=== PATIENT | female | born 1990 | race Two or more races ===

== ENCOUNTER 2022-12-31 00:52 | Emergency (ER) | payer MEDICAID, SELFPAY ==
[2022-12-31 00:55] VITALS: BP 123/89; PULSE 94; RESP 16; TEMP 36.7; O2SAT 99; BMI 38.3
--- NOTE | 2022-12-31 01:11 | PC.NURSE ---
Pt presents to ER for abdominal cramping and nausea Pt states she estimates that she is about 6 weeks and since day has been vomiting often Pt states that yesterday she started experiencing some abdominal cramping and left sided flank pain Pt states this is her second She has not yet seen an OBGYN, an at home test has confirmed this Pt states she was very nauseous with her last as well
[2022-12-31 01:16] LABS: Basophils Percent Auto 0.3 % (0.2-2.0); Eosinophils Percent Auto 0.3 % (0.9-7.0); Hematocrit 39.7 % (36.0-48.0); Hemoglobin 13.6 g/dL (12.0-16.0); Immature Granulocytes Abs Auto 0.03 10^3/uL (0.00-0.03); Immature Granulocytes Pct Auto 0.3 % (0.0-0.5); Lymphocytes Absolute Auto 2.4 10^3/uL (1.2-3.8); Lymphocytes Percent Auto 20.7 % (20.5-60.0); Mean Corpuscular HGB Conc 34.3 g/dL (29.9-35.2); Mean Corpuscular Hemoglobin 30.2 pg (26.7-34.0); Mean Corpuscular Volume 88.2 fL (81.0-99.0); Mean Platelet Volume 11.1 fL (9.5-13.5); Monocytes Absolute Auto 0.5 10^3/uL (0.3-0.8); Monocytes Percent Auto 3.9 % (1.7-12.0); Neutrophils Absolute Auto 8.5 10^3/uL (1.4-6.5); Neutrophils Percent Auto 74.5 % (43.0-75.0); Platelet Count 353 10^3/uL (150-450); Red Cell Distribution Width 12.1 % (11.0-15.0); White Blood Count 11.5 10^3/uL (4.0-11.0)
[2022-12-31 01:47] LABS: Anion Gap 13.6; BUN Creatinine Ratio 10.2; Calcium 8.9 mg/dL (8.5-10.1); Chloride 100 mmol/L (98-107); Estimated GFR (African America >60 (>=60); Estimated GFR (Non-African Ame >60 (>=60); Glucose 103 mg/dL (74-106); HCG Quantitative 15144 mIU/mL; Potassium 3.6 mmol/L (3.5-5.1); Sodium 132 mmol/L (136-145)
[2022-12-31] MEDS: ONDANSETRON PF 4 MG/2 ML VIAL IV (01:53)
[2022-12-31] MEDS: 0.9 % SODIUM CHLORIDE 1,000 ML 999 ML IV (01:53)
--- NOTE | 2022-12-31 01:53 | US_ITS ---
[address] [address] Patient Name: ZULEYKA COBOS MRN: [id number] date: 1990 Sex: F Assigned Patient Location: ER Current Patient Location: ER Accession/Order Number: [id number] Exam Date: 12/31/2022 02:20 Report Date: 12/31/2022 03:13 At the request of: NELSY SHAVER Procedure: US OB transvaginal EXAM: US OB transvaginal HISTORY: left pelvic pain, r/o ectopic COMPARISON: None. TECHNIQUE: Transabdominal ultrasound of the pelvis was performed using color Doppler. FINDINGS: Ultrasound images demonstrate a gravid uterus with a gestational sac with a mean sac diameter of 1.1 cm, indicative of a 5 week 2 day gestation. Within the gestational sac is a well-defined embryo with a crown rump length measuring 0.3 cm indicative of a 5 week 6 day gestation. A cardiac flicker is seen. The placenta is not yet visible due to the early gestational age. The amniotic fluid is unable to be assessed due to the early gestational age. The cervix is closed measuring up to 4.9 cm in length. There is a possible small amount of subchorionic hemorrhage measuring up to 0.8 x 0.5 cm. The right ovary measures up to 1.9 x 2.6 x 1.4 cm, and the left ovary measures up to 2.3 x 2.6 x 2.6 cm. There is a complex cystic area within the left ovary most likely representing a corpus luteal cyst of . Blood flow is noted in both ovaries. No free fluid is noted within the cul-de-sac. US/US OB transvaginal IMPRESSION: 1. Single live intrauterine gestation at approximately 5 weeks 6 days. There is a possible small amount of subchorionic hemorrhage. Recommend follow-up beta hCG and serial ultrasound examinations as clinically indicated. Electronically authenticated by: Anneliese SHINE Date: 12/31/2022 03:13
--- NOTE | 2022-12-31 01:55 | ED.GENADUL1 ---
HPI - General Adult General Chief complaint: Nausea/Vomiting/Diarrhea Stated complaint: 6WKS PREG CRAMPS VOMITING Time Seen by Provider: 12/31/22 00:54 Source: patient Mode of arrival: walk-in Limitations: no limitations History of Present Illness HPI narrative: 32-year-old female to the emergency department with chief complaint nausea without vomiting and left-sided pelvic pain. Patient reports that she is currently six weeks . . She has not had any vaginal bleeding. She has not yet seen her OB or head confirmed IUP. She reports over the last twenty-four hours she has developed a pain in her left pelvic region. He has not had this previously. She denies any dysuria, urgency, frequency, hematuria. She reports normal bowel movements. She denies any abdominal pain. She's been persistently nauseous throughout the day for the last several days which she attributes to the , had similar symptoms with previous . She reports she is not eating or drinking much and feels weak. Related Data Previous Rx's Medication Instructions Recorded ondansetron 4 mg disintegrating 4 mg PO Q8H PRN nausea and 12/31/22 tablet vomiting 4 days #16 tabs Allergies Allergy/AdvReac Type Severity Reaction Status Date / Time No Known Drug Allergies Allergy Verified 12/31/22 00:59 Review of Systems ROS Status of ROS 10 or more systems reviewed and unremarkable except as noted in history and below [facility] Social History Smoking status: Never smoker Exam Narrative Exam Narrative: VITALS: I have reviewed the triage vital signs. GENERAL: Well developed, well appearing adult in no acute distress. NEURO: Alert and oriented. Moves all extremities. Face is symmetric and expressive. EYES: PERRL. No scleral icterus or conjunctival injection. No discharge. HENT: Normocephalic, atraumatic. Hearing is grossly intact. Nares grossly patent and without discharge. Mucous membranes moist. NECK: No JVD. Patient moves neck without restriction. CARDIO: Rhythm regular. Normal rate. No murmur, rub, or gallop. Pulses equal bilaterally in the upper and lower extremity. No lower extremity edema. PULM: Lungs clear to auscultation in all [place]. No wheezes, rales, or rhonchi. No conversational dyspnea. No splinting, stridor, or accessory muscle use. GI/: Abdomen is soft and non-tender. Normoactive bowel sounds. EXTREMITIES: Symmetric muscle bulk. No joint swelling. No clubbing, cyanosis, or deformity. SKIN: Warm and dry. Normal turgor. No rash or lesions appreciated. PSYCH: Mood, affect, and interaction is appropriate to the setting. Constitutional Vital Signs, click to edit/add: Last Vital Signs Temp 98.1 F 12/31/22 00:55 Pulse 94 H 12/31/22 00:55 Resp 16 12/31/22 00:55 BP 123/89 12/31/22 00:55 Pulse Ox 99 12/31/22 00:55 O2 Del Method Room Air 12/31/22 00:55 Course Vital Signs Vital signs: Vital Signs Temperature 98.1 F 12/31/22 00:55 Pulse Rate 94 H 12/31/22 00:55 Respiratory Rate 16 12/31/22 00:55 Blood Pressure 123/89 12/31/22 00:55 Pulse Oximetry 99 12/31/22 00:55 Oxygen Delivery Method Room Air 12/31/22 00:55 Temperature 98.1 F 12/31/22 00:55 Pulse Rate 94 H 12/31/22 00:55 Respiratory Rate 16 12/31/22 00:55 Blood Pressure 123/89 12/31/22 00:55 Pulse Oximetry 99 12/31/22 00:55 Oxygen Delivery Method Room Air 12/31/22 00:55 Medical Decision Making [facility] Narrative Medical decision making narrative: 32-year-old female to the emergency department with chief complaint of left pelvic pain. Nausea this 1st trimester . Stable, patient is afebrile. Six weeks by FDLMP. Basic labs, quantitative hCG are ordered. Zofran for nausea and fluids. Patient agrees with this plan. CBC and chemistry about major abnormality. Her hCG is consistent with stated gestation. Ultrasound is ordered to rule out ectopic. US shows IUP, no ectopic. UA unremarkable. Zofran prescribed. Follow-up with OB. Return discussed. All questions are answered. Patient was discharged home. Medical Records Medical records reviewed: Yes I reviewed the patient's medical records Lab Data Lab results reviewed: Yes I reviewed the patient's lab results Labs: Lab Results 12/31/22 12/31/22 Range/Units 01:00 04:00 WBC 11.5 H (4.0-11.0) 10^3/uL RBC 4.50 (4.20-5.40) 10^6/uL Hgb 13.6 (12.0-16.0) g/dL Hct 39.7 (36.0-48.0) % MCV 88.2 (81.0-99.0) fL MCH 30.2 (26.7-34.0) pg MCHC 34.3 (29.9-35.2) g/dL RDW 12.1 (11.0-15.0) % Plt Count 353 (150-450) 10^3/uL MPV 11.1 (9.5-13.5) fL Neut % (Auto) 74.5 (43.0-75.0) % Lymph % (Auto) 20.7 (20.5-60.0) % [place] % (Auto) 3.9 (1.7-12.0) % Eos % (Auto) 0.3 L (0.9-7.0) % Baso % (Auto) 0.3 (0.2-2.0) % Neut # (Auto) 8.5 H (1.4-6.5) 10^3/uL Lymph # (Auto) 2.4 (1.2-3.8) 10^3/uL [place] # (Auto) 0.5 (0.3-0.8) 10^3/uL Eos # (Auto) 0.0 (0.0-0.7) 10^3/uL Baso # (Auto) 0.0 (0.0-0.1) 10^3/uL Abs Immat Gran (auto) 0.03 (0.00-0.03) 10^3/uL Imm/Tot Granulo (auto) 0.3 (0.0-0.5) % Sodium 132 L (136-145) mmol/L Potassium 3.6 (3.5-5.1) mmol/L Chloride 100 (98-107) mmol/L Carbon Dioxide 22.0 (21.0-32.0) mmol/L Anion Gap 13.6 BUN 10.0 (7.0-18.0) mg/dL Creatinine 0.98 (0.55-1.02) mg/dL Est GFR ( Amer) >60 (>=60) Est GFR (Non-Af Amer) >60 (>=60) BUN/Creatinine Ratio 10.2 Glucose 103 (74-106) mg/dL Calcium 8.9 (8.5-10.1) mg/dL HCG, Quant 27979 mIU/mL Urine Color Yellow (YELLOW) Urine Clarity Clear (CLEAR) Urine pH 6.0 (5.0-9.0) Ur Specific [place] >=1.030 A (1.005-1.025) Urine Protein Negative (NEG/TRACE) mg/dL Urine Glucose (UA) Negative (NEGATIVE) mg/dL Urine Ketones 40 A (NEGATIVE) mg/dL Urine Occult Blood Negative (NEGATIVE) Urine Nitrite Negative (NEGATIVE) Urine Bilirubin Negative (NEGATIVE) Urine Urobilinogen 0.2 (0.2-1.0) EU/dL Ur Leukocyte Esterase Negative (NEGATIVE) Urine RBC 2-5 A (0-2) #/HPF Urine WBC 5-10 A (NONE SEEN) #/HPF Ur Squamous Epith Cells Many A (NONE/RARE) #/LPF Urine Crystals None seen (None Seen) #/HPF Urine Bacteria Large A (NONE SEEN) #/HPF Urine Casts None seen (NONE SEEN) #/LPF Urine Mucus None seen (NONE SEEN) Ur Culture Indicated? Yes Imaging Data US - abdomen: Attestation: I have reviewed the pertinent imaging results. Discharge Plan Discharge Chief Complaint: Nausea/Vomiting/Diarrhea Clinical Impression: Nausea and vomiting during Patient Disposition: Home, Self-Care Time of Disposition Decision: 04:18 Condition: Good Mode of Transportation: Private Vehicle Prescriptions / Home Meds: New ondansetron 4 mg tablet,disintegrating 4 mg PO Q8H PRN (Reason: nausea and vomiting) 4 Days Qty: 16 0RF Print Language: Thai Instructions: Nausea and Vomiting in (ED) Stand Alone Forms: Portal Instructions Referrals: MIGUEL MAX [Primary Care Provider] - 1 week
[2022-12-31 04:09] LABS: Bilirubin Urine NEGATIVE (NEGATIVE); Blood Urine NEGATIVE (NEGATIVE); Clarity Urine CLEAR (CLEAR); Color Urine YELLOW (YELLOW); Glucose Urine UA NEGATIVE (NEGATIVE); Ketones Urine 40 mg/dL (NEGATIVE); Leukocyte Esterase Urine NEGATIVE (NEGATIVE); Nitrite Urine NEGATIVE (NEGATIVE); Protein Urine NEGATIVE (NEG/TRACE); Specific Gravity Urine >=1.030 (1.005-1.025); Urobilinogen Urine 0.2 EU/dL (0.2-1.0)
[2022-12-31 04:16] LABS: Bacteria Urine LARGE #/HPF (NONE SEEN); Cast Seen? NONE SEEN #/LPF (NONE SEEN); Crystals Seen? None Seen #/HPF (None Seen); Mucus Urine NONE SEEN (NONE SEEN); Squamous Epithelial Cell Urine MANY #/LPF (NONE/RARE); Urine Culture Indicated YES
== END 2022-12-31 04:43 | disposition home or self-care (01) ==
PROVIDERS: Emergency Provider Student in an Organized Health Care Education/Training Program; PCP Nurse Practitioner Family
DX: O26.891 Other specified pregnancy related conditions, first trimester (principal); R11.2 Nausea with vomiting, unspecified; Z3A.01 Less than 8 weeks gestation of pregnancy
CPT/HCPCS: 36415; 76817; 80048; 81001; 84702; 85025; 87086; 96361; 96374; 99285

== ENCOUNTER 2023-01-04 23:09 | Emergency (ER) | payer MEDICAID, SELFPAY ==
[2023-01-04 23:13] VITALS: BP 157/93; PULSE 89; RESP 16; TEMP 36.6; O2SAT 99; BMI 38.3
--- NOTE | 2023-01-04 23:30 | ED_ITS ---
HPI - General Chief complaint: Nausea/Vomiting/Diarrhea Stated complaint: VOMITING/CRAMPING 7WKS PREG Time Seen by Provider: 01/04/23 23:22 Source: patient Mode of arrival: walk-in History of Present Illness HPI Narrative: 32-year-old female who is approximately six weeks presents for some vomiting and cramping. She has been on Zofran and hasn't been having good bowel movements. She feels constipated. No fever or vaginal bleeding. Her 1st appointment with her OB is in about ten days. Related Data Previous Rx's Medication Instructions Recorded ondansetron 4 mg disintegrating 4 mg PO Q8H PRN nausea and 12/31/22 tablet vomiting 4 days #16 tabs doxylamine 10 mg-pyridoxine (vit 1 tab PO TID PRN nausea #30 tabs 01/04/23 B6) 10 mg tablet,delayed release (Diclegis) Allergies Allergy/AdvReac Type Severity Reaction Status Date / Time No Known Drug Allergies Allergy Verified 12/31/22 00:59 Review of Systems ROS Narrative A ten point review of systems is negative except as noted above. PFSH PFSH Social History Smoking status: Never smoker Exam Narrative Exam Narrative: Nurses note and vital signs reviewed and patient is not hypoxic. General: The patient appears well and in no apparent distress. Patient is resting comfortably on cart. Skin: Warm, dry, no pallor noted. There is no rash noted. Head: Normocephalic, atraumatic Eye: Normal conjunctiva, no drainage Ears, Nose, Mouth, and Throat: oral mucosa is moist. Nares patent. Cardiovascular: Regular Rate and Rhythm Respiratory: Patient is in no distress, no accessory muscle use, lungs are clear to auscultation, no wheezing, rales or rhonchi Back: non-tender GI: Normal bowel sounds, no tenderness to palpation, no masses appreciated. No rebound, guarding, or rigidity noted. Musculoskeletal: The patient has no evidence of calf tenderness, no pitting edema, symmetrical pulses noted bilaterally Neurological: A&O, normal speech Psychiatric: Cooperative Constitutional Vital Signs, click to edit/add: Last Vital Signs Temp 97.8 F 01/04/23 23:13 Pulse 89 01/04/23 23:13 Resp 16 01/04/23 23:13 BP 157/93 H 01/04/23 23:13 Pulse Ox 99 10/08/23 23:13 O2 Del Method Room Air 01/04/23 23:13 Course Vital Signs Vital signs: Vital Signs Temperature 97.8 F 01/04/23 23:13 Pulse Rate 89 01/04/23 23:13 Respiratory Rate 16 01/04/23 23:13 Blood Pressure 157/93 H 01/04/23 23:13 Pulse Oximetry 99 01/04/23 23:13 Oxygen Delivery Method Room Air 01/04/23 23:13 Temperature 97.8 F 01/04/23 23:13 Pulse Rate 89 01/04/23 23:13 Respiratory Rate 16 01/04/23 23:13 Blood Pressure 157/93 H 01/04/23 23:13 Pulse Oximetry 99 01/04/23 23:13 Oxygen Delivery Method Room Air 01/04/23 23:13 MDM - OB/Uterine Contractions MDM Narrative Medical decision making narrative: The patient does not have a urinary tract infection. My clinical impression is that she is constipated from the Zofran which she will discontinue. She was prescribed Diclegis instead. MiraLAX was also recommended. Differential Diagnosis Differential diagnosis: Likely other (constipation, urinary tract infection) Lab Data Attestation: I reviewed the patient's lab results. Labs: Lab Results 01/04/23 Range/Units 23:35 Urine Color Yellow (YELLOW) Urine Clarity Clear (CLEAR) Urine pH 7.0 (5.0-9.0) Ur Specific [place] 1.020 (1.005-1.025) Urine Protein 30 A (NEG/TRACE) mg/dL Urine Glucose (UA) Negative (NEGATIVE) mg/dL Urine Ketones Trace A (NEGATIVE) mg/dL Urine Occult Blood Negative (NEGATIVE) Urine Nitrite Negative (NEGATIVE) Urine Bilirubin Small A (NEGATIVE) Urine Urobilinogen 0.2 (0.2-1.0) EU/dL Ur Leukocyte Esterase Negative (NEGATIVE) Urine RBC 0-2 (0-2) #/HPF Urine WBC 2-5 A (NONE SEEN) #/HPF Ur Squamous Epith Cells Few A (NONE/RARE) #/LPF Urine Crystals None seen (None Seen) #/HPF Urine Bacteria Large A (NONE SEEN) #/HPF Urine Casts None seen (NONE SEEN) #/LPF Urine Mucus Moderate A (NONE SEEN) Ur Culture Indicated? Yes Discharge Plan Discharge Chief Complaint: Nausea/Vomiting/Diarrhea Clinical Impression: Constipation Patient Disposition: Home, Self-Care Time of Disposition Decision: 23:53 Condition: Good Mode of Transportation: Private Vehicle Prescriptions / Home Meds: New doxylamine-pyridoxine (vit B6) [Diclegis] 10-10 mg tablet,delayed release (DR/EC) 1 tab PO TID PRN (Reason: nausea) Qty: 30 0RF No Action ondansetron 4 mg tablet,disintegrating 4 mg PO Q8H PRN (Reason: nausea and vomiting) 4 Days Qty: 16 0RF Instructions: Constipation (ED) Additional Instructions: Discontinue Zofran Use [id number] MiraLAX for constipation Stand Alone Forms: Portal Instructions Referrals: MIGUEL MAX [Primary Care Provider] - 1 week
[2023-01-04 23:45] LABS: Bilirubin Urine SMALL (NEGATIVE); Blood Urine NEGATIVE (NEGATIVE); Clarity Urine CLEAR (CLEAR); Color Urine YELLOW (YELLOW); Glucose Urine UA NEGATIVE (NEGATIVE); Ketones Urine TRACE mg/dL (NEGATIVE); Leukocyte Esterase Urine NEGATIVE (NEGATIVE); Nitrite Urine NEGATIVE (NEGATIVE); Protein Urine 30 mg/dL (NEG/TRACE); Urobilinogen Urine 0.2 EU/dL (0.2-1.0)
[2023-01-04 23:53] LABS: Bacteria Urine LARGE #/HPF (NONE SEEN); Cast Seen? NONE SEEN #/LPF (NONE SEEN); Crystals Seen? None Seen #/HPF (None Seen); Mucus Urine MODERATE (NONE SEEN); RBC Urine 0-2 #/HPF (0-2); Squamous Epithelial Cell Urine FEW #/LPF (NONE/RARE); Urine Culture Indicated YES
== END 2023-01-05 00:04 | disposition home or self-care (01) ==
PROVIDERS: Emergency Provider Emergency Medicine; PCP Nurse Practitioner Family
DX: O26.891 Other specified pregnancy related conditions, first trimester (principal); K59.00 Constipation, unspecified; Z3A.01 Less than 8 weeks gestation of pregnancy
CPT/HCPCS: 81001; 87086; 87150; 99283

== ENCOUNTER 2023-01-18 15:52 | Emergency (ER) | payer MEDICAID, SELFPAY ==
[2023-01-18 15:55] VITALS: BP 130/78; PULSE 92; RESP 16; TEMP 36.8; O2SAT 99; BMI 36.8
--- NOTE | 2023-01-18 16:09 | ED.NAVMDI1 ---
HPI - Nausea/Vomiting/Diarrhea General Chief complaint: Nausea/Vomiting/Diarrhea Stated complaint: - Less then 20 wks, Nausea/Vomiting Time Seen by Provider: 01/18/23 15:53 Source: patient Mode of arrival: walk-in Limitations: no limitations History of Present Illness HPI Narrative: Patient is a 32 year old female at approximately 8 weeks of who returns to the ED for the third time in 2 weeks for nausea and vomiting. Patient had an ultrasound showing a viable IUP at 6 weeks on 01/30/23. She states she has continued to have nausea and vomiting for several weeks, made worse by zofran she was prescribed. She states her OB prescribed a different medication that was not approved by insurance. She has had no significant abdominal pain, no diarrhea, no vaginal bleeding or fluid leakage. No urinary symptoms. No other medications taken prior to arrival. Related Data Previous Rx's Medication Instructions Recorded ondansetron 4 mg disintegrating 4 mg PO Q8H PRN nausea and 12/31/22 tablet vomiting 4 days #16 tabs doxylamine 10 mg-pyridoxine (vit 1 tab PO TID PRN nausea #30 tabs 01/04/23 B6) 10 mg tablet,delayed release (Diclegis) metoclopramide HCl 10 mg tablet 10 mg PO Q6H PRN nausea and 01/18/23 (Reglan) vomiting #12 tabs Allergies Allergy/AdvReac Type Severity Reaction Status Date / Time No Known Drug Allergies Allergy Verified 12/31/22 00:59 Review of Systems ROS Constitutional Denies: fever or chills Ears, nose, mouth, and throat Denies: dry mouth Cardiovascular Denies: chest pain Respiratory Denies: shortness of breath or cough Gastrointestinal Reports: nausea and vomiting; Denies: abdominal pain or diarrhea Genitourinary Denies: painful urination Integumentary/Breast Denies: rash Neurological Reports: headache PFSH PFSH Social History Smoking status: Never smoker Exam Narrative Exam Narrative: Gen.: Awake, alert, in no distress Head: Normocephalic, atraumatic ENT: Moist mucous membranes Respiratory: No respiratory distress Gastrointestinal: Abdomen is soft, nondistended and nontender to palpation Extremities: Moves extremities equally Psych: Normal mood and affect Neuro: No focal neuro deficit Skin: Warm, dry, intact Constitutional Vital Signs, click to edit/add: Last Vital Signs Temp 98.2 F 01/18/23 15:55 Pulse 88 01/18/23 16:44 Resp 16 01/18/23 16:44 BP 111/68 01/18/23 16:44 Pulse Ox 99 01/18/23 16:44 O2 Del Method Room Air 01/18/23 16:44 Course Vital Signs Vital signs: Vital Signs Temperature 98.2 F 01/18/23 15:55 Pulse Rate 92 H 01/18/23 15:55 Respiratory Rate 16 01/18/23 15:55 Blood Pressure 130/78 01/18/23 15:55 Pulse Oximetry 99 01/18/23 15:55 Oxygen Delivery Method Room Air 01/18/23 15:55 Temperature 98.2 F 01/18/23 15:55 Pulse Rate 88 01/18/23 16:44 Respiratory Rate 16 01/18/23 16:44 Blood Pressure 111/68 01/18/23 16:44 Pulse Oximetry 99 01/18/23 16:44 Oxygen Delivery Method Room Air 01/18/23 16:44 MDM - Nausea/Vomiting/Diarrhea MDM Narrative Medical decision making narrative: patient's previous urine culture was positive for group B strep, she was treated with Keflex per pharmacy records patient treated with IV fluids, Reglan, Benadryl. Lab studies are unremarkable, minimal hyponatremia has improved. patient reports feeling better, she is able to tolerate ice chips in the Emergency Room. She will be discharged with Reglan to follow-up with her [employer]. Abdomen is soft and benign with stable vital signs in the Emergency Room discharge. Return to the Emergency Room if symptoms change or worsen. Medical Records Attestation: I reviewed the patient's medical records. Lab Data Attestation: I reviewed the patient's lab results. Labs: Lab Results 01/18/23 01/18/23 Range/Units 16:10 16:41 WBC 9.4 (4.0-11.0) 10^3/uL RBC 4.32 (4.20-5.40) 10^6/uL Hgb 13.2 (12.0-16.0) g/dL Hct 38.8 (36.0-48.0) % MCV 89.8 (81.0-99.0) fL MCH 30.6 (26.7-34.0) pg MCHC 34.0 (29.9-35.2) g/dL RDW 11.9 (11.0-15.0) % Plt Count 337 (150-450) 10^3/uL MPV 11.2 (9.5-13.5) fL Neut % (Auto) 81.8 H (43.0-75.0) % Lymph % (Auto) 13.7 L (20.5-60.0) % [place] % (Auto) 3.4 (1.7-12.0) % Eos % (Auto) 0.6 L (0.9-7.0) % Baso % (Auto) 0.3 (0.2-2.0) % Neut # (Auto) 7.7 H (1.4-6.5) 10^3/uL Lymph # (Auto) 1.3 (1.2-3.8) 10^3/uL [place] # (Auto) 0.3 (0.3-0.8) 10^3/uL Eos # (Auto) 0.1 (0.0-0.7) 10^3/uL Baso # (Auto) 0.0 (0.0-0.1) 10^3/uL Abs Immat Gran (auto) 0.02 (0.00-0.03) 10^3/uL Imm/Tot Granulo (auto) 0.2 (0.0-0.5) % Sodium 135 L (136-145) mmol/L Potassium 3.6 (3.5-5.1) mmol/L Chloride 100 (98-107) mmol/L Carbon Dioxide 24.7 (21.0-32.0) mmol/L Anion Gap 13.9 BUN 12.0 (7.0-18.0) mg/dL Creatinine 0.86 (0.55-1.02) mg/dL Est GFR ( Amer) >60 (>=60) Est GFR (Non-Af Amer) >60 (>=60) BUN/Creatinine Ratio 14.0 Glucose 93 (74-106) mg/dL Calcium 9.0 (8.5-10.1) mg/dL Total Bilirubin 0.5 (0.2-1.0) mg/dL AST 8 L (15-37) U/L ALT 22 (14-59) U/L Alkaline Phosphatase 77 (46-116) U/L Total Protein 7.8 (6.4-8.2) g/dL Albumin 3.4 (3.4-5.0) g/dL Globulin 4.4 g/dL Albumin/Globulin Ratio 0.8 Urine Color Dk. yellow (YELLOW) Urine Clarity Slightly cloudy A (CLEAR) Urine pH 6.0 (5.0-9.0) Ur Specific [place] >=1.030 A (1.005-1.025) Urine Protein 100 A (NEG/TRACE) mg/dL Urine Glucose (UA) Negative (NEGATIVE) mg/dL Urine Ketones >=80 A (NEGATIVE) mg/dL Urine Occult Blood Negative (NEGATIVE) Urine Nitrite Negative (NEGATIVE) Urine Bilirubin Moderate A (NEGATIVE) Urine Urobilinogen 1.0 (0.2-1.0) EU/dL Ur Leukocyte Esterase Negative (NEGATIVE) Urine RBC None seen (0-2) #/HPF Urine WBC 0-2 A (NONE SEEN) #/HPF Ur Squamous Epith Cells Moderate A (NONE/RARE) #/LPF Urine Crystals None seen (None Seen) #/HPF Urine Bacteria Moderate A (NONE SEEN) #/HPF Urine Casts None seen (NONE SEEN) #/LPF Urine Mucus Moderate A (NONE SEEN) Ur Culture Indicated? Yes Discharge Plan Discharge Chief Complaint: Nausea/Vomiting/Diarrhea Clinical Impression: Nausea and vomiting during Patient Disposition: Home, Self-Care Time of Disposition Decision: 17:14 Condition: Good Prescriptions / Home Meds: New metoclopramide HCl [Reglan] 10 mg tablet 10 mg PO Q6H PRN (Reason: nausea and vomiting) Qty: 12 0RF No Action doxylamine-pyridoxine (vit B6) [Diclegis] 10-10 mg tablet,delayed release (DR/EC) 1 tab PO TID PRN (Reason: nausea) Qty: 30 0RF ondansetron 4 mg tablet,disintegrating 4 mg PO Q8H PRN (Reason: nausea and vomiting) 4 Days Qty: 16 0RF Instructions: Nausea and Vomiting in (ED) Additional Instructions: Follow up with your OB as scheduled Stand Alone Forms: Portal Instructions Referrals: MIGUEL MAX [Primary Care Provider] - 1 week
[2023-01-18 16:19] LABS: Basophils Percent Auto 0.3 % (0.2-2.0); Eosinophils Absolute Auto 0.1 10^3/uL (0.0-0.7); Eosinophils Percent Auto 0.6 % (0.9-7.0); Hematocrit 38.8 % (36.0-48.0); Hemoglobin 13.2 g/dL (12.0-16.0); Immature Granulocytes Abs Auto 0.02 10^3/uL (0.00-0.03); Immature Granulocytes Pct Auto 0.2 % (0.0-0.5); Lymphocytes Absolute Auto 1.3 10^3/uL (1.2-3.8); Lymphocytes Percent Auto 13.7 % (20.5-60.0); Mean Corpuscular Hemoglobin 30.6 pg (26.7-34.0); Mean Corpuscular Volume 89.8 fL (81.0-99.0); Mean Platelet Volume 11.2 fL (9.5-13.5); Monocytes Absolute Auto 0.3 10^3/uL (0.3-0.8); Monocytes Percent Auto 3.4 % (1.7-12.0); Neutrophils Absolute Auto 7.7 10^3/uL (1.4-6.5); Neutrophils Percent Auto 81.8 % (43.0-75.0); Platelet Count 337 10^3/uL (150-450); Red Blood Count 4.32 10^6/uL (4.20-5.40); Red Cell Distribution Width 11.9 % (11.0-15.0); White Blood Count 9.4 10^3/uL (4.0-11.0)
[2023-01-18] MEDS: DIPHENHYDRAMINE HCL 50 MG/ML (1ML) VIAL 25 MG IV (16:28)
[2023-01-18] MEDS: METOCLOPRAMIDE HCL 10 MG/2 ML VIAL INJ (16:29)
[2023-01-18 16:33] LABS: Alanine Aminotransferase 22 U/L (14-59); Albumin Globulin Ratio 0.8; Albumin Level 3.4 g/dL (3.4-5.0); Alkaline Phosphatase 77 U/L (46-116); Anion Gap 13.9; Aspartate Amino Transferase 8 U/L (15-37); Bilirubin Total 0.5 mg/dL (0.2-1.0); Carbon Dioxide 24.7 mmol/L (21.0-32.0); Chloride 100 mmol/L (98-107); Estimated GFR (African America >60 (>=60); Estimated GFR (Non-African Ame >60 (>=60); Globulin 4.4 g/dL; Glucose 93 mg/dL (74-106); Potassium 3.6 mmol/L (3.5-5.1); Sodium 135 mmol/L (136-145); Total Protein 7.8 g/dL (6.4-8.2)
[2023-01-18 16:44] VITALS: BP 111/68; PULSE 88; RESP 16; O2SAT 99
[2023-01-18 16:48] LABS: Bilirubin Urine MODERATE (NEGATIVE); Blood Urine NEGATIVE (NEGATIVE); Color Urine DK. YELLOW (YELLOW); Glucose Urine UA NEGATIVE (NEGATIVE); Ketones Urine >=80 mg/dL (NEGATIVE); Leukocyte Esterase Urine NEGATIVE (NEGATIVE); Nitrite Urine NEGATIVE (NEGATIVE); Protein Urine 100 mg/dL (NEG/TRACE); Specific Gravity Urine >=1.030 (1.005-1.025)
[2023-01-18 16:49] LABS: Clarity Urine SLIGHTLY CLOUDY (CLEAR); Urine Microscopic Indicated YES
[2023-01-18 16:54] LABS: Bacteria Urine MODERATE #/HPF (NONE SEEN); Crystals Seen? None Seen #/HPF (None Seen); Mucus Urine MODERATE (NONE SEEN); RBC Urine NONE SEEN #/HPF (0-2); Squamous Epithelial Cell Urine MODERATE #/LPF (NONE/RARE); WBC Urine 0-2 #/HPF (NONE SEEN)
[2023-01-18 16:55] LABS: Cast Seen? NONE SEEN #/LPF (NONE SEEN); Urine Culture Indicated YES
== END 2023-01-18 17:25 | disposition home or self-care (01) ==
PROVIDERS: Physician Assistant; Emergency Provider Emergency Medicine; PCP Nurse Practitioner Family
DX: O26.891 Other specified pregnancy related conditions, first trimester (principal); R11.2 Nausea with vomiting, unspecified; Z3A.08 8 weeks gestation of pregnancy
CPT/HCPCS: 36415; 80053; 81001; 85025; 87086; 96372; 96374; 99285

== ENCOUNTER 2023-03-05 13:45 | Outpatient (OUT) | payer OTHER, SELFPAY ==
--- NOTE | 2023-03-05 13:47 | US_ITS ---
The [address] [address] Patient Name: ZULEYKA COBOS MRN: [id number] date: 1990 Sex: F Assigned Patient Location: US Current Patient Location: US Accession/Order Number: [id number] Exam Date: 03/05/2023 13:55 Report Date: 03/05/2023 14:45 At the request of: MIGUEL MAX Procedure: US thyroid EXAMINATION: US thyroid HISTORY: Enlarged Thyroid E04.9 COMPARISON: No relevant comparison available. TECHNIQUE: Sonographic images of the thyroid gland were obtained. FINDINGS: The right thyroid lobe is normal in size, contour and echotexture measuring 4.5 x 1.6 x 1.7 cm. Single 5 mm cystic lesion. The thyroid isthmus measures 3.4 mm. Homogeneous. No focal nodule The left thyroid lobe is normal in size, contour and echotexture measuring 4.6 x 1.2 x 1.7 cm. Single 3 mm cystic area. No significant solid thyroid nodules observed US/US thyroid IMPRESSION: Normal thyroid size with no significant solid nodules Electronically authenticated by: DALIA STUART Date: 03/05/2023 14:45
== END 2023-03-05 13:46 | disposition home or self-care (01) ==
LOC: US 13:46
PROVIDERS: PCP Nurse Practitioner Family; Visit Provider Nurse Practitioner Family
DX: E04.9 Nontoxic goiter, unspecified (principal)
CPT/HCPCS: 76536

== ENCOUNTER 2023-04-08 15:20 | Emergency (ER) | payer OTHER, SELFPAY ==
--- OUTSIDE RECORDS SUMMARY | 2023-04-08 15:30 | XMS_ITS | CCD ---
Author Name Unknown Address [address] [place] [address] Organization [facility] [place] Care Team Providers Care Route Driver Name Role Phone Sal Bautista Primary Care Provider Cynthia Amaya Unavailable Mabel Marte Unavailable RAMONA Sanders Attending Provider Abbey Sanders Unavailable SAL BAUTISTA Primary Care Physician [phone] DR MIGUEL MAX Primary Care Unavailable MARIA DEL CARMEN, DR ARTURO Reyes Admitting Unavailgrey JOYCE, DR ARTURO Reyes Attending Unavailabl e PETE ., LEONARD MUNSON Consulting UnavailSISSY Sun Consulting Unavailable NEFTALY ., BOSTON Admitting Unavailable NEFTALY ., B[place]ON Attending Unavailable MANSOOR, DR MIGUEL Eddy Primary Care Unavailable NEFTALY ., [place] Consulting Unavailable PATRICK NEW Consulting Unavailable [place], DR DALIA Macedo Consulting Unavailable NEFTALY ., B[place]ON Admitting Unavailable BOSTON AMARO Attending Unavailable MANSOOR, DR MIGUEL Eddy Primary Care Unavailable PETE .LEONARD Consulting UnavailBOSTON Peterson Consulting Unavailable MANSOOR, DR MIGUEL Eddy Primary Care Unavailable NILL ., DR HEWITT Attending Unavailable NILL ., DR HEWITT Admitting Unavailable MANSOOR, DR MIGUEL Eddy Primary Care Unavailable NILL ., DR HEWITT Admitting Unavailable NILL ., DR HEWITT Attending Unavailable NILL ., DR HEWITT Consulting Unavailable JOHN PARIKH Consulting Unavailable RONEN HAWKINS Consulting Unavailable MANSOOR, DR MIGUEL Eddy Primary Care Unavailable NICHOLAS, DR GABE Eddy Consulting Unavailable MANSOOR, DR MIGUEL Eddy Admitting Unavailable MANSOOR, DR MIGUEL Eddy Attending Unavailable MANSOOR, DR MIGUEL Eddy Consulting Unavailable SIVAKUMAR .NELSY Admitting Unavailable NELSY SALDANA Attending Unavailable PETE .LEONARD Consulting Unavailgrey MAX, DR MIGUEL Eddy Primary Care Unavailable NELSY SALDANA Consulting Unavailable OLIVIAL, Marcelina R Attending Unavailable NILL, Marcelina R Attending Unavailable NILL, Marcelina R Attending Unavailable Sanders, Abbey Sanchez Attending Unavailable Sanders, Abbey Sanchez Admitting Unavailable NO FAMILY, PHYSICIAN Primary Care Unavailable IRA TINA F Referring Unavail able FURLONG, SAL G Primary Care Unavailable IRA TIAN F Referring Unavail able FURLONG, SAL G Primary Care Unavailable Allergies Allergy Classification Reported Allergen(s) Allergy Type Date of Onset Reaction(s) Facility (1 source) No Known Medication Allergies; Translations: [No Known Medication Allergies] Propensity to adverse reactions (disorder) [facility] Repository Medications Current Medications Medication Drug Class(es) Dates Sig (Normalized) Sig (Original) acetaminophen 325 mg oral tablet (1 source) Start: 12-07-2019 take 650 mg by mouth every four hours as needed for fever, then take 4000 mg by mouth every twenty-four hours as needed for fever 650 mg, Oral, EVERY 4 HOURS PRN, Fever, Fever >100.5 F (38 C) or pain 1-10, Starting Thu12/07/19 at 2344 Maximum dose of acetaminophen is 4000 mg from all sources in 24 hours. amoxicillin 500 mg oral capsule (1 source) Penicillin-class Antibacterial Start: 07-30-2022 take 1 capsule by mouth every eight hours Amoxicillin 500 MG 1 capsule Orally three times a day for 10 day(s) July, Active benzocaine 200 mg/ml / menthol 5 mg/ml topical spray (1 source) Standardized Chemical Allergen Start: 12-08-2019 apply 1 dose topically twice daily Topical, 2 TIMES DAILY, First dose on Lou 12/08/19 at 0000 Apply to perineal area. Patient is capable and may self administer at bedside. docusate sodium 100 mg oral capsule (1 source) Start: 12-07-2019 take 100 mg by mouth twice daily as needed for constipation 100 mg, Oral, 2 TIMES DAILY PRN, Constipation, Starting Thu12/07/19 at 2344 Do not crush or break. 250 ml glucose 50 mg/ml / sodium chloride 9 mg/ml injection (1 source) Start: 05-14-2019 dextrose 5 % and 0.9 % sodium chloride infusion ibuprofen 800 mg oral tablet (1 source) Nonsteroidal Anti-inflammatory Drug Start: 12-08-2019 take 800 mg by mouth every eight hours 800 mg, Oral, EVERY 8 HOURS, First dose on Lou 12/08/19 at 0000 Do not crush or break. lansinoh lanolin ointment (1 source) Start: 12-07-2019 Topical, PRN, Dry Skin, nipple discomfort, Starting 12/07/19 at 2344, metoclopramide 10 mg oral tablet (1 source) Dopamine-2 Receptor Antagonist Start: 05-09-2019 take 1 tablet by mouth three times daily metoclopramide (REGLAN) 10 MG tablet Take 1 tablet by mouth 3 times daily 30 tablet 0 05/09/2019 Active pantoprazole 40 mg delayed release oral tablet (1 source) Proton Pump Inhibitor Start: 07-23-2022 take 1 tablet by mouth once daily Protonix 40 mg Tab-DR 40 mg = 1 tab(s), Oral, Daily, # 30 tab(s), Refills(s) 3, Pharmacy: [id number], 165, cm, 07/23/22 13:58:00 EDT, Height/Length Dosing, 104.5, kg, 07/23/22 13:58:00 EDT, Weight Dosing Start Date: 07/23/22 Status: Ordered Vit-Fe Fumarate-FA ( VITAMIN) 27-0.8 MG TABS (4 sources) take 1 tablet by mouth once daily Vit-Fe Fumarate-FA ( VITAMIN) 27-0.8 MG TABS Take 1 tablet by mouth daily 0 Active Vit-Fe Fumarate-FA ( VITAMIN) 27-0.8 MG TABS Take 1 tablet by mouth 0 Active promethazine hydrochloride 25 mg oral tablet (1 source) Phenothiazine Start: 05-02-2019 End: 06-01-2019 take 1 tablet by mouth three times daily as needed for nausea promethazine (PHENERGAN) 25 MG tablet Indications: Nausea and vomiting, intractability of vomiting not specified, unspecified vomiting type Take 1 tablet by mouth 3 times daily as needed for Nausea 30 tablet 0 05/02/2019 06/01/2019 Active 3 ml sodium chloride 9 mg/ml injection (3 sources) Start: 12-08-2019 10 mL, Intrave nous, EVERY 12 HOURS SCHEDULED (2 times per day), First dose on Thu12/08/19 at 0900, Start: 12-07-2019 take 10 mL intravenous route o nce 10 mL, Intravenous, PRN, Line Care, Starting Thu12/07/19 at 2344 After every IV line use Start: 05-14-2019 End: 05-14-2019 0.9 % sodium chloride bolus valACYclovir 1000 mg oral tablet (1 source) Herpesvirus Nucleoside Analog DNA Polymerase Inhibitor, Herpes Simplex Virus Nucleoside Analog DNA Polymerase Inhibitor, Herpes Zoster Virus Nucleoside Analog DNA Polymerase Inhibitor Start: 02-26-2021 valACYclovir HCl 1 GM 1 tablet Orally twice for 7 days 30 Jan, 2021 Active witch nick 500 mg/ml medicated pad (1 source) Start: 12-08-2019 apply 1 dose topically twice daily Topical, 2 TIMES DAILY, First dose on Thu12/08/19 at 0000 Apply to perineal area. Patient is capable and may self administer at bedside. {24 (drospirenone 4 MG Oral Tablet) / 4 (Inert Ingredients 1 MG Oral Tablet) } Pack [Slynd] (1 source) Start: 07-23-2022 take 1 tablet by mouth once daily Slynd 4 mg oral tablet 4 mg = 1 tab(s), Oral, Daily, Refills(s) 0 Start Date: 07/23/22 Status: Ordered Completed/Discontinued Medications Medication Drug Class(es) Dates Sig (Normalized) Sig (Original) calcium chloride 0.0014 meq/ml / potassium chloride 0.004 meq/ml / sodium chloride 0.103 meq/ml / sodium lactate 0.028 meq/ml injectable solution (1 source) Start: 12-07-2019 End: 12-07-2019 lactated ringers infusion cefdinir 300 mg oral capsule (1 source) Cephalosporin Antibacterial Start: 05-12-2014 take 1 capsule by mouth every twelve hours Omnicef 300 MG 1 capsule Orally every 12 hrs for 10 day(s) Apr, Not-Taking cephalexin 500 mg oral capsule (2 sources) Cephalosporin Antibacterial Start: 05-14-2019 End: 05-21-2019 cephALEXin (KEFLEX) capsule 500 mg 2 ml ondansetron 2 mg/ml injection (5 sources) Serotonin-3 Receptor Antagonist Start: 12-07-2019 End: 12-07-2019 ondansetron (ZOFRAN) injection 4 mg Start: 05-17-2019 End: 12-09-2019 take 1 tablet by mouth every eight hours as needed for nausea ondansetron (ZOFRAN ODT) 4 MG disintegrating tablet Take 1 tablet by mouth every 8 hours as needed for Nausea or Vomiting 30 tablet 3 05/17/2019 12/09/2019 Discontinued (Stop Taking at Discharge) Start: 05-14-2019 End: 05-14-2019 ondansetron (ZOFRAN) injecti on 4 mg Start: 05-14-2019 take 1 tablet by imtiaz th every eight hours as needed for nausea ondansetron (ZOFRAN ODT) 4 MG disintegrating tablet Take 1 tablet by mouth every 8 hours as needed for Nausea or Vomiting 10 tablet 0 05/14/2019 Active oxytocin (PITOCIN) 30 Units in sodium chloride 0.9 % 500 mL infusion (1 source) Start: 12-07-2019 End: 12-07-2019 oxytocin (PITOCIN) 30 Units in sodium chloride 0.9 % 500 mL infusion 200 ml ropivacaine hydrochloride 2 mg/ml injection (1 source) Amide Local Anesthetic Start: 12-07-2019 End: 12-07-2019 ropivacaine (NAROPIN) 0.2% injection 0.2% Problems Active Problems Problem Classification Problem Date Documented Date Episodic/Chronic Abdominal pain (20 sources) Pelvic and perineal pain; Translations: [Epigastric pain] Onset: 06-07-2017 Resolved: 12-09-2019 04-19-2019 Episodic Bacterial infection; unspecified site (1 source) Other specified bacterial agents as the cause of diseases classified elsewhere Episodic Biliary tract disease (3 sources) Cholelithiasis without obstruction; Translations: [Calculus of gallbladder without cholecystitis without obstruction] Onset: 07-23-2022 Episodic Esophageal disorders (8 sources) Gastroesophageal reflux disease; Translations: [Gastro-esophageal reflux disease without esophagitis] Onset: 06-05-2017 04-19-2019 Chronic Immunizations and screening for infectious disease (6 sources) Contact with and (suspected) exposure to other viral communicable diseases; Translations: [Contact with and (suspected) exposure to other viral communicable diseases Z20.828] Onset: 01-11-2021 Resolved: 01-11-2021 Episodic Menstrual disorders (2 sources) Amenorrhea; Translations: [Amenorrhea, unspecified] Onset: 01-14-2023 Chronic Nausea and vomiting (2 sources) Nausea and vomiting; Translations: [Nausea with vomiting, unspecified] Onset: 07-14-2022 Episodic Nutritional deficiencies (6 sources) Vitamin D deficiency; Translations: [Vitamin D deficiency, unspecified] Onset: 06-05-2017 04-19-2019 Chronic Other aftercare (1 source) intermediate (current) use of hormonal contraceptives; Translations: [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] Onset: 05-20-2022 Episodic Other complications of (1 source) Obesity complicating , first trimester; Translations: [Obesity complicating , first trimester] Onset: 01-14-2023 Chronic Other nutritional; endocrine; and metabolic disorders (1 source) Body mass index 40+ - severely obese Chronic Other nutritional; endocrine; and metabolic disorders (1 source) Body mass index 30+ - obesity 07-23-2022 Chronic Other and delivery including normal (9 sources) Delivery normal; Translations: [Term ] Onset: 12-07-2019 Resolved: 12-09-2019 12-09-2019 Episodic Other upper respiratory infections (4 sources) Acute upper respiratory infection, unspecified; Translations: [Acute pharyngitis, unspecified] Onset: 01-11-2021 Resolved: 01-11-2021 Episodic Residual codes; unclassified (1 source) Gestation period, 36 weeks; Translations: [36 weeks gestation of ] Episodic Thyroid disorders (7 sources) Hypothyroidism; Translations: [Hypothyroidism, unspecified] Onset: 06-05-2017 04-19-2019 Chronic Unclassified (1 source) COUGH, UNSPECIFIED; Translations: [COUGH, UNSPECIFIED] Onset: 05-20-2022 Urinary tract infections (1 source) Cystitis, unspecified without hematuria; Translations: [CYSTITIS UNS WITHOUT HEMATURIA] Onset: 06-23-2022 Episodic Past or Other Problems Problem Classification Problem Date Documented Date Episodic/Chronic Abdominal hernia (6 sources) Hiatal hernia; Translations: [Diaphragmatic hernia without obstruction or gangrene] Onset: 06-10-2017 04-19-2019 Episodic Appendicitis and other appendiceal conditions (8 sources) Appendicitis; Translations: [Unspecified appendicitis] Onset: 08-25-2018 04-19-2019 Episodic Genitourinary symptoms and ill-defined conditions (6 sources) Dysuria; Translations: [Retention of urine, unspecified] Onset: 06-19-2022 Episodic Inflammatory diseases of female pelvic organs (1 source) Acute vaginitis; Translations: [Acute vaginitis] Onset: 07-15-2022 Episodic Other aftercare (1 source) Other fpc (current) drug therapy; Translations: [OTH PENITENTIARY CURRENT DRUG THERAPY] Onset: 11-29-2021 Episodic Other complications of (1 source) Thyroid disease in Episodic Viral infection (1 source) Zoster without complications Onset: 02-26-2021 Resolved: 02-26-2021 Episodic Results Test Name Value Interpretation Reference Range Facility Chlamydia/GC DNA, Uron 01-16 Chlamydia Probe, Ur Negative Normal NEG [facility] Comment on above: Result Comment: CHLA MYDIA TRACHOMATIS DNA not detected by nucleic acid amplification. This test is intended for medical purposes only and is not valid for the evaluation of suspected sexual abuse or for other forensic purposes. In certain contexts, culture may be required to meet applicable laws and regulations for diagnosis of C. trachomatis and N. gonorrhoeae infections. Per 2014 CDC recommendations, this test does not include confirmation of positive results by an alternative nucleic acid target. Performed By: #### U CGP #### [facility] [address] [place] [id number] Licensed Marriage And Family Therapist: Devin Yeager MD Gonorrhea Probe, Ur Negative Normal NEG [facility] Comment on above: Result Comment: NEIS SERIA GONORRHOEAE DNA not detected by nucleic acid amplification. This test is intended for medical purposes only and is not valid for the evaluation of suspected sexual abuse or for other forensic purposes. In certain contexts, culture may be required to meet applicable laws and regulations for diagnosis of C. trachomatis and N. gonorrhoeae infections. Per 2014 CDC recommendations, this test does not include confirmation of positive results by an alternative nucleic acid target. Performed By: #### U CGP #### [facility] [address] [place] [address] [id number] Licensed Marriage And Family Therapist: Devin Yeager MD HIV Ag/Abon 01-16-2023 HIV Ag/Ab Non-Reactive Normal NR [facility] Comment on above: Result Comment: No l aboratory evidence of HIV infection. If acute HIV infection is suspected, consider testing for HIV-1 RNA. Performed By: #### A HCV, GLYHGB, HIVCMB #### [id number] [place], [place] [id number] Licensed Marriage And Family Therapist: Devin Yeager MD Profileon T.pallidum Ab Screen Non-Reactive Normal NR [facility] Comment on above: Result Comment: T. pallidum antibodies are not detected. There is no serological evidence of infection with T. pallidum (early primary syphilis cannot be excluded). Retest in 2-4 weeks if syphilis is clinically suspect. Performed By: #### P RENAT #### [address] [id number] Licensed Marriage And Family Therapist: Devin Yeager MD [facility] [address] [place], [place] [address] [address] Licensed Marriage And Family Therapist: Dalia Dutton MD Cult,Urineon 01-15-2023 Cult,Urine Specimen Description .CLEAN CATCH URINE Culture NO SIGNIFICANT GROWTH Report Status FINAL 01/15/2023 [facility] Comment on above: Performed By: #### U RC #### [address] [id number] Licensed Marriage And Family Therapist: Devin Yeager MD [facility] [address] [place] [address] [place] [address] Licensed Marriage And Family Therapist: Dalia Dutton MD Hemoglobin A1Con 01-15-2023 Glucose [Mass/Vol] 100 mg/dL [facility] Comment on above: Result Comment: The ADA and AACC recommend providing the estimated average glucose result to permit better patient understanding of their HBA1c result. Performed By: #### A HCV, GLYHGB, HIVCMB #### [address] [id number] Licensed Marriage And Family Therapist: Devin Yeager MD HbA1c (Bld) [Mass fraction] 5.1 % Normal 4.0-6.0 [facility] Comment on above: Performed By: #### A HCV, GLYHGB, HIVCMB #### [address] [address] Licensed Marriage And Family Therapist: Devin Yeager MD Hep C Abon 01-15-2023 Hep C Ab Non-Reactive Normal NR [facility] Comment on above: Result Comment: The hepatitis C procedure used in our laboratory is a Chemiluminescent test specific for three recombinant HCV antigens. A negative anti-HCV result indicates that the antibodies to hepatitis C virus are not present at this time. Individuals with reactive anti-HCV should be considered infected and infectious until proven otherwise. Confirmation of all equivocal or reactive results is recommended by ordering HCV RNA by PCR. Performed By: #### A HCV, GLYHGB, HIVCMB #### [address] [address] Licensed Marriage And Family Therapist: Devin Yeager MD Profileon 3 Rubella Ab, IgG >500.0 Normal [facility] Comment on above: Result Comment: REFERENCE RANGE: <5.0 NON-REACTIVE (non-immune) 5.0 TO 9.9 EQUIVOCAL >=10.0 REACTIVE (immune) Performed By: #### P RENAT #### [address] [address] Licensed Marriage And Family Therapist: Devin Yeager MD [facility] [address] [place] [address] [place] [address] Licensed Marriage And Family Therapist: Dalia Dutton MD Hep B Surf Ag Non-Reactive Normal NR [facility] Comment on above: Performed By: #### P RENAT #### [address] [address] Licensed Marriage And Family Therapist: Devin Yeager MD [facility] [address] [place] [address] [place] [address] Licensed Marriage And Family Therapist: Dalia Dutton MD Profileon 3 Abs. Basophil 0.05 k/uL Normal 0.00-0.20 [facility] Comment on above: Performed By: #### P RENAT #### [address] [address] Licensed Marriage And Family Therapist: Devin Yeager MD [facility] [address] [place] [address] Dr. [place] [id number] Licensed Marriage And Family Therapist: Dalia Dutton MD Abs.Imm.Granulocyte 0.03 k/uL Normal 0.00-0.30 [facility] Comment on above: Performed By: #### P RENAT #### [address] [address] Licensed Marriage And Family Therapist: Devin Yeager MD [address] [place] [address] Licensed Marriage And Family Therapist: Dalia Dutton MD Abs.Neutrophil (Seg) 7.47 k/uL Normal 1.50-8.10 [facility] Comment on above: Performed By: #### P RENAT #### [address] [address] Licensed Marriage And Family Therapist: Devin Yeager MD [address] [place] [address] Licensed Marriage And Family Therapist: Dalia Dutton MD Basophils/100 WBC (Bld) 1 % Normal 0-2 [facility] Comment on above: Performed By: #### P RENAT #### [address] [address] Licensed Marriage And Family Therapist: Devin Yeager MD [facility] [address] [place] [address] [place] [address] Licensed Marriage And Family Therapist: Dalia Dutton MD Eosinophils (Bld) [#/Vol] 0.08 10*3/uL Normal 0.00-0.44 [facility] Comment on above: Performed By: #### P RENAT #### [address] [address] Licensed Marriage And Family Therapist: Devin Yeager MD [facility] [address] [place] [address] Dr. [place], [place] [id number] Licensed Marriage And Family Therapist: Dalia Dutton MD Eosinophils/100 WBC (Bld) 1 % Normal 1-4 [facility] Comment on above: Performed By: #### P RENAT #### [address] [address] Licensed Marriage And Family Therapist: Devin Yeager MD [facility] [address] [place] [address] Dr. [place] [phone] Licensed Marriage And Family Therapist: Dalia Dutton MD Erythrocyte distribution width (RBC) [Ratio] 12.1 % Normal 11.8-14.4 [facility] Comment on above: Performed By: #### P RENAT #### [address] [address] Licensed Marriage And Family Therapist: Devin Yeager MD [address] [place] [id number] Licensed Marriage And Family Therapist: Dalia Dutton MD Hematocrit (Bld) [Volume fraction] 39.2 % Normal 36.3-47.1 [facility] Comment on above: Performed By: #### P RENAT #### [address] [address] Licensed Marriage And Family Therapist: Devin Yeager MD [address] [place] [phone] Licensed Marriage And Family Therapist: Dalia Dutton MD Hemoglobin (Bld) [Mass/Vol] 13.0 g/dL Normal 11.9-15.1 [facility] Comment on above: Performed By: #### P RENAT #### [address] [address] Licensed Marriage And Family Therapist: Devin Yeager MD [facility] [address] [place] [address] Dr. [place] [phone] Licensed Marriage And Family Therapist: Dalia Dutton MD Immature granulocytes/100 WBC (Bld) 0 % Normal 0 [facility] Comment on above: Performed By: #### P RENAT #### [address] [address] Licensed Marriage And Family Therapist: Devin Yeager MD [facility] [address] [place] [address] Dr. [place] [phone] Licensed Marriage And Family Therapist: Dalia Dutton MD Lymphocytes (Bld) [#/Vol] 1.23 10*3/uL Normal 1.10-3.70 [facility] Comment on above: Performed By: #### P RENAT #### [address] [address] Licensed Marriage And Family Therapist: Devin Yeager MD [address] [place] [address] Licensed Marriage And Family Therapist: Dalia Dutton MD Lymphocytes/100 WBC (Bld) 13 % Low 24-43 [facility] Comment on above: Performed By: #### P RENAT #### [address] [address] Licensed Marriage And Family Therapist: Devin Yeager MD [facility] [address] [place] [address] Dr. [place] [phone] Licensed Marriage And Family Therapist: Dalia Dutton MD MCH (RBC) [Entitic mass] 30.0 pg Normal 25.2-33.5 [facility] Comment on above: Performed By: #### P RENAT #### [address] [address] Licensed Marriage And Family Therapist: Devin Yeager MD [facility] [address] [place] [address] Dr. [place] [phone] Licensed Marriage And Family Therapist: Dalia Dutton MD MCHC (RBC) [Mass/Vol] 33.2 g/dL Normal 28.4-34.8 [facility] Comment on above: Performed By: #### P RENAT #### [address] [address] Licensed Marriage And Family Therapist: Devin Yeager MD [facility] [place] [phone] Licensed Marriage And Family Therapist: Dalia Dutton MD MCV (RBC) [Entitic vol] 90.3 fL Normal 82.6-102.9 [facility] Comment on above: Performed By: #### P RENAT #### [address] [address] Licensed Marriage And Family Therapist: Devin Yeager MD [address] [place] [phone] Licensed Marriage And Family Therapist: Dalia Dutton MD Monocytes (Bld) [#/Vol] 0.57 10*3/uL Normal 0.10-1.20 [facility] Comment on above: Performed By: #### P RENAT #### [address] [address] Licensed Marriage And Family Therapist: Devin Yeager MD [address] [place] [address] Licensed Marriage And Family Therapist: Dalia Dutton MD Monocytes/100 WBC (Bld) 6 % Normal 3-12 [facility] Comment on above: Performed By: #### P RENAT #### [address] [address] Licensed Marriage And Family Therapist: Devin Yeager MD [address] [place] [phone] Licensed Marriage And Family Therapist: Dalia Dutton MD Neutrophil (Seg) 79 % High 36-65 [facility] Comment on above: Performed By: #### P RENAT #### [address] [address] Licensed Marriage And Family Therapist: Devin Yeager MD [address] [place] [address] Licensed Marriage And Family Therapist: Dalia Dutton MD NRBC Automated 0.0 per 100 WBC Normal 0.0 [facility] Comment on above: Performed By: #### P RENAT #### [address] [place] [address] Licensed Marriage And Family Therapist: Devin Yeager MD [facility] [address] [place] [address] [place] [address] Licensed Marriage And Family Therapist: Dalia Dutton MD Platelet mean volume (Bld) [Entitic vol] 12.6 fL Normal 8.1-13.5 [facility] Comment on above: Performed By: #### P RENAT #### [id number] [place] [address] Licensed Marriage And Family Therapist: Devin Yeager MD [address] [place] [address] Licensed Marriage And Family Therapist: Dalia Dutton MD Platelets (Bld) [#/Vol] 313 10*3/uL Normal 138-453 [facility] Comment on above: Performed By: #### P RENAT #### [address] [address] Licensed Marriage And Family Therapist: Devin Yeager MD [address] [place] [address] Licensed Marriage And Family Therapist: Dalia Dutton MD RBC (Bld) [#/Vol] 4.34 10*6/uL Normal 3.95-5.11 [facility] Comment on above: Performed By: #### P RENAT #### [address] [address] Licensed Marriage And Family Therapist: Devin Yeager MD [facility] [address] [place] [address] Dr. [place] [id number] Licensed Marriage And Family Therapist: Dalia Dutton MD WBC (Bld) [#/Vol] 9.4 10*3/uL Normal 3.5-11.3 [facility] Comment on above: Performed By: #### P RENAT #### [address] [address] Licensed Marriage And Family Therapist: Devin Yeager MD [address] [place] [address] Licensed Marriage And Family Therapist: Dalia Dutton MD Type + Scrnon 01-14 Type + Scrn Negative Normal [facility] Comment on above: Performed By: #### P RTYS #### [facility] [address] [place] [address] Licensed Marriage And Family Therapist: Dalia Dutton MD TSH w/reflex to FT4on 2022 Thyroid Stim. Horm. 0.54 uIU/mL Normal 0.30-5.00 [facility] Comment on above: Performed By: #### T SHX #### [facility] [address] [place] [address] Licensed Marriage And Family Therapist: Dalia Dutton MD Provider Letteron 08-28-2022 Provider Letter August 28, 2022 ZULEYKA COBOS [address] [place] [id number] : 1990 To Whom It May Concern, The above named person may return to work 08/31/22 without restrictions. Sincerely, Dr. Marcelina Dixon MD General Surgery [facility] Ambulatory Visit Summaryon 0 08-20-2022 Ambulatory Visit Summary ZULEYKA COBOS :1990 Visit Date:08/20/2022 Ambulatory Visit Instructions Your Diagnosis Symptomatic cholelithiasis Your Care Team Attending Physician - Marcelina DIXON MD Primary Care Physician - SAL BAUTISTA DO This Is Your Medications List Contact prescribing physician if questions or concerns drospirenone (Slynd 4 mg oral tablet) pantoprazole (Protonix 40 mg Tab-DR) Procedures Performed Laparoscopic cholecystectomy (08/13/2022), Appendectomy. Medications What How Much When Why Instructions Unchanged drospirenone (Slynd 4 mg oral tablet) 1 Tablets By Mouth Every day Contact prescribing physician if questions or concerns Unchanged pantoprazole (Protonix 40 mg Tab-DR) 1 Tablets By Mouth Every day Gastroesophageal reflux disease Contact prescribing physician if questions or concerns Allergies No Known Allergies No Known Medication Allergies Problems Ongoing - Any problem that you are currently receiving treatment for. BMI 38.0-38.9,adult Gastroesophageal reflux disease Hiatal hernia Hypothyroidism RUQ pain Symptomatic cholelithiasis Vitamin D deficiency Normal [facility] General Surgery Office/Clini c Noteon 08-20-2022 General Surgery Office/Clinic Note Chief Complaint post operative follow up HPI Staff 7 day post operative follow up post lap cholecystectomy. States RUQ pain that she called in about previous resolved after she took one dose of prescription pain medication. Reports burring discomfort in umbilicus; she is cleansing with soap and water. States she believes she has fair amount of edema above umbilicus. She is not taking Ibuprofen as she believes this caused facial redness/edema. History of Present Illness 1 week s/p LS cholecystectomy; mild soreness/burning at umbilical incision; no drainage; occasional loose stools; no fevers; no N/V; pathology with cholelithiasis and cholesterolosis. Review of Systems ROS - Provider Constitutional: no fever, no sweats, no weight loss. Eyes: no glasses, no blurred vision, no visual loss. ENMT: no dentures, no hoarseness, no swallowing difficulties, no hearing loss, no ear infection(s), no nose bleeds. Cardiovascular: normal blood pressure, no chest pain, regular heartbeat, no heart murmur. Respiratory: no shortness of breath, no cough, no asthma, no wheezing. Gastrointestinal: no nausea, no vomiting, no diarrhea, no constipation, no blood in stool, no change in bowel habits, no abdominal pain, no hepatitis. Genitourinary: no kidney stones, no urine infection, no dysuria. Musculoskeletal: no pain, no weakness. Skin: no changing moles, no rash, no skin lumps. Neurologic: no seizures, no epilepsy, no headache. Psychiatric: no emotional or psychiatric problem. Heme/Lymph: no bleeding problems, no anemia, no blood clots, no transfusions. Allergy/Immunologic : no swollen lymph nodes/glands, no IV drug abuse. Other: Additional ROS info: Except as noted in the above Review of Systems and in the History of Present Illness, all other systems have been reviewed and are negative or noncontributory. Physical Exam abd: soft, nontender, nondistended, incisions without erythema or drainage, minimal resolving ecchymosis. Assessment/Plan 1. Symptomatic cholelithiasis (K80.20: Calculus of gallbladder without cholecystitis without obstruction) doing well, continue no lifting > 10 lbs for 3 more weeks; call with problems/questions. Follow-up With When Contact Information SUMI BARKLEY, Marcelina Eddy, KRIS Only if needed [address] [place] [address]- Additional Instructions: Problem List/Past Medical History Ongoing BMI 38.0-38.9,adult Gastroesophageal reflux disease Hiatal hernia Hypothyroidism RUQ pain Symptomatic cholelithiasis Vitamin D deficiency Historical No qualifying data Procedure/Surgical History Laparoscopic cholecystectomy (08/13/2022), Appendectomy. Medications Protonix 40 mg Tab-DR, 40 mg= 1 tab(s), Oral, Daily, 3 refills Slynd 4 mg oral tablet, 4 mg= 1 tab(s), Oral, Daily Allergies No Known Allergies No Known Medication Allergies Social History Alcohol - Denies Alcohol Use, 07/23/2022 Substance Abuse - Denies Substance Abuse, 07/23/2022 Tobacco Never (less than 100 in lifetime) Tobacco Use:. Never Smokeless Tobacco Use:., 07/23/2022 Family History Diabetes mellitus type 2: Father and Brother. Primary malignant neoplasm of colon: Father. Primary malignant neoplasm of prostate: Father. Immunizations Vaccine Date Status Comments influenza virus vaccine, inactivated - Not Given Patient Refuses SARS-CoV-2 mRNA (tonicknameran 5y-11y) vac - Not Given Patient Refuses Normal [facility] Comment on above: Result Comment: Elec tronically Signed By: SUMI BARKLEY, Marcelina Eddy\.br\Date and Time Signed: 08/20/22 14:08 EDT Pathology Noteon 08-20-2022 Pathology Note [id number] 99#1.00CD:127 Normal [facility] Operative Reporton Operative Report [id number] BC#1.00CD:127 Normal [facility] PREG HCG QUALon 08-13-2022 , QUAL Negative Normal NEGATIVE [facility] Comment on above: Performed By: #### P REG #### [facility] [address] [place] [address] Dr. Esteban Meneses Formson 08-05-2022 Forms [id number] A0#1.00CD:127 Normal [facility] Quick Strepon 07-30-2022 S. pyogenes Org specific cx Ql (Throat) Negative [facility] [employer] Other Quick Strep [employer] Other Pre-Certification Formon Pre-Certification Form [id number] 272#1.00CD:127 [facility] Consent for Procedure/Surger yon 07-24-2022 Consent for Procedure/Surgery [id number] F0#1.00CD:127 [facility] Facesheeton 07-24-2022 Facesheet [id number] AF#1.00CD:127 [facility] Ambulatory Visit Summaryon 0 07-23-2022 Ambulatory Visit Summary ZULEYKA COBOS :1990 Visit Date:07/23/2022 Ambulatory Visit Instructions Your Diagnosis Symptomatic cholelithiasis Gastroesophageal reflux disease Your Care Team Attending Physician - SUMI BARKLEY, Marcelina Eddy Primary Care Physician - SAL BAUTISTA DO This Is Your Medications List pantoprazole (Protonix 40 mg Tab-DR) Contact prescribing physician if questions or concerns drospirenone (Slynd 4 mg oral tablet) Procedures Performed Appendectomy. Discharge Vitals Heart Rate (Peripheral) 70 Respiratory Rate 16 Blood Pressure 116/72 Height 165 cm Height 65 in Weight 104.5 kg Weight 229.9 lb BMI 38.38 Medications What How Much When Why Instructions New pantoprazole (Protonix 40 mg Tab-DR) 1 Tablets By Mouth Every day Gastroesophageal reflux disease Refills: 3 Pickup at [id number] Unchanged drospirenone (Slynd 4 mg oral tablet) 1 Tablets By Mouth Every day Contact prescribing physician if questions or concerns Pharmacy Information [id number]: [address], [place] [id number] [phone] Medications and Immunizations Administered Not Given influenza virus vaccine, inactivated, Patient Refuses SARS-CoV-2 mRNA (tozinameran 5y-11y) vac, Patient Refuses Allergies No Known Allergies No Known Medication Allergies Problems Ongoing - Any problem that you are currently receiving treatment for. BMI 38.0-38.9,adult Gastroesophageal reflux disease Hiatal hernia Hypothyroidism RUQ pain Symptomatic cholelithiasis Vitamin D deficiency Normal [facility] Vaginitis DNA Probeon 2022 Jessy Negative Normal [facility] Comment on above: Result Comment: for Jessy sp. Method of testing is a DNA probe intended for detection and identification of Jessy species, Gardnerella vaginalis, and Trichomonas vaginalis nucleic acid in vaginal fluid specimens from patients with symptoms of vaginitis/vaginosis. Performed By: #### V AGP #### [address] [address] Licensed Marriage And Family Therapist: Devin Yeager MD [facility] [address] [place] [address] Dr. [place] [id number] Licensed Marriage And Family Therapist: Dalia Dutton MD Gardnerella Negative [facility] Comment on above: Result Comment: for Gardnerella vaginalis Performed By: #### V AGP #### [address] [address] Licensed Marriage And Family Therapist: Devin Yeager MD [facility] [address] [place] [address] Dr. [place] [address] [id number] Licensed Marriage And Family Therapist: Dalia Dutton MD Trichomonas Negative [facility] Comment on above: Result Comment: for Trichomonas Vaginalis Performed By: #### V AGP #### [address] [address] Licensed Marriage And Family Therapist: Devin Yeager MD [facility] [address] [place] [address] [place] [address] Licensed Marriage And Family Therapist: Dalia Dutton MD Vaginitis DNA Probeon 2022 Source .VAGINAL SWAB Normal [facility] Comment on above: Performed By: #### V AGP #### [facility] [address] [place] [address] Licensed Marriage And Family Therapist: Devin Yeager MD [facility] [address] [place] [address] Licensed Marriage And Family Therapist: Dalia Dutton MD ED Note-Physicianon 07-15-19 ED Note-Physician [id number]#1.00CD:127 Normal [facility] RAD - Ultrasound Reporton RAD - Ultrasound Report [id number] 7C#1.00CD:127 Normal [facility] CBC AUTO DIFFon 07-10-2022 BASO # 0.0 103/ul Normal 0.0-0.1 [facility] Comment on above: Performed By: #### L IPA, MARITO, CMP, CMADM #### [facility] [address] [place] [address] Dr. Esteban Meneses Basophils/100 WBC (Bld) 0.4 % Normal 0.2-2.0 [facility] Comment on above: Performed By: #### L IPA, MARITO, CMP, CMADM #### [facility] [address] [place] [address] Dr. Esteban Meneses EO # 0.1 103/ul Normal 0.0-0.7 [facility] Comment on above: Performed By: #### L IPA, MARITO, CMP, CMADM #### [facility] [address] [place] [address] Dr. Esteban Meneses Eosinophils/100 WBC (Bld) 0.8 % Critically low 0.9-7.0 [facility] Comment on above: Performed By: #### L IPA, MARITO, CMP, CMADM #### [facility] [address] [place] [address] Dr. Esteban Meneses Erythrocyte distribution width (RBC) [Ratio] 12.3 % Normal 11.0-15.0 [facility] Comment on above: Performed By: #### L IPA, MARITO, CMP, CMADM #### [facility] [address] [place] [address] Dr. Esteban Meneses Hematocrit (Bld) [Volume fraction] 37.9 % Normal 36.0-48.0 [facility] Comment on above: Performed By: #### L IPA, MARITO, CMP, CMADM #### [facility] [address] [place] [address] Dr. Esteban Meneses Hemoglobin (Bld) [Mass/Vol] 12.8 g/dL Normal 12.0-16.0 [facility] Comment on above: Performed By: #### L IPA, MARITO, CMP, CMADM #### [facility] [address] [place] [address] Dr. Esteban Meneses IG # 0.03 10e3/ul Normal 0.00-0.03 [facility] Comment on above: Performed By: #### L IPA, MARITO, CMP, CMADM #### [facility] [address] [place] [address] Dr. Esteban Meneses IG % 0.3 % Normal 0.0-0.5 [facility] Comment on above: Performed By: #### L IPA, MARITO, CMP, CMADM #### [facility] [address] [place] [address] Dr. Esteban Meneses LYMPH # 0.8 103/ul Critically low 1.2-3.8 [facility] Comment on above: Performed By: #### L IPA, MARITO, CMP, CMADM #### [facility] [address] [place] [address] Dr. Esteban Meneses Lymphocytes/100 WBC (Bld) 8.2 % Critically low 20.5-60.0 [facility] Comment on above: Performed By: #### L IPA, MARITO, CMP, CMADM #### [facility] [address] [place] [address] Dr. Esteban Meneses MANUAL DIFF REQ NO Normal [facility] Comment on above: Performed By: #### L IPA, MARITO, CMP, CMADM #### [facility] [address] [place] [address] Dr. Esteban Meneses MCH (RBC) [Entitic mass] 29.4 pg Normal 26.7-34.0 [facility] Comment on above: Performed By: #### L IPA, MARITO, CMP, CMADM #### [facility] [address] [address] [address] Esteban Meneses MCHC (RBC) [Mass/Vol] 33.8 g/dL Normal 29.9-35.2 [facility] Comment on above: Performed By: #### L IPA, MARITO, CMP, CMADM #### [facility] [address] [place] [address] Dr. Esteban Meneses MCV (RBC) [Entitic vol] 87.1 fL Normal 81.0-99.0 [facility] Comment on above: Performed By: #### L IPA, MARITO, CMP, CMADM #### [facility] [address] [place] [address] Dr. Esteban Meneses MONO # 0.5 103/ul Normal 0.3-0.8 [facility] Comment on above: Performed By: #### L IPA, MARITO, CMP, CMADM #### [facility] [address] [place] [address] Dr. Esteban Meneses Monocytes/100 WBC (Bld) 5.1 % Normal 1.7-12.0 [facility] Comment on above: Performed By: #### L IPA, MARITO, CMP, CMADM #### [facility] [address] [address] [address] Esteban Meneses NEUT # 8.3 103/ul Critically high 1.4-6.5 [facility] Comment on above: Performed By: #### L IPA, MARITO, CMP, CMADM #### [facility] [address] [place] [address] Dr. Esteban Meneses Neutrophils/100 WBC (Bld) 85.2 % Critically high 43.0-75.0 [facility] Comment on above: Performed By: #### L IPA, MARITO, CMP, CMADM #### [facility] [address] [place] [address] Dr. Esteban Meneses Platelet mean volume (Bld) [Entitic vol] 10.9 fL Normal 9.5-13.5 [facility] Comment on above: Performed By: #### L IPA, MARITO, CMP, CMADM #### [facility] [address] [place] [address] Dr. Esteban Meneses PLT 302 103/ul Normal 150-450 [facility] Comment on above: Performed By: #### L IPA, MARITO, CMP, CMADM #### [facility] [address] [place] [address] Dr. Esteban Meneses RBC 4.35 106/ul Normal 4.20-5.40 [facility] Comment on above: Performed By: #### L IPA, MARITO, CMP, CMADM #### [facility] [address] [place] [address] Dr. Esteban Meneses WBC 9.8 103/ul Normal 4.0-11.0 [facility] Comment on above: Performed By: #### L IPA, MARITO, CMP, CMADM #### [facility] [address] [place] [address] Dr. Esteban Meneses ER URINE PROFILEon 3 Bilirubin Ql (U) Negative Normal NEGATIVE [facility] Comment on above: Performed By: #### L IPA, MARITO, CMP, CMADM #### [facility] [address] [place] [address] Dr. Esteban Meneses Clarity (U) CLEAR Normal CLEAR [facility] Comment on above: Performed By: #### L IPA, MARITO, CMP, CMADM #### [facility] [address] [place] [address] Dr. Esteban Meneses Color (U) YELLOW Normal YELLOW [facility] Comment on above: Performed By: #### L IPA, MARITO, CMP, CMADM #### [facility] [address] [place] [address] Dr. Esteban Meneses ERUAHD A micrscopic examination will be performed if indicated. Normal [facility] Comment on above: Performed By: #### L IPA, MARITO, CMP, CMADM #### [facility] [address] [place] [address] Dr. Esteban Meneses Glucose Ql (U) Negative Normal NEGATIVE [facility] Comment on above: Performed By: #### L IPA, MARITO, CMP, CMADM #### [facility] [address] [address] [address] Esteban Meneses Hemoglobin Ql (U) TRACE-INTACT Abnormal NEGATIVE [facility] Comment on above: Performed By: #### L IPA, MARITO, CMP, CMADM #### [facility] [address] [place] [address] Dr. Esteban Meneses Ketones Ql (U) Negative Normal NEGATIVE [facility] Comment on above: Performed By: #### L IPA, MARITO, CMP, CMADM #### [facility] [address] [place] [address] Dr. Esteban Meneses LEUKOCYTES Negative Normal NEGATIVE [facility] Comment on above: Performed By: #### L IPA, MARITO, CMP, CMADM #### [facility] [address] [place] [address] Dr. Esteban Meneses Nitrite Ql (U) Negative Normal NEGATIVE [facility] Comment on above: Performed By: #### L IPA, MARITO, CMP, CMADM #### [facility] [address] [address] [address] Esteban Meneses pH (U) 5.5 [pH] Normal 5-9 [facility] Comment on above: Performed By: #### L IPA, MARITO, CMP, CMADM #### [facility] [address] [place] [address] Dr. Esteban Meneses SPEC GRAVITY 1.025 Normal 1.005-<=1.025 [facility] Comment on above: Performed By: #### L IPA, MARITO, CMP, CMADM #### [facility] [address] [address] [address] Esteban Meneses UA PROTEIN TRACE Normal NEGATIVE/ TRACE [facility] Comment on above: Performed By: #### L IPA, MARITO, CMP, CMADM #### [facility] [address] [place] [address] Dr. Esteban Meneses UR MICRO IND NOT INDICATED Normal [facility] Comment on above: Performed By: #### L IPA, MARITO, CMP, CMADM #### [facility] [address] [place] [address] Dr. Esteban Meneses Urobilinogen Qn (U) 0.2 {Roxana'U}/dL Normal 0.2 - 1. 0 [facility] Comment on above: Performed By: #### L IPA, MARITO, CMP, CMADM #### [facility] [address] [address] [address] Esteban Meneses LIPASEon 07-10-2022 Lipase [Catalytic activity/Vol] 53.0 U/L Critically low 73.0-393.0 [facility] Comment on above: Performed By: #### L IPA, MARITO, CMP, CMADM #### [facility] [address] [place] [address] Dr. Esteban Meneses URon 07-10-2022 , QUAL Negative Normal NEGATIVE [facility] Comment on above: Performed By: #### L IPA, MARITO, CMP, CMADM #### [facility] [address] [place] [address] Dr. Esteban Meneses PROF 14(COMP METB)on 023 Albumin [Mass/Vol] 3.8 g/dL Normal 3.4-5.0 [facility] Comment on above: Performed By: #### L IPA, MARITO, CMP, CMADM #### [facility] [address] [place] [address] Dr. Esteban Meneses Albumin/Globulin [Mass ratio] 1.0 {ratio} Normal [facility] Comment on above: Performed By: #### L IPA, MARITO, CMP, CMADM #### [facility] [address] [place] [address] Dr. Esteban Meneses ALP [Catalytic activity/Vol] 77 U/L Normal 46-116 [facility] Comment on above: Performed By: #### L IPA, MARITO, CMP, CMADM #### [facility] [address] [place] [address] Dr. Esteban Meneses ALT [Catalytic activity/Vol] 19 U/L Normal 14-59 [facility] Comment on above: Performed By: #### L IPA, MARITO, CMP, CMADM #### [facility] [address] [address] [address] Esteban Meneses Anion gap [Moles/Vol] 12.0 mmol/L Normal Th e [facility] Comment on above: Performed By: #### L IPA, MARITO, CMP, CMADM #### [facility] [address] [address] [address] Esteban Meneses AST [Catalytic activity/Vol] 14 U/L Critically low 15-37 [facility] Comment on above: Performed By: #### L IPA, MARITO, CMP, CMADM #### [facility] [address] [address] [address] Esteban Meneses Bilirubin [Mass/Vol] 0.7 mg/dL Normal 0.2-1.0 [facility] Comment on above: Performed By: #### L IPA, MARITO, CMP, CMADM #### [facility] [address] [address] [address] Esteban Meneses Calcium [Mass/Vol] 8.9 mg/dL Normal 8.5-10.1 [facility] Comment on above: Performed By: #### L IPA, MARITO, CMP, CMADM #### [facility] [address] [address] [address] Esteban Meneses Chloride [Moles/Vol] 103 mmol/L Normal 98-107 [facility] Comment on above: Performed By: #### L IPA, MARITO, CMP, CMADM #### [facility] [address] [address] [address] Esteban Meneses CO2 [Moles/Vol] 25.3 mmol/L Normal 21.0-32.0 [facility] Comment on above: Performed By: #### L IPA, MARITO, CMP, CMADM #### [facility] [address] [address] [address] Esteban Meneses Creatinine [Mass/Vol] 0.90 mg/dL Normal 0.55-1.02 [facility] Comment on above: Performed By: #### L IPA, MARITO, CMP, CMADM #### [facility] [address] [address] [address] Esteban Meneses EGFR-AF ERITREAN >60 Normal >=60 [facility] Comment on above: Performed By: #### L IPA, MARITO, CMP, CMADM #### [facility] [address] [address] [address] Esteban Meneses EGFR-NON AF ERITREAN >60 Normal >=60 [facility] Comment on above: Performed By: #### L IPA, MARITO, CMP, CMADM #### [facility] [address] [address] [address] Esteban Meneses Globulin (S) [Mass/Vol] 3.7 g/dL Normal T [facility] Comment on above: Performed By: #### L IPA, MARITO, CMP, CMADM #### [facility] [address] [address] [address] Esteban Meneses Glucose [Mass/Vol] 97 mg/dL Normal 74-106 [facility] Comment on above: Performed By: #### L IPA, MARITO, CMP, CMADM #### [facility] [address] [address] [address] Esteban Meneses Potassium [Moles/Vol] 4.0 mmol/L Normal 3.5-5.1 [facility] Comment on above: Performed By: #### L IPA, MARITO, CMP, CMADM #### [facility] [address] [address] [address] Esteban Meneses Protein [Mass/Vol] 7.5 g/dL Normal 6.4-8.2 [facility] Comment on above: Performed By: #### L IPA, MARITO, CMP, CMADM #### [facility] [address] [address] [address] Esteban Meneses Sodium [Moles/Vol] 137 mmol/L Normal 136-145 [facility] Comment on above: Performed By: #### L IPA, MARITO, CMP, CMADM #### [facility] [address] [address] [address] Esteban Meneses Urea nitrogen [Mass/Vol] 16.0 mg/dL Normal 7.0-18.0 [facility] Comment on above: Performed By: #### L IPA, MARITO, CMP, CMADM #### [facility] [address] [address] [address] Esteban Meneses Urea nitrogen/Creatinine [Mass ratio] 17.8 mg/mg Normal [facility] Comment on above: Performed By: #### L IPA, MARITO, CMP, CMADM #### [facility] [address] [address] [address] Esteban Meneses US SINGLE QUAD RT UPPERon US SINGLE QUAD RT UPPER EXAMINATION: US SINGLE QUAD RT UPPER HISTORY: Right upper quadrant pain ; intermittent nausea and vomiting COMPARISON: No relevant comparison available. TECHNIQUE: Transabdominal evaluation of the right upper quadrant. FINDINGS: LIVER: Normal size and echotexture. Color Doppler demonstrates patent hepatic veins. PORTAL VEIN: Duplex Doppler demonstrates normal hepatopetal flow pattern with flow velocity averaging 35 cm/s. GALLBLADDER: 1.8 cm stone within gallbladder. Gallbladder wall thickness is upper limits of normal, 3 mm. Negative sonographic Amaro's sign. BILIARY: No abnormal dilation or stones. Common bile duct diameter is within normal limits. PANCREASE: No visible mass, abnormal atrophy, or duct dilation. KIDNEY: No hydronephrosis. No visible mass or stones. Size: 9.5 x 5.1 x 4.6 cm IMPRESSION: 1. Cholelithiasis. No convincing acute cholecystitis at this time. Electronically authenticated by: GABE PETERSON Date: 2022-07-08 15:40 Normal [facility] ER URINE PROFILEon 3 Clarity (U) CLEAR Normal CLEAR [facility] Comment on above: Performed By: #### L IPA, MARITO, CMP, CMADM #### [facility] [address] [address] [address] Esteban Meneses ERUAHD A micrscopic examination will be performed if indicated. Normal [facility] Comment on above: Performed By: #### L IPA, MARITO, CMP, CMADM #### [facility] [address] [place], [place] [address] Dr. Esteban Meneses Hemoglobin Ql (U) TRACE-INTACT Abnormal NEGATIVE [facility] Comment on above: Performed By: #### L IPA, MARITO, CMP, CMADM #### [facility] [address] [address] [address] Esteban Meneses LEUKOCYTES Negative Normal NEGATIVE [facility] Comment on above: Performed By: #### L IPA, MARITO, CMP, CMADM #### [facility] [address] [address] [address] Esteban Meneses SPEC GRAVITY 1.025 Normal 1.005-<=1.025 [facility] Comment on above: Performed By: #### L IPA, MARITO, CMP, CMADM #### [facility] [address] [address] [address] Esteban Meneses UA PROTEIN Negative Normal NEGATIVE/ TRACE [facility] Comment on above: Performed By: #### L IPA, MARITO, CMP, CMADM #### [facility] [address] [place] [address] Dr. Esteban Meneses UR MICRO IND INDICATED Normal [facility] Comment on above: Performed By: #### L IPA, MARITO, CMP, CMADM #### [facility] [address] [address] [address] Esteban Meneses Urobilinogen Qn (U) 1.0 {Roxana'U}/dL Normal 0.2 - 1. 0 [facility] Comment on above: Performed By: #### L IPA, MARITO, CMP, CMADM #### [facility] [address] [address] [address] Esteban Meneses URon 06-19-2022 , QUAL Negative Normal NEGATIVE [facility] Comment on above: Performed By: #### L IPA, MARITO, CMP, CMADM #### [facility] [address] [address] [address] Esteban Meneses URINE MICROSCOPIC ONLYon BACTERIA TRACE Abnormal NONE SEEN [facility] Comment on above: Performed By: #### L IPA, MARITO, CMP, CMADM #### [facility] [address] [address] [address] Esteban Meneses Bacteria identified Cx Nom (U) NOT INDICATED Normal [facility] Comment on above: Performed By: #### L IPA, MARITO, CMP, CMADM #### [facility] [address] [address] [address] Esteban Meneses CAST NONE SEEN Normal NONE SEEN [facility] Comment on above: Performed By: #### L IPA, MARITO, CMP, CMADM #### [facility] [address] [address] [address] Esteban Meneses Crystals LM Nom (Urine sed) NONE SEEN Normal NONE SEEN [facility] Comment on above: Performed By: #### L IPA, MARITO, CMP, CMADM #### [facility] [address] [place] [address] Dr. Esteban Meneses Epithelial cells LM Ql (Urine sed) FEW Abnormal NONE SEEN /RARE [facility] Comment on above: Performed By: #### L IPA, MARITO, CMP, CMADM #### [facility] [address] [place] [address] Dr. Esteban Meneses MUCOUS NONE SEEN Normal NONE SEEN [facility] Comment on above: Performed By: #### L IPA, MARITO, CMP, CMADM #### [facility] [address] [place] [address] Dr. Esteban Meneses RBC 0-2 Normal 0-2 [facility] Comment on above: Performed By: #### L IPA, MARITO, CMP, CMADM #### [facility] [address] [place] [address] Dr. Esteban Meneses WBC 0-2 Abnormal NONE SEEN [facility] Comment on above: Performed By: #### L IPA, MARITO, CMP, CMADM #### [facility] [address] [place] [address] Dr. Esteban Meneses Urinalysis - AUTOMATEDon Bilirubin Ql (U) Negative Normal NEGATIVE [facility] Other Comment on above: Performed By: #### L IPA, MARITO, CMP, CMADM #### [facility] [address] [place] [address] Dr. Esteban Meneses Color (U) yellow Normal YELLOW [facility] Other Comment on above: Performed By: #### L IPA, MARITO, CMP, CMADM #### [facility] [address] [address] [address] Esteban Meneses Glucose Ql (U) Negative Normal NEGATIVE [facility] Other Comment on above: Performed By: #### L IPA, MARITO, CMP, CMADM #### [facility] [address] [address] [address] Esteban Meneses Ketones Ql (U) Negative Normal NEGATIVE [facility] Other Comment on above: Performed By: #### L IPA, MARITO, CMP, CMADM #### [facility] [address] [address] [address] Esteban Meneses Nitrite Ql (U) Negative Normal NEGATIVE [facility] Other Comment on above: Performed By: #### L IPA, MARITO, CMP, CMADM #### [facility] [address] [address] [address] Esteban Meneses pH (U) 6.0 [pH] Normal 5-9 [facility] Other Comment on above: Performed By: #### L IPA, MARITO, CMP, CMADM #### [facility] [address] [place] [address] Dr. Esteban Meneses Appearance (U) clear [facility] Other Hemoglobin Ql (U) Trace-lysed [facility] Other Leukocyte esterase Test strip Ql (U) Negative [facility] Other Protein Ql (U) 30mg/Dl [facility] Other Specific gravity (U) [Rel density] >=1.030 [facility] Other Urobilinogen (U) [Mass/Vol] 0.2 mg/dL [facility] Other Urinalysis - AUTOMATED No rt [facility] Other Urine Cultureon 06-19-2022 Bacteria identified Cx Nom (U) <9,000 colonies/ml mixed bacterial skin contaminants 2 Days PERFORMED BY: [place] [address] PATHOLOGIST ROOM WORKER EDUARDO SOUZA M.D. [facility] Comment on above: Performed By: #### C UU #### [address] Bacteria identified Cx Nom (U) [facility] Other AMYLASEon 05-17-2022 Amylase [Catalytic activity/Vol] 38 U/L Normal 25-115 [facility] Comment on above: Performed By: #### L IPA, MARITO, CMP, CMADM #### [facility] [address] [address] [address] Esteban Meneses CARDIAC EMELY ADMITon 023 CK [Catalytic activity/Vol] 82 U/L Normal 26-192 [facility] Comment on above: Performed By: #### L IPA, MARITO, CMP, CMADM #### [facility] [address] [address] [address] Esteban Meneses CK.MB [Mass/Vol] ng/mL Normal <=3.60 [facility] Comment on above: Performed By: #### L IPA, MARITO, CMP, CMADM #### [facility] [address] [address] [address] Esteban Meneses HSTROP <4.0 Normal 4.0-51.3 [facility] Comment on above: Result Comment: CUT- OFF POINTS HAVE BEEN ESTABLISHED BASED ON THE FOURTH UNIVERSAL DEFINITIONS OF MYOCARDIAL INFARCTION. THE UPPER REFERENCE LIMIT (URL) OF TROPONIN, DEFINED THE 99TH PERCENTILE OF cTnI DISTRIBUTION IN A REFERENCE POPULATION, HAS BEEN CONFIRMED THE DECISION THRESHOLD FOR SC DIAGNOSIS. Performed By: #### L IPA, MARITO, CMP, CMADM #### [facility] [address] [address] [address] Esteban Meneses DARYA 34 ng/mL Normal 9-82 [facility] Comment on above: Performed By: #### L IPA, MARITO, CMP, CMADM #### [facility] [address] [place] [address] Dr. Esteban Meneses CBC AUTO DIFFon 05-17-2022 BASO # 0.1 103/ul Normal 0.0-0.1 [facility] Comment on above: Performed By: #### L IPA, MARITO, CMP, CMADM #### [facility] [address] [place] [address] Dr. Esteban Meneses Basophils/100 WBC (Bld) 0.7 % Normal 0.2-2.0 [facility] Comment on above: Performed By: #### L IPA, MARITO, CMP, CMADM #### [facility] [address] [place] [address] Dr. Esteban Meneses EO # 0.2 103/ul Normal 0.0-0.7 [facility] Comment on above: Performed By: #### L IPA, MARITO, CMP, CMADM #### [facility] [address] [place] [address] Dr. Esteban Meneses Eosinophils/100 WBC (Bld) 1.9 % Normal 0.9-7.0 [facility] Comment on above: Performed By: #### L IPA, MARITO, CMP, CMADM #### [facility] [address] [place] [address] Dr. Esteban Meneses Erythrocyte distribution width (RBC) [Ratio] 11.9 % Normal 11.0-15.0 [facility] Comment on above: Performed By: #### L IPA, MARITO, CMP, CMADM #### [facility] [address] [place] [address] Dr. Esteban Meneses Hematocrit (Bld) [Volume fraction] 38.6 % Normal 36.0-48.0 [facility] Comment on above: Performed By: #### L IPA, MARITO, CMP, CMADM #### [facility] [address] [place] [address] Dr. Esteban Meneses Hemoglobin (Bld) [Mass/Vol] 13.5 g/dL Normal 12.0-16.0 [facility] Comment on above: Performed By: #### L IPA, MARITO, CMP, CMADM #### [facility] [address] [place] [address] Dr. Esteban Meneses IG # 0.02 10e3/ul Normal 0.00-0.03 [facility] Comment on above: Performed By: #### L IPA, MARITO, CMP, CMADM #### [facility] [address] [place] [address] Dr. Esteban Meneses IG % 0.2 % Normal 0.0-0.5 [facility] Comment on above: Performed By: #### L IPA, MARITO, CMP, CMADM #### [facility] [address] [place] [address] Dr. Esteban Meneses LYMPH # 3.1 103/ul Normal 1.2-3.8 [facility] Comment on above: Performed By: #### L IPA, MARITO, CMP, CMADM #### [facility] [address] [place] [address] Dr. Esteban Meneses Lymphocytes/100 WBC (Bld) 31.0 % Normal 20.5-60.0 [facility] Comment on above: Performed By: #### L IPA, MARITO, CMP, CMADM #### [facility] [address] [place] [address] Dr. Esteban Meneses MANUAL DIFF REQ NO Normal [facility] Comment on above: Performed By: #### L IPA, MARITO, CMP, CMADM #### [facility] [address] [place] [address] Dr. Esteban Meneses MCH (RBC) [Entitic mass] 30.4 pg Normal 26.7-34.0 [facility] Comment on above: Performed By: #### L IPA, MARITO, CMP, CMADM #### [facility] [address] [place] [address] Dr. Esteban Meneses MCHC (RBC) [Mass/Vol] 35.0 g/dL Normal 29.9-35.2 [facility] Comment on above: Performed By: #### L IPA, MARITO, CMP, CMADM #### [facility] [address] [place] [address] Dr. Esteban Meneses MCV (RBC) [Entitic vol] 86.9 fL Normal 81.0-99.0 [facility] Comment on above: Performed By: #### L IPA, MARITO, CMP, CMADM #### [facility] [address] [place] [address] Dr. Esteban Meneses MONO # 0.5 103/ul Normal 0.3-0.8 [facility] Comment on above: Performed By: #### L IPA, MARITO, CMP, CMADM #### [facility] [address] [place] [address] Dr. Esteban Meneses Monocytes/100 WBC (Bld) 5.4 % Normal 1.7-12.0 [facility] Comment on above: Performed By: #### L IPA, MARITO, CMP, CMADM #### [facility] [address] [place] [address] Dr. Esteban Meneses NEUT # 6.1 103/ul Normal 1.4-6.5 [facility] Comment on above: Performed By: #### L IPA, MARITO, CMP, CMADM #### [facility] [address] [place] [address] Dr. Esteban Meneses Neutrophils/100 WBC (Bld) 60.8 % Normal 43.0-75.0 [facility] Comment on above: Performed By: #### L IPA, MARITO, CMP, CMADM #### [facility] [address] [place] [address] Dr. Esteban Meneses Platelet mean volume (Bld) [Entitic vol] 10.9 fL Normal 9.5-13.5 [facility] Comment on above: Performed By: #### L IPA, MARITO, CMP, CMADM #### [facility] [address] [place] [address] Dr. Esteban Meneses PLT 396 103/ul Normal 150-450 [facility] Comment on above: Performed By: #### L IPA, MARITO, CMP, CMADM #### [facility] [address] [place] [address] Dr. Esteban Meneses RBC 4.44 106/ul Normal 4.20-5.40 [facility] Comment on above: Performed By: #### L IPA, MARITO, CMP, CMADM #### [facility] [address] [address] [address] Esteban Meneses WBC 10.0 103/ul Normal 4.0-11.0 [facility] Comment on above: Performed By: #### L IPA, MARITO, CMP, CMADM #### [facility] [address] [address] [address] Esteban Meneses ER URINE PROFILEon 3 Bilirubin Ql (U) Negative Normal NEGATIVE [facility] Comment on above: Performed By: #### E RUR, UMICRO, PREGU #### [facility] [address] [address] [address] Esteban Meneses Clarity (U) CLEAR Normal CLEAR [facility] Comment on above: Performed By: #### E RUR, UMICRO, PREGU #### [facility] [address] [address] [address] Esteban Meneses Color (U) YELLOW Normal YELLOW [facility] Comment on above: Performed By: #### E RUR, UMICRO, PREGU #### [facility] [address] [address] [address] Esteban TERRAZAS A micrscopic examination will be performed if indicated. Normal [facility] Comment on above: Performed By: #### E RUR, UMICRO, PREGU #### [facility] [address] [address] [address] Esteban Meneses Glucose Ql (U) Negative Normal NEGATIVE [facility] Comment on above: Performed By: #### E RUR, UMICRO, PREGU #### [facility] [address] [address] [address] Esteban Meneses Hemoglobin Ql (U) TRACE-INTACT Abnormal NEGATIVE [facility] Comment on above: Performed By: #### E RUR, UMICRO, PREGU #### [facility] [address] [address] [address] Esteban Meneses Ketones Ql (U) Negative Normal NEGATIVE [facility] Comment on above: Performed By: #### ISH BOCANEGRA, PREGU #### [facility] [address] [address] [address] Esteban Meneses LEUKOCYTES Negative Normal NEGATIVE [facility] Comment on above: Performed By: #### E ALEXY HENDRIXRO, PREGU #### [facility] [address] [address] [address] Esteban Meneses Nitrite Ql (U) Negative Normal NEGATIVE [facility] Comment on above: Performed By: #### ISH BOCANEGRA, PREGU #### [facility] [address] [address] [address] Esteban Meneses pH (U) 6.0 [pH] Normal 5-9 [facility] Comment on above: Performed By: #### ISH BOCANEGRA, PREGU #### [facility] [address] [place] [address] Dr. Esteban Meneses SPEC GRAVITY >=1.030 Abnormal 1.005-<=1.025 [facility] Comment on above: Performed By: #### ISH BOCANEGRA, PREGU #### [facility] [address] [address] [address] Esteban Meneses UA PROTEIN Negative Normal NEGATIVE/ TRACE [facility] Comment on above: Performed By: #### ISH BOCANEGRA, PREGU #### [facility] [address] [address] [address] Esteban Meneses UR MICRO IND INDICATED Normal [facility] Comment on above: Performed By: #### ISH BOCANEGRA, PREGU #### [facility] [address] [address] [address] Esteban Meneses Urobilinogen Qn (U) 0.2 {Roxana'U}/dL Normal 0.2 - 1. 0 [facility] Comment on above: Performed By: #### ISH BOCANEGRA, PREGU #### [facility] [address] [place] [address] Dr. Esteban Meneses LIPASEon 05-17-2022 Lipase [Catalytic activity/Vol] 69.0 U/L Critically low 73.0-393.0 [facility] Comment on above: Performed By: #### L IPA, MARITO, CMP, CMADM #### [facility] [address] [address] [address] Esteban Meneses URon 05-17-2022 , QUAL Negative Normal NEGATIVE [facility] Comment on above: Performed By: #### L IPA, MARITO, CMP, CMADM #### [facility] [address] [address] [address] Esteban Meneses PROF 14(COMP METB)on 023 Albumin [Mass/Vol] 3.5 g/dL Normal 3.4-5.0 [facility] Comment on above: Performed By: #### L IPA, MARITO, CMP, CMADM #### [facility] [address] [place] [address] Dr. Esteban Meneses Albumin/Globulin [Mass ratio] 0.9 {ratio} Normal [facility] Comment on above: Performed By: #### L IPA, MARITO, CMP, CMADM #### [facility] [address] [address] [address] Esteban Meneses ALP [Catalytic activity/Vol] 106 U/L Normal 46-116 [facility] Comment on above: Performed By: #### L IPA, MARITO, CMP, CMADM #### [facility] [address] [address] [address] Esteban Meneses ALT [Catalytic activity/Vol] 16 U/L Normal 14-59 [facility] Comment on above: Performed By: #### L IPA, MARITO, CMP, CMADM #### [facility] [address] [address] [address] Esteban Meneses Anion gap [Moles/Vol] 13.3 mmol/L Normal [facility] Comment on above: Performed By: #### L IPA, MARITO, CMP, CMADM #### [facility] [address] [address] [address] Esteban Meneses AST [Catalytic activity/Vol] 16 U/L Normal 15-37 [facility] Comment on above: Performed By: #### L IPA, MARITO, CMP, CMADM #### [facility] [address] [address] [address] Esteban Meneses Bilirubin [Mass/Vol] 0.2 mg/dL Normal 0.2-1.0 [facility] Comment on above: Performed By: #### L IPA, MARITO, CMP, CMADM #### [facility] [address] [address] [address] Esteban Meneses Calcium [Mass/Vol] 8.3 mg/dL Critically low 8.5-10.1 Th e [facility] Comment on above: Performed By: #### L IPA, MARITO, CMP, CMADM #### [facility] [address] [place] [address] Dr. Esteban Meneses Chloride [Moles/Vol] 103 mmol/L Normal 98-107 [facility] Comment on above: Performed By: #### L IPA, MARITO, CMP, CMADM #### [facility] [address] [address] [address] Esteban Meneses CO2 [Moles/Vol] 25.1 mmol/L Normal 21.0-32.0 [facility] Comment on above: Performed By: #### L IPA, MARITO, CMP, CMADM #### [facility] [address] [place] [address] Dr. Esteban Meneses Creatinine [Mass/Vol] 0.98 mg/dL Normal 0.55-1.02 [facility] Comment on above: Performed By: #### L IPA, MARITO, CMP, CMADM #### [facility] [address] [place] [address] Dr. Esteban Meneses EGFR-AF ERITREAN >60 Normal >=60 [facility] Comment on above: Performed By: #### L IPA, MARITO, CMP, CMADM #### [facility] [address] [place] [address] Dr. Esteban Meneses EGFR-NON AF ERITREAN >60 Normal >=60 [facility] Comment on above: Performed By: #### L IPA, MARITO, CMP, CMADM #### [facility] [address] [place] [address] Dr. Esteban Meneses Globulin (S) [Mass/Vol] 3.9 g/dL Normal [facility] Comment on above: Performed By: #### L IPA, MARITO, CMP, CMADM #### [facility] [address] [address] [address] Esteban Meneses Glucose [Mass/Vol] 121 mg/dL Critically high 74-106 [facility] Comment on above: Performed By: #### L IPA, MARITO, CMP, CMADM #### [facility] [address] [address] [address] Esteban Meneses Potassium [Moles/Vol] 3.4 mmol/L Critically low 3.5-5.1 [facility] Comment on above: Performed By: #### L IPA, MARITO, CMP, CMADM #### [facility] [address] [address] [address] Esteban Meneses Protein [Mass/Vol] 7.4 g/dL Normal 6.4-8.2 [facility] Comment on above: Performed By: #### L IPA, MARITO, CMP, CMADM #### [facility] [address] [address] [address] Esteban Meneses Sodium [Moles/Vol] 138 mmol/L Normal 136-145 [facility] Comment on above: Performed By: #### L IPA, MARITO, CMP, CMADM #### [facility] [address] [address] [address] Esteban Meneses Urea nitrogen [Mass/Vol] 8.0 mg/dL Normal 7.0-18.0 [facility] Comment on above: Performed By: #### L IPA, MARITO, CMP, CMADM #### [facility] [address] [address] [address] Esteban Meneses Urea nitrogen/Creatinine [Mass ratio] 8.2 mg/mg Normal [facility] Comment on above: Performed By: #### L IPA, MARITO, CMP, CMADM #### [facility] [address] [address] [address] Esteban Meneses URINE MICROSCOPIC ONLYon BACTERIA TRACE Abnormal NONE SEEN [facility] Comment on above: Performed By: #### L IPA, MARITO, CMP, CMADM #### [facility] [address] [address] [address] Esteban Meneses Bacteria identified Cx Nom (U) NOT INDICATED Normal [facility] Comment on above: Performed By: #### L IPA, MARITO, CMP, CMADM #### [facility] [address] [address] [address] Esteban Meneses CAST NONE SEEN Normal NONE SEEN [facility] Comment on above: Performed By: #### L IPA, MARITO, CMP, CMADM #### [facility] [address] [address] [address] Esteban Meneses Crystals LM Nom (Urine sed) NONE SEEN Normal NONE SEEN [facility] Comment on above: Performed By: #### L IPA, MARITO, CMP, CMADM #### [facility] [address] [place] [address] Dr. Esteban Meneses Epithelial cells LM Ql (Urine sed) RARE Normal NONE SEEN /RARE [facility] Comment on above: Performed By: #### L IPA, MARITO, CMP, CMADM #### [facility] [address] [address] [address] Esteban Meneses MUCOUS NONE SEEN Normal NONE SEEN [facility] Comment on above: Performed By: #### L IPA, MARITO, CMP, CMADM #### [facility] [address] [address] [address] Esteban Meneses RBC NONE SEEN Abnormal 0-2 [facility] Comment on above: Performed By: #### L IPA, MARITO, CMP, CMADM #### [facility] [address] [address] [address] Esteban Meneses WBC NONE SEEN Normal NONE SEEN [facility] Comment on above: Performed By: #### L IPA, MARITO, CMP, CMADM #### [facility] [address] [place] [address] Dr. Esteban Meneses XR ABD FLAT UP_PA Dann 05-17 XR ABD FLAT UP_PA CH XR ABD FLAT UP_PA CH 05/17/2022 6:11 PM EST CLINICAL INDICATION: Epigastric pain and left upper quadrant pain COMPARISON: None. TECHNIQUE: Upright and supine AP views of the chest, abdomen and pelvis. FINDINGS: There are no tubes or implants noted. The cardiomediastinal silhouette and pulmonary vasculature are within normal limits. No focal opacity concerning for consolidation. No pneumothorax or pleural effusion. No definite free intraperitoneal air, portal venous gas or pneumatosis intestinalis. The bowel gas pattern is nonobstructive. The bones and soft tissues are unremarkable. IMPRESSION: No acute cardiopulmonary abnormality. Nonobstructive bowel gas pattern. Electronically authenticated by: PATRICK NEW Date: 2022-05-17 20:06 Normal [facility] Quick Strepon 01-08-2022 S. pyogenes Org specific cx Ql (Throat) Negative [facility] Other Quick Strep [facility] Other SARS-CoV-2 (COVID-19) RNA NA A+probe Ql (Resp)on 01-08-2022 SARS-CoV-2 (COVID-19) RNA FLORENCIA+probe Ql (Unsp spec) Negative [facility] Other CHLAMYDIA/GONOCOCCUS FLORENCIA (SW AB/URINE/PAPon 11-29-2021 Chlamydia trachomatis, FLORENCIA Negative Normal Negative [facility] Comment on above: Performed By: #### L IPA, MARITO, CMP, CMADM #### [facility] [address] [address] [address] Esteban Meneses Neisseria gonorrhoeae, FLORENCIA Negative Normal Negative [facility] Comment on above: Performed By: #### L IPA, MARITO, CMP, CMADM #### [facility] [address] [address] [address] Esteban Meneses ER URINE PROFILEon 2 Bilirubin Ql (U) Negative Normal NEGATIVE [facility] Comment on above: Performed By: #### ISH BOCANEGRA #### [facility] [address] [address] [address] Esteban Meneses Clarity (U) CLEAR Normal CLEAR [facility] Comment on above: Performed By: #### ISH BOCANEGRA #### [facility] [address] [place] [address] Dr. Esteban Meneses Color (U) LT. YELLOW Normal YELLOW [facility] Comment on above: Performed By: #### ALEXY BOCANEGRARO #### [facility] [address] [place] [address] Dr. Esteban TERRAZAS A micrscopic examination will be performed if indicated. Normal [facility] Comment on above: Performed By: #### ALEXY BOCANEGRARO #### [facility] [address] [place] [address] Dr. Esteban Meneses Glucose Ql (U) Negative Normal NEGATIVE [facility] Comment on above: Performed By: #### ALEXY BOCANEGRARO #### [facility] [address] [place] [address] Dr. Esteban Meneses Hemoglobin Ql (U) TRACE-INTACT Abnormal NEGATIVE [facility] Comment on above: Performed By: #### ALEXY BOCANEGRARO #### [facility] [address] [place] [address] Dr. Esteban Meneses Ketones Ql (U) Negative Normal NEGATIVE [facility] Comment on above: Performed By: #### ALEXY BOCANEGRARO #### [facility] [address] [place] [address] Dr. Esteban Meneses LEUKOCYTES Negative Normal NEGATIVE [facility] Comment on above: Performed By: #### ALEXY BOCANEGRARO #### [facility] [address] [place] [address] Dr. Esteban Meneses Nitrite Ql (U) Negative Normal NEGATIVE [facility] Comment on above: Performed By: #### ALEXY BOCANEGRARO #### [facility] [address] [place] [address] Dr. Esteban Meneses pH (U) 6.0 [pH] Normal 5-9 [facility] Comment on above: Performed By: #### ALEXY BOCANEGRARO #### [facility] [address] [place] [address] Dr. Esteban Meneses SPEC GRAVITY 1.025 Normal 1.005-<=1.025 [facility] Comment on above: Performed By: #### E RUR, UMICRO #### [facility] [address] [place] [address] Dr. Esteban Meneses UA PROTEIN Negative Normal NEGATIVE/ TRACE [facility] Comment on above: Performed By: #### E RUR, UMICRO #### [facility] [address] [place] [address] Dr. Esteban Meneses UR MICRO IND INDICATED Normal [facility] Comment on above: Performed By: #### E RUR, UMICRO #### [facility] [address] [place] [address] Dr. Esteban Meneses Urobilinogen Qn (U) 0.2 {Roxana'U}/dL Normal 0.2 - 1. 0 [facility] Comment on above: Performed By: #### E RUR, UMICRO #### [facility] [address] [place] [address] Dr. Esteban Meneses URon 11-27-2021 , QUAL Negative Normal NEGATIVE [facility] Comment on above: Performed By: #### L IPA, MARITO, CMP, CMADM #### [facility] [address] [place] [address] Dr. Esteban Meneses URINE MICROSCOPIC ONLYon BACTERIA NONE SEEN Normal NONE SEEN [facility] Comment on above: Performed By: #### E RUR, UMICRO #### [facility] [address] [place] [address] Dr. Esteban Meneses Bacteria identified Cx Nom (U) NOT INDICATED Normal [facility] Comment on above: Performed By: #### E RUR, UMICRO #### [facility] [address] [place] [address] Dr. Esteban Meneses CAST NONE SEEN Normal NONE SEEN [facility] Comment on above: Performed By: #### E RUR, UMICRO #### [facility] [address] [place] [address] Dr. Esteban Meneses Crystals LM Nom (Urine sed) NONE SEEN Normal NONE SEEN [facility] Comment on above: Performed By: #### E RUR, UMICRO #### [facility] [address] [place] [address] Dr. Esteban Meneses Epithelial cells LM Ql (Urine sed) MODERATE Abnormal NONE SEEN /RARE [facility] Comment on above: Performed By: #### E RUR, UMICRO #### [facility] [address] [place] [address] Dr. Esteban Meneses MUCOUS TRACE Abnormal NONE SEEN [facility] Comment on above: Performed By: #### E RUR, UMICRO #### [facility] [address] [place] [address] Dr. Esteban Meneses RBC 2-5 Abnormal 0-2 [facility] Comment on above: Performed By: #### E JEANNIER, UMICRO #### [facility] [address] [place] [address] Dr. Esteban Meneses WBC NONE SEEN Normal NONE SEEN [facility] Comment on above: Performed By: #### Liset HENDRIX, UMICRO #### [facility] [address] [place] [address] Dr. Esteban Meneses US PELVIS TRANSVAGon 022 US PELVIS TRANSVAG EXAMINATION: US PELVIS TRANSVAG HISTORY: Pain in pelvis COMPARISON: No relevant comparison available. FINDINGS: Transvaginal images The uterus is normal in size, contour and myometrial echotexture measuring 9.4 x 4.3 x 5.5 cm. Anteverted, anteflexed. No focal myometrial mass. The endometrium measures 1.1 cm. Small amount of fluid identified within the endocervical canal which measures 2.3 mm in diameter The right ovary is normal in appearance measuring 3.0 x 2.1 x 1.6 cm. Normal resistive index of 0.5. Normal follicles The left ovary is normal in appearance measuring 3.2 x 2.0 x 2.1 cm. Normal resistive index of 0.6. Normal follicles No free fluid. IMPRESSION: Minimal dilation of the endocervical canal, nonspecific Electronically authenticated by: DALIA STUART Date: 2021-11-27 15:01 Normal [facility] WET PREPon 11-27-2021 CLUE CELLS NONE SEEN Normal NONE SEEN [facility] Comment on above: Performed By: #### W P #### [facility] [address] [address] [address] Esteban Meneses FUNGAL ELEMENTS NONE SEEN Normal NONE SEEN [facility] Comment on above: Performed By: #### W P #### [facility] [address] [address] [address] Esteban Meneses RBC -WET PREP NONE SEEN Normal NONE SEEN [facility] Comment on above: Performed By: #### W P #### [facility] [address] [address] [address] Esteban Meneses TRICHOMONAS NONE SEEN Normal NONE SEEN [facility] Comment on above: Performed By: #### W P #### [facility] [address] [address] [address] Esteban Meneses WBC- WET PREP RARE Abnormal NONE SEEN [facility] Comment on above: Performed By: #### W P #### [facility] [address] [address] [address] Esteban Meneses WET PREP BACTERIA RARE Abnormal NONE SEEN [facility] Comment on above: Performed By: #### W P #### [facility] [address] [address] [address] Esteban Meneses COVID Quick Testingon 2020 Result Negative [facility] Other COMPREHENSIVE METABOLIC PANE [facility] 11-27-2020 Albumin [Mass/Vol] 4.2 g/dL Normal 3.6-5.1 [facility] Comment on above: Performed By: #### 7 600, [id number], 71494 #### [facility] [address], [address] [place] [phone] [employer]: Claus Thrasher MD Albumin/Globulin [Mass ratio] 1.8 {ratio} Normal 1.0-2.5 [facility] Comment on above: Performed By: #### 7 600, 12673, 19480 #### [facility] [address] [place] [address], [address] [place] [phone] [employer]: Claus Thrasher MD ALP [Catalytic activity/Vol] 73 U/L Normal 31-125 [facility] Comment on above: Performed By: #### 7 600, 07477, 78280 #### [facility] of [address] [address] [employer]: Claus Thrasher MD ALT [Catalytic activity/Vol] 9 U/L Normal 6-29 [facility] Comment on above: Performed By: #### 7 600, 67143, 96504 #### [facility] [address] [address] [employer]: Claus Thrasher MD AST [Catalytic activity/Vol] 11 U/L Normal 10-30 [facility] Comment on above: Performed By: #### 7 600, 07301, 34813 #### [facility] [address] [address] [employer]: Claus Thrasher MD Bilirubin [Mass/Vol] 0.3 mg/dL Normal 0.2-1.2 [facility] Comment on above: Performed By: #### 7 600, 55990, 20880 #### [facility] [address] [address] [employer]: Claus Thrasher MD BUN/CREATININE RATIO NOT APPLICABLE Normal 6-22 [facility] Comment on above: Performed By: #### 7 600, 21874, 83478 #### [facility] [address] [address] [employer]: Claus Thrasher MD Calcium [Mass/Vol] 9.4 mg/dL Normal 8.6-10.2 [facility] Comment on above: Performed By: #### 7 600, 88058, 36953 #### [facility] [address] [address] [employer]: Claus Thrasher MD Chloride [Moles/Vol] 105 mmol/L Normal 98-110 [facility] Comment on above: Performed By: #### 7 600, 33203, 62693 #### [facility] [address] [address] [employer]: Claus Thrasher MD CO2 [Moles/Vol] 26 mmol/L Normal 20-32 [facility] Comment on above: Performed By: #### 7 600, 64747, 41620 #### [facility] [address] [address] [employer]: Claus Thrasher MD Creatinine [Mass/Vol] 0.91 mg/dL Normal 0.50-1.[address] [facility] Comment on above: Performed By: #### 7 600, , 89517 #### [facility] [address] [address] [employer]: Claus Thrasher MD eGFR NON-AFR. ERITREAN 85 mL/min/1.73m2 Normal > OR = 60 [facility] Comment on above: Performed By: #### 7 600, , 03216 #### [facility] [address] [address] [employer]: Claus Thrasher MD GFR/1.73 sq M.predicted among blacks MDRD (S/P/Bld) [Vol rate/Area] 99 mL/min/{1.73_m2} Normal > OR = 60 [facility] Comment on above: Performed By: #### 7 600, 97687, 80841 #### [facility] [address] [address] [employer]: Claus Thrasher MD Globulin (S) [Mass/Vol] 2.4 g/dL Normal 1.9-3.7 [facility] Comment on above: Performed By: #### 7 600, 38193, 34011 #### [facility] [address] [address] [employer]: Claus Thrasher MD Glucose [Mass/Vol] 79 mg/dL Normal 65-99 [facility] Comment on above: Result Comment: Fasting reference interval Performed By: #### 7 600, 85317, 31687 #### [facility] of [address], [address] [place] [address] [employer]: Claus Thrasher MD Potassium [Moles/Vol] 4.2 mmol/L Normal 3.5-5.[address] [facility] [address] [facility] Comment on above: Performed By: #### 7 600, 15096, 63760 #### [facility] of [address], [address] [place] [address] [employer]: Claus Thrasher MD Protein [Mass/Vol] 6.6 g/dL Normal 6.1-8.1 [facility] Comment on above: Performed By: #### 7 600, 70165, 71348 #### [facility] [address] [address] [employer]: Claus Thrasher MD Sodium [Moles/Vol] 139 mmol/L Normal 135-146 [facility] Comment on above: Performed By: #### 7 600, 88161, 01920 #### [facility] [address] [address] [employer]: Claus Thrasher MD Urea nitrogen [Mass/Vol] 16 mg/dL Normal 7-25 [facility] Comment on above: Performed By: #### 7 600, 89244, 13399 #### [facility] [address] [address] [employer]: Claus Thrasher MD LIPID PANEL, [facility] [place] 08 Cholesterol [Mass/Vol] 166 mg/dL Normal <200 [facility] Comment on above: Order Comment: FASTI NG:YES FASTING: YES Performed By: #### 7 600, 24760, 60362 #### [facility] [address] [address] [employer]: Claus Thrasher MD Cholesterol in HDL [Mass/Vol] 70 mg/dL Normal > OR = 50 [facility] Comment on above: Order Comment: FASTI NG:YES FASTING: YES Performed By: #### 7 600, 37491, 46974 #### [facility] of [address], [address] [place] [address] [employer]: Claus Thrasher MD Cholesterol in LDL [Mass/Vol] 82 mg/dL Normal [facility] Comment on above: Order Comment: FASTI NG:YES FASTING: YES Result Comment: Refe rence range: <100 Desirable range <100 mg/dL for primary prevention; <70 mg/dL for patients with CHD or diabetic patients with > or = 2 CHD risk factors. LDL-C is now calculated using the Rayray calculation, which is a validated novel method providing better accuracy than the Friedewald equation in the estimation of LDL-C. Rogelio JOHNSON et al. DEREK. 2013;310(19): 5719-2667 (http://education.Jukedocs/faq/ZYN023) Performed By: #### 7 600, 04597, 36658 #### [facility] [address], [address] [place] [address] [employer]: Claus Thrasher MD Cholesterol.total/Kristyn sterol in HDL [Mass ratio] 2.4 {ratio} Normal <5.0 [facility] Comment on above: Order Comment: FASTI NG:YES FASTING: YES Performed By: #### 7 600, 11831, 01898 #### [facility] [address] [address] [employer]: Claus Thrasher MD NON HDL CHOLESTEROL 96 mg/dL (calc) Normal <130 [facility] Comment on above: Order Comment: FASTI NG:YES FASTING: YES Result Comment: For patients with diabetes plus 1 major ASCVD risk factor, treating to a non-HDL-C goal of <100 mg/dL (LDL-C of <70 mg/dL) is considered a therapeutic option. Performed By: #### 7 600, 08044, 12174 #### [facility] [address], [address] [place] [address] [employer]: Claus Thrasher MD Triglyceride [Mass/Vol] 63 mg/dL Normal <150 [facility] Comment on above: Order Comment: FASTI NG:YES FASTING: YES Performed By: #### 7 600, 58392, 38487 #### [facility] [address], [address] [place] [address] [employer]: Claus Thrasher MD TSH+FREE T4on 11-27-2020 Free T4 [Mass/Vol] 1.1 ng/dL Normal 0.8-1.8 [facility] Comment on above: Performed By: #### 7 600, 33807, 35613 #### [facility] [address], [address] [place] [address] [employer]: Claus Thrasher MD TSH Qn 2.23 m[IU]/L Normal [facility] Comment on above: Result Comment: Refe rence Range > or = 20 Years 0.40-4.50 Ranges First trimester 0.26-2.66 Second trimester 0.55-2.73 Third trimester 0.43-2.91 Performed By: #### 7 600, 63544, 12821 #### [facility] [address], [address] [place] [address] [employer]: Claus Thrasher MD Urine cultureon 12-08-2019 Culture NO SIGNIFICANT GROWTH [place] Special Requests NOT REPORTED [place] Specimen Description .CLEAN CATCH URINE [place] CBC auto differentialon Basophils (Bld) [#/Vol] 0.04 10*3/uL [place] Basophils/100 WBC (Bld) 0 % 0 - 2 % [place] Differential Type NOT REPORTED [place] Eosinophils (Bld) [#/Vol] 0.08 10*3/uL [place] Eosinophils/100 WBC (Bld) 1 % 1 - 4 % [place] Erythrocyte distribution width (RBC) [Ratio] 12.9 % 11.8 - 14.4 % [place] Hematocrit (Bld) [Volume fraction] 36.5 % 36.3 - 47.1 % [place] Hemoglobin (Bld) [Mass/Vol] 12.0 g/dL 11.9 - 15.1 g/dL [place] Immature granulocytes (Bld) [#/Vol] 0 % 0 [place] Immature granulocytes (Bld) [#/Vol] 0.04 10*3/uL [place] Interpretation and review of laboratory results Abnormal [place] Lymphocytes (Bld) [#/Vol] 1.98 10*3/uL [place] Lymphocytes/100 WBC (Bld) 19 % Low 24 - 43 % [place] MCH (RBC) [Entitic mass] 30.1 pg 25.2 - 33.5 pg [place] MCHC (RBC) [Mass/Vol] 32.9 g/dL 28.4 - 34.8 g/dL [place] MCV (RBC) [Entitic vol] 91.5 fL 82.6 - 102.9 fL [place] Monocytes (Bld) [#/Vol] 0.54 10*3/uL [place] Monocytes/100 WBC (Bld) 5 % 3 - 12 % [place] Platelet mean volume (Bld) [Entitic vol] 12.5 fL 8.1 - 13.5 fL [place] Platelets (Bld) [#/Vol] 294 10*3/uL [place] Platelets (Bld) [#/Vol] NOT REPORTED [place] RBC (Bld) [#/Vol] 3.99 10*6/uL 3.95 - 5.1 1 m/uL [place] RBC morphology finding Nom (Bld) NOT REPORTED [place] Segmented neutrophils/100 WBC (Bld) 75 % High 36 - 65 % [place] Segs Absolute 7.75 [place] WBC (Bld) [#/Vol] 0.0 10*3/uL 0.0 per 10 0 WBC [place] WBC (Bld) [#/Vol] 10.4 10*3/uL [place] WBC Morphology NOT REPORTED [place] DRUG SCREEN MULTI URINEon Amphetamine Screen, Ur Negative NEGATIVE [place] Barbiturate Screen, Ur Negative NEGATIVE [place] Benzodiazepine Screen, Urine Negative NEGATIVE [place] Buprenorphine Urine Negative NEGATIVE [place] Cannabinoid Scrn, Ur Negative NEGATIVE [place] Cocaine Metabolite, Urine Negative NEGATIVE [place] MDMA, Urine NOT REPORTED NEGATIVE [place] Methadone Screen, Urine Negative NEGATIVE [place] Methamphetamine, Urine Negative NEGATIVE [place] Opiates, Urine Negative NEGATIVE [place] Oxycodone Screen, Ur Negative NEGATIVE [place] Phencyclidine, Urine Negative NEGATIVE [place] Propoxyphene, Urine Negative NEGATIVE [place] Test Information NOT REPORTED [place] Tricyclic Antidepressants, Urine Negative NEGATIVE [place] Comment on above: Drug screen results are to be used for medical purposes only. All positive results are unconfirmed. Testing for employment or legal uses should be sent to a reference laboratory for confirmation. Microscopic Urinalysison Amorphous, UA NOT REPORTED None [place] Bacteria, UA 2+ Abnormal None [place] Casts UA NOT REPORTED /LPF [place] Crystals, UA NOT REPORTED None /HPF [place] Epithelial Cells UA 10 TO 20 [place] Interpretation and review of laboratory results Abnormal [place] Mucus, UA NOT REPORTED None [place] Other Observations UA NOT REPORTED NOT REQ. [place] RBC (U) [#/Vol] 20 TO 50 [place] Renal Epithelial, UA NOT REPORTED 0 /HPF [place] Trichomonas, UA NOT REPORTED None [place], [place] WBC, UA 0 TO 2 [place] Yeast, UA NOT REPORTED None [place] - [place] Urinalysison 12-07-2019 Bilirubin Urine Negative NEGATIVE [place] Color, UA YELLOW YELLOW [place] Glucose, Ur Negative NEGATIVE [place] Interpretation and review of laboratory results Abnormal [place] Ketones Ql (U) Negative NEGATIVE [place] Leukocyte esterase Test strip Ql (U) Negative NEGATIVE [place] Nitrite, Urine Negative NEGATIVE [place] pH, UA 7.0 [place] Protein (U) [Mass/Vol] 2+ Abnormal NEGATIVE [place] Specific [place], UA 1.020 [place] Turbidity UA CLEAR CLEAR [place] Urinalysis Comments NOT REPORTED [place] Urine Hgb 3+ Abnormal NEGATIVE [place] Urobilinogen, Urine Normal Normal [place] CBCon 05-14-2019 Erythrocyte distribution width (RBC) [Ratio] 12.0 % 11.8 - 14.4 % [employer] Phone: Hematocrit (Bld) [Volume fraction] 39.8 % 36.3 - 47.1 % [employer] Phone: Hemoglobin (Bld) [Mass/Vol] 13.6 g/dL 11.9 - 15.1 g/dL [employer] Phone: MCH (RBC) [Entitic mass] 30.3 pg 25.2 - 33.5 pg [employer] Phone: MCHC (RBC) [Mass/Vol] 34.2 g/dL 28.4 - 34.8 g/dL [employer] Phone: MCV (RBC) [Entitic vol] 88.6 fL 82.6 - 102.9 fL [employer] Phone: Platelet mean volume (Bld) [Entitic vol] 11.6 fL 8.1 - 13.5 fL [employer] Phone: Platelets (Bld) [#/Vol] 356 10*3/uL [employer] Phone: RBC (Bld) [#/Vol] 4.49 10*6/uL 3.95 - 5.1 1 m/uL [employer] Phone: WBC (Bld) [#/Vol] 0.0 10*3/uL 0.0 per 10 0 WBC [employer] Phone: WBC (Bld) [#/Vol] 10.4 10*3/uL [employer] Phone: Comprehensive Metabolic Pane keiry 05-14-2019 Albumin [Mass/Vol] 4.1 g/dL 3.5 - 5.2 g/dL [employer] Phone: Albumin/Globulin [Mass ratio] 1.4 {ratio} [employer] Phone: ALP [Catalytic activity/Vol] 74 U/L 35 - 104 U/L [employer] Phone: ALT [Catalytic activity/Vol] 26 U/L 5 - 33 U/L [employer] Phone: Anion gap [Moles/Vol] 16 mmol/L 9 - 17 mmol/L [employer] Phone: AST [Catalytic activity/Vol] 19 U/L <32 [employer] Phone: Bilirubin Ql (U) 0.52 mg/dL 0.3 - 1.2 mg/dL [employer] Phone: Bun/Cre Ratio 12 [employer] [facility] [employer] Work Phone: Calcium [Mass/Vol] 9.4 mg/dL 8.6 - 10. 4 mg/dL [employer] Phone: Chloride [Moles/Vol] 100 mmol/L 98 - 10 7 mmol/L [employer] Phone: CO2 [Moles/Vol] 22 mmol/L 20 - 31 mmol/L [employer] Phone: Creatinine [Mass/Vol] 0.76 mg/dL 0.5 - 0.9 mg/dL [employer] Phone: GFR >60 >60 mL/min [employer] Phone: GFR Non- >60 >60 mL/min [employer] Phone: Glucose [Mass/Vol] 87 mg/dL 70 - 99 mg/dL [facility] [employer] Phone: Potassium [Moles/Vol] 3.7 mmol/L 3.7 - 5.3 mmol/L [facility] Phone: Protein [Mass/Vol] 7.1 g/dL 6.4 - 8.3 g/dL [facility] Phone: Sodium [Moles/Vol] 138 mmol/L 135 - 144 mmol/L [facility] Phone: Urea nitrogen [Mass/Vol] 9 mg/dL 6 - 20 mg/dL [facility] Phone: Metabolic Panelon 05-14-2019 GFR/1.73 sq M predicted among non-blacks MDRD (S/P/Bld) [Vol rate/Area] [facility] Phone: Comment on above: Average GFR for 20-2 9 years old: 116 mL/min/1.73sq m Chronic Kidney Disease: <60 mL/min/1.73sq m Kidney failure: <15 mL/min/1.73sq m eGFR calculated using average adult body mass. Additional eGFR calculator available at: http://www.Tencent.PrintFu/multiple_crcl_2012.htm Stage 1: Some kidney damage normal GFR Stage 2: Mild kidney damage GFR 60-89 Stage 3: Moderate kidney damage GFR 30-59 Stage 4: Severe kidney damage GFR 15-29 Stage 5: Severe kidney damage GFR <15 ESRD - chronic treatment by dialysis or transplant Microscopic Urinalysison Amorphous, UA NOT REPORTED None [facility] Work Phone: Bacteria, UA 2+ Abnormal None [employer] Phone: Casts UA NOT REPORTED /LPF [employer] Work Phone: Crystals UA NOT REPORTED None /HPF [facility] Work Phone: Epithelial Cells UA 10 TO 20 [facility] Work Phone: Interpretation and review of laboratory results Abnormal [facility] [employer] Work Phone: Mucus, UA NOT REPORTED None [facility] [employer] Work Phone: Other Observations UA NOT REPORTED NOT REQ. M [facility] Work Phone: RBC (U) [#/Vol] 10 TO 20 [facility] Work Phone: Renal Epithelial, Urine NOT REPORTED 0 /HPF [facility] Work Phone: Trichomonas, UA NOT REPORTED None [facility] Work Phone: WBC, UA 2 TO 5 [facility] [employer] Work Phone: Yeast, UA NOT REPORTED None [facility] [employer] Work Phone: - [facility] [employer] Work Phone: Urinalysis Reflex to Culture on 05-14-2019 Bilirubin Urine SMALL Abnormal NEGATIVE [facility] Work Phone: Color, UA DARK YELLOW Abnormal YELLOW [facility] [employer] Work Phone: Glucose, Ur Negative NEGATIVE [facility] Work Phone: Interpretation and review of laboratory results Abnormal [facility] Work Phone: Ketones Ql (U) 2+ Abnormal NEGATIVE [facility] Work Phone: Leukocyte esterase Test strip Ql (U) TRACE Abnormal NEGATIVE [facility] Work Phone: Nitrite, Urine Negative NEGATIVE [facility] Work Phone: pH, UA 6.5 [facility] [employer] Work Phone: Protein (U) [Mass/Vol] 1+ Abnormal NEGATIVE [facility] Work Phone: Specific [place], UA 1.020 [facility] [employer] Work Phone: Turbidity UA CLEAR CLEAR [facility] [employer] Work Phone: Urinalysis Comments NOT REPORTED [facility] [employer] Work Phone: Urine Hgb 2+ Abnormal NEGATIVE [facility] [employer] Work Phone: Urobilinogen, Urine Normal Normal [facility] [employer] Work Phone: HIV ScreenOrdered By: Ira Hernandez on 04-19-2019 HIV Ag/Ab Non-Reactive NONREACTIVE [facility] Work Phone: Comment on above: No laboratory eviden ce of HIV infection. If acute HIV infection is suspected, consider testing for HIV-1 RNA. Hemoglobin [id number] By: Sena Russell Hernandez on 04-19-2019 Glucose [Mass/Vol] 100 mg/dL [facility] [employer] Work Phone: Comment on above: The ADA and AACC rec ommend providing the estimated average glucose result to permit better patient understanding of their HBA1c result. HbA1c (Bld) [Mass fraction] 5.1 % 4.8 - 5.9 % [facility] [employer] Work Phone: Hepatitis C AntibodyOrdered By: Ira Hernandez on 04-19-2019 Hepatitis C Ab Non-Reactive NONREACTIVE [facility] Work Phone: Comment on above: The hepatitis C procedure used in our laboratory is a Chemiluminescent test specific for three recombinant HCV antigens. A negative anti-HCV result indicates that the antibodies to hepatitis C virus are not present at this time. Individuals with reactive anti-HCV should be considered infected and infectious until proven otherwise. Confirmation of all equivocal or reactive results is recommended by ordering HCV RNA by PCR. PROFILE IOrdered By : Ira Hernandez on 04-19-2019 [employer] # 0.07 [facility] [employer] Work Phone: Absolute Immature Granulocyte 0.04 [facility] Work Phone: [employer] Lymph # 2.07 [facility] Work Phone: Absolute [place] # 0.49 [employer] [facility] Work Phone: Basophils (Bld) [#/Vol] 0.05 10*3/uL [employer] Phone: Basophils/100 WBC (Bld) 1 % 0 - 2 % [facility] Phone: Differential Type NOT REPORTED [employer] Phone: Eosinophils/100 WBC (Bld) 1 % 1 - 4 % [employer] Phone: Erythrocyte distribution width (RBC) [Ratio] 12.9 % 11.8 - 14.4 % [employer] Phone: Hematocrit (Bld) [Volume fraction] 40.7 % 36.3 - 47.1 % [employer] Phone: Hemoglobin (Bld) [Mass/Vol] 12.9 g/dL 11.9 - 15.1 g/dL [employer] Phone: Hepatitis B Surface Ag Non-Reactive NONREACTIVE [employer] Phone: Immature granulocytes/100 WBC (Bld) 0 % 0 [employer] Phone: Interpretation and review of laboratory results Abnormal [employer] Phone: Lymphocytes/100 WBC (Bld) 22 % Low 24 - 43 % [employer] Phone: MCH (RBC) [Entitic mass] 29.7 pg 25.2 - 33.5 pg [employer] Phone: MCHC (RBC) [Mass/Vol] 31.7 g/dL 28.4 - 34.8 g/dL [employer] Phone: MCV (RBC) [Entitic vol] 93.6 fL 82.6 - 102.9 fL [employer] Phone: Monocytes/100 WBC (Bld) 5 % 3 - 12 % [facility] Phone: NRBC Automated 0.0 0.0 per 100 WBC [employer] Phone: Platelet Estimate NOT REPORTED [employer] Phone: Platelet mean volume (Bld) [Entitic vol] 11.7 fL 8.1 - 13.5 fL [employer] Phone: Platelets (Bld) [#/Vol] 341 10*3/uL [employer] Phone: RBC (Bld) [#/Vol] 4.35 10*6/uL 3.95 - 5.1 1 m/uL [employer] Phone: RBC morphology finding Nom (Bld) NOT REPORTED [facility] Phone: Rubella virus IgG Ql (S) 453.4 IU/mL [employer] Phone: Comment on above: REFERENCE RANGE: <5.0 NON-REACTIVE (non-immune) 5.0 TO 9.9 EQUIVOCAL >=10.0 REACTIVE (immune) Segmented neutrophils/100 WBC (Bld) 71 % High 36 - 65 % [facility] Phone: Segs [employer] 6[employer]72 [employer] Work Phone: T. pallidum, IgG Non-Reactive NONREACTIVE [employer] Phone: Comment on above: T. pallidum antibodies are not detected. There is no serological evidence of infection with T. pallidum (early primary syphilis cannot be excluded). Retest in 2-4 weeks if syphilis is clinically suspect. WBC (Bld) [#/Vol] 9.4 10*3/uL [employer] Phone: WBC Morphology NOT REPORTED [email or web address] Phone: TYPE AND SCREENOrde red By: Ira Hernandez on 04-19-2019 ABO/Rh Positive [facility] Work Phone: T4, FreeOrdered By: Ira Handley othellen Hernandez on 04-19-2019 Thyroxine, Free 1.41 ng/dL 0.93 - 1.7 ng/dL [facility] Work Phone: TSH without ReflexOrdered By : Ira Bran Hernandez on 04-19-2019 TSH Qn 2.62 m[IU]/L [facility] Work Phone: Urine Drug Screen, Comprehen siveOrdered By: Ira Russell David on 04-19-2019 Amphetamine Screen, Ur Negative NEGATIVE [facility] Work Phone: Barbiturate Screen, Ur Negative NEGATIVE [facility] Work Phone: Benzodiazepine Screen, Urine Negative NEGATIVE [facility] Work Phone: Buprenorphine Urine Negative NEGATIVE [facility] Work Phone: Cannabinoid Scrn, Ur Negative NEGATIVE [facility] Work Phone: Cocaine Metabolite, Urine Negative NEGATIVE [facility] Work Phone: MDMA, Urine NOT REPORTED NEGATIVE [facility] Work Phone: Methadone Screen, Urine Negative NEGATIVE [facility] Work Phone: Methamphetamine, Urine Negative NEGATIVE [facility] Work Phone: Opiates, Urine Negative NEGATIVE [facility] Work Phone: Oxycodone Screen, Ur Negative NEGATIVE [facility] Work Phone: Phencyclidine, Urine Negative NEGATIVE [facility] Work Phone: Propoxyphene, Urine Negative NEGATIVE [facility] Work Phone: Test Information NOT REPORTED [facility] Work Phone: Tricyclic Antidepressants, Urine Negative NEGATIVE [facility] Work Phone: Comment on above: Drug screen results are to be used for medical purposes only. All positive results are unconfirmed. Testing for employment or legal uses should be sent to a reference laboratory for confirmation. Vital Signs Date Time Vital Sign Value Performing Clinician Facility 07-30-2022 10:10-0400 Body height 165.1 cm Cynthia Amaya Other [employer] Other 07-30-2022 10:10-0400 Body mass index (BMI) [Ratio] 37.77 kg/m2 Cynthia Amaya Other [facility] Other 07-30-2022 10:10-0400 Body temperature 98.3 [degF] Cynthia Amaya Other [facility] Other 07-30-2022 10:10-0400 Body weight 102.97 kg Cynthia Amaya Other [employer] Other 07-30-2022 10:10-0400 Respiratory rate 18 /min Cynthia Amaya Other [facility] Other 07-30-2022 10:10-0400 SaO2% (BldA) [Mass fraction] 97 % Cynthia Amaya Other [facility] Other 07-23-2022 13:49-0400 Blood Pressure Location [employer] [facility] 07-23-2022 13:49-0400 Diastolic blood pressure 72 mm[Hg] Marcelina [email or web address] [facility] 07-23-2022 13:49-0400 Heart rate 70 /min Marcelina [employer] [facility] 07-23-2022 13:49-0400 Respiratory rate 16 /min Marcelina [employer] [facility] 07-23-2022 13:49-0400 Systolic blood pressure 116 mm[Hg] Marcelina DIXON General Surgery [facility] 06-19-2022 16:10-0400 Body height 165.1 cm Abbey Sanders Other [facility] Other 06-19-2022 16:10-0400 Body mass index (BMI) [Ratio] 38.27 kg/m2 Abbey Sanders Other [employer] Other 06-19-2022 16:10-0400 Body temperature 97.1 [degF] Abbey Sanders Other [employer] Other 06-19-2022 16:10-0400 Body weight 104.33 kg Abbey Sanders Other [employer] Other 06-19-2022 16:10-0400 Respiratory rate 18 /min Abbey Sanders Other [employer] Other 06-19-2022 16:10-0400 SaO2% (BldA) [Mass fraction] 99 % Abbey Sanders Other [employer] Other 01-08-2022 11:15-0400 Body height 165.1 cm Cynthia Amaya Other [employer] Other 01-08-2022 11:15-0400 Body mass index (BMI) [Ratio] 36.61 kg/m2 Cynthia Amaya Other [employer] Other 01-08-2022 11:15-0400 Body temperature 98.6 [degF] Cynthia Amaya Other [employer] Other 01-08-2022 11:15-0400 Body weight 99.79 kg Cynthia Amaya Other [employer] Other 01-08-2022 11:15-0400 Respiratory rate 18 /min Cynthia Amaya Other [employer] Other 01-08-2022 11:15-0400 SaO2% (BldA) [Mass fraction] 98 % Cynthia Amaya Other [employer] Other 02-26-2021 14:40-0500 Body height 165.1 cm Mabel Realault Other [facility] Other 02-26-2021 14:40-0500 Body mass index (BMI) [Ratio] 38.27 kg/m2 Mabel Rosanna Other [employer] Other 02-26-2021 14:40-0500 Body temperature 96.9 [degF] Mabel Realault Other [facility] Other 02-26-2021 14:40-0500 Body weight 104.33 kg Mabel Realault Other [facility] Other 02-26-2021 14:40-0500 Diastolic blood pressure 81 mm[Hg] Mabel Realault Other [facility] Other 02-26-2021 14:40-0500 Respiratory rate 18 /min Mabel Rosanna Other [facility] Other 02-26-2021 14:40-0500 SaO2% (BldA) [Mass fraction] 98 % Mabel Rosanna Other [facility] Other 02-26-2021 14:40-0500 Systolic blood pressure 130 mm[Hg] Mabel Marte Other [employer] Other 01-11-2021 12:30-0400 Body height 165.1 cm Cynthia Amaya Other [employer] Other 01-11-2021 12:30-0400 Body mass index (BMI) [Ratio] 36.61 kg/m2 Cynthia Amaya Other [facility] Other 01-11-2021 12:30-0400 Body temperature 96.6 [degF] Cynthia Amaya Other [employer] Other 01-11-2021 12:30-0400 Body weight 99.79 kg Cynthia Amaya Other [facility] Other 01-11-2021 12:30-0400 Respiratory rate 18 /min Cynthia Amaya Other [employer] Other 01-11-2021 12:30-0400 SaO2% (BldA) [Mass fraction] 98 % Cynthia Amaya Other [employer] Other 12-09-2019 08:32-0400 Body Temperature 97.5 [degF] [facility] 12-09-2019 08:32-0400 BP Diastolic 63 mm[Hg] [facility] [place] , 12-09-2019 08:32-0400 BP Systolic 111 mm[Hg] [facility] [place] , [place] 12-09-2019 08:32-0400 Pulse (Heart Rate) 71 /min [facility] 12-09-2019 08:32-0400 Respiratory Rate 16 /min [facility] [place] 12-07-2019 22:15-0400 Pulse Oximetry 99 % Marylou Benedict [facility] [place] 12-07-2019 08:32-0400 BMI (Body Mass Index) 40.94 kg/m2 Marylou Benedict [facility], [place] 12-07-2019 08:32-0400 Body weight 111.58 kg Marylou Benedict [facility] , [place] 12-07-2019 08:32-0400 Height 165.1 cm Marylou Benedict [facility] , [place] 05-14-2019 19:40-0500 BP Diastolic 63 mm[Hg] [employer] Phone: 05-14-2019 19:40-0500 BP Systolic 104 mm[Hg] [employer] Phone: 05-14-2019 19:40-0500 Pulse (Heart Rate) 85 /min [employer] Phone: 05-14-2019 19:40-0500 Pulse Oximetry 99 % [employer] Phone: 05-14-2019 19:40-0500 Respiratory Rate 18 /min [employer] Phone: 05-14-2019 15:20-0500 BMI (Body Mass Index) 41.6 kg/m2 [employer] Phone: 05-14-2019 15:20-0500 Body Temperature 98.01 [degF] [employer] Phone: 05-14-2019 15:20-0500 Body weight 113.4 kg [employer] Phone: Encounters Encounter Date Encounter Type Care Provider Facility Start: 01-14-2023 End: 01-15-2023 ambulatory IRA RUSSELL [facility] Start: 08-20-2022 End: 08-21-2022 ambulatory Marcelina DIXON Facility:[facility] Start: 08-13-2022 End: 08-14-[address] MIGUEL MAX Facility:[facility] Start: 08-06-2022 Encounter for other preprocedural examination DR MARCELINA DIXON . [facility] Start: 07-30-2022 Office outpatient vi sit 15 minutes Cynthia Amaya [facility] Start: 07-30-2022 End: 07-31-[address] MIGUEL MAX [place] [employer] Other Start: 07-30-2022 End: 07-31-2022 Encounter for other preprocedural examination DR MIGUEL MAX Facility:[facility] Start: 07-23-2022 End: 07-24-2022 [facility] Start: 07-23-2022 End: 07-23-2022 Patient encounter procedure Marcelina DIXON General Surgery [facility] Start: 07-15-2022 End: 07-16-2022 ambulatory [facility] Start: 07-15-2022 ambulatory Marcelina DIXON Facility:[facility] Start: 07-11-2022 ambulatory Marcelina DIXON Facility:[facility] Start: 07-10-2022 End: 07-10-[address] MIGUEL MAX Facility:[facility] Start: 07-08-2022 End: 07-09-[address] MIGUEL MAX Facility:[facility] Start: 06-22-2022 End: 06-22-2022 ambulatory Abbey Sanders Other [facility] [employer] Other Start: 06-22-2022 Telephone encounter Abbey Sanders [facility] [address] Start: 06-19-2022 End: 06-19-2022 ambulatory NELSY SHAVER . Facility:[facility] Start: 06-19-2022 End: 06-19-2022 Departed Referred RAMONA Sanders Work Phone: [facility] [place] Work Phone: Start: 06-19-2022 End: 06-19-2022 ambulatory RAMONA Sanders Work Phone: [facility] Work Phone: Start: 06-19-2022 Office outpatient vi sit 15 minutes Abbey Sanders [facility] Start: 05-17-2022 End: 05-17-2022 ambulatory SISSY ZAPATA Facility:[facility] Start: 01-08-2022 End: 01-08-2022 ambulatory Cynthia Amaya Other [employer] Other Start: 01-08-2022 Office outpatient vi sit 15 minutes Cynthia Amaya [facility] Start: 11-27-2021 End: 11-27-[address] DALIA STUART Facility:[facility] Start: 02-26-2021 End: 02-26-2021 ambulatory Mabel Marte Other [employer] Other Start: 02-26-2021 Office outpatient vi sit 25 minutes Mabel Marte [facility] Start: 01-11-2021 (URG) Urgent Care Visit Cynthia handley [facility] Start: 09-03-2020 End: 09-03-2020 Patient encounter procedure Sal Bautista Work Phone: [facility] Start: 09-03-2020 End: 09-03-2020 Subsequent hospital visit by physician Sal Bautista Work Phone: [facility] Comment on above: Women's annual routi ne gynecological examination Start: 12-07-2019 End: 12-09-2019 Evaluation and management of inpatient Marylou Benedict Work Phone: [facility] Labor and Delivery Start: 11-21-2019 End: 11-21-2019 Subsequent hospital visit [facility] Comment on above: 36 weeks gestation o f Start: 05-14-2019 End: 05-14-2019 Emergency department patient visit Felix Anderson Work Phone: [facility] ED Comment on above: Non-intractable vomi ting with nausea, unspecified vomiting type (Primary Dx) Start: 04-19-2019 End: 04-19-2019 Subsequent hospital visit by physician Sal Bautista Other Phone: [facility] Comment on above: Amenorrhea; Positive urine test; Encounter for supervision of normal in first trimester, unspecified ; BMI 40.0-44.9, adult (HCC); Thyroid disease, antepartum Procedures Date Procedure Procedure Detail Performing Clinician Start: 12-07-2019 Blood count complete auto&auto difrntl wbc Marylou Benedict Work Phone: Start: 12-07-2019 Culture bacterial quanttative colony count urine Marylou Benedict Work Phone: Start: 12-07-2019 Drug screen class list a Marylou Benedict Work Phone: Start: 12-07-2019 Urinalysis microscopic only Marylou Benedict Work Phone: Start: 12-07-2019 Urnls dip stick/tabl et rgnt auto w/o microscopy Marylou Benedict Work Phone: Start: 05-14-2019 Blood count complete automated Carmella Vaca Work Phone: Start: 05-14-2019 Comprehensive metabo lic panel Carmella Lio Work Phone: Start: 05-14-2019 Urinalysis microscopic only Carmellahellen Vaca Work Phone: Start: 05-14-2019 Urnls dip stick/tabl et rgnt auto w/o microscopy Carmella Lio Work Phone: Start: 04-19-2019 Antibody screen Sla Bautista Other Phone: Start: 04-19-2019 Drug screen, qualitate/multi Ira F Bran Fairtrong DO Work Phone: Start: 04-19-2019 End: 04-19-2019 Antibody hiv-1&hiv-2 single result Ira Jhonatan Bran Hernandez DO Work Phone: Start: 04-19-2019 Hemoglobin glycosylated a1c Ira Jhonatan Bran Hernandez DO Work Phone: Appendectomy Marcelina DIXON Plan of Treatment Date Care Activity Detail Author Start: 01-06-2028 DTaP/Tdap/Td vaccine (7 - Td or Tdap) DTaP/Tdap/Td vaccine (7 - Td or Tdap) [employer] Phone: Start: 01-06-2028 DTaP/Tdap/Td vaccine (7 - Td) DTaP/Tdap/Td vaccine (7 - Td) [employer] Phone: Start: 06-19-2022 Bacteria identified in Urine by Culture [facility] Start: 11-28-2020 Influenza vaccination Flu vacc ine (Season Ended) [facility]: Start: 08-29-2020 Screening for malign ant neoplasm of cervix Cervical cancer screen [place], [place] Comment on above: Postponed from 02/02 (Not Indicated) Start: 04-19-2020 Thyroid stimulating hormone measurement TSH testing [facility] [employer] Phone: Start: 04-19-2020 TSH Qn TSH testing [place], [place] Start: 04-19-2020 TSH testing TSH testing [facility] [employer] Phone: Start: 12-20-2019 End: 12-20-2019 Visit 12/20/2019 Visit Obstetrics and Gynecology Ira Tian DO [address] [place] [id number] [facility] Start: 11-29-2019 Influenza vaccination Flu vaccine (# 1) [place], [place] Start: 11-28-2019 End: 11-28-2019 Routine 11/28/2019 Routine Obstetrics and Gynecology rIa Tian DO [address] [place] [id number] [facility] Start: 05-17-2019 End: 05-17-2019 Routine 05/17/2019 Routine Obstetrics and Gynecology Ira Tian, DO [address] James [address] [place] [address] [id number] [facility] Start: 04-25-2019 End: 04-25-2019 Professional / ancillary services management 04/25/2019 Ancillary Procedure Obstetrics and Gynecology [facility] Start: 11-28-2018 Influenza vaccination Flu vaccine (# 1) [facility] [employer] Phone: Start: 02-03-2012 Cervical cancer screen Cervical canc er screen [facility] [employer] Phone: Start: 02-03-2012 Screening for malign ant neoplasm of cervix Cervical cancer screen [facility] [employer] Phone: Start: 2006 HIV screen HIV screen [facility] [employer] Phone: Start: 2003 COVID-19 Vaccine (1) COVID-19 Vaccin e (1) [facility] [employer] Phone: Start: 02-03-1992 Varicella vaccine (1 of 2 - 2-dose childhood series) Varicella vaccine (1 of 2 - 2-dose childhood series) [facility] [employer] Phone: Start: 1991 TSH testing TSH testing [facility] [employer] Phone: End: 05-14-2019 Bacteria identified Cx Nom (U) Urine Culture Microbiology Routine Once for 1 Occurrences starting 05/14/2019 until 05/14/2019 [facility] [employer] Phone: Comment on above: Once for 1 Occurrenc es starting 05/14/2019 until 05/14/2019 Bacteria identified Cx Nom (U) [facility] [employer] Phone: End: 04-19-2019 Bacteria identified in Urine by Culture Urine Culture Microbiology Routine Amenorrhea Positive urine test Encounter for supervision of normal in first trimester, unspecified 1 Occurrences starting 04/19/2019 until 04/19/2019 [facility] [employer] Phone: Comment on above: 1 Occurrences starti ng 04/19/2019 until 04/19/2019 End: 04-19-2019 C.trachomatis N.gonorrhoeae DNA, Urine C.trachomatis N.gonorrhoeae DNA, Urine Microbiology Routine Amenorrhea Positive urine test Encounter for supervision of normal in first trimester, unspecified 1 Occurrences starting 04/19/2019 until 04/19/2019 [employer] Phone: Comment on above: 1 Occurrences starti ng 04/19/2019 until 04/19/2019 C.trachomatis N.gonorrhoeae DNA, Urine C.trachomatis N.gonorrhoeae DNA, Urine Microbiology Routine Amenorrhea Positive urine test Encounter for supervision of normal in first trimester, unspecified 04/19/2019 5:09 PM EST [employer] Phone: End: 11-21-2019 Culture, Strep B Screen, Vaginal/Rectal Culture, Strep B Screen, Vaginal/Rectal Microbiology Routine 36 weeks gestation of 1 Occurrences starting 11/21/2019 until 11/21/2019 [place], [place] Comment on above: 1 Occurrences starti ng 11/21/2019 until 11/21/2019 Culture, Strep B Scr een, Vaginal/Rectal Culture, Strep B Screen, Vaginal/Rectal Microbiology Routine 36 weeks gestation of 11/21/2019 12:30 PM EDT [place], [place] End: 09-03-2020 Cytopathology procedure, preparation of smear, genital source [facility] Lab Routine Women's annual routine gynecological examination 1 Occurrences starting 09/03/2020 until 09/03/2020 [employer] Phone: Comment on above: 1 Occurrences starti ng 09/03/2020 until 09/03/2020 Immunizations Immunization Date Immunization Notes Care Provider Fa annabelty 12-07-2019 diphtheria, tetanus toxoids and acellular pertussis vaccine, unspecified formulation [facility] [place] 12-07-2019 measles, mumps and rubella virus vaccine [place], [place] NEGATED: Highlighted row has not occurred!07-23-2022 influenza virus vaccine, unspecified formulation [facility] [place] NEGATED: Highlighted row has not occurred!07-23-2022 SARS-CoV-2 mRNA (kylee 5y-11y) vaccine Marcelina DIXON [facility] [place] Payers Date Payer Category Payer Self-pay 2018 Unknown BCBS BCBS - [place] P PO xxxxxxxxxxxxxxx 2018-Present [address] [place] [address] xxxxxxxxxxxxxxx [id number] 1991 Unknown [id number] 1991 Unknown [id number] [id number] 1991 Unknown [id number] [id number] 1991 Unknown [id number] 2.16.840.1.349272.3.579.2.593 1991 Unknown [id number] 2.16.840.1.024498.3.579.2.593 1991 Unknown [id number] 2.16.840.1.081456.3.579.2.593 1991 Unknown [id number] 2.16.840.1.127273.3.579.2.593 1991 Unknown [id number] 2.16.840.1.429155.3.579.2.727 1991 Unknown [id number] 2.16.840.1.005013.3.579.2.727 1991 Unknown [id number] 2.16.840.1.013954.3.579.2.727 1991 Unknown [id number] 2.16.840.1.713245.3.579.2.173 1991 Unknown [id number] 2.16.840.1.862870.3.579.2.173 1959 Medicaid [id number] [id number] .[id number] 1959 Unknown [id number] .[id number] Unknown [id number] [id number] Social History Date Type Detail Facility Start: 05-14-2019 End: 07-23-2022 Tobacco smoking status NHIS Never smoker [facility] Start: 04-19-2019 End: 05-14-2019 Alcohol intake Lifetime non-drinker (finding) [employer] Phone: Start: 04-19-2019 History SDOH Alcohol Frequency 1 [employer] Phone: Start: 02-23-2019 [employer] Work Phone: Start: 1990 Sex Assigned At Not on file M [employer] Phone: Start: 09-27-2019 End: 09-03-2020 Tobacco use and exposure Never used [employer] Exposure to SARS-CoV -2 (event) Not sure [employer] Sex Assigned At [facility] Start: 1990 Sex Assigned At Female F [facility] Tobacco smoking status Never [facility] Functional Status Date Assessment Result Facility 07-23-2022 Functional Status N/A [facility] [place] Clinical Notes 01-11-2021 to 07-30-2022 Note Date & Type Note Facility 07-30-2022 Evaluation note Encounter Date Diagnosis Assessment Notes July, Sore throat (ICD-10 - J02.9) July, Acute pharyngitis due to other specified organisms (ICD-10 - J02.8) Pharyngitis/to nsillopharyngi tis: adult home care material was printed Drink plenty fluids, get plenty of rest. Take the amoxicillin as prescribed until gone. Take Tylenol or Motrin for aches pains or fevers. Consider drinking warm tea with honey for comfort. Off work today and tomorrow. Follow-up with your family physician if no improvement in 2 to 3 days July, Other specified bacterial agents as the cause of diseases classified elsewhere (ICD-10 - B96.89) [facility] Other 04-26-2023 NoteChief Complaint consultation for abdominal pain HPI Staff 32 year old female presents on consultation from [facility] for abdominal pain. Presented to ED 07/10 with complaint of intermittent RUQ pain x 1 week. Reported nausea day of ED visit. US completed 07/08 with stone noted within gallbladder. Reports over the past several months she will experience intermittent epigastric pain that radiates to RUQ and back. Describes pain as stabbing. States pain will last 2-3 hours. When pain is severe, she will have multiple episodes of emesis which will eventually alleviate pain. Reports frequent bloating. Denies heartburn or indigestion. Remote history of GERD; has never been on PPI. History of Present Illness 32 yo female with h/o GERD, hypothyroidism, referred from [facility] ED for several week h/o intermittent RUQ abd pain, N/V and cholelithiasis; seen in ED 07/10/22, normal labs; had US done several days prior that revealed a 1.8 cm stone, no wall thickening or ductal dilation; US not repeated; patient reports sharp epigastric pain that radiates around upper abd, occurs several hours after eating, or frequently at 3 am, wakes her up, some associated nausea and vomiting, lasts several hours; no h/o jaundice or pancreatitis; no dysphagia or odynophagia, no wt loss; abd operations significant for LS appendectomy in 2019; no asa or NSAID use; no tobacco use; no fmhx of GI malignancy or IBD. Review of Systems PHQ Score Initial Depression Screen Score: 0 ROS - Provider Constitutional: no fever, no sweats, no weight loss. Eyes: no glasses, no blurred vision, no visual loss. ENMT: no dentures, no hoarseness, no swallowing difficulties, no hearing loss, no ear infection(s),no nose bleeds. Cardiovascular: normal blood pressure, no chest pain, regular heartbeat, no heart murmur. Respiratory: no shortness of breath, no cough, no asthma, no wheezing. Gastrointestinal: yes nausea, yes vomiting, no diarrhea, no constipation, no blood in stool, no change in bowel habits, moderate abdominal pain, no hepatitis. Genitourinary: no kidney stones, no urine infection, no dysuria. Musculoskeletal: no pain, no weakness. Skin: no changing moles, no rash, no skin lumps. Neurologic: no seizures, no epilepsy, no headache. Psychiatric: no emotional or psychiatric problem. Heme/Lymph: no bleeding problems, no anemia, no blood clots, no transfusions. Allergy/Immunologic: no swollen lymph nodes/glands, no IV drug abuse. Other: Additional ROS info: Except as noted in the above Review of Systems and in the History of Present Illness, all other systems have been reviewed and are negative or noncontributory. Physical Exam Vitals & Measurements HR: 70(Peripheral) RR: 16 BP: 116/72 HT: 65 in HT: 165 cm WT: 104.5 kg WT: 229.9 lb BMI: 38.38 HEENT: normal conjunctiva, sclera clear, no scleral icterus, EOM intact, PERRLA, oral mucosa moist without lesions. Neck: trachea midline, no mass, symmetric, no thyromegaly or nodules, no adenopathy Respiratory: lungs CTA, respirations non labored. Cardiovascular: regular rate and rhythm, no murmur, no pedal edema or varicosities. Gastrointestinal: obese, soft, non distended, no tenderness, no masses, no palpable hernias, diastasis recti no, no hepatosplenomegaly; normal bs Lymphatic: no cervical adenopathy, no supraclavicular adenopathy Musculoskeletal: normal gait, digits and nails without infection, nodes, cyanosis, clubbing. Skin: no rashes, no lesions, no ulcers, no subcutaneous nodules, induration. Psychiatric/Neuro: oriented to time, place, person, judgement normal, affect appropriate for age, insight intact, no focal deficits. Tests: labs reviewed, x-rays reviewed, review of old records completed, Discussed surgical options, risks, and possible complications with patient. Assessment/Plan 1. Symptomatic cholelithiasis (K80.20: Calculus of gallbladder without cholecystitis without obstruction) plan laparoscopic cholecystectomy with possible intraoperative cholangiogram, informed consent obtained. recommend low fat diet. Unasyn 3 gms IV prior to OR SCDs Ordered: E&M of New Patient Moderate 45-59 Min 73048 2. Gastroesophageal reflux disease (K21.9: Gastro-esophageal reflux disease without esophagitis) will begin Protonix daily. Ordered: pantoprazole, 40 mg = 1 tab(s), Oral, Daily, # 30 tab(s), Refills(s) 3, [id number], 165, cm, 07/23/22 13:58:00 EDT, Height/Length Dosing, 104.5, kg, 07/23/22 13:58:00 EDT, Weight Dosing E&M of New Patient Moderate 45-59 Min [id number] Follow-up No qualifying data available Problem List/Past Medical History Ongoing BMI 38.0-38.9,adult Gastroesophageal reflux disease Hiatal hernia Hypothyroidism RUQ pain Symptomatic cholelithiasis Vitamin D deficiency Historical No qualifying data Procedure/Surgical History Appendectomy. Medications Protonix 40 mg Tab-DR, 40 mg= 1 tab(s), Oral, Daily, 3 refills Slynd 4 mg oral tablet, 4 mg= 1 tab(s (more content not included)...[facility]Result Comment: Electronically Signed By: SUMI BARKLEY, Marcelina Alston\Date and Time Signed: 07/23/22 14:27 [id number] Evaluation note* Encounter Date Diagnosis Assessment Notes Treatment Notes Treatment Clinical Notes May, Dysuria (ICD-10 - R30.0) Discussed diagnosis and dipstick findings with patient. WIll hold off on treatment at this time. Advised patient culture was sent today and we will call with her results in 2-5 days. At time of results, treatment plan many change. Patient instructed to push fluids. Patient symptoms should improve in the next 48 hours, if symptoms persist follow up with PCP or UC. Immediate eval by ER if back or flank pain, fever, chills, N/V, or any other concerning symptoms arise. Patient verbalizes understanding and is agreeable to treatment plan [facility] Other 10-12-2022 Evaluation note* Encounter Date Diagnosis Assessment Notes Treatment Notes Treatment Clinical Notes Dec, Contact with and (suspected) exposure to other viral communicable diseases (ICD-10 - Z20.828) Dec, Viral upper respiratory infection (ICD-10 - J06.9) Viral upper respiratory infection: adult home care material was printed Drink plenty fluids, get plenty of rest. Take Tylenol or Motrin as needed for aches pains or fevers. Continue take Mucinex or Sudafed for congestion. Follow-up with your family physician if no improvement in 2 to 3 days. [facility] Other 11-30-2021 Evaluation note* Encounter Date Diagnosis Assessment Notes Treatment Notes Treatment Clinical Notes Jan, Herpes zoster without complication (ICD-10 - B02.9) [facility] Other 10-15-2021 Evaluation note* Encounter Date Diagnosis Assessment Notes Treatment Notes Treatment Clinical Notes Dec, Contact with and (suspected) exposure to other viral communicable diseases (ICD-10 - Z20.828) Dec, Viral upper respiratory illness (ICD-10 - J06.9) Drink plenty fluids, get plenty of rest. Follow-up with your family physician if no improvement in 2 to 3 days. Tylenol Motrin for aches pains or fever. Dec, Other Additional time spent conducting pre-visit phone call, screening for symptoms, instructions on social distancing, application and removal of PPE, and cleaning of examination room, equipment and supplies was preformed. Patient education given for testing methodology and results. Patient care instructions given in writting by [facility] Care At Home document. [facility] Other Evaluation + Plan note No data available for this section [facility] Evaluation note* Diagnosis Women's annual routine gynecological examination documented in this encounter [employer] Phone: evaluation note* Diagnosis Amenorrhea Absence of menstruation Positive urine test Encounter for supervision of normal in first trimester, unspecified BMI 40.0-44.9, adult (HCC) Body Mass Index 40.0-44.9, adult Thyroid disease, antepartum Thyroid dysfunction, antepartum documented in this encounter [employer] Phone: evaluation noteNo assessment information available [facility] Work Phone: Evaluation noteNo InformationNortEncompass Health [facility] [employer] Other History general Narrative - Reported* Type Description Date Surgical History appendectomy Hospitalization History see above [place] [facility] Other Hospital Discharge instructions No data available for this section [facility] [place] Progress note No data available for this section [facility] [place] Discharge Instructions * Instructions* Carmella Vaca PA-C - 05/14/2019 Continue pushing liquids for the next 48 hours. Keep follow-up as scheduled with [facility]. If you go home and develop any worsening symptoms do not hesitate to return the emergency room. * Attachments The following attachments cannot be sent through Care Everywhere. * Nausea and Vomiting (Lebanese) documented in this encounter* Instructions* Keya Haq RN - 12/09/2019 Follow-up with your OB doctor as specified. [facility] OB Department phone: Dr. Malgorzata Mills CNM Dr. Sina Benedict CN [address] [address] [place] or [place] Coni Orosco, MSN, DECK SCALER, CNM [facility] [address] [facility] [address] [address] Kelly [facility] [address] [facility] [id number] Marylou Milton CN [address] [place] [address] [place] [address] Dominique Worrell CNM [address] [place] [address] [place] [address] [phone] DIET Eat a well balanced diet focusing on foods high in fiber and protein. Drink plenty of fluids especially water. To avoid constipation you may take a mild stool softener as recommended by your doctor or professor of english. ACTIVITY Gradually increase your activity. Resume exercise regimen only after advice by your doctor or professor of english. Avoid lifting anything heavier than a gallon of milk for SIX weeks. Avoid driving until your doctor or professor of english has given their approval. Rise slowly from a lying to sitting and then a standing position. Climb stairs one at a time. Use caution when carrying your baby up and down the stairs. NO SEXUAL Activity for 4-6 weeks or until advised by your doctor; Nothing in vagina: intercourse, tampons, or douching. Be prepared to discuss family planning at your follow-up OB visit. You may feel tired or have a lack of energy. You may continue your vitamin to replenish nutrients post delivery. Nap when baby naps to catch up on sleep. EMOTIONS You may feel cobos, sad, teary, & overwhelmed. Contact your OB provider if you feel you may be showing signs of depression, or have thoughts of harming yourself or your . If will not stop crying, contact another adult for help or place in their crib on their back and take a break. NEVER shake your . BLEEDING Vaginal bleeding will decrease in amount over the next few weeks. You will notice that as your activity increases, your flow may increase. This is your body's way oftelling you, you need to take things easier and rest more often. Call your care provider if you are saturating more than one maxi pad in an hour & resting does not help. BREAST CARE Take medications as recommended by your doctor or professor of english for pain If you develop a warm, red, tender area on your breast or develop a fever contact your OB provider. For moms: If you become engorged, feeding may be more difficult or painful for 1-2 days. You may find it helpful to hand express some milk so that the infant can latch on more easily. While , continue to take your vitamins as directed by your doctor or professor of english. Refer to the booklet in the folder/binder for more information. If you feel you need more assistance or have questions, please call Latasha Iqbal IBCLC, oim consultant, at or the OB department to schedule an appointment or phone consultation. For more FREE help, visit the Support Group on Thursday evenings at 7 pm in the OB department. For NON- moms: You may apply ice packs to your breasts over your bra for twenty minutes at a time for comfort. Avoid stimulation to your breasts, when showering allow the water to strike your back not your breasts. Wear a good fitting bra until your milk dries, such as a sports bra. INCISIONAL CARE / MARIZA CARE If you have an acticoat dressing in place after your please leave your dressing in place for one week until you follow up with your provider. They will remove this dressing in the office when you see them. If your dressing starts to peel up or becomes soiled prior to your appointment with your provider, you may remove the dressing and clean your incision as directed below. Clean your incision in the shower with mild soap. After shower pat the incision area dry and allow the area open to air. If used, Steri-strips should be completely removed by 2 weeks but you may remove them as they become loose or soiled. If used, Johnny should be removed by your care provider. If used/ordered, an abdominal binder may provide support for your incision. Use the mariza-bottle after toileting until bleeding stops. Cleanse your perineum from front to back If used, stitches will dissolve in 4-6 weeks. You may use a sitz bath or soak in a clean tub as needed for comfort. Kegel exercises will help restore bladder control. SWELLING Try to keep your legs elevated when you are sitting. When lying down keep your legs elevated. When wearing stocking or socks, make sure they are not too tight. WHEN TO CALL THE DOCTOR If you have a temp of 100.6 or more. If your bleeding has increased and you are saturating a pad in an hour. Your abdomen is tender to touch. You are passing blood clots bigger than the size of a lemon. If you are experiencing extreme weakness or dizziness. If you are having flu-like symptoms such as achy muscles or joints. There is a foul smell or a green color to your vaginal bleeding. If you have pain that cannot be relieved. You have persistent burning or frequency with urination. Call if you have concerns about your well-being. You are unable to sleep, eat, or are having thoughts of harming yourself or your baby. You have swelling, bleeding, drainage, foul odor, redness, or warmth in/around your incision or stitches. You have a red, warm, tender area in your calf. 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 ACP-Advance Directive ACP-Power of Speech Therapy Assistant Latest Code Status on File Code Status Date Activated Date Inactivated Comments Full Code 12/07/2019 11:44 PM Full Code 12/07/2019 7:37 AM 12/07/2019 11:44 PM Full Code 12/07/2019 6:26 AM 12/07/2019 7:37 AM Latest Code Status on File Code Status Date Activated Date Inactivated Comments Full Code 12/07/2019 11:44 PM 12/09/2019 4:37 PM History of Present Illness * Marylou Benedict, DECK SCALER - CNM - 12/09/2019 9:31 AM EDT Department of Obstetrics and Gynecology Labor and Delivery Post Progress Note SUBJECTIVE: 2nd day , s/p , denies c/o OBJECTIVE: Vitals: BP 111/63 Pulse 71 Temp 97.5 F (36.4 C) (Oral) Resp 16 Ht 5' 5 (1.651 m) Wt 246 lb (111.6 kg) LMP 02/09/2019 SpO2 99% Unknown BMI 40.94 kg/m Patient Vitals for the past 24 hrs: BP Temp Temp src Pulse Resp 12/09/19 0832 111/63 97.5 F (36.4 C) Oral 71 16 12/09/19 0809 107/66 97.9 F (36.6 C) Oral 74 18 12/09/19 0348 121/73 97.9 F (36.6 C) Oral 82 18 12/09/19 0037 (!) 105/58 98 F (36.7 C) Oral 83 18 12/08/19 1950 109/68 76 12/08/19 1949 97.9 F (36.6 C) Oral 18 12/08/19 1649 105/71 97.6 F (36.4 C) Oral 85 16 12/08/19 1154 104/64 97.7 F (36.5 C) Oral 78 20 12/08/19 1150 110/61 72 12/08/19 1146 104/64 97.7 F (36.5 C) Oral 88 20 ABDOMEN: normal shape, position and consistency GENITAL/URINARY: External Genitalia: General appearance; normal, Hair distribution; normal, Lesionsabsent Uterus: Size normal, Tenderness absent Breast:normal appearance, no masses or tenderness Cor: RRR no Murmurs Pulmonary: clear to auscultation anterior and posterior Extremities: no Clubbing cyanosis or ecchymosis DATA: CBC: Lab Results Component Value Date WBC 10.4 12/07/2019 RBC 3.99 12/07/2019 HGB 12.0 12/07/2019 HCT 36.5 12/07/2019 MCV 91.5 12/07/2019 MCH 30.1 12/07/2019 MCHC 32.9 12/07/2019 RDW 12.9 12/07/2019 PLT 294 12/07/2019 MPV 12.5 12/07/2019 ASSESSMENT : Active Problems: Normal delivery Plan: D/c home, rto 6 weeks, routine instructions * Elise Barnett RN - 12/08/2019 2:30 PM EDT Pt resting with eyes closed, easy resps noted. FOB sleeping in chair at bedside. sleeping inopen crib at mom's bedside. * Marylou Milton APRN - CNM - 12/08/2019 8:05 AM EDT Department of Obstetrics and Gynecology Labor and Delivery Post Progress Note SUBJECTIVE: Cheerful, no c/o OBJECTIVE: Vitals: BP (!) 110/56 Pulse 98 Temp 98.5 F (36.9 C) (Oral) Resp 18 Ht 5' 5 (1.651 m) Wt 246 lb (111.6 kg) LMP 02/09/2019 SpO2 99% Unknown BMI 40.94 kg/m Patient Vitals for the past 24 hrs: BP Temp Temp src Pulse Resp SpO2 Height Weight 12/08/19 0407 (!) 110/56 98.5 F (36.9 C) Oral 98 18 12/08/19 0120 112/62 98.7 F (37.1 C) Oral 104 16 12/08/19 0105 116/66 109 16 12/08/19 0050 114/65 100 16 12/08/19 0021 112/64 98.5 F (36.9 C) Oral 117 16 12/07/19 2356 116/72 105 16 12/07/19 2336 118/72 117 16 12/07/19 2320 (!) 111/58 102 16 12/07/19 2306 (!) 108/58 117 18 12/07/19 2235 124/60 86 20 12/07/19 2221 129/60 98.4 F (36.9 C) Oral 81 12/07/19 2215 99 % 12/07/19 2210 99 % 12/07/19 2205 103/65 103 98 % 12/07/19 2200 97 % 12/07/19 2155 99 % 12/07/19 2151 107/62 106 12/07/19 2150 100 % 12/07/19 2145 97 % 12/07/19 2142 91 % 12/07/19 2140 100 % 12/07/19 2136 114/65 109 12/07/19 2135 99 % 12/07/19 2130 99 % 12/07/19 2125 99 % 12/07/19 2120 106/65 99 100 % 12/07/19 2116 112/62 100 12/07/19 2115 98 % 12/07/190 114/70 88 12/07/197 117/87 98.4 F (36.9 C) Oral 71 18 12/07/192020 116/73 73 12/07/19 2006 115/75 86 12/07/19 1950 120/63 105 12/07/19 1937 114/68 78 18 12/07/19 192 (!) 120/58 94 12/07/19 1906 109/66 74 12/07/19 1901 18 12/07/19 1850 109/61 74 12/07/19 1836 115/66 78 12/07/19 1828 98.1 F (36.7 C) 12/07/19 1820 113/66 71 12/07/19 1805 114/74 84 16 12/07/19 1751 121/69 71 12/07/19 1735 (!) 99/58 90 12/07/19 1721 (!) 107/56 69 12/07/19 1705 113/66 98.8 F (37.1 C) Oral 76 16 12/07/19 1651 (!) 117/56 69 12/07/19 1636 (!) 96/59 78 12/07/19 1621 111/69 73 12/07/19 1606 98/69 85 12/07/19 1600 18 12/07/19 1550 96/62 88 12/07/19 1536 104/62 105 12/07/19 1530 98.4 F (36.9 C) Oral 16 12/07/19 1520 102/63 78 12/07/19 1505 (!) 92/53 116 12/07/19 1458 99 % 12/07/19 1450 (!) 98/56 106 12/07/19 1442 99 % 12/07/19 1437 99 % 12/07/19 1435 104/67 96 16 12/07/19 1432 98 % 12/07/19 1430 111/69 87 12/07/19 1427 98 % 12/07/19 1426 111/64 79 12/07/19 1422 96 % 12/07/19 1420 116/65 73 12/07/19 1417 97 % 12/07/19 1414 123/60 88 22 12/07/19 1412 98 % 12/07/19 1408 123/78 104 12/07/19 1407 97 % 12/07/19 1406 126/87 113 12/07/19 1405 121/87 120 12/07/19 1402 99 % 12/07/19 1357 96 % 12/07/19 1333 116/77 98.2 F (36.8 C) Temporal 75 12/07/19 1308 20 12/07/19 1302 120/79 69 12/07/19 1233 116/71 66 12/07/19 1202 120/71 82 16 12/07/19 1133 130/83 77 12/07/19 1129 98.2 F (36.8 C) Oral 12/07/19 1104 18 12/07/19 1102 124/81 80 12/07/19 1032 125/85 82 12/07/19 1002 123/74 83 16 12/07/19 0934 131/78 82 12/07/19 0902 134/88 98 F (36.7 C) Temporal 77 18 12/07/19 0834 118/80 75 12/07/19 0832 5' 5 (1.651 m) 246 lb (111.6 kg) ABDOMEN: deferred GENITAL/URINARY: WNL Uterus: firm Breast:soft, bottlefeeding Cor: RRR no Murmurs Pulmonary: clear to auscultation anterior and posterior Extremities: no Clubbing cyanosis or ecchymosis ASSESSMENT : Active Problems: Term Plan: F/U in am * Zoe Han RN - 12/07/2019 10:[address] Russell at bedside for delivery. * Zoe Han RN - 12/07/2019 9:[address] Russell in department. Updated on SVE, FHR, and pt positioning. * Zoe Han RN - 12/07/2019 9:14 PM EDT Anesthesia at bedside. * Zoe Han RN - 12/07/2019 8:49 PM EDT Anesthesia notified via telephone that pt is rating contractions 11/06. States she is in surgery andwill head to department after. * Zoe Han RN - 12/07/2019 7:[address] Russell at bedside. documented in this encounter Summary Purpose Family History No Family History Records FoundNo Family History Records FoundNo Family History Records FoundNo Family History Records FoundNo Family History Records Found Additional Source Comments Reason for Visit (unrecogniz ed section and content) Reason Comments Emesis pt states she has be en vomiting for 2 weeks,is 9 weeks , Pt states she has been on Phenergam Reglan and is on Keflex for a UTI Abdominal Cramping onset today Reason Comments Rupture of Membranes Status Reason Specialty Diagnoses / Procedures Referre d By Contact Referred To Contact Diagnoses Term Bran Ira Hernandez, [address] [place] [address] [facility] INFORMATION SOURCE (unrecogn ized section and content) DATE CREATED AUTHOR 01/27/2021 [facility] DATE CREATED AUTHOR AUTHOR'S ORGANIZ ATION 08/13/2022 [facility] DATE CREATED AUTHOR AUTHOR'S ORGANIZ ATION 09/05/2022 [facility] DATE CREATED AUTHOR AUTHOR'S ORGANIZ ATION 01/04/2023 [facility] DATE CREATED AUTHOR AUTHOR'S ORGANIZ ATION 01/17/[address] [facility] Care Teams (unrecognized sec tion and content) Team Status: Inactive Member Role Status Dates Abbey Sanders APRN Attending Provider Active Goals (unrecognized section and content) Goals may be documented in a n alternate section FOR RECORDS PERTAINING TO PATIENTS WHO ARE OR HAVE BEEN ENROLLED IN A CHEMICAL DEPENDENCY/SUBSTANCEABUSE PROGRAM, SOME INFORMATION MAY BE OMITTED. This clinical summary was aggregated from multiple sources. Caution should be exercised in using it in the provision of clinical care. This summary normalizes information from multiple sources, and as a consequence, information in this document may materially change the coding, format and clinical context of patient data. In addition, data may be omitted in some cases. CLINICAL DECISIONS SHOULD BE BASED ON THE PRIMARY CLINICAL RECORDS. [employer] provides no warranty or guarantee of the accuracy or completeness of information in this document.
[2023-04-08 15:36] VITALS: BP 141/84; PULSE 109; RESP 16; TEMP 37; O2SAT 98; BMI 35.6
--- NOTE | 2023-04-08 16:10 | ED.GENADUL1 ---
HPI - General Adult General Chief complaint: Nausea/Vomiting/Diarrhea Stated complaint: 20 wks unable to keep anything down Time Seen by Provider: 04/08/23 16:01 Source: patient Mode of arrival: walk-in History of Present Illness HPI narrative: Patient is a 33-year-old female G2, who presents to the ER for 3-day history of abdominal pain and vomiting. She has been seen in this emergency department previously in this for hyperemesis. She is currently on 8 mg of Zofran at home without improvement. She has had a previous cholecystectomy and appendectomy. No fevers, chills, cough, congestion. She denies urinary symptoms or diarrhea. She states she did have similar symptoms with her previous . She denies vaginal bleeding or fluid leakage. Related Data Previous Rx's Medication Instructions Recorded ondansetron 4 mg disintegrating 4 mg PO Q8H PRN nausea and 12/31/22 tablet vomiting 4 days #16 tabs doxylamine 10 mg-pyridoxine (vit 1 tab PO TID PRN nausea #30 tabs 01/04/23 B6) 10 mg tablet,delayed release (Diclegis) metoclopramide HCl 10 mg tablet 10 mg PO Q6H PRN nausea and 01/18/23 (Reglan) vomiting #12 tabs metoclopramide HCl 10 mg tablet 10 mg PO Q6H PRN nausea and 04/08/23 (Reglan) vomiting #12 tabs Allergies Allergy/AdvReac Type Severity Reaction Status Date / Time No Known Drug Allergies Allergy Verified 12/31/22 00:59 Review of Systems ROS Constitutional Denies: fever or chills Ears, nose, mouth, and throat Denies: throat pain Cardiovascular Denies: chest pain Respiratory Denies: shortness of breath or cough Gastrointestinal Reports: abdominal pain, nausea and vomiting Genitourinary Denies: painful urination Musculoskeletal Denies: back pain Integumentary/Breast Denies: rash Neurological Denies: headache Hematologic/Lymphatic Denies: easy bruising or easy bleeding PFSH PFSH Social History Smoking status: Never smoker Exam Narrative Exam Narrative: Gen.: Awake, alert, in no distress Head: Normocephalic, atraumatic ENT: Moist mucous membranes Respiratory: No respiratory distress Gastrointestinal: Abdomen is soft, nondistended and Diffusely tender to palpation with no guarding or rebound Extremities: Moves extremities equally Psych: Normal mood and affect Neuro: No focal neuro deficit Skin: Warm, dry, intact Constitutional Vital Signs, click to edit/add: Last Vital Signs Temp 98.6 F 04/08/23 15:36 Pulse 92 H 04/08/23 18:03 Resp 18 04/08/23 18:03 BP 136/88 04/08/23 18:03 Pulse Ox 98 04/08/23 18:03 O2 Del Method Room Air 04/08/23 15:36 Course Vital Signs Vital signs: Vital Signs Temperature 98.6 F 04/08/23 15:36 Pulse Rate 109 H 04/08/23 15:36 Respiratory Rate 16 04/08/23 15:36 Blood Pressure 141/84 04/08/23 15:36 Pulse Oximetry 98 04/08/23 15:36 Oxygen Delivery Method Room Air 04/08/23 15:36 Temperature 98.6 F 04/08/23 15:36 Pulse Rate 92 H 04/08/23 18:03 Respiratory Rate 18 04/08/23 18:03 Blood Pressure 136/88 04/08/23 18:03 Pulse Oximetry 98 04/08/23 18:03 Oxygen Delivery Method Room Air 04/08/23 15:36 Medical Decision Making MDM Narrative Medical decision making narrative: Patient is Treated with IV fluids, Reglan with significant improvement. She tolerated ice chips And on reevaluation states she is feeling much better, she has no significant pain. I discussed this with Dr. Gomez, he stated that at exactly 20 weeks, the patient does not need to be seen in labor and delivery for abdominal pain. She can be discharged home with symptomatic treatment. She is comfortable with this with stable vital signs at time of discharge, abdomen is soft and benign. She has no vaginal bleeding, fluid leakage. She has not had the symptoms over the last 3 days. Medical Records Medical records reviewed: Yes I reviewed the patient's medical records Lab Data Lab results reviewed: Yes I reviewed the patient's lab results Labs: Lab Results 04/08/23 04/08/23 04/08/23 Range/Units 16:18 16:25 16:30 WBC 10.0 (4.0-11.0) 10^3/uL RBC 3.82 L (4.20-5.40) 10^6/uL Hgb 11.5 L (12.0-16.0) g/dL Hct 34.3 L (36.0-48.0) % MCV 89.8 (81.0-99.0) fL MCH 30.1 (26.7-34.0) pg MCHC 33.5 (29.9-35.2) g/dL RDW 13.0 (11.0-15.0) % Plt Count 300 (150-450) 10^3/uL MPV 11.9 (9.5-13.5) fL Neut % (Auto) 81.0 H (43.0-75.0) % Lymph % (Auto) 12.7 L (20.5-60.0) % [place] % (Auto) 5.1 (1.7-12.0) % Eos % (Auto) 0.7 L (0.9-7.0) % Baso % (Auto) 0.3 (0.2-2.0) % Neut # (Auto) 8.1 H (1.4-6.5) 10^3/uL Lymph # (Auto) 1.3 (1.2-3.8) 10^3/uL [place] # (Auto) 0.5 (0.3-0.8) 10^3/uL Eos # (Auto) 0.1 (0.0-0.7) 10^3/uL Baso # (Auto) 0.0 (0.0-0.1) 10^3/uL Abs Immat Gran (auto) 0.02 (0.00-0.03) 10^3/uL Imm/Tot Granulo (auto) 0.2 (0.0-0.5) % Sodium 135 L (136-145) mmol/L Potassium 3.5 (3.5-5.1) mmol/L Chloride 104 (98-107) mmol/L Carbon Dioxide 22.1 (21.0-32.0) mmol/L Anion Gap 12.4 BUN 6.0 L (7.0-18.0) mg/dL Creatinine 0.73 (0.55-1.02) mg/dL Est GFR ( Amer) >60 (>=60) Est GFR (Non-Af Amer) >60 (>=60) BUN/Creatinine Ratio 8.2 Glucose 86 (74-106) mg/dL Lactate 0.7 (0.4-2.0) mmol/L Calcium 8.5 (8.5-10.1) mg/dL Total Bilirubin 0.4 (0.2-1.0) mg/dL AST 15 (15-37) U/L ALT 22 (14-59) U/L Alkaline Phosphatase 80 (46-116) U/L Total Protein 6.7 (6.4-8.2) g/dL Albumin 2.6 L (3.4-5.0) g/dL Globulin 4.1 g/dL Albumin/Globulin Ratio 0.6 Lipase 14.0 L (16.0-77.0) U/L Urine Color Dk yellow (YELLOW) Urine Clarity Slightly cloudy A (CLEAR) Urine pH 6.5 (5.0-9.0) Ur Specific [place] 1.025 (1.005-1.025) Urine Protein 30 A (NEG/TRACE) mg/dL Urine Glucose (UA) Negative (NEGATIVE) mg/dL Urine Ketones 15 A (NEGATIVE) mg/dL Urine Occult Blood Negative (NEGATIVE) Urine Nitrite Negative (NEGATIVE) Urine Bilirubin Small A (NEGATIVE) Urine Urobilinogen 4.0 A (0.2-1.0) EU/dL Ur Leukocyte Esterase Negative (NEGATIVE) Urine RBC None seen (0-2) #/HPF Urine WBC None seen (NONE SEEN) #/HPF Ur Squamous Epith Cells Few A (NONE/RARE) #/LPF Urine Crystals None seen (None Seen) #/HPF Amorphous Sediment Few Urine Bacteria Small A (NONE SEEN) #/HPF Urine Casts None seen (NONE SEEN) #/LPF Urine Mucus Small A (NONE SEEN) Discharge Plan Discharge Chief Complaint: Nausea/Vomiting/Diarrhea Clinical Impression: Nausea and vomiting during Patient Disposition: Home, Self-Care Time of Disposition Decision: 18:12 Condition: Good Prescriptions / Home Meds: New metoclopramide HCl [Reglan] 10 mg tablet 10 mg PO Q6H PRN (Reason: nausea and vomiting) Qty: 12 0RF No Action doxylamine-pyridoxine (vit B6) [Diclegis] 10-10 mg tablet,delayed release (DR/EC) 1 tab PO TID PRN (Reason: nausea) Qty: 30 0RF ondansetron 4 mg tablet,disintegrating 4 mg PO Q8H PRN (Reason: nausea and vomiting) 4 Days Qty: 16 0RF metoclopramide HCl [Reglan] 10 mg tablet 10 mg PO Q6H PRN (Reason: nausea and vomiting) Qty: 12 0RF Instructions: Nausea and Vomiting in (ED) Stand Alone Forms: Portal Instructions Referrals: MIGUEL MAX [Primary Care Provider] - 1 week
[2023-04-08] MEDS: 0.9 % SODIUM CHLORIDE 1,000 ML 999 ML IV (16:19)
[2023-04-08] MEDS: METOCLOPRAMIDE HCL 10 MG/2 ML VIAL IVP (16:20)
[2023-04-08 16:39] LABS: Basophils Percent Auto 0.3 % (0.2-2.0); Eosinophils Absolute Auto 0.1 10^3/uL (0.0-0.7); Eosinophils Percent Auto 0.7 % (0.9-7.0); Hematocrit 34.3 % (36.0-48.0); Hemoglobin 11.5 g/dL (12.0-16.0); Immature Granulocytes Abs Auto 0.02 10^3/uL (0.00-0.03); Immature Granulocytes Pct Auto 0.2 % (0.0-0.5); Lymphocytes Absolute Auto 1.3 10^3/uL (1.2-3.8); Lymphocytes Percent Auto 12.7 % (20.5-60.0); Mean Corpuscular HGB Conc 33.5 g/dL (29.9-35.2); Mean Corpuscular Hemoglobin 30.1 pg (26.7-34.0); Mean Corpuscular Volume 89.8 fL (81.0-99.0); Mean Platelet Volume 11.9 fL (9.5-13.5); Monocytes Absolute Auto 0.5 10^3/uL (0.3-0.8); Monocytes Percent Auto 5.1 % (1.7-12.0); Neutrophils Absolute Auto 8.1 10^3/uL (1.4-6.5); Platelet Count 300 10^3/uL (150-450); Red Blood Count 3.82 10^6/uL (4.20-5.40)
[2023-04-08 16:51] LABS: Bilirubin Urine SMALL (NEGATIVE); Blood Urine NEGATIVE (NEGATIVE); Glucose Urine UA NEGATIVE (NEGATIVE); Ketones Urine 15 mg/dL (NEGATIVE); Leukocyte Esterase Urine NEGATIVE (NEGATIVE); Nitrite Urine NEGATIVE (NEGATIVE); Protein Urine 30 mg/dL (NEG/TRACE); Specific Gravity Urine 1.025 (1.005-1.025); pH Urine 6.5 (5.0-9.0)
[2023-04-08 16:53] LABS: Clarity Urine SLIGHTLY CLOUDY (CLEAR); Color Urine DK YELLOW (YELLOW); Urine Microscopic Indicated YES
[2023-04-08 16:59] LABS: Lactate/Lactic Acid 0.7 mmol/L (0.4-2.0)
[2023-04-08 16:59] LABS: Amorphous Sediment Urine FEW; Bacteria Urine SMALL #/HPF (NONE SEEN); Cast Seen? NONE SEEN #/LPF (NONE SEEN); Crystals Seen? None Seen #/HPF (None Seen); Mucus Urine SMALL (NONE SEEN); RBC Urine NONE SEEN #/HPF (0-2); Squamous Epithelial Cell Urine FEW #/LPF (NONE/RARE); WBC Urine NONE SEEN #/HPF (NONE SEEN)
[2023-04-08 17:06] LABS: Alanine Aminotransferase 22 U/L (14-59); Albumin Globulin Ratio 0.6; Albumin Level 2.6 g/dL (3.4-5.0); Alkaline Phosphatase 80 U/L (46-116); Anion Gap 12.4; Aspartate Amino Transferase 15 U/L (15-37); BUN Creatinine Ratio 8.2; Bilirubin Total 0.4 mg/dL (0.2-1.0); Calcium 8.5 mg/dL (8.5-10.1); Carbon Dioxide 22.1 mmol/L (21.0-32.0); Chloride 104 mmol/L (98-107); Estimated GFR (African America >60 (>=60); Estimated GFR (Non-African Ame >60 (>=60); Globulin 4.1 g/dL; Glucose 86 mg/dL (74-106); Potassium 3.5 mmol/L (3.5-5.1); Sodium 135 mmol/L (136-145); Total Protein 6.7 g/dL (6.4-8.2)
[2023-04-08 18:03] VITALS: BP 136/88; PULSE 92; RESP 18; O2SAT 98
== END 2023-04-08 18:17 | disposition home or self-care (01) ==
PROVIDERS: Physician Assistant; Emergency Provider Emergency Medicine Emergency Medical Services; PCP Nurse Practitioner Family
DX: O26.892 Other specified pregnancy related conditions, second trimester (principal); R11.2 Nausea with vomiting, unspecified; Z3A.20 20 weeks gestation of pregnancy; Z90.49 Acquired absence of other specified parts of digestive tract
CPT/HCPCS: 36415; 80053; 81001; 83605; 83690; 85025; 96361; 96374; 99285; J2765

== ENCOUNTER 2023-04-19 20:09 | Emergency (ER) | payer OTHER, SELFPAY ==
[2023-04-19] VITALS (10 sets, daily range): BP systolic 105–116; BP diastolic 63–80; PULSE 92–103; RESP 18–20; TEMP 36.9; O2SAT 96–98; BMI 35.8
--- OUTSIDE RECORDS SUMMARY | 2023-04-19 20:19 | XMS_ITS | CCD ---
Author Name Unknown Address [address] [place] [address] Organization [facility] Care Team Providers Care Head Athletic Trainer Name Role Phone Sal Bautista Primary Care Provider Cynthia Amaya Unavailable Mabel Marte Unavailable RAMONA Sanders Attending Provider [phone] Abbey Sanders Unavailable SAL BAUTISTA Primary Care Physician MANSOOR, DR MIGUEL Eddy Primary Care Unavailable MARIA DEL CARMEN, DR ARTURO Reyes Admitting Unavailgrey JOYCE, DR ARTURO Reyes Attending Unavailabl e PETE ., LEONARD MUNSON Consulting UnavailSISSY Sun Consulting Unavailable NEFTALY ., BOSTON Admitting Unavailable NEFTALY ., BOSTON Attending Unavailable MANSOOR, DR MIGUEL Eddy Primary Care Unavailable NEFTALY ., BOSTON Consulting Unavailable PATRICK NEW Consulting Unavailable NARCISO, DR DALIA Macedo Consulting Unavailable NEFTALY ., BOSTON Admitting Unavailable BOSTON AMARO Attending Unavailable MANSOOR, DR MIGUEL Eddy Primary Care Unavailable PETE ., LEONARD MUNSON Consulting UnavailBOSTON Peterson Consulting Unavailable MANSOOR, DR [...] Eddy Consulting Unavailable SIVAKUMAR .NELSY Admitting Unavailable SIVAKUMAR .NELSY Attending Unavailable PETE ., LEONARD MUNSON Consulting Unavailgrey MAX, DR MIGUEL Eddy Primary Care Unavailable SIVAKUMAR .NELSY Consulting Unavailable OLIVIAL, Marcelina Eddy Attending Unavailable NILL, Marcelina R Attending Unavailable NILL, Marcelina R Attending Unavailable Sanders, Abbey Sanchez Attending Unavailable Sanders, Abbey Sanchez Admitting Unavailable NO FAMILY, PHYSICIAN Primary Care Unavailable DREW HERNANDEZ, IRA F Referring Unavail able FURLONG, SAL G Primary Care Unavailable FURLONG, SAL G Primary Care Unavailable DREW HERNANDEZ, IRA F Referring Unavail able DREW HERNANDEZ, IRA F Referring Unavail able FURLONG, SAL G Primary Care Unavailable Allergies Allergy Classification Reported Allergen(s) Allergy Type Date of Onset Reaction(s) Facility (1 source) No Known Medication Allergies; Translations: [No Known Medication Allergies] Propensity to adverse reactions (disorder) [facility] Repository Medications Current Medications Medication Drug Class(es) Dates Sig (Normalized) Sig (Original) acetaminophen 325 mg oral tablet (1 source) Start: 12-07-2019 take 650 mg by mouth every four hours as needed for fever, then take 4000 mg by mouth every twenty-four hours as needed for fever 650 mg, Oral, EVERY 4 HOURS PRN, Fever, Fever >100.5 F (38 C) or pain 1-10, Starting 12/07/19 at 2344 Maximum dose of acetaminophen is [...] Oral, 2 TIMES DAILY PRN, Constipation, Starting 12/07/19 at 2344 Do not crush or break. 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] Onset: 05-20-2022 Episodic Other complications of (1 source) Obesity complicating , first trimester; Translations: [Obesity complicating , first trimester] Onset: 01-14-2023 Chronic Other nutritional; endocrine; and metabolic disorders (1 source) Body mass index 40+ - severely obese Chronic Other nutritional; endocrine; and metabolic disorders (1 source) Body mass index 30+ - obesity 07-23-2022 Chronic Other upper respiratory infections (4 sources) Acute [...] 07-15-2022 Episodic Other aftercare (1 source) 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; Translations: [OTH 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 Performed By: #### U CGP #### [facility] [place] [address] Automotive Designer: Devin Yeager MD Gonorrhea Probe, Ur Negative Normal NEG [facility] Comment on above: Result Comment: NEIS SERIA [...] target. Performed By: #### U CGP #### [address] [id number] Automotive Designer: Devin Yeager MD HIV Ag/Abon 01-16-2023 HIV Ag/Ab Non-Reactive Normal NR [facility] Comment on above: Result Comment: No l aboratory evidence of HIV infection. If acute HIV infection is suspected, consider testing for HIV-1 RNA. Performed By: #### H IVCMB, GLYHGB, AHCV #### [address] [address] Automotive Designer: Devin Yeager MD Profileon T.pallidum Ab Screen Non-Reactive Normal NR [facility] Comment on above: Result Comment: T. pallidum antibodies are not detected. There is no serological evidence of infection with T. pallidum (early primary syphilis cannot be excluded). Retest in 2-4 weeks if syphilis is clinically suspect. Performed By: #### P RENAT #### [address] [address] Automotive Designer: Devin Yeager MD [facility] [address] [place] [address] [place] [address] Automotive Designer: Dalia Dutton MD Cult,Urineon 01-15-2023 Cult,Urine Specimen Description .CLEAN CATCH URINE Culture NO SIGNIFICANT GROWTH Report Status FINAL 01/15/2023 [facility] Comment on above: Performed By: #### U RC #### [address] [address] Automotive Designer: Devin Yeager MD [facility] [address] [place] [address] [place] [address] Automotive Designer: Dalia Dutton MD Hemoglobin A1Con 01-15-2023 Glucose [Mass/Vol] 100 mg/dL [facility] Comment on above: Result Comment: The ADA and AACC recommend providing the estimated average glucose result to permit better patient understanding of their HBA1c result. Performed By: #### H IVCMB, GLYHGB, AHCV #### [address] [address] Automotive Designer: Devin Yeager MD HbA1c (Bld) [Mass fraction] 5.1 % Normal 4.0-6.0 [facility] Comment on above: Performed By: #### H IVCMB, GLYHGB, AHCV #### [id number] [place] [address] Automotive Designer: Devin Yegaer MD Hep C Abon 4 Hep C Ab Non-Reactive Normal NR [facility] Comment on above: Result Comment: The hepatitis [...] HCV RNA by PCR. Performed By: #### H RASTA GLYHGB, AHCV #### [address] [address] Automotive Designer: Devin Yeager MD Profileon 3 Rubella Ab, IgG >500.0 Normal [facility] Comment on above: Result Comment: REFERENCE RANGE: <5.0 NON-REACTIVE (non-immune) 5.0 TO 9.9 EQUIVOCAL >=10.0 REACTIVE (immune) Performed By: #### P RENAT #### [address] [address] Automotive Designer: Devin Yeager MD [facility] [address] [place] [address] [place] [address] Automotive Designer: Dalia Dutton MD Hep B Surf Ag Non-Reactive Normal [facility] Comment on above: Performed By: #### P RENAT #### [address] [address] Automotive Designer: Devin Yeager MD [facility] [address] [place] [address] Automotive Designer: Dalia Dutton MD Profileon 3 Abs. Basophil 0.05 k/uL Normal 0.00-0.20 [facility] Comment on above: Performed By: #### P RENAT #### [address] [address] Automotive Designer: Devin Yeager MD [address] [place] [address] Automotive Designer: Dalia Dutton MD Abs.Imm.Granulocyte 0.03 k/uL Normal 0.00-0.30 [facility] Comment on above: Performed By: #### P RENAT #### [place] [address] Automotive Designer: Devin Yeager MD [address] [place] [address] Automotive Designer: Dalia Dutton MD Abs.Neutrophil (Seg) 7.47 k/uL Normal 1.50-8.10 [facility] Comment on above: Performed By: #### P RENAT #### [place] [address] Automotive Designer: Devin Yeager MD [address] [place] [address] Automotive Designer: Dalia Dutton MD Basophils/100 WBC (Bld) 1 % Normal 0-2 [facility] Comment on above: Performed By: #### P RENAT #### [address] [address] Automotive Designer: Devin Yeagre MD [address] [place] [address] Automotive Designer: Dalia Dutton MD Eosinophils (Bld) [#/Vol] 0.08 10*3/uL Normal 0.00-0.44 [facility] Comment on above: Performed By: #### P RENAT #### [address] [address] Automotive Designer: Devin Yeager MD [facility] [address] [place] [address] [address] [place] [phone] Automotive Designer: Dalia Dutton MD Eosinophils/100 WBC (Bld) 1 % Normal 1-4 [facility] Comment on above: Performed By: #### P RENAT #### [address] [address] Automotive Designer: Devin Yeager MD [address] [place] [phone] Automotive Designer: Dalia Dutton MD Erythrocyte distribution width (RBC) [Ratio] 12.1 % Normal 11.8-14.4 [facility] Comment on above: Performed By: #### P RENAT #### [address] [address] Automotive Designer: Devin Yeager MD [address] [place] [phone] Automotive Designer: Dalia Dutton MD Hematocrit (Bld) [Volume fraction] 39.2 % Normal 36.3-47.1 [facility] Comment on above: Performed By: #### P RENAT #### [address] [address] Automotive Designer: Devin Yeager MD [address] [place] [address] Automotive Designer: Dalia Dutton MD Hemoglobin (Bld) [Mass/Vol] 13.0 g/dL Normal 11.9-15.1 [facility] Comment on above: Performed By: #### P RENAT #### [address] [address] Automotive Designer: Devin Yeager MD [address] [place] [phone] Automotive Designer: Dalia Dutton MD Immature granulocytes/100 WBC (Bld) 0 % Normal 0 [facility] Comment on above: Performed By: #### P RENAT #### [address] [address] Automotive Designer: Devin Yeager MD [facility] [address] [place] [address] Dr. [place] [phone] Automotive Designer: Dalia Dutton MD Lymphocytes (Bld) [#/Vol] 1.23 10*3/uL Normal 1.10-3.70 [facility] Comment on above: Performed By: #### P RENAT #### [address] [address] Automotive Designer: Devin Yeager MD [address] [place] [phone] Automotive Designer: Dalia Dutton MD Lymphocytes/100 WBC (Bld) 13 % Low 24-43 [facility] Comment on above: Performed By: #### P RENAT #### [address] [address] Automotive Designer: Devin Yeager MD [facility] [address] [place] [address] [place] [address] Automotive Designer: Dalia Dutton MD MCH (RBC) [Entitic mass] 30.0 pg Normal 25.2-33.5 [facility] Comment on above: Performed By: #### P RENAT #### [address] [address] Automotive Designer: Devin Yeager MD [facility] [address] [place] [address] [place] [address] Automotive Designer: Dalia Dutton MD MCHC (RBC) [Mass/Vol] 33.2 g/dL Normal 28.4-34.8 [facility] Comment on above: Performed By: #### P RENAT #### [address] [address] Automotive Designer: Devin Yeager MD [facility] [address] [place] [address] Dr. [place], [place] [phone] Automotive Designer: Dalia Dutton MD MCV (RBC) [Entitic vol] 90.3 fL Normal 82.6-102.9 [facility] Comment on above: Performed By: #### P RENAT #### [address] [address] Automotive Designer: Devin Yeager MD [address] [place], [place] [phone] Automotive Designer: Dalia Dutton MD Monocytes (Bld) [#/Vol] 0.57 10*3/uL Normal 0.10-1.20 [facility] Comment on above: Performed By: #### P RENAT #### [address] [address] Automotive Designer: Devin Yeager MD [address] [place] [phone] Automotive Designer: Dalia Dutton MD Monocytes/100 WBC (Bld) 6 % Normal 3-12 [facility] Comment on above: Performed By: #### P RENAT #### [address] [address] Automotive Designer: Devin Yeager MD [address] [place] [phone] Automotive Designer: Dalia Dutton MD Neutrophil (Seg) 79 % High 36-65 [facility] Comment on above: Performed By: #### P RENAT #### [address] [address] Automotive Designer: Devin Yeager MD [address] [place], [place] [phone] Automotive Designer: Dalia Dutton MD NRBC Automated 0.0 per 100 WBC Normal 0.0 [facility] Comment on above: Performed By: #### P RENAT #### [address] [place] [address] Automotive Designer: Devin Yeager MD [facility] [address] [place] [address] Dr. [place], [place] [id number] Automotive Designer: Dalia Dutton MD Platelet mean volume (Bld) [Entitic vol] 12.6 fL Normal 8.1-13.5 [facility] Comment on above: Performed By: #### P RENAT #### [address] [address] Automotive Designer: Devin Yeager MD [address] [place] [phone] Automotive Designer: Dalia Dutton MD Platelets (Bld) [#/Vol] 313 10*3/uL Normal 138-453 [facility] Comment on above: Performed By: #### P RENAT #### [address] [address] Automotive Designer: Devin Yeager MD [facility] [address] [place] [address] Dr. [place] [phone] Automotive Designer: Dalia Dutton MD RBC (Bld) [#/Vol] 4.34 10*6/uL Normal 3.95-5.11 [facility] Comment on above: Performed By: #### P RENAT #### [address] [address] Automotive Designer: Devin Yeager MD [facility] [address] [place] [address] [place] [address] Automotive Designer: Dalia Dutton MD WBC (Bld) [#/Vol] 9.4 10*3/uL Normal 3.5-11.3 [facility] Comment on above: Performed By: #### P RENAT #### [address] [address] Automotive Designer: Devin Yeager MD [facility] [address] [place] [address] Automotive Designer: Dalia Dutton MD Type + Scrnon 01-14 Type + Scrn Negative Normal [facility] Comment on above: Performed By: #### P RTYS #### [facility] [address] [place] [address] Automotive Designer: Dalia Dutton MD TSH w/reflex to FT4on 2022 Thyroid Stim. Horm. 0.54 uIU/mL Normal 0.30-5.00 [facility] Comment on above: Performed By: #### T SHX #### [facility] [address] [place] [address] Automotive Designer: Dalia Dutton MD Provider Letteron 08-28-2022 Provider Letter August 28, 2022 Z[address] CO[address]OS [address] [place] [id number] : 1990 To Whom It May Concern, The above named person may return to work 08/31/22 without restrictions. Sincerely, Dr. Marcelina Dixon MD General Surgery [facility] Ambulatory Visit Summaryon 0 08-20-2022 Ambulatory Visit Summary ZULEYKA COBOS :1990 Visit Date:08/20/2022 Ambulatory Visit Instructions Your Diagnosis Symptomatic cholelithiasis Your Care Team Attending Physician - SUMI [...] Symptomatic cholelithiasis Vitamin D deficiency Normal [facility] General Surgery Office/Clini c Noteon 08-20-2022 General [...] Eddy, KRIS Only if needed [address] [place] [address]- Additional Instructions: Problem List/Past Medical History Ongoing [...] - Not Given Patient Refuses SARS-CoV-2 mRNA (tozinameran 5y-11y) vac - Not Given Patient Refuses Normal [facility] Comment on above: Result Comment: Elec tronically Signed By: SUMI BARKLEY, Marcelina Eddy\.br\Date and Time Signed: 08/20/22 14:08 EDT Pathology Noteon 08-20-2022 Pathology Note [id number] 99#1.00CD:127 Normal [facility] Operative Reporton Operative Report [id number] BC#1.00CD:127 Normal [facility] PREG HCG QUALon 08-13-2022 , QUAL Negative Normal NEGATIVE [facility] Comment on above: Performed By: #### P REG #### [facility] [address] [address] [address] Esteban Meneses Formson 08-05-2022 Forms [id number] A0#1.00CD:127 Normal [facility] Quick Strepon 07-30-2022 S. pyogenes Org specific cx Ql (Throat) Negative [facility] [employer] Other Quick Strep Model Metrics [facility] [employer] Other Pre-Certification Formon Pre-Certification Form [id number] 272#1.00CD:127 Normal [facility] Consent for Procedure/Surger yon 07-24-2022 Consent for Procedure/Surgery [id number] F0#1.00CD:127 Normal [facility] Facesheeton 07-24-2022 Facesheet [id number] AF#1.00CD:127 [facility] Ambulatory Visit Summaryon 0 07-23-2022 Ambulatory [...] disease Refills: 3 Pickup at [facility] #[id number] Unchanged drospirenone (Slynd 4 mg oral tablet) 1 Tablets By Mouth Every day Contact prescribing physician if questions or concerns Pharmacy Information [facility] #[id number]: [address], [place] [id number] [phone] Medications and Immunizations Administered Not Given influenza virus vaccine, inactivated, Patient Refuses SARS-CoV-2 mRNA (tozinameran 5y-11y) vac, Patient Refuses Allergies No Known Allergies No Known Medication Allergies Problems Ongoing - Any problem that you are currently receiving treatment for. BMI 38.0-38.9,adult Gastroesophageal reflux disease Hiatal hernia Hypothyroidism RUQ pain Symptomatic cholelithiasis Vitamin D deficiency Normal [facility] Vaginitis DNA Probeon 2022 Jessy Negative Normal [facility] Comment on above: Result Comment: for Jessy sp. Method of testing is a DNA probe intended for detection and identification of Jessy species, Gardnerella vaginalis, and Trichomonas vaginalis nucleic acid in vaginal fluid specimens from patients with symptoms of vaginitis/vaginosis. Performed By: #### V AGP #### [address] [address] Automotive Designer: Devin Yeager MD [address] [place] [address] Automotive Designer: Dalia Dutton MD Gardnerella Negative [facility] Comment on above: Result Comment: for Gardnerella vaginalis Performed By: #### V AGP #### [address] [address] Automotive Designer: Devin Yeager MD [address] [place] [address] Automotive Designer: Dalia Dutton MD Trichomonas Negative [facility] Comment on above: Result Comment: for Trichomonas Vaginalis Performed By: #### V AGP #### [address] [address] Automotive Designer: Devin Yeager MD [address] [place] [address] Automotive Designer: Dalia Dutton MD Vaginitis DNA Probeon 2022 Source .VAGINAL SWAB Normal [facility] Comment on above: Performed By: #### V AGP #### [facility] [address] [place], [place] [id number] Automotive Designer: Devin Yeager MD [facility] [address] [place] [address] Automotive Designer: Dalia Dutton MD ED Note-Physicianon 07-15-19 ED Note-Physician [id number]#1.00CD:127 Normal [facility] RAD - Ultrasound Reporton RAD - Ultrasound Report [id number] 7C#1.00CD:127 Normal [facility] CBC AUTO DIFFon 07-10-2022 BASO # 0.0 103/ul Normal 0.0-0.1 [facility] Comment on above: Performed By: #### L IPA, MARITO, CMP, CMADM #### [facility] [address] [address] [address] Esteban Meneses Basophils/100 WBC (Bld) 0.4 % Normal 0.2-2.0 [facility] Comment on above: Performed By: #### L IPA, MARITO, CMP, CMADM #### [facility] [address] [address] [address] Esteban Meneses EO # 0.1 103/ul Normal 0.0-0.7 [facility] Comment on above: Performed By: #### L IPA, MARITO, CMP, CMADM #### [facility] [address] [address] [address] Esteban Meneses Eosinophils/100 WBC (Bld) 0.8 % Critically low 0.9-7.0 [facility] Comment on above: Performed By: #### L IPA, MARITO, CMP, CMADM #### [facility] [address] [address] [address] Esteban Menesse Erythrocyte distribution width (RBC) [Ratio] 12.3 % Normal 11.0-15.0 [facility] Comment on above: Performed By: #### L IPA, MARITO, CMP, CMADM #### [facility] [address] [place] [address] Dr. Esteban Meneses Hematocrit (Bld) [Volume fraction] 37.9 % Normal 36.0-48.0 [facility] Comment on above: Performed By: #### L IPA, MARITO, CMP, CMADM #### [facility] [address] [place] [address] Dr. Esteban Meneses Hemoglobin (Bld) [Mass/Vol] 12.8 g/dL Normal 12.0-16.0 [facility] Comment on above: Performed By: #### L IPA, MARITO, CMP, CMADM #### [facility] [address] [place] [address] Dr. Esteban Meneses IG # 0.03 10e3/ul Normal 0.00-0.03 [facility] Comment on above: Performed By: #### L IPA, MARITO, CMP, CMADM #### [facility] [address] [place] [address] Dr. Esteban Meneses IG % 0.3 % Normal 0.0-0.5 [facility] Comment on above: Performed By: #### L IPA, MARITO, CMP, CMADM #### [facility] [address] [place] [address] Dr. Esteban Meneses LYMPH # 0.8 103/ul Critically low 1.2-3.8 [facility] Comment on above: Performed By: #### L IPA, MARITO, CMP, CMADM #### [facility] [address] [place] [address] Dr. Esteban Meneses Lymphocytes/100 WBC (Bld) 8.2 % Critically low 20.5-60.0 [facility] Comment on above: Performed By: #### L IPA, MARITO, CMP, CMADM #### [facility] [address] [place] [address] Dr. Esteban Meneses MANUAL DIFF REQ NO Normal [facility] Comment on above: Performed By: #### L IPA, MARITO, CMP, CMADM #### [facility] [address] [place] [address] Dr. Esteban Meneses MCH (RBC) [Entitic mass] 29.4 pg Normal 26.7-34.0 [facility] Comment on above: Performed By: #### L IPA, MARITO, CMP, CMADM #### [facility] [address] [place] [address] Dr. Esteban Meneses MCHC (RBC) [Mass/Vol] 33.8 g/dL Normal 29.9-35.2 [facility] Comment on above: Performed By: #### L IPA, MARITO, CMP, CMADM #### [facility] [address] [place] [address] Dr. Esteban Meneses MCV (RBC) [Entitic vol] 87.1 fL Normal 81.0-99.0 [facility] Comment on above: Performed By: #### L IPA, MARITO, CMP, CMADM #### [facility] [address] [place] [address] Dr. Esteban Meneses MONO # 0.5 103/ul Normal 0.3-0.8 [facility] Comment on above: Performed By: #### L IPA, MARITO, CMP, CMADM #### [facility] [address] [place] [address] Dr. Esteban Meneses Monocytes/100 WBC (Bld) 5.1 % Normal 1.7-12.0 [facility] Comment on above: Performed By: #### L IPA, MARITO, CMP, CMADM #### [facility] [address] [place] [address] Dr. Esteban Meneses NEUT # 8.3 103/ul Critically high 1.4-6.5 [facility] Comment on above: Performed By: #### L IPA, MARITO, CMP, CMADM #### [facility] [address] [place] [address] Dr. Esteban Meneses Neutrophils/100 WBC (Bld) 85.2 % Critically high 43.0-75.0 [facility] Comment on above: Performed By: #### L IPA, MARITO, CMP, CMADM #### [facility] [address] [address] [address] Esteban Meneses Platelet mean volume (Bld) [Entitic vol] 10.9 fL Normal 9.5-13.5 [facility] Comment on above: Performed By: #### L IPA, MARITO, CMP, CMADM #### [facility] [address] [place] [address] Dr. Esteban Meneses PLT 302 103/ul Normal 150-450 [facility] Comment on above: Performed By: #### L IPA, MARITO, CMP, CMADM #### [facility] Laboratory [address] [place] [address] Dr. Esteban Meneses RBC 4.35 106/ul Normal 4.20-5.40 [facility] Comment on above: Performed By: #### L IPA, MARITO, CMP, CMADM #### [facility] [address] [place] [address] Dr. Esteban Meneses WBC 9.8 103/ul Normal 4.0-11.0 [facility] Comment on above: Performed By: #### L IPA, MARITO, CMP, CMADM #### [facility] [address] [place] [address] Dr. Esteban Meneses ER URINE PROFILEon 3 Bilirubin Ql (U) Negative Normal NEGATIVE [facility] Comment on above: Performed By: #### L IPA, MARITO, CMP, CMADM #### [facility] [address] [place] [address] Dr. Esteban Meneses Clarity (U) CLEAR Normal CLEAR [facility] Comment on above: Performed By: #### L IPA, MARITO, CMP, CMADM #### [facility] [address] [place] [address] Dr. Esteban Meneses Color (U) YELLOW Normal YELLOW [facility] Comment on above: Performed By: #### L IPA, MARITO, CMP, CMADM #### [facility] [address] [place] [address] Dr. Esteban TERRAZAS A micrscopic examination will be performed if indicated. Normal [facility] Comment on above: Performed By: #### L IPA, MARITO, CMP, CMADM #### [facility] [address] [address] [address] Esteban Meneses Glucose Ql (U) Negative Normal NEGATIVE [facility] Comment on above: Performed By: #### L IPA, MARITO, CMP, CMADM #### [facility] [address] [address] [address] Esteban Meneses Hemoglobin Ql (U) TRACE-INTACT Abnormal NEGATIVE [facility] Comment on above: Performed By: #### L IPA, MARITO, CMP, CMADM #### [facility] [address] [address] [address] Esteban Meneses Ketones Ql (U) Negative Normal NEGATIVE [facility] Comment on above: Performed By: #### L IPA, MARITO, CMP, CMADM #### [facility] [address] [address] [address] Esteban Meneses LEUKOCYTES Negative Normal NEGATIVE [facility] Comment on above: Performed By: #### L IPA, MARITO, CMP, CMADM #### [facility] [address] [address] [address] Esteban Meneses Nitrite Ql (U) Negative Normal NEGATIVE [facility] Comment on above: Performed By: #### L IPA, MARITO, CMP, CMADM #### [facility] [address] [address] [address] Esteban Meneses pH (U) 5.5 [pH] Normal 5-9 [facility] Comment on above: Performed By: #### L IPA, MARITO, CMP, CMADM #### [facility] [address] [address] [address] Esteban Meneses SPEC GRAVITY 1.025 Normal 1.005-<=1.025 [facility] Comment on above: Performed By: #### L IPA, MARITO, CMP, CMADM #### [facility] [address] [address] [address] Esteban Meneses UA PROTEIN TRACE Normal NEGATIVE/ TRACE [facility] Comment on above: Performed By: #### L IPA, MARITO, CMP, CMADM #### [facility] [address] [address] [address] Esteban Meneses UR MICRO IND NOT INDICATED Normal [facility] Comment on above: Performed By: #### L IPA, MARITO, CMP, CMADM #### [facility] [address] [place] [address] Dr. Esteban Meneses Urobilinogen Qn (U) 0.2 {Roxana'U}/dL Normal 0.2 - 1. 0 [facility] Comment on above: Performed By: #### L IPA, MARITO, CMP, CMADM #### [facility] [address] [place] [address] Dr. Esteban Meneses LIPASEon 07-10-2022 Lipase [Catalytic activity/Vol] 53.0 U/L Critically low 73.0-393.0 [facility] Comment on above: Performed By: #### L IPA, MARITO, CMP, CMADM #### [facility] [address] [place] [address] Dr. Esteban Meneses URon 07-10-2022 , QUAL Negative Normal NEGATIVE [facility] Comment on above: Performed By: #### L IPA, MARITO, CMP, CMADM #### [facility] [address] [place] [address] Dr. Esteban Meneses PROF 14(COMP METB)on 023 Albumin [Mass/Vol] 3.8 g/dL Normal 3.4-5.0 [facility] Comment on above: Performed By: #### L IPA, MARITO, CMP, CMADM #### [facility] [address] [place] [address] Dr. Esteban Meneses Albumin/Globulin [Mass ratio] 1.0 {ratio} Normal [facility] Comment on above: Performed By: #### L IPA, MARITO, CMP, CMADM #### [facility] [address] [place] [address] Dr. Esteban Meneses ALP [Catalytic activity/Vol] 77 U/L Normal 46-116 [facility] Comment on above: Performed By: #### L IPA, MARITO, CMP, CMADM #### [facility] [address] [place] [address] Dr. Esteban Meneses ALT [Catalytic activity/Vol] 19 U/L Normal 14-59 [facility] Comment on above: Performed By: #### L IPA, MARITO, CMP, CMADM #### [facility] [address] [address] [address] Esteban Meneses Anion gap [Moles/Vol] 12.0 mmol/L Normal [facility] Comment on above: Performed By: #### L IPA, MARITO, CMP, CMADM #### [facility] [address] [address] [address] Esteban Meneses AST [Catalytic activity/Vol] 14 U/L Critically low 15-37 [facility] Comment on above: Performed By: #### L IPA, MARITO, CMP, CMADM #### [facility] [address] [address] [address] Esteban Meneses Bilirubin [Mass/Vol] 0.7 mg/dL Normal 0.2-1.0 [facility] Comment on above: Performed By: #### L IPA, MARITO, CMP, CMADM #### [facility] [address] [address] [address] Esteban Meneses Calcium [Mass/Vol] 8.9 mg/dL Normal 8.5-10.1 [facility] Comment on above: Performed By: #### L IPA, MARITO, CMP, CMADM #### [facility] [address] [address] [address] Esteban Meneses Chloride [Moles/Vol] 103 mmol/L Normal 98-107 [facility] Comment on above: Performed By: #### L IPA, MARITO, CMP, CMADM #### [facility] [address] [address] [address] Esteban Meneses CO2 [Moles/Vol] 25.3 mmol/L Normal 21.0-32.0 [facility] Comment on above: Performed By: #### L IPA, MARITO, CMP, CMADM #### [facility] [address] [address] [address] Esteban Meneses Creatinine [Mass/Vol] 0.90 mg/dL Normal 0.55-1.02 [facility] Comment on above: Performed By: #### L IPA, MARITO, CMP, CMADM #### [facility] [address] [address] [address] Esteban Meneses EGFR-AF CYMRAES >60 Normal >=60 [facility] Comment on above: Performed By: #### L IPA, MARITO, CMP, CMADM #### [facility] [address] [address] [address] Esteban Meneses EGFR-NON AF CYMRAES >60 Normal >=60 [facility] Comment on above: Performed By: #### L IPA, MARITO, CMP, CMADM #### [facility] [address] [address] [address] Esteban Meneses Globulin (S) [Mass/Vol] 3.7 g/dL Normal [facility] Comment on above: Performed By: #### L IPA, MARITO, CMP, CMADM #### [facility] [address] [address] [address] Esteban Meneses Glucose [Mass/Vol] 97 mg/dL Normal 74-106 [facility] Comment on above: Performed By: #### L IPA, MARITO, CMP, CMADM #### [facility] [address] [address] [address] Esteban Meneses Potassium [Moles/Vol] 4.0 mmol/L Normal 3.5-5.1 [facility] Comment on above: Performed By: #### L IPA, MARITO, CMP, CMADM #### [facility] [address] [address] [address] Esteban Meneses Protein [Mass/Vol] 7.5 g/dL Normal 6.4-8.2 [facility] Comment on above: Performed By: #### L IPA, MARITO, CMP, CMADM #### [facility] [address] [address] [address] Esteban Meneses Sodium [Moles/Vol] 137 mmol/L Normal 136-145 [facility] Comment on above: Performed By: #### L IPA, MARITO, CMP, CMADM #### [facility] [address] [address] [address] Esteban Meneses Urea nitrogen [Mass/Vol] 16.0 mg/dL Normal 7.0-18.0 [facility] Comment on above: Performed By: #### L IPA, MARITO, CMP, CMADM #### [facility] [address] [address] [address] Esteban Meneses Urea nitrogen/Creatinine [Mass ratio] 17.8 mg/mg Normal [facility] Comment on above: Performed By: #### L IPA, MARITO, CMP, CMADM #### [facility] [address] [address] [address] Esteban Meneses US SINGLE QUAD RT [...] by: GABE PETERSON Date: 2022-07-08 15:40 Normal [facility] ER URINE PROFILEon 3 Clarity (U) CLEAR Normal CLEAR [facility] Comment on above: Performed By: #### L IPA, MARITO, CMP, CMADM #### [facility] [address] [place] [address] Dr. Esteban Meneses ERUAHD A micrscopic examination will be performed if indicated. Normal [facility] Comment on above: Performed By: #### L IPA, MARITO, CMP, CMADM #### [facility] [address] [place] [address] Dr. Esteban Meneses Hemoglobin Ql (U) TRACE-INTACT Abnormal NEGATIVE [facility] Comment on above: Performed By: #### L IPA, MARITO, CMP, CMADM #### [facility] [address] [place] [address] Dr. Esteban Meneses LEUKOCYTES Negative Normal NEGATIVE [facility] Comment on above: Performed By: #### L IPA, MARITO, CMP, CMADM #### [facility] [address] [place] [address] Dr. Esteban Meneses SPEC GRAVITY 1.025 Normal 1.005-<=1.025 [facility] Comment on above: Performed By: #### L IPA, MARITO, CMP, CMADM #### [facility] [address] [place] [address] Dr. Esteban Meneses UA PROTEIN Negative Normal NEGATIVE/ TRACE [facility] Comment on above: Performed By: #### L IPA, MARITO, CMP, CMADM #### [facility] [address] [place] [address] Dr. Esteban Meneses UR MICRO IND INDICATED Normal [facility] Comment on above: Performed By: #### L IPA, MARITO, CMP, CMADM #### [facility] [address] [place] [address] Dr. Esteban Meneses Urobilinogen Qn (U) 1.0 {Roxana'U}/dL Normal 0.2 - 1. 0 [facility] Comment on above: Performed By: #### L IPA, MARITO, CMP, CMADM #### [facility] [address] [place] [address] Dr. Esteban Meneses URon 06-19-2022 , QUAL Negative Normal NEGATIVE [facility] Comment on above: Performed By: #### L IPA, MARITO, CMP, CMADM #### [facility] [address] [place] [address] Dr. Esteban Meneses URINE MICROSCOPIC ONLYon BACTERIA TRACE Abnormal NONE SEEN [facility] Comment on above: Performed By: #### L IPA, MARITO, CMP, CMADM #### [facility] [address] [place] [address] Dr. Esteban Meneses Bacteria identified Cx Nom (U) NOT INDICATED Normal [facility] Comment on above: Performed By: #### L IPA, MARITO, CMP, CMADM #### [facility] [address] [place] [address] Dr. Esteban Meneses CAST NONE SEEN Normal NONE SEEN [facility] Comment on above: Performed By: #### L IPA, MARITO, CMP, CMADM #### [facility] [address] [place] [address] Dr. Esteban Meneses Crystals LM Nom (Urine sed) NONE SEEN Normal NONE SEEN [facility] Comment on above: Performed By: #### L IPA, MARITO, CMP, CMADM #### [facility] [address] [place] [address] Dr. Esteban Meneses Epithelial cells LM Ql (Urine sed) FEW Abnormal NONE SEEN /RARE [facility] Comment on above: Performed By: #### L IPA, MARITO, CMP, CMADM #### [facility] [address] [place] [address] Dr. Esteban Meneses MUCOUS NONE SEEN Normal NONE SEEN [facility] Comment on above: Performed By: #### L IPA, MARITO, CMP, CMADM #### [facility] [address] [place] [address] Dr. Esteban Meneses RBC 0-2 Normal 0-2 [facility] Comment on above: Performed By: #### L IPA, MARITO, CMP, CMADM #### [facility] [address] [place] [address] Dr. Esteban Meneses WBC 0-2 Abnormal NONE SEEN [facility] Comment on above: Performed By: #### L IPA, MARITO, CMP, CMADM #### [facility] [address] [place] [address] Dr. Esteban Meneses Urinalysis - AUTOMATEDon Bilirubin Ql (U) Negative Normal NEGATIVE [facility] Other Comment on above: Performed By: #### L IPA, MARITO, CMP, CMADM #### [facility] [address] [place] [address] Dr. Esteban Meneses Color (U) yellow Normal YELLOW [facility] Other Comment on above: Performed By: #### L IPA, MARITO, CMP, CMADM #### [facility] [address] [address] [address] Esteban Meneses Glucose Ql (U) Negative Normal NEGATIVE [facility] Other Comment on above: Performed By: #### L IPA, MARITO, CMP, CMADM #### [facility] [address] [address] [address] Esteban Meneses Ketones Ql (U) Negative Normal NEGATIVE [facility] Other Comment on above: Performed By: #### L IPA, MARITO, CMP, CMADM #### [facility] [address] [address] [address] Esteban Meneses Nitrite Ql (U) Negative Normal NEGATIVE [facility] Other Comment on above: Performed By: #### L IPA, MARITO, CMP, CMADM #### [facility] [address] [address] [address] Esteban Meneses pH (U) 6.0 [pH] Normal 5-9 [facility] Other Comment on above: Performed By: #### L IPA, MARITO, CMP, CMADM #### [facility] [address] [address] [address] Esteban Meneses Appearance (U) clear [facility] Other Hemoglobin Ql (U) Trace-lysed [facility] Other Leukocyte esterase Test strip Ql (U) Negative [facility] Other Protein Ql (U) 30mg/Dl [employer] Other Specific gravity (U) [Rel density] >=1.030 [facility] Other Urobilinogen (U) [Mass/Vol] 0.2 mg/dL [facility] Other Urinalysis - AUTOMATED No rt [facility] Other Urine Cultureon 06-19-2022 Bacteria identified Cx Nom (U) <9,000 colonies/ml mixed bacterial skin contaminants 2 Days PERFORMED BY: [facility] [address] [place] [address] PATHOLOGIST DISPLAY SPECIALIST EDUARDO SOUZA M.D. Normal [facility] Comment on above: Performed By: #### C UU #### [address] Bacteria identified Cx Nom (U) [facility] Other AMYLASEon 05-17-2022 Amylase [Catalytic activity/Vol] 38 U/L Normal 25-115 [facility] Comment on above: Performed By: #### L IPA, MARITO, CMP, CMADM #### [facility] [address] [place] [address] Dr. Esteban Meneses CARDIAC EMELY ADMITon 023 CK [Catalytic activity/Vol] 82 U/L Normal 26-192 [facility] Comment on above: Performed By: #### L IPA, MARITO, CMP, CMADM #### [facility] [address] [place] [address] Dr. Esteban Meneses CK.MB [Mass/Vol] ng/mL Normal <=3.60 [facility] Comment on above: Performed By: #### L IPA, MARITO, CMP, CMADM #### [facility] [address] [place] [address] Dr. Esteban Meneses HSTROP <4.0 Normal 4.0-51.3 [facility] Comment on above: Result Comment: CUT- OFF POINTS HAVE BEEN ESTABLISHED BASED ON THE FOURTH UNIVERSAL DEFINITIONS OF MYOCARDIAL INFARCTION. THE UPPER REFERENCE LIMIT (URL) OF TROPONIN, DEFINED THE 99TH PERCENTILE OF cTnI DISTRIBUTION IN A REFERENCE POPULATION, HAS BEEN CONFIRMED THE DECISION THRESHOLD FOR DC DIAGNOSIS. Performed By: #### L IPA, MARITO, CMP, CMADM #### [facility] [address] [address] [address] Esteban Meneses DARYA 34 ng/mL Normal 9-82 [facility] Comment on above: Performed By: #### L IPA, MARITO, CMP, CMADM #### [facility] [address] [place] [address] Dr. Esteban Meneses CBC AUTO DIFFon 05-17-2022 BASO # 0.1 103/ul Normal 0.0-0.1 [facility] Comment on above: Performed By: #### L IPA, MARITO, CMP, CMADM #### [facility] [address] [place] [address] Dr. Esteban Meneses Basophils/100 WBC (Bld) 0.7 % Normal 0.2-2.0 [facility] Comment on above: Performed By: #### L IPA, MARITO, CMP, CMADM #### [facility] [address] [place] [address] Dr. Esteban Meneses EO # 0.2 103/ul Normal 0.0-0.7 [facility] Comment on above: Performed By: #### L IPA, MARITO, CMP, CMADM #### [facility] [address] [place] [address] Dr. Esteban Meneses Eosinophils/100 WBC (Bld) 1.9 % Normal 0.9-7.0 [facility] Comment on above: Performed By: #### L IPA, MARITO, CMP, CMADM #### [facility] [address] [place] [address] Dr. Esteban Meneses Erythrocyte distribution width (RBC) [Ratio] 11.9 % Normal 11.0-15.0 [facility] Comment on above: Performed By: #### L IPA, MARITO, CMP, CMADM #### [facility] [address] [place] [address] Dr. Esteban Meneses Hematocrit (Bld) [Volume fraction] 38.6 % Normal 36.0-48.0 [facility] Comment on above: Performed By: #### L IPA, MARITO, CMP, CMADM #### [facility] [address] [place] [address] Dr. Esteban Meneses Hemoglobin (Bld) [Mass/Vol] 13.5 g/dL Normal 12.0-16.0 [facility] Comment on above: Performed By: #### L IPA, MARITO, CMP, CMADM #### [facility] [address] [place] [address] Dr. Esteban Meneses IG # 0.02 10e3/ul Normal 0.00-0.03 [facility] Comment on above: Performed By: #### L IPA, MARITO, CMP, CMADM #### [facility] [address] [place] [address] Dr. Esteban Meneses IG % 0.2 % Normal 0.0-0.5 [facility] Comment on above: Performed By: #### L IPA, MARITO, CMP, CMADM #### [facility] [address] [place] [address] Dr. Esteban Meneses LYMPH # 3.1 103/ul Normal 1.2-3.8 [facility] Comment on above: Performed By: #### L IPA, MARITO, CMP, CMADM #### [facility] [address] [place] [address] Dr. Esteban Meneses Lymphocytes/100 WBC (Bld) 31.0 % Normal 20.5-60.0 [facility] Comment on above: Performed By: #### L IPA, MARITO, CMP, CMADM #### [facility] [address] [place] [address] Dr. Esteban Meneses MANUAL DIFF REQ NO Normal [facility] Comment on above: Performed By: #### L IPA, MARITO, CMP, CMADM #### [facility] [address] [place] [address] Dr. Esteban Meneses MCH (RBC) [Entitic mass] 30.4 pg Normal 26.7-34.0 [facility] Comment on above: Performed By: #### L IPA, MARITO, CMP, CMADM #### [facility] [address] [place] [address] Dr. Esteban Meneses MCHC (RBC) [Mass/Vol] 35.0 g/dL Normal 29.9-35.2 [facility] Comment on above: Performed By: #### L IPA, MARITO, CMP, CMADM #### [facility] [address] [place] [address] Dr. Esteban Meneses MCV (RBC) [Entitic vol] 86.9 fL Normal 81.0-99.0 [facility] Comment on above: Performed By: #### L IPA, MARITO, CMP, CMADM #### [facility] [address] [place] [address] Dr. Esteban Meneses MONO # 0.5 103/ul Normal 0.3-0.8 [facility] Comment on above: Performed By: #### L IPA, MARITO, CMP, CMADM #### [facility] [address] [place] [address] Dr. Esteban Meneses Monocytes/100 WBC (Bld) 5.4 % Normal 1.7-12.0 [facility] Comment on above: Performed By: #### L IPA, MARITO, CMP, CMADM #### [facility] [address] [place] [address] Dr. Esteban Meneses NEUT # 6.1 103/ul Normal 1.4-6.5 [facility] Comment on above: Performed By: #### L IPA, MARITO, CMP, CMADM #### [facility] [address] [place] [address] Dr. Esteban Meneses Neutrophils/100 WBC (Bld) 60.8 % Normal 43.0-75.0 [facility] Comment on above: Performed By: #### L IPA, MARITO, CMP, CMADM #### [facility] [address] [place] [address] Dr. Esteban Meneses Platelet mean volume (Bld) [Entitic vol] 10.9 fL Normal 9.5-13.5 [facility] Comment on above: Performed By: #### L IPA, MARITO, CMP, CMADM #### [facility] [address] [place] [address] Dr. Esteban Meneses PLT 396 103/ul Normal 150-450 [facility] Comment on above: Performed By: #### L IPA, MARITO, CMP, CMADM #### [facility] [address] [place] [address] Dr. Esteban Meneses RBC 4.44 106/ul Normal 4.20-5.40 [facility] Comment on above: Performed By: #### L IPA, MARITO, CMP, CMADM #### [facility] [address] [address] [address] Esteban Meneses WBC 10.0 103/ul Normal 4.0-11.0 [facility] Comment on above: Performed By: #### L IPA, MARITO, CMP, CMADM #### [facility] [address] [address] [address] Esteban Meneses ER URINE PROFILEon 3 Bilirubin Ql (U) Negative Normal NEGATIVE [facility] Comment on above: Performed By: #### ISH BOCANEGRA, PREGU #### [facility] [address] [place] [address] Dr. Esteban Meneses Clarity (U) CLEAR Normal CLEAR [facility] Comment on above: Performed By: #### ISH BOCANEGRA, PREGU #### [facility] [address] [place] [address] Dr. Esteban Meneses Color (U) YELLOW Normal YELLOW [facility] Comment on above: Performed By: #### ISH BOCANEGRA, PREGU #### [facility] [address] [place] [address] Dr. Esteban TERRAZAS A micrscopic examination will be performed if indicated. Normal [facility] Comment on above: Performed By: #### ISH BOCANEGRA, PREGU #### [facility] [address] [place] [address] Dr. Esteban Meneses Glucose Ql (U) Negative Normal NEGATIVE [facility] Comment on above: Performed By: #### ISH BOCANEGRA, PREGU #### [facility] [address] [place] [address] Dr. Esteban Meneses Hemoglobin Ql (U) TRACE-INTACT Abnormal NEGATIVE [facility] Comment on above: Performed By: #### Liset DENNISRISH, PREGU #### [facility] [address] [place] [address] Dr. Esteban Meneses Ketones Ql (U) Negative Normal NEGATIVE [facility] Comment on above: Performed By: #### ISH BOCANEGRA, PREGU #### [facility] [address] [place] [address] Dr. Esteban Meneses LEUKOCYTES Negative Normal NEGATIVE [facility] Comment on above: Performed By: #### E RURKETANICMARYSE, PREGU #### [facility] [address] [place] [address] Dr. Esteban Meneses Nitrite Ql (U) Negative Normal NEGATIVE [facility] Comment on above: Performed By: #### ISH BOCANEGRA, PREGU #### [facility] [address] [place] [address] Dr. Esteban Meneses pH (U) 6.0 [pH] Normal 5-9 [facility] Comment on above: Performed By: #### SIH BOCANEGRA, PREGU #### [facility] [address] [place] [address] Dr. Esteban Meneses SPEC GRAVITY >=1.030 Abnormal 1.005-<=1.025 [facility] Comment on above: Performed By: #### ISH BOCANEGRA, PREGU #### [facility] [address] [place] [address] Dr. Esteban Meneses UA PROTEIN Negative Normal NEGATIVE/ TRACE [facility] Comment on above: Performed By: #### ISH BOCANEGRA, PREGU #### [facility] [address] [place] [address] Dr. Esteban Meneses UR MICRO IND INDICATED Normal [facility] Comment on above: Performed By: #### ISH BOCANEGRA, PREGU #### [facility] [address] [place] [address] Dr. Esteban Meneses Urobilinogen Qn (U) 0.2 {Roxana'U}/dL Normal 0.2 - 1. 0 [facility] Comment on above: Performed By: #### ISH BOCANEGRA, PREGU #### [facility] [address] [place] [address] Dr. Esteban Meneses LIPASEon 05-17-2022 Lipase [Catalytic activity/Vol] 69.0 U/L Critically low 73.0-393.0 [facility] Comment on above: Performed By: #### L IPA, MARITO, CMP, CMADM #### [facility] [address] [place] [address] Dr. Esteban Meneses URon 05-17-2022 , QUAL Negative Normal NEGATIVE [facility] Comment on above: Performed By: #### L IPA, MARITO, CMP, CMADM #### [facility] [address] [place] [address] Dr. Esteban Meneses PROF 14(COMP METB)on 023 Albumin [Mass/Vol] 3.5 g/dL Normal 3.4-5.0 [facility] Comment on above: Performed By: #### L IPA, MARITO, CMP, CMADM #### [facility] [address] [place] [address] Dr. Esteban Meneses Albumin/Globulin [Mass ratio] 0.9 {ratio} Normal [facility] Comment on above: Performed By: #### L IPA, MARITO, CMP, CMADM #### [facility] [address] [place] [address] Dr. Esteban Meneses ALP [Catalytic activity/Vol] 106 U/L Normal 46-116 [facility] Comment on above: Performed By: #### L IPA, MARITO, CMP, CMADM #### [facility] [address] [place] [address] Dr. Esteban Meneses ALT [Catalytic activity/Vol] 16 U/L Normal 14-59 [facility] Comment on above: Performed By: #### L IPA, MARITO, CMP, CMADM #### [facility] [address] [place] [address] Dr. Esteban Meneses Anion gap [Moles/Vol] 13.3 mmol/L Normal [facility] Comment on above: Performed By: #### L IPA, MARITO, CMP, CMADM #### [facility] [address] [place] [address] Dr. Esteban Meneses AST [Catalytic activity/Vol] 16 U/L Normal 15-37 [facility] Comment on above: Performed By: #### L IPA, MARITO, CMP, CMADM #### [facility] [address] [address] [address] Esteban Meneses Bilirubin [Mass/Vol] 0.2 mg/dL Normal 0.2-1.0 [facility] Comment on above: Performed By: #### L IPA, MARITO, CMP, CMADM #### [facility] [address] [address] [address] Esteban Meneses Calcium [Mass/Vol] 8.3 mg/dL Critically low 8.5-10.1 [facility] Comment on above: Performed By: #### L IPA, MARITO, CMP, CMADM #### [facility] [address] [place] [address] Dr. Esteban Meneses Chloride [Moles/Vol] 103 mmol/L Normal 98-107 [facility] Comment on above: Performed By: #### L IPA, MARITO, CMP, CMADM #### [facility] [address] [address] [address] Esteban Meneses CO2 [Moles/Vol] 25.1 mmol/L Normal 21.0-32.0 [facility] Comment on above: Performed By: #### L IPA, MARITO, CMP, CMADM #### [facility] [address] [place] [address] Dr. Esteban Meneses Creatinine [Mass/Vol] 0.98 mg/dL Normal 0.55-1.02 [facility] Comment on above: Performed By: #### L IPA, MARITO, CMP, CMADM #### [facility] [address] [address] [address] Esteban Meneses EGFR-AF CYMRAES >60 Normal >=60 [facility] Comment on above: Performed By: #### L IPA, MARITO, CMP, CMADM #### [facility] [address] [address] [address] Esteban Meneses EGFR-NON AF CYMRAES >60 Normal >=60 [facility] Comment on above: Performed By: #### L IPA, MARITO, CMP, CMADM #### [facility] [address] [address] [address] Esteban Meneses Globulin (S) [Mass/Vol] 3.9 g/dL Normal [facility] Comment on above: Performed By: #### L IPA, MARITO, CMP, CMADM #### [facility] [address] [address] [address] Esteban Meneses Glucose [Mass/Vol] 121 mg/dL Critically high 74-106 [facility] Comment on above: Performed By: #### L IPA, MARITO, CMP, CMADM #### [facility] [address] [address] [address] Esteban Meneses Potassium [Moles/Vol] 3.4 mmol/L Critically low 3.5-5.1 [facility] Comment on above: Performed By: #### L IPA, MARITO, CMP, CMADM #### [facility] [address] [address] [address] Esteban Meneses Protein [Mass/Vol] 7.4 g/dL Normal 6.4-8.2 [facility] Comment on above: Performed By: #### L IPA, MARITO, CMP, CMADM #### [facility] [address] [address] [address] Esteban Meneses Sodium [Moles/Vol] 138 mmol/L Normal 136-145 [facility] Comment on above: Performed By: #### L IPA, MARITO, CMP, CMADM #### [facility] [address] [address] [address] Esteban Meneses Urea nitrogen [Mass/Vol] 8.0 mg/dL Normal 7.0-18.0 [facility] Comment on above: Performed By: #### L IPA, MARITO, CMP, CMADM #### [facility] [address] [address] [address] Esteban Meneses Urea nitrogen/Creatinine [Mass ratio] 8.2 mg/mg Normal [facility] Comment on above: Performed By: #### L IPA, MARITO, CMP, CMADM #### [facility] [address] [address] [address] Esteban Meneses URINE MICROSCOPIC ONLYon BACTERIA TRACE Abnormal NONE SEEN [facility] Comment on above: Performed By: #### L IPA, MARITO, CMP, CMADM #### [facility] [address] [place] [address] Dr. Esteban Meneses Bacteria identified Cx Nom (U) NOT INDICATED Normal [facility] Comment on above: Performed By: #### L IPA, MARITO, CMP, CMADM #### [facility] [address] [place] [address] Dr. Esteban Meneses CAST NONE SEEN Normal NONE SEEN [facility] Comment on above: Performed By: #### L IPA, MARITO, CMP, CMADM #### [facility] [address] [place] [address] Dr. Esteban Meneses Crystals LM Nom (Urine sed) NONE SEEN Normal NONE SEEN [facility] Comment on above: Performed By: #### L IPA, MARITO, CMP, CMADM #### [facility] [address] [place] [address] Dr. Esteban Meneses Epithelial cells LM Ql (Urine sed) RARE Normal NONE SEEN /RARE [facility] Comment on above: Performed By: #### L IPA, MARITO, CMP, CMADM #### [facility] [address] [place] [address] Dr. Esteban Meneses MUCOUS NONE SEEN Normal NONE SEEN [facility] Comment on above: Performed By: #### L IPA, MARITO, CMP, CMADM #### [facility] [address] [place] [address] Dr. Esteban Meneses RBC NONE SEEN Abnormal 0-2 [facility] Comment on above: Performed By: #### L IPA, MARITO, CMP, CMADM #### [facility] [address] [place] [address] Dr. Esteban Meneses WBC NONE SEEN Normal NONE SEEN [facility] Comment on above: Performed By: #### L IPA, MARITO, CMP, CMADM #### [facility] [address] [place] [address] Dr. Esteban Meneses XR ABD FLAT UP_PA [...] PATRICK NEW Date: 2022-05-17 20:06 Normal [facility] Quick Strepon 01-08-2022 S. pyogenes Org specific cx Ql (Throat) Negative [facility] Other Quick Strep [facility] Other SARS-CoV-2 (COVID-19) RNA NA A+probe Ql (Resp)on 01-08-2022 SARS-CoV-2 (COVID-19) RNA FLORENCIA+probe Ql (Unsp spec) Negative [facility] Other CHLAMYDIA/GONOCOCCUS FLORENCIA (SW AB/URINE/PAPon 11-29-2021 Chlamydia trachomatis, FLORENCIA Negative Normal Negative [facility] Comment on above: Performed By: #### L IPA, MARITO, CMP, CMADM #### [facility] [address] [address] [address] Esteban Meneses Neisseria gonorrhoeae, FLORENCIA Negative Normal Negative [facility] Comment on above: Performed By: #### L IPA, MARITO, CMP, CMADM #### [facility] [address] [address] [address] Esteban Meneses ER URINE PROFILEon 2 Bilirubin Ql (U) Negative Normal NEGATIVE [facility] Comment on above: Performed By: #### E ISH HENDRIX #### [facility] [address] [address] [address] Esteban Meneses Clarity (U) CLEAR Normal CLEAR [facility] Comment on above: Performed By: #### Liset HENDRIX UMICRO #### [facility] [address] [place] [address] Dr. Esteban Meneses Color (U) LT. YELLOW Normal YELLOW [facility] Comment on above: Performed By: #### Liset HENDRIX UMICRO #### [facility] [address] [place] [address] Dr. Esteban MONTEZAHMeagan A micrscopic examination will be performed if indicated. Normal [facility] Comment on above: Performed By: #### Liset HENDRIX UMICRO #### [facility] [address] [place] [address] Dr. Esteban Meneses Glucose Ql (U) Negative Normal NEGATIVE [facility] Comment on above: Performed By: #### Liset HENDRIX UMICRO #### [facility] [address] [place] [address] Dr. Esteban Meneses Hemoglobin Ql (U) TRACE-INTACT Abnormal NEGATIVE [facility] Comment on above: Performed By: #### Liset HENDRIX UMICRO #### [facility] [address] [place] [address] Dr. Esteban Meneses Ketones Ql (U) Negative Normal NEGATIVE [facility] Comment on above: Performed By: #### Liset HENDRIX UMICRO #### [facility] [address] [place] [address] Dr. Esteban Meneses LEUKOCYTES Negative Normal NEGATIVE [facility] Comment on above: Performed By: #### Liset HENDRIX UMICRO #### [facility] [address] [place] [address] Dr. Esteban Meneses Nitrite Ql (U) Negative Normal NEGATIVE [facility] Comment on above: Performed By: #### Liset HENDRIX UMICRO #### [facility] [address] [place] [address] Dr. Esteban Meneses pH (U) 6.0 [pH] Normal 5-9 [facility] Comment on above: Performed By: #### Liset HENDRIX UMICRO #### [facility] [address] [place] [address] Dr. Esteban Meneses SPEC GRAVITY 1.025 Normal 1.005-<=1.025 [facility] Comment on above: Performed By: #### ALEXY BOCANEGRARO #### [facility] [address] [place] [address] Dr. Esteban Meneses UA PROTEIN Negative Normal NEGATIVE/ TRACE [facility] Comment on above: Performed By: #### Liset HENDRIX UMICRO #### [facility] [address] [place] [address] Dr. Esteban Meneses UR MICRO IND INDICATED Normal [facility] Comment on above: Performed By: #### KETAN BOCANEGRAICRO #### [facility] [address] [place] [address] Dr. Esteban Meneses Urobilinogen Qn (U) 0.2 {Roxana'U}/dL Normal 0.2 - 1. 0 [facility] Comment on above: Performed By: #### KETAN BOCANEGRAICRO #### [facility] [address] [place] [address] Dr. Esteban Meneses URon 11-27-2021 , QUAL Negative Normal NEGATIVE [facility] Comment on above: Performed By: #### L IPA, MARITO, CMP, CMADM #### [facility] [address] [place] [address] Dr. Esteban Meneses URINE MICROSCOPIC ONLYon BACTERIA NONE SEEN Normal NONE SEEN [facility] Comment on above: Performed By: #### KETAN BOCANEGRAICRO #### [facility] [address] [place] [address] Dr. Esteban Meneses Bacteria identified Cx Nom (U) NOT INDICATED Normal [facility] Comment on above: Performed By: #### Liset HENDRIX UMICRO #### [facility] [address] [place] [address] Dr. Esteban Meneses CAST NONE SEEN Normal NONE SEEN [facility] Comment on above: Performed By: #### Liset HENDRIX UMICRO #### [facility] [address] [place] [address] Dr. Esteban Meneses Crystals LM Nom (Urine sed) NONE SEEN Normal NONE SEEN [facility] Comment on above: Performed By: #### E RUR, UMICRO #### [facility] [address] [place] [address] Dr. Esteban Meneses Epithelial cells LM Ql (Urine sed) MODERATE Abnormal NONE SEEN /RARE [facility] Comment on above: Performed By: #### E RUR, UMICRO #### [facility] [address] [place] [address] Dr. Esteban Meneses MUCOUS TRACE Abnormal NONE SEEN [facility] Comment on above: Performed By: #### E RUR, UMICRO #### [facility] [address] [place] [address] Dr. Esteban Meneses RBC 2-5 Abnormal 0-2 [facility] Comment on above: Performed By: #### E RUR, UMICRO #### [facility] [address] [place] [address] Dr. Esteban Meneses WBC NONE SEEN Normal NONE SEEN [facility] Comment on above: Performed By: #### E RUR, UMICRO #### [facility] [address] [place] [address] Dr. Esteban Meneses US PELVIS TRANSVAGon 022 [...] DALIA STUART Date: 2021-11-27 15:01 Normal [facility] WET PREPon 11-27-2021 CLUE CELLS NONE SEEN Normal NONE SEEN [facility] Comment on above: Performed By: #### W P #### [facility] [address] [address] [address] Esteban Meneses FUNGAL ELEMENTS NONE SEEN Normal NONE SEEN [facility] Comment on above: Performed By: #### W P #### [facility] [address] [address] [address] Esteban Meneses RBC -WET PREP NONE SEEN Normal NONE SEEN [facility] Comment on above: Performed By: #### W P #### [facility] [address] [address] [address] Esteban Meneses TRICHOMONAS NONE SEEN Normal NONE SEEN [facility] Comment on above: Performed By: #### W P #### [facility] [address] [address] [address] Esteban Meneses WBC- WET PREP RARE Abnormal NONE SEEN [facility] Comment on above: Performed By: #### W P #### [facility] [address] [address] [address] Esteban Meneses WET PREP BACTERIA RARE Abnormal NONE SEEN [facility] Comment on above: Performed By: #### W P #### [facility] [address] [address] [address] Esteban Meneses COVID Quick Testingon 2020 Result Negative [facility] Other COMPREHENSIVE METABOLIC PANE [facility] 11-27-2020 Albumin [Mass/Vol] 4.2 g/dL Normal 3.6-5.1 [facility] Comment on above: Performed By: #### 7 600, 87063, 06706 #### [facility] [address], [address] [place] [id number] Registered Veterinary Technician: Claus Thrasher MD Albumin/Globulin [Mass ratio] 1.8 {ratio} Normal 1.0-2.5 [facility] Comment on above: Performed By: #### 7 600, 45457, 28061 #### [facility] [address], [address] [place] [address] Registered Veterinary Technician: Claus Thrasher MD ALP [Catalytic activity/Vol] 73 U/L Normal 31-125 [facility] Comment on above: Performed By: #### 7 600, 12457, 82462 #### [facility] of [address] [address] Registered Veterinary Technician: Claus Thrasher MD ALT [Catalytic activity/Vol] 9 U/L Normal 6-29 [facility] Comment on above: Performed By: #### 7 600, 06109, 50632 #### [facility] [address] [address] Registered Veterinary Technician: Claus Thrasher MD AST [Catalytic activity/Vol] 11 U/L Normal 10-30 [facility] Comment on above: Performed By: #### 7 600, 37305, 75396 #### [facility] [address] [address] Registered Veterinary Technician: Claus Thrasher MD Bilirubin [Mass/Vol] 0.3 mg/dL Normal 0.2-1.2 [facility] Comment on above: Performed By: #### 7 600, 26149, 85645 #### [facility] [address] [address] Registered Veterinary Technician: Claus Thrasher MD BUN/CREATININE RATIO NOT APPLICABLE Normal 6-22 [facility] Comment on above: Performed By: #### 7 600, 01425, 23559 #### [facility] [address] [address] Registered Veterinary Technician: Claus Thrasher MD Calcium [Mass/Vol] 9.4 mg/dL Normal 8.6-10.2 [facility] Comment on above: Performed By: #### 7 600, 64228, 78378 #### [facility] [address] [address] Registered Veterinary Technician: Claus Thrasher MD Chloride [Moles/Vol] 105 mmol/L Normal 98-110 [facility] Comment on above: Performed By: #### 7 600, 34853, 97737 #### [facility] of [address], [address] [place] [address] Registered Veterinary Technician: Claus Thrasher MD CO2 [Moles/Vol] 26 mmol/L Normal 20-32 [facility] Comment on above: Performed By: #### 7 600, 14215, 64011 #### [facility] of [address], [address] [place] [address] Registered Veterinary Technician: Claus Thrasher MD Creatinine [Mass/Vol] 0.91 mg/dL Normal 0.50-1.[address] [facility] Comment on above: Performed By: #### 7 600, 40041, 07517 #### [facility] of [address], [address] [place] [address] Registered Veterinary Technician: Claus Thrasher MD eGFR NON-AFR. CYMRAES 85 mL/min/1.73m2 Normal > OR = 60 [facility] Comment on above: Performed By: #### 7 600, 90332, 48303 #### [facility] of [address], [address] [place] [address] Registered Veterinary Technician: Claus Thrasher MD GFR/1.73 sq M.predicted among blacks MDRD (S/P/Bld) [Vol rate/Area] 99 mL/min/{1.73_m2} Normal > OR = 60 [facility] Comment on above: Performed By: #### 7 600, 47032, 13572 #### [facility] of [address], [address] [place] [address] Registered Veterinary Technician: Clasu Thrasher MD Globulin (S) [Mass/Vol] 2.4 g/dL Normal 1.9-3.7 [facility] Comment on above: Performed By: #### 7 600, 42944, 72319 #### [facility] of [address], [address] [place] [address] Registered Veterinary Technician: Claus Thrasher MD Glucose [Mass/Vol] 79 mg/dL Normal 65-99 [facility] Comment on above: Result Comment: Fasting reference interval Performed By: #### 7 600, 88232, 34976 #### [facility] of [address], [address] [place] [address] Registered Veterinary Technician: Claus Thrasher MD Potassium [Moles/Vol] 4.2 mmol/L Normal 3.5-5.[address] [facility] Comment on above: Performed By: #### 7 600, 40053, 36194 #### [facility] [address] [place] [address] Registered Veterinary Technician: Claus Thrasher MD Protein [Mass/Vol] 6.6 g/dL Normal 6.1-8.1 [facility] Comment on above: Performed By: #### 7 600, 39346, 86072 #### [facility] [address] [place] [address] Registered Veterinary Technician: Claus Thrasher MD Sodium [Moles/Vol] 139 mmol/L Normal 135-146 [facility] Comment on above: Performed By: #### 7 600, 81368, 13489 #### [facility] [address] [place] [address] Registered Veterinary Technician: Claus Thrasher MD Urea nitrogen [Mass/Vol] 16 mg/dL Normal 7-25 [facility] Comment on above: Performed By: #### 7 600, 42922, 58801 #### [facility] [address] [place] [address] Registered Veterinary Technician: Claus Thrasher MD LIPID PANEL, [facility] 08- Cholesterol [Mass/Vol] 166 mg/dL Normal <200 [facility] Comment on above: Order Comment: FASTI NG:YES FASTING: YES Performed By: #### 7 600, 69499, 06494 #### [facility] [address] [place] [address] Registered Veterinary Technician: Claus Thrasher MD Cholesterol in HDL [Mass/Vol] 70 mg/dL Normal > OR = 50 [facility] Comment on above: Order Comment: FASTI NG:YES FASTING: YES Performed By: #### 7 600, 19502, 00651 #### [facility] [address], [address] [place] [address] Registered Veterinary Technician: Claus Thrasher MD Cholesterol in LDL [Mass/Vol] [...] equation in the estimation of LDL-C. Rogelio SS et al. DEREK. 2013;310(19): 1972-5980 (http://education.[employer]faq/LZQ399) Performed By: #### 7 600, 61337, 95509 #### [facility] [address], [address] [place] [address] Registered Veterinary Technician: Claus Thrasher MD Cholesterol.total/Kristyn sterol in HDL [Mass ratio] 2.4 {ratio} Normal <5.0 [facility] Comment on above: Order Comment: FASTI NG:YES FASTING: YES Performed By: #### 7 600, 73885, 30682 #### [facility] [address], [address] [place] [address] Registered Veterinary Technician: Claus Thrasher MD NON HDL CHOLESTEROL 96 mg/dL (calc) Normal <130 [facility] Comment on above: Order Comment: FASTI NG:YES FASTING: YES Result Comment: For patients with diabetes plus 1 major ASCVD risk factor, treating to a non-HDL-C goal of <100 mg/dL (LDL-C of <70 mg/dL) is considered a therapeutic option. Performed By: #### 7 600, 08225, 51908 #### [facility] [address], [address] [place] [address] Registered Veterinary Technician: Claus Tharsher MD Triglyceride [Mass/Vol] 63 mg/dL Normal <150 [facility] Comment on above: Order Comment: FASTI NG:YES FASTING: YES Performed By: #### 7 600, 50417, 86750 #### [facility] [address], [address] [place] [address] Registered Veterinary Technician: Claus Thrasher MD TSH+FREE T4on 11-27-2020 Free T4 [Mass/Vol] 1.1 ng/dL Normal 0.8-1.8 [facility] Comment on above: Performed By: #### 7 600, 85961, 05296 #### [facility] [address], [address] [place] [address] Registered Veterinary Technician: Claus Thrasher MD TSH Qn 2.23 m[IU]/L Normal [facility] Comment on above: Result Comment: Refe rence Range > or = 20 Years 0.40-4.50 Ranges First trimester 0.26-2.66 Second trimester 0.55-2.73 Third trimester 0.43-2.91 Performed By: #### 7 600, 37114, 61424 #### [facility] [address], [address] [place], [place] [id number] Registered Veterinary Technician: Claus Thrasher MD Urine cultureon 12-08-2019 Culture NO SIGNIFICANT GROWTH [place] Special Requests NOT REPORTED [place] Specimen Description .CLEAN CATCH URINE [place] CBC auto differentialon Basophils (Bld) [#/Vol] 0.04 10*3/uL [place] Basophils/100 WBC (Bld) 0 % 0 - 2 % [place] Differential Type NOT REPORTED [place] Eosinophils (Bld) [#/Vol] 0.08 10*3/uL [place] Eosinophils/100 WBC (Bld) 1 % 1 - 4 % [place] Erythrocyte distribution width (RBC) [Ratio] 12.9 % 11.8 - 14.4 % [place] Hematocrit (Bld) [Volume fraction] 36.5 % 36.3 - 47.1 % [place] Hemoglobin (Bld) [Mass/Vol] 12.0 g/dL 11.9 - 15.1 g/dL [place] Immature granulocytes (Bld) [#/Vol] 0 % 0 [place] Immature granulocytes (Bld) [#/Vol] 0.04 10*3/uL [place] Interpretation and review of laboratory results Abnormal [place] Lymphocytes (Bld) [#/Vol] 1.98 10*3/uL [place] Lymphocytes/100 WBC (Bld) 19 % Low 24 - 43 % [place] MCH (RBC) [Entitic mass] 30.1 pg 25.2 - 33.5 pg [place] MCHC (RBC) [Mass/Vol] 32.9 g/dL 28.4 - 34.8 g/dL [place] MCV (RBC) [Entitic vol] 91.5 fL 82.6 - 102.9 fL [place] Monocytes (Bld) [#/Vol] 0.54 10*3/uL [place] Monocytes/100 WBC (Bld) 5 % 3 - 12 % [place] Platelet mean volume (Bld) [Entitic vol] 12.5 fL 8.1 - 13.5 fL [place] Platelets (Bld) [#/Vol] 294 10*3/uL [place] Platelets (Bld) [#/Vol] NOT REPORTED [place] RBC (Bld) [#/Vol] 3.99 10*6/uL 3.95 - 5.1 1 m/uL [place] RBC morphology finding Nom (Bld) NOT REPORTED [place] Segmented neutrophils/100 WBC (Bld) 75 % High 36 - 65 % [place] Segs Absolute 7.75 [place] WBC (Bld) [#/Vol] 0.0 10*3/uL 0.0 per 10 0 WBC [place] WBC (Bld) [#/Vol] 10.4 10*3/uL [place] WBC Morphology NOT REPORTED [place] DRUG SCREEN MULTI URINEon Amphetamine Screen, Ur Negative NEGATIVE [facility], [place] Barbiturate Screen, Ur Negative NEGATIVE [facility], [place] Benzodiazepine Screen, Urine Negative NEGATIVE [facility], [place] Buprenorphine Urine Negative NEGATIVE [place] Cannabinoid Scrn, Ur Negative NEGATIVE [place] Cocaine Metabolite, Urine Negative NEGATIVE [facility], [place] MDMA, Urine NOT REPORTED NEGATIVE [place] Methadone Screen, Urine Negative NEGATIVE [place] Methamphetamine, Urine Negative NEGATIVE [place] Opiates, Urine Negative NEGATIVE [place] Oxycodone Screen, Ur Negative NEGATIVE [place] Phencyclidine, Urine Negative NEGATIVE [place] Propoxyphene, Urine Negative NEGATIVE [place] Test Information NOT REPORTED [place] Tricyclic Antidepressants, Urine Negative NEGATIVE [place] Comment on above: Drug screen results are to be used for medical purposes only. All positive results are unconfirmed. Testing for employment or legal uses should be sent to a reference laboratory for confirmation. Microscopic Urinalysison Amorphous, UA NOT REPORTED None [place] Bacteria, UA 2+ Abnormal None [place] Casts UA NOT REPORTED /LPF [place] Crystals, UA NOT REPORTED None /HPF [place] Epithelial Cells UA 10 TO 20 [place] Interpretation and review of laboratory results Abnormal [place] Mucus, UA NOT REPORTED None [place] Other Observations UA NOT REPORTED NOT REQ. [place] RBC (U) [#/Vol] 20 TO 50 [place] Renal Epithelial, UA NOT REPORTED 0 /HPF [place] Trichomonas, UA NOT REPORTED None [place] WBC, UA 0 TO 2 [place], [place] Yeast, UA NOT REPORTED [place] Urinalysison 12-07-2019 Bilirubin Urine Negative NEGATIVE [facility], [place] Color, UA YELLOW YELLOW [place] Glucose, Ur Negative NEGATIVE [place] Interpretation and review of laboratory results Abnormal [place] Ketones Ql (U) Negative NEGATIVE [place] Leukocyte esterase Test strip Ql (U) Negative NEGATIVE [place] Nitrite, Urine Negative NEGATIVE [facility], [place] pH, UA 7.0 [place] Protein (U) [Mass/Vol] 2+ Abnormal NEGATIVE [place] Specific [place], UA 1.020 [place], [place] Turbidity UA CLEAR CLEAR [place] Urinalysis Comments NOT REPORTED [place] Urine Hgb 3+ Abnormal NEGATIVE [place] Urobilinogen, Urine Normal Normal [place] CBCon 05-14-2019 Erythrocyte distribution width (RBC) [Ratio] 12.0 % 11.8 - 14.4 % [facility] Phone: Hematocrit (Bld) [Volume fraction] 39.8 % 36.3 - 47.1 % [facility] Phone: Hemoglobin (Bld) [Mass/Vol] 13.6 g/dL 11.9 - 15.1 g/dL [facility] Phone: MCH (RBC) [Entitic mass] 30.3 pg 25.2 - 33.5 pg [facility] Phone: MCHC (RBC) [Mass/Vol] 34.2 g/dL 28.4 - 34.8 g/dL [facility] Phone: MCV (RBC) [Entitic vol] 88.6 fL 82.6 - 102.9 fL [facility] Phone: Platelet mean volume (Bld) [Entitic vol] 11.6 fL 8.1 - 13.5 fL [facility] Phone: Platelets (Bld) [#/Vol] 356 10*3/uL [facility] Phone: RBC (Bld) [#/Vol] 4.49 10*6/uL 3.95 - 5.1 1 m/uL [facility] Phone: WBC (Bld) [#/Vol] 0.0 10*3/uL 0.0 per 10 0 WBC [facility] Phone: WBC (Bld) [#/Vol] 10.4 10*3/uL [facility] Phone: Comprehensive Metabolic Pane keiry 05-14-2019 Albumin [Mass/Vol] 4.1 g/dL 3.5 - 5.2 g/dL [facility] Phone: Albumin/Globulin [Mass ratio] 1.4 {ratio} [facility] Phone: ALP [Catalytic activity/Vol] 74 U/L 35 - 104 U/L [employer] Work Phone: ALT [Catalytic activity/Vol] 26 U/L 5 - 33 U/L [facility] Phone: Anion gap [Moles/Vol] 16 mmol/L 9 - 17 mmol/L [facility] Phone: AST [Catalytic activity/Vol] 19 U/L <32 [facility] Phone: Bilirubin Ql (U) 0.52 mg/dL 0.3 - 1.2 mg/dL [facility] Phone: Bun/Cre Ratio 12 [employer] [facility] [employer] Work Phone: Calcium [Mass/Vol] 9.4 mg/dL 8.6 - 10. 4 mg/dL [facility] Phone: Chloride [Moles/Vol] 100 mmol/L 98 - 10 7 mmol/L [facility] Phone: CO2 [Moles/Vol] 22 mmol/L 20 - 31 mmol/L [employer] Work Phone: Creatinine [Mass/Vol] 0.76 mg/dL 0.5 - 0.9 mg/dL [facility] Phone: GFR >60 >60 mL/min [employer] Phone: GFR Non- >60 >60 mL/min [facility] Phone: Glucose [Mass/Vol] 87 mg/dL 70 - 99 mg/dL [facility] [employer] Phone: Potassium [Moles/Vol] 3.7 mmol/L 3.7 - 5.3 mmol/L [facility] Phone: Protein [Mass/Vol] 7.1 g/dL 6.4 - 8.3 g/dL [facility] Phone: Sodium [Moles/Vol] 138 mmol/L 135 - 144 mmol/L [facility] Phone: Urea nitrogen [Mass/Vol] 9 mg/dL 6 - 20 mg/dL [facility] Phone: Metabolic Panelon 05-14-2019 GFR/1.73 sq M predicted among non-blacks MDRD (S/P/Bld) [Vol rate/Area] [facility] Phone: Comment on above: Average GFR for 20-2 9 years old: 116 mL/min/1.73sq m Chronic Kidney Disease: <60 mL/min/1.73sq m Kidney failure: <15 mL/min/1.73sq m eGFR calculated using average adult body mass. Additional eGFR calculator available at: http://www.[email or web address].fm/multiple_crcl_[email or web address].htm Stage 1: Some kidney damage normal GFR Stage 2: Mild kidney damage GFR 60-89 Stage 3: Moderate kidney damage GFR 30-59 Stage 4: Severe kidney damage GFR 15-29 Stage 5: Severe kidney damage GFR <15 ESRD - chronic treatment by dialysis or transplant Microscopic Urinalysison Amorphous, UA NOT REPORTED None [facility] Work Phone: Bacteria, UA 2+ Abnormal None [facility] Phone: Casts UA NOT REPORTED /LPF [employer] Work Phone: Crystals UA NOT REPORTED None /HPF [facility] Work Phone: Epithelial Cells UA 10 TO 20 [facility] Work Phone: Interpretation and review of laboratory results Abnormal [facility] Work Phone: Mucus, UA NOT REPORTED None [facility] Work Phone: Other Observations UA NOT REPORTED NOT REQ. M [facility] [employer] Work Phone: RBC (U) [#/Vol] 10 TO 20 [facility] Work Phone: Renal Epithelial, Urine NOT REPORTED 0 /HPF [facility] Work Phone: Trichomonas, UA NOT REPORTED None [facility] [email or web address] Work Phone: WBC, UA 2 TO 5 [facility] Work Phone: Yeast, UA NOT REPORTED None [employer] Work Phone: - [employer] Work Phone: Urinalysis Reflex to Culture on 05-14-2019 Bilirubin Urine SMALL Abnormal NEGATIVE [facility] Work Phone: Color, UA DARK YELLOW Abnormal YELLOW [employer] Work Phone: Glucose, Ur Negative NEGATIVE [employer] Work Phone: Interpretation and review of laboratory results Abnormal [employer] Work Phone: Ketones Ql (U) 2+ Abnormal NEGATIVE [employer] Work Phone: Leukocyte esterase Test strip Ql (U) TRACE Abnormal NEGATIVE [employer] Work Phone: Nitrite, Urine Negative NEGATIVE [facility] Work Phone: pH, UA 6.5 [facility] Work Phone: Protein (U) [Mass/Vol] 1+ Abnormal NEGATIVE Me [facility] [employer] Work Phone: Specific Lambert, UA 1.020 [facility] [employer] Work Phone: Turbidity UA CLEAR CLEAR [facility] [employer] Work Phone: Urinalysis Comments NOT REPORTED [facility] [employer] Work Phone: Urine Hgb 2+ Abnormal NEGATIVE [facility] [employer] Work Phone: Urobilinogen, Urine Normal Normal [facility] [employer] Work Phone: HIV ScreenOrdered By: Ira Hernandez on 04-19-2019 HIV Ag/Ab Non-Reactive NONREACTIVE [facility] Work Phone: Comment on above: No laboratory eviden ce of HIV infection. If acute HIV infection is suspected, consider testing for HIV-1 RNA. Hemoglobin [id number] By: Sena Hernandez on 04-19-2019 Glucose [Mass/Vol] 100 mg/dL [facility] [employer] Work Phone: Comment on above: The ADA and AACC rec ommend providing the estimated average glucose result to permit better patient understanding of their HBA1c result. HbA1c (Bld) [Mass fraction] 5.1 % 4.8 - 5.9 % [facility] [employer] Phone: Hepatitis C AntibodyOrdered By: Ira Hernandez on 04-19-2019 Hepatitis C Ab Non-Reactive NONREACTIVE [facility] [employer] Work Phone: Comment on above: The hepatitis [...] RNA by PCR. PROFILE IOrdered By : rIa Hernandez on 04-19-2019 Absolute Eos # 0.07 [facility] Work Phone: Absolute Immature Granulocyte 0.04 [facility] Phone: Absolute Lymph # 2.07 [employer] [facility] Work Phone: Absolute [place]óvanas # 0.[address] [employer] [facility] Work Phone: Basophils (Bld) [#/Vol] 0.05 10*3/uL [facility] Phone: Basophils/100 WBC (Bld) 1 % 0 - 2 % [facility] Work Phone: Differential Type NOT REPORTED [facility] Phone: Eosinophils/100 WBC (Bld) 1 % 1 - 4 % [facility] Phone: Erythrocyte distribution width (RBC) [Ratio] 12.9 % 11.8 - 14.4 % [facility] Phone: Hematocrit (Bld) [Volume fraction] 40.7 % 36.3 - 47.1 % [facility] Phone: Hemoglobin (Bld) [Mass/Vol] 12.9 g/dL 11.9 - 15.1 g/dL [facility] Phone: Hepatitis B Surface Ag Non-Reactive NONREACTIVE [facility] Phone: Immature granulocytes/100 WBC (Bld) 0 % 0 [facility] Phone: Interpretation and review of laboratory results Abnormal [facility] Phone: Lymphocytes/100 WBC (Bld) 22 % Low 24 - 43 % [facility] Phone: MCH (RBC) [Entitic mass] 29.7 pg 25.2 - 33.5 pg [facility] Phone: MCHC (RBC) [Mass/Vol] 31.7 g/dL 28.4 - 34.8 g/dL [facility] Phone: MCV (RBC) [Entitic vol] 93.6 fL 82.6 - 102.9 fL [facility] Phone: Monocytes/100 WBC (Bld) 5 % 3 - 12 % [facility] Phone: NRBC Automated 0.0 0.0 per 100 WBC [facility] Phone: Platelet Estimate NOT REPORTED [facility] Phone: Platelet mean volume (Bld) [Entitic vol] 11.7 fL 8.1 - 13.5 fL [facility] Phone: Platelets (Bld) [#/Vol] 341 10*3/uL [facility] Phone: RBC (Bld) [#/Vol] 4.35 10*6/uL 3.95 - 5.1 1 m/uL [facility] Phone: RBC morphology finding Nom (Bld) NOT REPORTED [facility] Phone: Rubella virus IgG Ql (S) 453.4 IU/mL [facility] Phone: Comment on above: REFERENCE RANGE: <5.0 NON-REACTIVE (non-immune) 5.0 TO 9.9 EQUIVOCAL >=10.0 REACTIVE (immune) Segmented neutrophils/100 WBC (Bld) 71 % High 36 - 65 % [facility] Phone: Segs [employer] 6[employer]72 [employer] Work Phone: T. pallidum, IgG Non-Reactive NONREACTIVE [facility] Phone: Comment on above: T. pallidum antibodies are not detected. There is no serological evidence of infection with T. pallidum (early primary syphilis cannot be excluded). Retest in 2-4 weeks if syphilis is clinically suspect. WBC (Bld) [#/Vol] 9.4 10*3/uL [facility] Phone: WBC Morphology NOT REPORTED [employer] Phone: TYPE AND SCREENOrde red By: Ira Sotomayor Hernandez on 04-19-2019 ABO/Rh Positive [facility] Work Phone: T4, FreeOrdered By: Ira moore Hernandez on 04-19-2019 Thyroxine, Free 1.41 ng/dL 0.93 - 1.7 ng/dL [facility] Work Phone: TSH without ReflexOrdered By : Ira Sotomayor Hernandez on 04-19-2019 TSH Qn 2.62 m[IU]/L [facility] Work Phone: Urine Drug Screen, Comprehen siveOrdered By: Ira Hernandez on 04-19-2019 Amphetamine Screen, Ur Negative NEGATIVE [facility] Work Phone: Barbiturate Screen, Ur Negative NEGATIVE [facility] Work Phone: Benzodiazepine Screen, Urine Negative NEGATIVE [facility] Work Phone: Buprenorphine Urine Negative NEGATIVE [facility] Work Phone: Cannabinoid Scrn, Ur Negative NEGATIVE [facility] Work Phone: Cocaine Metabolite, Urine Negative NEGATIVE [facility] Work Phone: MDMA, Urine NOT REPORTED NEGATIVE [facility] Work Phone: Methadone Screen, Urine Negative NEGATIVE [facility] Work Phone: Methamphetamine, Urine Negative NEGATIVE [facility] Work Phone: Opiates, Urine Negative NEGATIVE [facility] Work Phone: Oxycodone Screen, Ur Negative NEGATIVE [facility] Work Phone: Phencyclidine, Urine Negative NEGATIVE [facility] Work Phone: Propoxyphene, Urine Negative NEGATIVE [facility] Work Phone: Test Information NOT REPORTED [facility] Work Phone: Tricyclic Antidepressants, Urine Negative NEGATIVE [facility] Work Phone: Comment on above: Drug screen results are to be used for medical purposes only. All positive results are unconfirmed. Testing for employment or legal uses should be sent to a reference laboratory for confirmation. Vital Signs Date Time Vital Sign Value Performing Clinician Facility 07-30-2022 10:10-0400 Body height 165.1 cm Cynthia Amaya Other [facility] Other 07-30-2022 10:10-0400 Body mass index (BMI) [Ratio] 37.77 kg/m2 Cynthia Amaya Other [facility] Other 07-30-2022 10:10-0400 Body temperature 98.3 [degF] Cynthia Amaya Other [facility] Other 07-30-2022 10:10-0400 Body weight 102.97 kg Cynthia Amaya Other [facility] Other 07-30-2022 10:10-0400 Respiratory rate 18 /min Cynthia Amaya Other [facility] Other 07-30-2022 10:10-0400 SaO2% (BldA) [Mass fraction] 97 % Cynthia Amaya Other [facility] Other 07-23-2022 13:49-0400 Blood Pressure Location Marcelina DIXON [facility] 07-23-2022 13:49-0400 Diastolic blood pressure 72 mm[Hg] Marcelina DIXON [facility] 07-23-2022 13:49-0400 Heart rate 70 /min Marcelina DIXON [facility] 07-23-2022 13:49-0400 Respiratory rate 16 /min Marcelina DIXON [facility] [place] 07-23-2022 13:49-0400 Systolic blood pressure 116 mm[Hg] Marcelina DIXON [facility] [place] 06-19-2022 16:10-0400 Body height 165.1 cm Abbey Sanders Other [facility] Other 06-19-2022 16:10-0400 Body mass index (BMI) [Ratio] 38.27 kg/m2 Abbey Sanders Other [facility] Other 06-19-2022 16:10-0400 Body temperature 97.1 [degF] Abbey Sanders Other [facility] Other 06-19-2022 16:10-0400 Body weight 104.33 kg Abbey Sanders Other [facility] Other 06-19-2022 16:10-0400 Respiratory rate 18 /min Abbey Sanders Other [facility] Other 06-19-2022 16:10-0400 SaO2% (BldA) [Mass fraction] 99 % Abbey Sanders Other [facility] Other 01-08-2022 11:15-0400 Body height 165.1 cm Cynthia Amaya Other [facility] Other 01-08-2022 11:15-0400 Body mass index (BMI) [Ratio] 36.61 kg/m2 Cynthia Amaya Other [facility] Other 01-08-2022 11:15-0400 Body temperature 98.6 [degF] Cynthia Amaya Other [facility] Other 01-08-2022 11:15-0400 Body weight 99.79 kg Cynthia Amaya Other [facility] Other 01-08-2022 11:15-0400 Respiratory rate 18 /min Cynthia Amaya Other [facility] Other 01-08-2022 11:15-0400 SaO2% (BldA) [Mass fraction] 98 % Cynthia Amaya Other [facility] Other 02-26-2021 14:40-0500 Body height 165.1 cm Mabel Realault Other [facility] Other 02-26-2021 14:40-0500 Body mass index (BMI) [Ratio] 38.27 kg/m2 Mabel Rosanna Other [facility] Other 02-26-2021 14:40-0500 Body temperature 96.9 [degF] Mabel Rosanna Other [facility] Other 02-26-2021 14:40-0500 Body weight 104.33 kg Mabel Rosanna Other [facility] Other 02-26-2021 14:40-0500 Diastolic blood pressure 81 mm[Hg] Mabel Rosanna Other [facility] Other 02-26-2021 14:40-0500 Respiratory rate 18 /min Mabel Marte Other [facility] Other 02-26-2021 14:40-0500 SaO2% (BldA) [Mass fraction] 98 % Mabel Marte Other [facility] Other 02-26-2021 14:40-0500 Systolic blood pressure 130 mm[Hg] Mabel Marte Other [facility] Other 01-11-2021 12:30-0400 Body height 165.1 cm Cynthia Garciamond Other [facility] Other 01-11-2021 12:30-0400 Body mass index (BMI) [Ratio] 36.61 kg/m2 Cynthia Monique Other [facility] Other 01-11-2021 12:30-0400 Body temperature 96.6 [degF] Cynthia Garciamond Other [facility] Other 01-11-2021 12:30-0400 Body weight 99.79 kg Cynthia Amaya Other [facility] Other 01-11-2021 12:30-0400 Respiratory rate 18 /min Cynthia Garciamond Other [facility] Other 01-11-2021 12:30-0400 SaO2% (BldA) [Mass fraction] 98 % Cynthia Garciamond Other [facility] Other 12-09-2019 08:32-0400 Body Temperature 97.5 [degF] [employer] [place] 12-09-2019 08:32-0400 BP Diastolic 63 mm[Hg] [facility] [place] 12-09-2019 08:32-0400 BP Systolic 111 mm[Hg] [facility] [place] 12-09-2019 08:32-0400 Pulse (Heart Rate) 71 /min [facility] [place] 12-09-2019 08:32-0400 Respiratory Rate 16 /min [facility]lou Desouza [employer] [facility] [place] [place] 12-07-2019 22:15-0400 Pulse Oximetry 99 % [facility] [place] 12-07-2019 08:32-0400 BMI (Body Mass Index) 40.94 kg/m2 Marylou [facility], [place] 12-07-2019 08:32-0400 Body weight 111.58 kg Marylou [facility] , [place] 12-07-2019 08:32-0400 Height 165.1 cm Marylou [facility] , [place] 05-14-2019 19:40-0500 BP Diastolic 63 mm[Hg] [employer] Phone: 05-14-2019 19:40-0500 BP Systolic 104 mm[Hg] [employer] Phone: 05-14-2019 19:40-0500 Pulse (Heart Rate) 85 /min [employer] Phone: 05-14-2019 19:40-0500 Pulse Oximetry 99 % [employer] Phone: 05-14-2019 19:40-0500 Respiratory Rate 18 /min [employer] Phone: 05-14-2019 15:20-0500 BMI (Body Mass Index) 41.6 kg/m2 [employer] Phone: 05-14-2019 15:20-0500 Body Temperature 98.01 [degF] [employer] Phone: 05-14-2019 15:20-0500 Body weight 113.4 kg [employer] Phone: Encounters Encounter Date Encounter Type Care Provider Facility Start: 04-15-2023 End: 04-16-2023 ambulatory SAL BAUTISTA [facility] Start: 01-14-2023 End: 01-15-2023 ambulatory [facility] Start: 08-20-2022 End: 08-21-2022 ambulatory Marcelina DIXON Facility:[facility] Start: 08-13-2022 End: 08-14-[address] MIGUEL MAX Facility:[facility] Start: 08-06-2022 Encounter for other preprocedural examination DR MARCELINA DIXON . [facility] Start: 07-30-2022 Office outpatient vi sit 15 minutes Cynthia Amaya [facility] Start: 07-30-2022 End: 07-31-[address] MIGUEL MAX [facility] Other Start: 07-30-2022 End: 07-31-2022 Encounter for other preprocedural examination DR MIGUEL MAX Facility:[facility] Start: 07-23-2022 End: 07-24-2022 ambulatory Marcelina DIXON Facility:[facility] Start: 07-23-2022 End: 07-23-2022 Patient encounter procedure Marcelina DIXON General Surgery [facility] Start: 07-15-2022 End: 07-16-2022 ambulatory [facility] Start: 07-15-2022 ambulatory Marcelina DIXON Facility:[facility] Start: 07-11-2022 ambulatory Marcelina DIXON Facility:[facility] Start: 07-10-2022 End: 07-10-[address] MIGUEL MAX Facility:[facility] Start: 07-08-2022 End: 07-09-[address] MIGUEL MAX Facility:[facility] Start: 06-22-2022 End: 06-22-2022 ambulatory Abbey Sanders Other [facility] Other Start: 06-22-2022 Telephone encounter Abbey [facility] [address] Start: 06-19-2022 End: 06-19-2022 ambulatory NELSY SHAVER . Facility:[facility] Start: 06-19-2022 End: 06-19-2022 Departed [employer] Abbey Sanders Work Phone: [facility] [place] Work Phone: Start: 06-19-2022 End: 06-19-2022 ambulatory [employer] Abbey Sanders Work Phone: [facility] Work Phone: Start: 06-19-2022 Office outpatient vi sit 15 minutes Abbey Sanders [facility] Start: 05-17-2022 End: 05-17-2022 ambulatory SISSY ZAPATA Facility:[facility] Start: 01-08-2022 End: 01-08-2022 ambulatory Cynthia Amaya Other [facility] Other Start: 01-08-2022 Office outpatient vi sit 15 minutes Cynthia Amaya [facility] Start: 11-27-2021 End: 11-27-[address] DALIA STUART Facility:[facility] Start: 02-26-2021 End: 02-26-2021 ambulatory Mabel Marte Other [facility] Other Start: 02-26-2021 Office outpatient vi sit 25 minutes Mabel Marte [facility] Start: 01-11-2021 (URG) Urgent Care Visit Cynthia handley [facility] Start: 09-03-2020 End: 09-03-2020 Patient encounter procedure Sal Bautista Work Phone: [facility] Start: 09-03-2020 End: 09-03-2020 Subsequent hospital visit by physician Sal Bautista Work Phone: [facility] Comment on above: Women's annual routi ne gynecological examination Start: 12-07-2019 End: 12-09-2019 Evaluation and management of inpatient Marylou Adams Jak Work Phone: [facility] Delivery Start: 11-21-2019 End: 11-21-2019 Subsequent hospital visit by physician Sal Bautista [facility] Comment on above: 36 weeks gestation o f Start: 05-14-2019 End: 05-14-2019 Emergency department patient visit Felix Anderson Work Phone: [facility] ED Comment on above: Non-intractable vomi ting with nausea, unspecified vomiting type (Primary Dx) Start: 04-19-2019 End: 04-19-2019 Subsequent hospital visit by physician Sal Bautista Other Phone: [facility] Comment on above: Amenorrhea; Positive urine [...] Phone: Start: 05-14-2019 Comprehensive metabo lic panel [employer] Work Phone: Start: 05-14-2019 Urinalysis microscopic only [employer] Work Phone: Start: 05-14-2019 Urnls dip stick/tabl et rgnt auto w/o microscopy [employer] Work Phone: Start: 04-19-2019 Antibody screen Sal Bautista Other Phone: Start: 04-19-2019 Drug screen, qualitate/multi Ira F Drew Hernandez DO Work Phone: Start: 04-19-2019 End: 04-19-2019 Antibody hiv-1&hiv-2 single result Ira F Drew Hernandez DO Work Phone: Start: 04-19-2019 Hemoglobin glycosylated a1c Ira Hernandez DO Work Phone: Appendectomy Marcelina DIXON Plan of Treatment Date Care Activity Detail Author Start: 01-06-2028 DTaP/Tdap/Td vaccine (7 - Td or Tdap) DTaP/Tdap/Td vaccine (7 - Td or Tdap) [facility] Work Phone: Start: 01-06-2028 DTaP/Tdap/Td vaccine (7 - Td) DTaP/Tdap/Td vaccine (7 - Td) [facility] Phone: Start: 06-19-2022 Bacteria identified in Urine by Culture [facility] Start: 11-28-2020 Influenza vaccination Flu vacc ine (Season Ended) [facility] [employer] Phone: Start: 08-29-2020 Screening for malign ant neoplasm of cervix Cervical cancer screen [place], [place] Comment on above: Postponed from 02/02 (Not Indicated) Start: 04-19-2020 Thyroid stimulating hormone measurement TSH testing [facility] [employer] Phone: Start: 04-19-2020 TSH Qn TSH testing [place], [place] Start: 04-19-2020 TSH testing TSH testing [facility] Work Phone: Start: 12-20-2019 End: 12-20-2019 Visit 12/20/2019 Visit Obstetrics and Gynecology Ira Tian DO [address] [place] [address] [facility] Start: 11-29-2019 Influenza vaccination Flu vaccine (# 1) [place], [place] Start: 11-28-2019 End: 11-28-2019 Routine 11/28/2019 Routine Obstetrics and Gynecology Ira Tian DO [address] [place] [phone] [facility] Start: 05-17-2019 End: 05-17-2019 Routine 05/17/2019 Routine Obstetrics and Gynecology Ira Tian, DO [address] [place] [address] [place] [address] [phone] [facility] Start: 04-25-2019 End: 04-25-2019 Professional / ancillary services management 04/25/2019 Ancillary Procedure Obstetrics and Gynecology [facility] Start: 11-28-2018 Influenza vaccination Flu vaccine (# 1) [facility] Phone: Start: 02-03-2012 Cervical cancer screen Cervical canc er screen [facility] Phone: Start: 02-03-2012 Screening for malign ant neoplasm of cervix Cervical cancer screen [facility] Phone: Start: 2006 HIV screen HIV screen [facility] [employer] Phone: Start: 2003 COVID-19 Vaccine (1) COVID-19 Vaccin e (1) [facility] Phone: Start: 02-03-1992 Varicella vaccine (1 of 2 - 2-dose childhood series) Varicella vaccine (1 of 2 - 2-dose childhood series) [facility] Phone: Start: 1991 TSH testing TSH testing [facility] Work Phone: End: 05-14-2019 Bacteria identified Cx Nom (U) Urine Culture Microbiology Routine Once for 1 Occurrences starting 05/14/2019 until 05/14/2019 [facility] Phone: Comment on above: Once for 1 Occurrenc es starting 05/14/2019 until 05/14/2019 Bacteria identified Cx Nom (U) [facility] Phone: End: 04-19-2019 Bacteria identified in Urine by Culture Urine Culture Microbiology Routine Amenorrhea Positive urine test Encounter for supervision of normal in first trimester, unspecified 1 Occurrences starting 04/19/2019 until 04/19/2019 [facility] Phone: Comment on above: 1 Occurrences starti ng 04/19/2019 until 04/19/2019 End: 04-19-2019 C.trachomatis N.gonorrhoeae DNA, Urine C.trachomatis N.gonorrhoeae DNA, Urine Microbiology Routine Amenorrhea Positive urine test Encounter for supervision of normal in first trimester, unspecified 1 Occurrences starting 04/19/2019 until 04/19/2019 [facility] Phone: Comment on above: 1 Occurrences starti ng 04/19/2019 until 04/19/2019 C.trachomatis N.gonorrhoeae DNA, Urine C.trachomatis N.gonorrhoeae DNA, Urine Microbiology Routine Amenorrhea Positive urine test Encounter for supervision of normal in first trimester, unspecified 04/19/2019 5:09 PM EST [facility] Phone: End: 11-21-2019 Culture, Strep B Screen, Vaginal/Rectal Culture, Strep B Screen, Vaginal/Rectal Microbiology Routine 36 weeks gestation of 1 Occurrences starting 11/21/2019 until 11/21/2019 [place], [place] Comment on above: 1 Occurrences starti ng 11/21/2019 until 11/21/2019 Culture, Strep B Scr een, Vaginal/Rectal Culture, Strep B Screen, Vaginal/Rectal Microbiology Routine 36 weeks gestation of 11/21/2019 12:30 PM EDT [facility] [place] End: 09-03-2020 Cytopathology procedure, preparation of smear, genital source [facility] Lab Routine Women's annual routine gynecological examination 1 Occurrences starting 09/03/2020 until 09/03/2020 [facility] Phone: Comment on above: 1 Occurrences starti ng 09/03/2020 until 09/03/2020 Immunizations Immunization Date Immunization Notes Care Provider Fa cility 12-07-2019 diphtheria, tetanus toxoids and acellular pertussis vaccine, unspecified formulation [facility], [place] 12-07-2019 measles, mumps and rubella virus [place] NEGATED: Highlighted row has not occurred!07-23-2022 influenza virus vaccine, unspecified formulation Marcelina DIXON [facility] NEGATED: Highlighted row has not occurred!07-23-2022 SARS-CoV-2 mRNA (tozinameran 5y-11y) vaccine Marcelina DIXON [facility] [place] Payers Date Payer Category Payer Self-pay 2018 Unknown BCBS BC[place] - [place] P PO xxxxxxxxxxxxxxx 2018-Present [address] [place] [address] xxxxxxxxxxxxxxx [id number] 1991 Unknown [id number] [id number] 1991 Unknown [id number] 2.16.840.1.878530.3.579.2.593 1991 Unknown [id number] 2.16.840.1.135655.3.579.2.593 1991 Unknown [id number] 2.16.840.1.126239.3.579.2.593 1991 Unknown [id number] 2.16.840.1.392002.3.579.2.593 1991 Unknown [id number] 2.16.840.1.054370.3.579.2.593 1991 Unknown [id number] 2.16.840.1.204655.3.579.2.593 1991 Unknown [id number] 2.16.840.1.376142.3.579.2.727 1991 Unknown [id number] 2.16.840.1.450433.3.579.2.727 1991 Unknown [id number] 2.16.840.1.239955.3.579.2.727 1991 Unknown [id number] 2.16.840.1.854534.3.579.2.173 1991 Unknown [id number] 2.16.840.1.047848.3.579.2.173 1991 Unknown [id number] 2.16.840.1.036045.3.579.2.173 1959 Medicaid [id number] [id number] .[id number] 1959 Unknown [id number] [id number] .[id number] Unknown [id number] [id number] Social History Date Type Detail Facility Start: 05-14-2019 End: 07-23-2022 Tobacco smoking status NHIS Never smoker [facility] Start: 04-19-2019 End: 05-14-2019 Alcohol intake Lifetime non-drinker (finding) [facility] Phone: Start: 04-19-2019 History SDOH Alcohol Frequency 1 [facility] Phone: Start: 02-23-2019 [employer] Work Phone: Start: 1990 Sex Assigned At Not on file [facility] [place] Phone: Start: 09-27-2019 End: 09-03-2020 Tobacco use and exposure Never used [employer] Exposure to SARS-CoV -2 (event) Not sure [employer] Sex Assigned At [facility] Start: 1990 Sex Assigned At Female F [facility] Tobacco smoking status Never [facility] [place] Functional Status Date Assessment Result Facility 07-23-2022 Functional Status N/A [facility] Clinical Notes 01-11-2021 to 07-30-2022 Note Date [...] of diseases classified elsewhere (ICD-10 - B96.89) [facility] Other 04-26-2023 NoteChief Complaint consultation for abdominal pain HPI Staff 32 year old female presents on consultation from [facility] for abdominal pain. Presented to ED [...] female with h/o GERD, hypothyroidism, referred from [facility] ED for several week h/o intermittent [...] E&M of New Patient Moderate 45-59 Min 52276 2. Gastroesophageal reflux disease (K21.9: Gastro-esophageal reflux disease without esophagitis) will begin Protonix daily. Ordered: pantoprazole, 40 mg = 1 tab(s), Oral, Daily, # 30 tab(s), Refills(s) 3, Pharmacy: [facility] #[id number], 165, cm, 07/23/22 13:58:00 EDT, Height/Length Dosing, 104.5, kg, 07/23/22 13:58:00 EDT, Weight Dosing E&M of New Patient Moderate 45-59 Min [id number] Follow-up No qualifying data available Problem List/Past Medical History Ongoing BMI 38.0-38.9,adult Gastroesophageal reflux disease Hiatal hernia Hypothyroidism RUQ pain Symptomatic cholelithiasis Vitamin D deficiency Historical No qualifying data Procedure/Surgical History Appendectomy. Medications Protonix 40 mg Tab-DR, 40 mg= 1 tab(s), Oral, Daily, 3 refills Slynd 4 mg oral tablet, 4 mg= 1 tab(s (more content not included)...[facility] HealthComment on above:Result Comment: Electronically Signed By: SUMI BARKLEY, Marcelina Alston\Date and Time Signed: 07/23/22 14:27 [id number] Evaluation note* Encounter Date Diagnosis Assessment Notes [...] understanding and is agreeable to treatment plan [facility] Other 10-12-2022 Evaluation note* Encounter Date Diagnosis [...] no improvement in 2 to 3 days. [facility] Other 11-30-2021 Evaluation note* Encounter Date Diagnosis Assessment Notes Treatment Notes Treatment Clinical Notes Jan, Herpes zoster without complication (ICD-10 - B02.9) [facility] Other 10-15-2021 Evaluation note* Encounter Date Diagnosis [...] Patient care instructions given in writting by [facility] document. [facility] Other Evaluation + Plan note No data available for this section [facility] Evaluation note* Diagnosis Women's annual routine gynecological examination documented in this encounter [employer] Work Phone: evaluation note* Diagnosis Amenorrhea Absence of menstruation Positive urine test Encounter for supervision of normal in first trimester, unspecified BMI 40.0-44.9, adult (HCC) Body Mass Index 40.0-44.9, adult Thyroid disease, antepartum Thyroid dysfunction, antepartum documented in this encounter [facility] Work Phone: evaluation noteNo assessment information available [facility] Work Phone: Evaluation noteNo InformationNortEncompass Health [facility] [employer] Other History general Narrative - Reported* Type Description Date Surgical History appendectomy Hospitalization History see above [facility] Other Hospital Discharge instructions No data available for this section [facility] Progress note No data available for this section [facility] Discharge Instructions * Instructions* Carmella Vaca PA-C - 05/14/2019 Continue pushing liquids for the next 48 hours. Keep follow-up as scheduled with [employer]. If you go home and develop any worsening symptoms do not hesitate to return the emergency room. * Attachments The following attachments cannot be sent through Care Everywhere. * Nausea and Vomiting (Tamazight) documented in this encounter* Instructions* Keya Haq RN - 12/09/2019 Follow-up with your OB doctor as specified. [facility] OB Department phone: Dr. Malgorzata Mills [facility] Dr. Sina Benedict [facility] [address] [facility] [address] [place] or Adolph Coni Orosco, MSN, WE[employer]IC[employer], CNM NOMS [facility] [address] [facility] [id number] Kelly [address] [facility] [address] Marylou Milton CNM [address] [place] [address] [place] [address] Dominique Worrell CNM [address] [place] [address] [phone] DIET Eat a well balanced diet focusing on foods high in fiber and protein. Drink plenty of fluids especially water. To avoid constipation you may take a mild stool softener as recommended by your doctor or automatic i threading machine feeder. ACTIVITY Gradually increase your activity. Resume exercise regimen only after advice by your doctor or automatic i threading machine feeder. Avoid lifting anything heavier than a gallon of milk for SIX weeks. Avoid driving until your doctor or automatic i threading machine feeder has given their approval. Rise slowly from [...] have thoughts of harming yourself or your infant. If will not stop crying, contact another [...] medications as recommended by your doctor or automatic i threading machine feeder for pain If you develop a warm, red, tender area on your breast or develop a fever contact your OB provider. For moms: If you become engorged, feeding may be more difficult or painful for 1-2 days. You may find it helpful to hand express some milk so that the can latch on more easily. While , continue to take your vitamins as directed by your doctor or automatic i threading machine feeder. Refer to the booklet in the folder/binder for more information. If you feel you need more assistance or have questions, please call Latasha Iqbal IBCLC, peoplesoft hcm consultant, at or the OB department to [...] FoundDocuments on File Type Date Recorded Patient Ekg Tech Expl anation Advance Directives and Living Will Power of Ethanol Operator Documents on File Type Date Recorded Patient Ekg Tech Expl anation ACP-Advance Directive ACP-Power of Ethanol Operator Latest Code Status on File Code Status Date Activated Date Inactivated Comments Full Code 12/07/2019 11:44 PM Full Code 12/07/2019 7:37 AM 12/07/2019 11:44 PM Full Code 12/07/2019 6:26 AM 12/07/2019 7:37 AM Latest Code Status on File Code Status Date Activated Date Inactivated Comments Full Code 12/07/2019 11:44 PM 12/09/2019 4:37 PM History of Present Illness * Marylou Benedict, RAMONA - CNM - 12/09/2019 9:31 AM EDT [...] 2151 107/62 106 12/07/19 2150 100 % 12/07/195 97 % 12/07/192 91 % 12/07/190 100 % 12/07/196 114/65 109 12/07/195 99 % 12/07/19 2130 99 % 12/07/195 99 % 12/07/190 106/65 99 100 % 12/07/196 112/62 100 12/07/192114 98 % 12/07/190 114/70 88 12/07/192036 117/87 98.4 F (36.9 C) Oral 71 18 12/07/192020 116/73 73 12/07/192005 115/75 86 12/07/19 1950 120/63 105 12/07/19 1937 114/68 78 18 12/07/19 1921 (!) 120/58 94 12/07/19 1906 109/66 74 [...] RN - 12/07/2019 10:[address] oStomayor at bedside for delivery. * Zoe Han RN - 12/07/2019 9:[address] Sotomayor in department. Updated on SVE, FHR, and pt positioning. * Zoe Han RN - 12/07/2019 9:14 PM EDT Anesthesia at bedside. * Zoe Han RN - 12/07/2019 8:49 PM EDT Anesthesia notified via telephone that pt is rating contractions 11/06. States she is in surgery andwill head to department after. * Zoe Han RN - 12/07/2019 7:[address] Sotomayor at bedside. documented in this encounter Summary [...] By Contact Referred To Contact Diagnoses Term Ira Tian, [address] [place] [address] [facility] INFORMATION SOURCE (unrecogn ized section and content) DATE CREATED AUTHOR 01/27/2021 [facility] DATE CREATED AUTHOR AUTHOR'S ORGANIZ ATION 08/13/2022 [facility] DATE CREATED AUTHOR AUTHOR'S ORGANIZ ATION 09/05/2022 [facility] DATE CREATED AUTHOR AUTHOR'S ORGANIZ ATION 01/04/2023 [facility] DATE CREATED AUTHOR AUTHOR'S ORGANIZ ATION 04/16/[address] [facility] Care Teams (unrecognized sec tion and [...] BE BASED ON THE PRIMARY CLINICAL RECORDS. [facility]. provides no warranty or guarantee of the accuracy or completeness of information in this document.
--- NOTE | 2023-04-19 20:22 | ED.GENADUL1 ---
HPI - General Adult General Chief complaint: Abdominal Pain Stated complaint: N/V,Dark Urine,Cramping,21 wks FBC - ER Time Seen by Provider: 04/19/23 20:14 Source: patient Mode of arrival: walk-in Limitations: no limitations History of Present Illness HPI narrative: patient is a 33-year-old female , 21wks 4 days gestation. who presents to the Emergency Room with concerns of intractable nausea and vomiting. Patient concerned about dehydration noting that her urine looks dark. She reports some mild lower pelvic cramping but no vaginal bleeding. Patient states she had similar symptoms with her 1st but this has been lasting longer. She sees an [facility] in [place]. She is on Zofran 8 mg every eight hours, without relief over the past twenty-four hours. She had prior ultrasound on 12/31/22 showing intrauterine . patient denies any fevers or chills, states her last IV fluid treatment was approximately two weeks ago with exacerbation of symptoms. Prior history of cholecystectomy..last dose of Zofran was 3 PM. Related Data Previous Rx's Medication Instructions Recorded ondansetron 4 mg disintegrating 4 mg PO Q8H PRN nausea and 12/31/22 tablet vomiting 4 days #16 tabs doxylamine 10 mg-pyridoxine (vit 1 tab PO TID PRN nausea #30 tabs 01/04/23 B6) 10 mg tablet,delayed release (Diclegis) metoclopramide HCl 10 mg tablet 10 mg PO Q6H PRN nausea and 01/18/23 (Reglan) vomiting #12 tabs metoclopramide HCl 10 mg tablet 10 mg PO Q6H PRN nausea and 04/08/23 (Reglan) vomiting #12 tabs Allergies Allergy/AdvReac Type Severity Reaction Status Date / Time No Known Drug Allergies Allergy Verified 04/19/23 20:17 Review of Systems ROS Constitutional Denies: fever or chills Ears, nose, mouth, and throat Denies: throat pain, neck pain or nasal congestion Cardiovascular Denies: chest pain or palpitations Respiratory Reports: shortness of breath and cough; Denies: wheezing Gastrointestinal Reports: nausea and vomiting; Denies: abdominal pain Genitourinary Reports: other (mild pelvic cramping, no bleeding. ); Denies: painful urination or urinary frequency Musculoskeletal Denies: back pain, neck pain, extremity pain or extremity swelling Integumentary/Breast Denies: rash or itching Neurological Denies: headache Psychiatric Denies: anxiety Hematologic/Lymphatic Denies: easy bruising Allergic/Immunologic Denies: hives [facility] Social History Smoking status: Never smoker Exam Narrative Exam Narrative: Nurses notes and vital signs reviewed and patient is not hypoxic. General: The patient appears well and in no apparent distress. Patient is resting comfortably on cart. Skin: Warm, dry, no pallor noted. Head: Normocephalic, atraumatic Neck: Supple, trachea mid-line, no tenderness, no lymphadenopathy Eye: Pupils are equal, round and reactive to light, EOMI Ears, Nose, Mouth, and Throat: external exam unremarkable Cardiovascular: Regular Rate and Rhythm Respiratory: Patient is in no distress, no accessory muscle use, lungs are clear to auscultation, no wheezing, rales or rhonchi. Chest Wall: no tenderness Back: non-tender, no CVA tenderness Musculoskeletal: normal ROM, no tenderness, no swelling GI: Normal bowel sounds,gravid abdomen no tenderness to palpation, no masses appreciated. No rebound, guarding, or rigidity noted. Neurological: A&O x4 Psychiatric: Cooperative Constitutional Vital Signs, click to edit/add: Last Vital Signs Temp 98.5 F 04/19/23 20:17 Pulse 92 H 04/19/23 21:34 Resp 18 04/19/23 21:34 BP 105/63 04/19/23 21:34 Pulse Ox 97 04/19/23 21:34 O2 Del Method Room Air 04/19/23 20:17 Course Vital Signs Vital signs: Vital Signs Temperature 98.5 F 04/19/23 20:17 Pulse Rate 103 H 04/19/23 20:17 Respiratory Rate 20 04/19/23 20:17 Blood Pressure 116/80 04/19/23 20:17 Pulse Oximetry 97 04/19/23 20:17 Oxygen Delivery Method Room Air 04/19/23 20:17 Temperature 98.5 F 04/19/23 20:17 Pulse Rate 92 H 04/19/23 21:34 Respiratory Rate 18 04/19/23 21:34 Blood Pressure 105/63 01/21/24 21:34 Pulse Oximetry 97 04/19/23 21:34 Oxygen Delivery Method Room Air 04/19/23 20:17 Medical Decision Making MDM Narrative Medical decision making narrative: FHT 158 bpm, no vaginal bleeding. Patient concerned with dehydration. Noting dark urine. Urinalysis, labs and IV fluids given, Zofran 4 mg given IV. patient reevaluated, discussed no vaginal bleeding, she reports feeling much better after 1 L IV fluids and 4 mg IV Zofran. We discussed her laboratory studies, urinalysis likely contaminated. Culture pending. Patient denies any dysuria at this time. She is without any vaginal bleeding, I did contact Dr. Gomez who advised with patient's current dates gestation and having heart tones at the bedside that she did not require any further monitoring at this time, she is encouraged to return to the Emergency Room for symptoms worsen or new symptoms develop. She's had prior appendectomy and cholecystectomy. Patient pleased with her symptomatic relief, laboratory studies discussed and she'll be discharged home to follow-up with her [facility] C[facility] The patient is to followup with [facility] C[facility]TING TO[facility] in next 1-3 days or to return to the emergency department should any of the signs or symptoms worsen or new symptoms develop. Patient had questions answered. The patient agrees with the following Diagnosis and Treatment plan and the patient will be discharged home. Lab Data Lab results reviewed: Yes I reviewed the patient's lab results Labs: Lab Results 04/19/23 04/19/23 Range/Units 20:22 20:27 WBC 9.2 (4.0-11.0) 10^3/uL RBC 3.88 L (4.20-5.40) 10^6/uL Hgb 11.8 L (12.0-16.0) g/dL Hct 36.4 (36.0-48.0) % MCV 93.8 (81.0-99.0) fL MCH 30.4 (26.7-34.0) pg MCHC 32.4 (29.9-35.2) g/dL RDW 13.1 (11.0-15.0) % Plt Count 291 (150-450) 10^3/uL MPV 11.8 (9.5-13.5) fL Neut % (Auto) 80.6 H (43.0-75.0) % Lymph % (Auto) 10.4 L (20.5-60.0) % Addison % (Auto) 7.6 (1.7-12.0) % Eos % (Auto) 0.8 L (0.9-7.0) % Baso % (Auto) 0.4 (0.2-2.0) % Neut # (Auto) 7.4 H (1.4-6.5) 10^3/uL Lymph # (Auto) 1.0 L (1.2-3.8) 10^3/uL Addison # (Auto) 0.7 (0.3-0.8) 10^3/uL Eos # (Auto) 0.1 (0.0-0.7) 10^3/uL Baso # (Auto) 0.0 (0.0-0.1) 10^3/uL Abs Immat Gran (auto) 0.02 (0.00-0.03) 10^3/uL Imm/Tot Granulo (auto) 0.2 (0.0-0.5) % Sodium 132 L (136-145) mmol/L Potassium 3.6 (3.5-5.1) mmol/L Chloride 100 (98-107) mmol/L Carbon Dioxide 21.1 (21.0-32.0) mmol/L Anion Gap 14.5 BUN 9.0 (7.0-18.0) mg/dL Creatinine 0.82 (0.55-1.02) mg/dL Est GFR ( Amer) >60 (>=60) Est GFR (Non-Af Amer) >60 (>=60) BUN/Creatinine Ratio 11.0 Glucose 85 (74-106) mg/dL Calcium 8.9 (8.5-10.1) mg/dL Total Bilirubin 0.3 (0.2-1.0) mg/dL AST 16 (15-37) U/L ALT 15 (14-59) U/L Alkaline Phosphatase 81 (46-116) U/L Total Protein 7.1 (6.4-8.2) g/dL Albumin 2.6 L (3.4-5.0) g/dL Globulin 4.5 g/dL Albumin/Globulin Ratio 0.6 Lipase 19.0 (16.0-77.0) U/L Urine Color Yellow (YELLOW) Urine Clarity Clear (CLEAR) Urine pH 6.5 (5.0-9.0) Ur Specific [place] 1.020 (1.005-1.025) Urine Protein 30 A (NEG/TRACE) mg/dL Urine Glucose (UA) Negative (NEGATIVE) mg/dL Urine Ketones Trace A (NEGATIVE) mg/dL Urine Occult Blood Negative (NEGATIVE) Urine Nitrite Negative (NEGATIVE) Urine Bilirubin Negative (NEGATIVE) Urine Urobilinogen 1.0 (0.2-1.0) EU/dL Ur Leukocyte Esterase Small A (NEGATIVE) Urine RBC 2-5 A (0-2) #/HPF Urine WBC 5-10 A (NONE SEEN) #/HPF Ur Squamous Epith Cells Moderate A (NONE/RARE) #/LPF Urine Crystals None seen (None Seen) #/HPF Urine Bacteria Moderate A (NONE SEEN) #/HPF Urine Casts None seen (NONE SEEN) #/LPF Urine Mucus Small A (NONE SEEN) Ur Culture Indicated? Yes Discharge Plan Discharge Chief Complaint: Abdominal Pain Clinical Impression: Nausea and vomiting during Patient Disposition: Home, Self-Care Time of Disposition Decision: 21:24 Condition: Good Prescriptions / Home Meds: No Action doxylamine-pyridoxine (vit B6) [Diclegis] 10-10 mg tablet,delayed release (DR/EC) 1 tab PO TID PRN (Reason: nausea) Qty: 30 0RF ondansetron 4 mg tablet,disintegrating 4 mg PO Q8H PRN (Reason: nausea and vomiting) 4 Days Qty: 16 0RF metoclopramide HCl [Reglan] 10 mg tablet 10 mg PO Q6H PRN (Reason: nausea and vomiting) Qty: 12 0RF metoclopramide HCl [Reglan] 10 mg tablet 10 mg PO Q6H PRN (Reason: nausea and vomiting) Qty: 12 0RF Instructions: Nausea and Vomiting in (ED) Additional Instructions: contact your [facility] for follow-up in 1-3 days ( urine cult pending) heart tones 158 Stand Alone Forms: Portal Instructions Referrals: ZENAIDA BUTTS [Primary Care Provider] - 1 week Discharge Date/Time: 04/19/23 21:40
[2023-04-19] MEDS: 0.9 % SODIUM CHLORIDE 1,000 ML 999 ML IV (20:38)
[2023-04-19] MEDS: ONDANSETRON PF 4 MG/2 ML VIAL IV (20:38)
[2023-04-19 20:41] LABS: Basophils Percent Auto 0.4 % (0.2-2.0); Eosinophils Absolute Auto 0.1 10^3/uL (0.0-0.7); Eosinophils Percent Auto 0.8 % (0.9-7.0); Hematocrit 36.4 % (36.0-48.0); Hemoglobin 11.8 g/dL (12.0-16.0); Immature Granulocytes Abs Auto 0.02 10^3/uL (0.00-0.03); Immature Granulocytes Pct Auto 0.2 % (0.0-0.5); Lymphocytes Percent Auto 10.4 % (20.5-60.0); Mean Corpuscular HGB Conc 32.4 g/dL (29.9-35.2); Mean Corpuscular Hemoglobin 30.4 pg (26.7-34.0); Mean Corpuscular Volume 93.8 fL (81.0-99.0); Mean Platelet Volume 11.8 fL (9.5-13.5); Monocytes Absolute Auto 0.7 10^3/uL (0.3-0.8); Monocytes Percent Auto 7.6 % (1.7-12.0); Neutrophils Absolute Auto 7.4 10^3/uL (1.4-6.5); Neutrophils Percent Auto 80.6 % (43.0-75.0); Platelet Count 291 10^3/uL (150-450); Red Blood Count 3.88 10^6/uL (4.20-5.40); Red Cell Distribution Width 13.1 % (11.0-15.0); White Blood Count 9.2 10^3/uL (4.0-11.0)
[2023-04-19 20:49] LABS: Bilirubin Urine NEGATIVE (NEGATIVE); Blood Urine NEGATIVE (NEGATIVE); Clarity Urine CLEAR (CLEAR); Color Urine YELLOW (YELLOW); Glucose Urine UA NEGATIVE (NEGATIVE); Ketones Urine TRACE mg/dL (NEGATIVE); Leukocyte Esterase Urine SMALL (NEGATIVE); Nitrite Urine NEGATIVE (NEGATIVE); Protein Urine 30 mg/dL (NEG/TRACE); Urine Microscopic Indicated YES; pH Urine 6.5 (5.0-9.0)
[2023-04-19 20:56] LABS: Alanine Aminotransferase 15 U/L (14-59); Albumin Globulin Ratio 0.6; Albumin Level 2.6 g/dL (3.4-5.0); Alkaline Phosphatase 81 U/L (46-116); Anion Gap 14.5; Aspartate Amino Transferase 16 U/L (15-37); Bilirubin Total 0.3 mg/dL (0.2-1.0); Calcium 8.9 mg/dL (8.5-10.1); Carbon Dioxide 21.1 mmol/L (21.0-32.0); Chloride 100 mmol/L (98-107); Estimated GFR (African America >60 (>=60); Estimated GFR (Non-African Ame >60 (>=60); Globulin 4.5 g/dL; Glucose 85 mg/dL (74-106); Potassium 3.6 mmol/L (3.5-5.1); Sodium 132 mmol/L (136-145); Total Protein 7.1 g/dL (6.4-8.2)
[2023-04-19 21:01] LABS: Bacteria Urine MODERATE #/HPF (NONE SEEN); Cast Seen? NONE SEEN #/LPF (NONE SEEN); Crystals Seen? None Seen #/HPF (None Seen); Mucus Urine SMALL (NONE SEEN); Squamous Epithelial Cell Urine MODERATE #/LPF (NONE/RARE); Urine Culture Indicated YES
== END 2023-04-19 21:40 | disposition home or self-care (01) ==
PROVIDERS: Personal Emergency Response Attendant; Emergency Provider Internal Medicine; PCP Family Medicine
DX: O26.892 Other specified pregnancy related conditions, second trimester (principal); R11.2 Nausea with vomiting, unspecified; Z3A.21 21 weeks gestation of pregnancy; Z90.49 Acquired absence of other specified parts of digestive tract
CPT/HCPCS: 36415; 80053; 81001; 83690; 85025; 87086; 96361; 96374; 99284; J2405

== ENCOUNTER 2023-04-23 04:49 | Emergency (ER) | payer OTHER, SELFPAY ==
[2023-04-23 04:53] VITALS: BP 136/83; PULSE 107; RESP 18; TEMP 36.4; O2SAT 98; BMI 6046.4
--- OUTSIDE RECORDS SUMMARY | 2023-04-23 05:00 | XMS_ITS | CCD ---
Author Name Unknown Address [address] [place] [address] Organization [facility] Care Team Providers Care Floor Layer Tile Name Role Phone Sal Bautista Primary Care Provider Cynthia Amaya Unavailable Mabel Marte Unavailable RAMONA Sanders Attending Provider [phone] Abbey Sanders Unavailable SAL BAUTISTA Primary Care Physician MANSOOR, DR MIGUEL Eddy Primary Care Unavailable MARIA DEL CARMEN, DR ARTURO Reyes Admitting Unavailabl e MARIA DEL CARMEN, DR ARTURO Reyes Attending Unavailabl e PETE ., LEONARD MUNSON Consulting Unavailabl SISSY Ritchie Consulting Unavailable NEFTALY ., BOSTON Admitting Unavailable NEFTALY ., BOSTON Attending Unavailable MANSOOR, DR MIGUEL Eddy Primary Care Unavailable NEFTALY ., BOSTON Consulting Unavailable PATRICK NEW Consulting Unavailable NARCISO, DR DALIA Macedo Consulting Unavailable NEFTALY ., BOSTON Admitting Unavailable NEFTALY ., BOSTON Attending Unavailable MANSOOR, DR MIGUEL Eddy Primary Care Unavailable PETE ., LEONARD MUNSON Consulting Unavailabl e NEFTALY ., BOSTON Consulting Unavailable MANSOOR, DR MIGUEL Eddy Primary [...] Attending Unavailable PETE ., LEONARD MUNSON Consulting UnavailDR MIGUEL Mendoza Primary Care Unavailable NELSY SALDANA Unavailable Marcelina DIXON Attending Unavailable Marcelina DIXON Attending Unavailable Marcelina DIXON Attending Unavailable Abbey Sanders Attending Unavailable Abbey Sanders Admitting Unavailable NO FAMILY, PHYSICIAN Primary Care Unavailable IRA TIAN F Referring Unavail able SAL BAUTISTA G Primary Care Unavailable LISANG, ASL G Primary Care Unavailable DREW SUNGTRONG, IRA F Referring Unavail able DREW SUNGPRISCILLA IRA F Referring Unavail able SAL BAUTISTA G Primary Care Unavailable Allergies Allergy Classification Reported Allergen(s) Allergy Type Date of Onset Reaction(s) Facility (1 source) No Known Medication Allergies; Translations: [No Known Medication Allergies] Propensity to adverse reactions (disorder) [facility] Repository Medications Current Medications Medication Drug Class(es) Dates Sig (Normalized) Sig (Original) acetaminophen 325 mg oral tablet (1 source) Start: 0 take 650 mg by mouth every four hours as needed for fever, then take 4000 mg by mouth every twenty-four hours as needed for fever 650 mg, Oral, EVERY 4 HOURS PRN, Fever, Fever >100.5 F (38 C) or pain 1-10, Starting 12/07/19 at 2344 Maximum dose of acetaminophen is 4000 mg from all sources in 24 hours. benzocaine 200 mg/ml / menthol 5 mg/ml topical spray (1 source) Standardized Chemical Allergen Start: 0 apply 1 dose topically twice daily Topical, 2 TIMES DAILY, First dose on Lou 12/08/19 at 0000 Apply to perineal area. Patient is capable and may self administer at bedside. docusate sodium 100 mg oral capsule (1 source) Start: 0 take 100 mg by mouth twice daily as needed for constipation 100 mg, Oral, 2 TIMES DAILY PRN, Constipation, Starting 12/07/19 at 2344 Do not crush or break. fluticasone propionate 0.05 mg/actuat metered dose nasal spray (1 source) Corticosteroid Start: 4 take 2 spray(s) nasal route once daily Fluticasone Propionate 50 MCG/ACT 2 sprays Nasally Once a day for 14 day(s) Mar, Active 250 ml glucose 50 mg/ml / sodium chloride 9 mg/ml injection (1 source) Start: 0 dextrose 5 % and 0.9 % sodium chloride infusion ibuprofen 800 mg oral tablet (1 source) Nonsteroidal Anti-inflammatory Drug Start: 0 take 800 mg by mouth every eight hours 800 mg, Oral, EVERY 8 HOURS, First dose on Lou 12/08/19 at 0000 Do not crush or break. lansinoh lanolin ointment (1 source) Start: 0 Topical, PRN, Dry Skin, nipple discomfort, Starting 12/07/19 at 2344, methylPREDNISolone 4 mg oral tablet (1 source) Corticosteroid Start: 4 Medrol 4 MG as directed Orally As Directed for 6 days Mar, Active metoclopramide 10 mg oral tablet (1 source) Dopamine-2 Receptor Antagonist Start: 0 take 1 tablet by mouth three times daily metoclopramide (REGLAN) 10 MG tablet Take 1 tablet by mouth 3 times daily 30 tablet 0 05/09/2019 Active pantoprazole 40 mg delayed release oral tablet (1 source) Proton Pump Inhibitor Start: 3 take 1 tablet by mouth once daily Protonix 40 mg Tab-DR 40 mg = 1 tab(s), Oral, Daily, # 30 tab(s), Refills(s) 3, Pharmacy: [id number], 165, cm, 07/23/22 13:58:00 EDT, Height/Length Dosing, [...] Drug Class(es) Dates Sig (Normalized) Sig (Original) amoxicillin 500 mg oral capsule (2 sources) Penicillin-class Antibacterial Start: 07-30-2022 take 1 capsule by mouth every eight hours Amoxicillin 500 MG 1 capsule Orally three times a day for 10 day(s) July, Not-Taking/PRN calcium chloride 0.0014 meq/ml / potassium chloride [...] mg 2 ml ondansetron 2 mg/ml injection (6 sources) Serotonin-3 Receptor Antagonist Start: 12-07-2019 End: [...] or Vomiting 10 tablet 0 05/14/2019 Active Zofran Active oxytocin (PITOCIN) 30 Units in sodium chloride 0.9 % 500 mL infusion (1 source) Start: 12-07-2019 End: 12-07-2019 oxytocin (PITOCIN) 30 Units in sodium chloride 0.9 % 500 mL infusion Penicillin (1 source) Start: 09-17-2022 take 1 tablet by mouth three times daily as needed Penicillin VK 500mg 500mg 1 tab(s) Oral 3 times a day for 10 days Aug, Not-Taking/PRN 200 ml ropivacaine hydrochloride 2 mg/ml injection [...] Chronic Immunizations and screening for infectious disease (7 sources) Contact with and (suspected) exposure to other viral communicable diseases; Translations: [Contact with and (suspected) exposure to other viral communicable diseases Z20.828] Onset: 01-11-2021 Resolved: 01-11-2021 Episodic Influenza (1 source) Influenza due to other identified influenza virus with other respiratory manifestations Episodic Menstrual disorders (2 sources) Amenorrhea; Translations: [Amenorrhea, unspecified] Onset: 01-14-2023 Chronic Nausea and vomiting (2 sources) Nausea and vomiting; Translations: [Nausea with vomiting, unspecified] Onset: 07-14-2022 Episodic Nutritional deficiencies (6 sources) Vitamin D deficiency; Translations: [Vitamin D deficiency, unspecified] Onset: 06-05-2017 04-19-2019 Chronic Other aftercare (1 source) care home (current) use of hormonal contraceptives; Translations: [NUT FORMER HORMONAL CONTRACEPTIVES] Onset: 05-20-2022 Episodic Other complications of (1 source) Obesity complicating , first trimester; Translations: [Obesity complicating , first trimester] Onset: 01-14-2023 Chronic Other nutritional; endocrine; and metabolic disorders (1 source) Body mass index 40+ - severely obese Chronic Other nutritional; endocrine; and metabolic disorders (1 source) Body mass index 30+ - obesity 07-23-2022 Chronic Other and delivery including normal (10 sources) Delivery normal; Translations: [Term ] Onset: 12-07-2019 Resolved: 12-09-2019 12-09-2019 Episodic Other upper respiratory infections (5 sources) Acute upper respiratory infection, unspecified; Translations: [...] 07-15-2022 Episodic Other aftercare (1 source) 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; Translations: [OTH NUT FORMER CURRENT DRUG THERAPY] Onset: 11-29-2021 Episodic Other complications of (1 source) Thyroid disease in Episodic Unclassified (1 source) Acute cough R05.1 Viral infection (1 source) Zoster without complications Onset: 02-26-2021 Resolved: 02-26-2021 Episodic Results Test Name Value Interpretation Reference Range Facility COVID + FLU Quick Testingon 04-20-2023 SARS-CoV-2 (COVID-19) RNA FLORENCIA+probe Ql (Unsp spec) Negative [employer] Other COVID + FLU Quick Testing Positive [employer] Other COVID + FLU Quick Testing Negative [employer] Other Chlamydia/GC DNA, Uron 01-16 Chlamydia Probe, Ur Negative Normal NEG [facility] Comment on above: Result Comment: CHLA MYDIA [...] target. Performed By: #### U CGP #### [facility] [address] [place] [address] [id number] [employer] Operator: Devin Yeager MD Gonorrhea Probe, Ur Negative Normal NEG [facility] Comment on above: Result Comment: NEIS SERIA [...] target. Performed By: #### U CGP #### [facility] [address] [place] [id number] [employer] Operator: Devin Yeager MD HIV Ag/Abon 01-16-2023 HIV Ag/Ab Non-Reactive Normal NR [facility] Comment on above: Result Comment: No l aboratory evidence of HIV infection. If acute HIV infection is suspected, consider testing for HIV-1 RNA. Performed By: #### H IVCMB, GLYHGB, AHCV #### [facility] [address] [place] [address] [phone] [employer] Operator: Devin Yeager MD Profileon T.pallidum Ab Screen Non-Reactive Normal NR [facility] Comment on above: Result Comment: T. pallidum antibodies are not detected. There is no serological evidence of infection with T. pallidum (early primary syphilis cannot be excluded). Retest in 2-4 weeks if syphilis is clinically suspect. Performed By: #### P RENAT #### [address] [phone] [employer] Operator: Devin Yeager MD [facility] [address] [place] [address] [place] [address] [employer] Operator: Dalia Dutton MD Cult,Urineon 01-15-2023 Cult,Urine Specimen Description .CLEAN CATCH URINE Culture NO SIGNIFICANT GROWTH Report Status FINAL 01/15/2023 Normal [facility] Comment on above: Performed By: #### U RC #### [address] [address] [employer] Operator: Devin Yeager MD [facility] [address] [place] [address] [place] [address] [employer] Operator: Dalia Dutton MD Hemoglobin A1Con 01-15-2023 Glucose [Mass/Vol] 100 mg/dL Normal [facility] Comment on above: Result Comment: The ADA and AACC recommend providing the estimated average glucose result to permit better patient understanding of their HBA1c result. Performed By: #### H IVCMB, GLYHGB, AHCV #### [address] [address] [employer] Operator: Devin Yeager MD HbA1c (Bld) [Mass fraction] 5.1 % Normal 4.0-6.0 [facility] Comment on above: Performed By: #### H IVCMB, GLYHGB, AHCV #### [address] [address] [employer] Operator: Devin Yeager MD Hep C Abon 01-15-2023 Hep C Ab Non-Reactive Normal NR [facility] Comment on above: Result Comment: The hepatitis [...] RNA by PCR. Performed By: #### H IVCMB, GLYHGB, AHCV #### [address] [id number] [employer] Operator: Devin Yeager MD Profileon 3 Rubella Ab, IgG >500.0 Normal [facility] Comment on above: Result Comment: REFERENCE RANGE: <5.0 NON-REACTIVE (non-immune) 5.0 TO 9.9 EQUIVOCAL >=10.0 REACTIVE (immune) Performed By: #### P RENAT #### [address] [address] [employer] Operator: Devin Yeager MD [address] [place] [address] [employer] Operator: Dalia Dutton MD Hep B Surf Ag Non-Reactive Normal NR [facility] Comment on above: Performed By: #### P RENAT #### [address] [address] [employer] Operator: Devin Yeager MD [address] [place] [address] [employer] Operator: Dalia Dutton MD Profileon 3 Abs. Basophil 0.05 k/uL Normal 0.00-0.20 [facility] Comment on above: Performed By: #### P RENAT #### [address] [address] [employer] Operator: Devin Yeager MD [address] [place] [address] [employer] Operator: Dalia Dutton MD Abs.Imm.Granulocyte 0.03 k/uL Normal 0.00-0.30 [facility] Comment on above: Performed By: #### P RENAT #### [address] [address] [employer] Operator: Devin Yeager MD [facility] [address] [place] [address] [place] [address] [employer] Operator: Dalia Dutton MD Abs.Neutrophil (Seg) 7.47 k/uL Normal 1.50-8.10 [facility] Comment on above: Performed By: #### P RENAT #### [address] [place] [address] [employer] Operator: Devin Yeager MD [facility] [address] [place] [address] [place] [phone] [employer] Operator: Dalia Dutton MD Basophils/100 WBC (Bld) 1 % Normal 0-2 [facility] Comment on above: Performed By: #### P RENAT #### [address] [address] [employer] Operator: Devin Yeager MD [facility] [address] [place] [address] [place] [phone] [employer] Operator: Dalia Dutton MD Eosinophils (Bld) [#/Vol] 0.08 10*3/uL Normal 0.00-0.44 [facility] Comment on above: Performed By: #### P RENAT #### [address] [address] [employer] Operator: Devin Yeager MD [address] [place] [phone] [employer] Operator: Dalia Dutton MD Eosinophils/100 WBC (Bld) 1 % Normal 1-4 [facility] Comment on above: Performed By: #### P RENAT #### [address] [address] [employer] Operator: Devin Yeager MD [facility] [address] [place] [address] [place] [address] [employer] Operator: Dalia uDtton MD Erythrocyte distribution width (RBC) [Ratio] 12.1 % Normal 11.8-14.4 [facility] Comment on above: Performed By: #### P RENAT #### [address] [address] [employer] Operator: Devin Yeager MD [facility] [address] [place] [address] [place] [phone] [employer] Operator: Dalia Dutton MD Hematocrit (Bld) [Volume fraction] 39.2 % Normal 36.3-47.1 [facility] Comment on above: Performed By: #### P RENAT #### [address] [address] [employer] Operator: Devin Yeager MD [facility] [address] [place] [address] [place] [phone] [employer] Operator: Dalia Dutton MD Hemoglobin (Bld) [Mass/Vol] 13.0 g/dL Normal 11.9-15.1 [facility] Comment on above: Performed By: #### P RENAT #### [address] [address] [employer] Operator: Devin Yeager MD [address] [place] [phone] [employer]: Dalia Dutton MD Immature granulocytes/100 WBC (Bld) 0 % Normal 0 [facility] Comment on above: Performed By: #### P RENAT #### [address] [address] [employer] Operator: Devin Yeager MD [facility] [address] [place] [address] [place] [address] [employer] Operator: Dalia Dutton MD Lymphocytes (Bld) [#/Vol] 1.23 10*3/uL Normal 1.10-3.70 [facility] Comment on above: Performed By: #### P RENAT #### [address] [address] [employer] Operator: Devin Yeager MD [facility] [address] [place] [address] [place] [address] [employer] Operator: Dalia Dutton MD Lymphocytes/100 WBC (Bld) 13 % Low 24-43 [facility] Comment on above: Performed By: #### P RENAT #### [address] [address] [employer] Operator: Devin Yeager MD [address] [place] [phone] [employer] Operator: Dalia Dutton MD MCH (RBC) [Entitic mass] 30.0 pg Normal 25.2-33.5 [facility] Comment on above: Performed By: #### P RENAT #### [address] [address] [employer] Operator: Devin Yeager MD [address] [place] [address] [employer] Operator: Dalia Dutton MD MCHC (RBC) [Mass/Vol] 33.2 g/dL Normal 28.4-34.8 [facility] Comment on above: Performed By: #### P RENAT #### [address] [address] [employer] Operator: Devin Yeager MD [address] [place] [phone] [employer]: Dalia Dutton MD MCV (RBC) [Entitic vol] 90.3 fL Normal 82.6-102.9 M [facility] Comment on above: Performed By: #### P RENAT #### [address] [address] [employer] Operator: Devin Yeager MD [address] [place] [phone] [employer] Operator: Dalia Dutton MD Monocytes (Bld) [#/Vol] 0.57 10*3/uL Normal 0.10-1.20 [facility] Comment on above: Performed By: #### P RENAT #### [address] [address] [employer] Operator: Devin Yeager MD [address] [place] [facility] [employer] Operator: Dalia Dutton MD Monocytes/100 WBC (Bld) 6 % Normal 3-12 M [facility] Comment on above: Performed By: #### P RENAT #### [address] [place] [address] [employer] Operator: Devin Yeager MD [facility] [address] [place] [address] Dr[place] [phone] [employer] Operator: Dalia Dutton MD Neutrophil (Seg) 79 % High 36-65 [facility] Comment on above: Performed By: #### P RENAT #### [address] [address] [employer] Operator: Devin Yeager MD [facility] [address] [place] [address] [place] [phone] [employer] Operator: Dalia Dutton MD NRBC Automated 0.0 per 100 WBC Normal 0.0 [facility] Comment on above: Performed By: #### P RENAT #### [address] [address] [employer] Operator: Devin Yeager MD [facility] [address] [place] [address] [place] [address] [employer] Operator: Dalia Dutton MD Platelet mean volume (Bld) [Entitic vol] 12.6 fL Normal 8.1-13.5 [facility] Comment on above: Performed By: #### P RENAT #### [address] [address] [employer] Operator: Devin Yeager MD [facility] [address] [place] [address] [place] [address] [employer] Operator: Dalia Dutton MD Platelets (Bld) [#/Vol] 313 10*3/uL Normal 138-453 [facility] Comment on above: Performed By: #### P RENAT #### [address] [id number] [employer] Operator: Devin Yeager MD [address] [place] [address] [employer] Operator: Dalia Dutton MD RBC (Bld) [#/Vol] 4.34 10*6/uL Normal 3.95-5.11 [facility] Comment on above: Performed By: #### P RENAT #### [address] [phone] [employer]: Devin Yeager MD [address] [place] [phone] [employer]: Dalia Dutton MD WBC (Bld) [#/Vol] 9.4 10*3/uL Normal 3.5-11.3 [facility] Comment on above: Performed By: #### P RENAT #### [address] [address] [employer] Operator: Devin Yeager MD [address] [place] [address] [employer] Operator: Dalia Dutton MD Type + Scrnon 01-14 Type + Scrn Negative Normal [facility] Comment on above: Performed By: #### P RTYS #### [address] [place] [address] [employer] Operator: Dalia Dutton MD TSH w/reflex to FT4on 2022 Thyroid Stim. Horm. 0.54 uIU/mL Normal 0.30-5.00 [facility] Comment on above: Performed By: #### T SHX #### [address] [place] [address] [employer] Operator: Dalia Dutton MD Provider Letteron 08-28-2022 Provider Letter August 28, 2022 ZULEYKA COBOS [address] [place] [id number] : 1990 To Whom It May Concern, The above named person may return to work 08/31/22 without restrictions. Sincerely, Dr. Marcelina Dixon MD General Surgery Normal [facility] Ambulatory Visit Summaryon 0 08-20-2022 Ambulatory [...] RUQ pain Symptomatic cholelithiasis Vitamin D deficiency [facility] General Surgery Office/Clini c [...] Follow-up With When Contact Information SUMI BARKLEY, KRIS Hanson Only if needed [address] [place] [address]- Additional Instructions: Problem List/Past Medical History Ongoing [...] vac - Not Given Patient Refuses Normal [facility] Comment on above: Result Comment: Elec tronically Signed By: SUMI BARKLEY, Marcelina Alston\Date and Time Signed: 08/20/22 14:08 EDT Pathology Noteon 08-20-2022 Pathology Note [id number] 99#1.00CD:127 Normal [facility] Operative Reporton Operative Report [id number] BC#1.00CD:127 [facility] PREG HCG QUALon 08-13-2022 , QUAL Negative Normal NEGATIVE [place] Comment on above: Performed By: #### P REG #### [facility] [address] [place] [address] Dr. Esteban Meneses Formson 08-05-2022 Forms [id number] A0#1.00CD:127 Normal [facility] Quick Strepon 07-30-2022 S. pyogenes Org specific cx Ql (Throat) Negative [facility] [employer] Other Quick Strep [employer] Other Pre-Certification Formon Pre-Certification Form [id number] 272#1.00CD:127 [facility] Consent for Procedure/Surger yon 07-24-2022 Consent for Procedure/Surgery [id number] F0#1.00CD:127 [facility] Facesheeton 07-24-2022 Facesheet [id number] AF#1.00CD:127 [facility] Ambulatory Visit Summaryon 0 07-23-2022 Ambulatory Visit Summary ZULEYKA COBOS :1990 Visit Date:07/23/2022 Ambulatory Visit Instructions Your Diagnosis Symptomatic cholelithiasis Gastroesophageal reflux disease Your Care Team Attending Physician - Marcelina [...] Gastroesophageal reflux disease Refills: 3 Pickup at [id number] Unchanged drospirenone (Slynd 4 mg oral tablet) 1 Tablets By Mouth Every day Contact prescribing physician if questions or concerns Pharmacy Information [facility] #[id number]: [address], [place] [phone] Medications and Immunizations Administered Not Given influenza virus vaccine, inactivated, Patient Refuses SARS-CoV-2 mRNA (tonicknameran 5y-11y) vac, Patient Refuses Allergies No Known Allergies No Known Medication Allergies Problems Ongoing - Any problem that you are currently receiving treatment for. BMI 38.0-38.9,adult Gastroesophageal reflux disease Hiatal hernia Hypothyroidism RUQ pain Symptomatic cholelithiasis Vitamin D deficiency Normal [facility] Vaginitis DNA Probeon 2022 Jessy Negative Normal NEG [facility] Comment on above: Result Comment: for Jessy sp. Method of testing is a DNA probe intended for detection and identification of Jessy species, Gardnerella vaginalis, and Trichomonas vaginalis nucleic acid in vaginal fluid specimens from patients with symptoms of vaginitis/vaginosis. Performed By: #### V AGP #### [facility] [address] [place] [address] [id number] [employer] Operator: Devin Yeager MD [facility] [address] [place] [address] Dr. [place], [place] [phone] [employer] Operator: Dalia Dutton MD Gardnerella Negative Normal [facility] Comment on above: Result Comment: for Gardnerella vaginalis Performed By: #### V AGP #### [facility] [address] [place] [address] [employer] Operator: Devin Yeager MD [facility] [address] [place] [address] [place], [place] [phone] [employer] Operator: Dalia Dutton MD Trichomonas Negative Normal NEG [facility] Comment on above: Result Comment: for Trichomonas Vaginalis Performed By: #### V AGP #### [address] [address] [employer] Operator: Devin Yeager MD [facility] [address] [place] [address] Dr. [place], [place] [phone] [employer] Operator: Dalia Dutton MD Vaginitis DNA Probeon 2022 Source .VAGINAL SWAB Normal [facility] Comment on above: Performed By: #### V AGP #### [address] [address] [employer] Operator: Devin Yeager MD [facility] [address] [place] [address] Dr. [place], [place] [phone] [employer]: Dalia Dutton MD ED Note-Physicianon 07-15-19 ED Note-Physician [id number]#1.00CD:127 Normal [facility] RAD - Ultrasound Reporton RAD - Ultrasound Report [id number] 7C#1.00CD:127 Normal [facility] CBC AUTO DIFFon 07-10-2022 BASO # 0.0 103/ul Normal 0.0-0.1 [facility] Comment on above: Performed By: #### L IPA, MARITO, CMP, CMADM #### [facility] [address] [place], [place] [id number] Dr. Esteban Meneses Basophils/100 WBC (Bld) 0.4 % Normal 0.2-2.0 [facility] Comment on above: Performed By: #### L IPA, MARITO, CMP, CMADM #### [facility] [address] [place] [address] Dr. Esteban Meneses EO # 0.1 103/ul Normal 0.0-0.7 [facility] Comment on above: Performed By: #### L IPA, MARITO, CMP, CMADM #### [facility] [address] [place] [address] Dr. Esteban Meneses Eosinophils/100 WBC (Bld) 0.8 % Critically low 0.9-7.0 [facility] Comment on above: Performed By: #### L IPA, MARITO, CMP, CMADM #### [facility] [facility] [address] [place] [address] Dr. Esteban Meneses Erythrocyte distribution width (RBC) [Ratio] 12.3 % Normal 11.0-15.0 [facility] Comment on above: Performed By: #### L IPA, MARITO, CMP, CMADM #### [facility] [address] [place] [address] Dr. Esteban Meneses Hematocrit (Bld) [Volume fraction] 37.9 % Normal 36.0-48.0 [facility] Comment on above: Performed By: #### L IPA, MARITO, CMP, CMADM #### [facility] [address] [place] [address] Dr. Esteban Meneses Hemoglobin (Bld) [Mass/Vol] 12.8 g/dL Normal 12.0-16.0 [facility] Comment on above: Performed By: #### L IPA, MARITO, CMP, CMADM #### [facility] [address] [place] [address] Dr. Esteban Meneses IG # 0.03 10e3/ul Normal 0.00-0.03 [facility] Comment on above: Performed By: #### L IPA, MARITO, CMP, CMADM #### [facility] [address] [place] [address] Dr. Esteban Meneses IG % 0.3 % Normal 0.0-0.5 [facility] Comment on above: Performed By: #### L IPA, MARITO, CMP, CMADM #### [facility] [address] [place] [address] Dr. Esteban Meneses LYMPH # 0.8 103/ul Critically low 1.2-3.8 [facility] Comment on above: Performed By: #### L IPA, MARITO, CMP, CMADM #### [facility] [address] [place] [address] Dr. Esteban Meneses Lymphocytes/100 WBC (Bld) 8.2 % Critically low 20.5-60.0 [facility] Comment on above: Performed By: #### L IPA, MARITO, CMP, CMADM #### [facility] [address] [place] [address] Dr. Esteban Meneses MANUAL DIFF REQ NO Normal [place] Comment on above: Performed By: #### L IPA, MARITO, CMP, CMADM #### [facility] [address] [place] [address] Dr. Esteban Meneses MCH (RBC) [Entitic mass] 29.4 pg Normal 26.7-34.0 [facility] Comment on above: Performed By: #### L IPA, MARITO, CMP, CMADM #### [facility] [address] [place] [address] Dr. Esteban Meneses MCHC (RBC) [Mass/Vol] 33.8 g/dL Normal 29.9-35.2 [facility] Comment on above: Performed By: #### L IPA, MARITO, CMP, CMADM #### [facility] [address] [place] [address] Dr. Esteban Meneses MCV (RBC) [Entitic vol] 87.1 fL Normal 81.0-99.0 [facility] Comment on above: Performed By: #### L IPA, MARITO, CMP, CMADM #### [facility] [address] [place] [address] Dr. Esteban Meneses MONO # 0.5 103/ul Normal 0.3-0.8 [facility] Comment on above: Performed By: #### L IPA, MARITO, CMP, CMADM #### [facility] [address] [address] [address] Esteban Meneses Monocytes/100 WBC (Bld) 5.1 % Normal 1.7-12.0 [facility] Comment on above: Performed By: #### L IPA, MARITO, CMP, CMADM #### [facility] [address] [place] [address] Dr. Esteban Meneses NEUT # 8.3 103/ul Critically high 1.4-6.5 [place] Comment on above: Performed By: #### L IPA, MARITO, CMP, CMADM #### [facility] [address] [place] [address] Dr. Esteban Meneses Neutrophils/100 WBC (Bld) 85.2 % Critically high 43.0-75.0 [facility] Comment on above: Performed By: #### L IPA, MARITO, CMP, CMADM #### [facility] [address] [place] [address] Dr. Esteban Meneses Platelet mean volume (Bld) [Entitic vol] 10.9 fL Normal 9.5-13.5 [facility] Comment on above: Performed By: #### L IPA, MARITO, CMP, CMADM #### [facility] [address] [place] [address] Dr. Esteban Meneses PLT 302 103/ul Normal 150-450 [facility] Comment on above: Performed By: #### L IPA, MARITO, CMP, CMADM #### [facility] [address] [place] [address] Dr. Esteban Meneses RBC 4.35 106/ul Normal 4.20-5.40 [facility] Comment on above: Performed By: #### L IPA, MARITO, CMP, CMADM #### [facility] [address] [place] [address] Dr. Esteban Meneses WBC 9.8 103/ul Normal 4.0-11.0 [facility] Comment on above: Performed By: #### L IPA, MARITO, CMP, CMADM #### [facility] [address] [address] [address] Esteban Meneses ER URINE PROFILEon 3 Bilirubin Ql (U) Negative Normal NEGATIVE [facility] Comment on above: Performed By: #### L IPA, MARITO, CMP, CMADM #### [facility] [address] [address] [address] Esteban Meneses Clarity (U) CLEAR Normal CLEAR [facility] Comment on above: Performed By: #### L IPA, MARITO, CMP, CMADM #### [facility] [address] [address] [address] Esteban Meneses Color (U) YELLOW Normal YELLOW [facility] Comment on above: Performed By: #### L IPA, MARITO, CMP, CMADM #### [facility] [address] [address] [address] Esteban TERRAZAS A micrscopic examination will be performed if indicated. Normal [facility] Comment on above: Performed By: #### L IPA, MARITO, CMP, CMADM #### [facility] [address] [address] [address] Esteban Meneses Glucose Ql (U) Negative Normal NEGATIVE [facility] Comment on above: Performed By: #### L IPA, MARITO, CMP, CMADM #### [facility] [address] [address] [address] Esteban Meneses Hemoglobin Ql (U) TRACE-INTACT Abnormal NEGATIVE [facility] Comment on above: Performed By: #### L IPA, MARITO, CMP, CMADM #### [facility] [address] [address] [address] Esteban Meneses Ketones Ql (U) Negative Normal NEGATIVE [facility] Comment on above: Performed By: #### L IPA, MARITO, CMP, CMADM #### [facility] [address] [address] [address] Esteban Meneses LEUKOCYTES Negative Normal NEGATIVE [facility] Comment on above: Performed By: #### L IPA, MARITO, CMP, CMADM #### [facility] [address] [address] [address] Esteban Meneses Nitrite Ql (U) Negative Normal NEGATIVE [facility] Comment on above: Performed By: #### L IPA, MARITO, CMP, CMADM #### [facility] [address] [place] [address] Dr. Esteban Meneses pH (U) 5.5 [pH] Normal 5-9 [facility] Comment on above: Performed By: #### L IPA, MARITO, CMP, CMADM #### [facility] [address] [place] [address] Dr. Esteban Meneses SPEC GRAVITY 1.025 Normal 1.005-<=1.025 [facility] Comment on above: Performed By: #### L IPA, MARITO, CMP, CMADM #### [facility] [address] [place] [address] Dr. Esteban Meneses UA PROTEIN TRACE Normal NEGATIVE/ TRACE [facility] Comment on above: Performed By: #### L IPA, MARITO, CMP, CMADM #### [facility] [address] [place] [address] Dr. Esteban Meneses UR MICRO IND NOT INDICATED Normal [facility] Comment on above: Performed By: #### L IPA, MARITO, CMP, CMADM #### [facility] [address] [place] [address] Dr. Esteban Meneses Urobilinogen Qn (U) 0.2 {Roxana'U}/dL Normal 0.2 - 1. 0 [facility] Comment on above: Performed By: #### L IPA, MARITO, CMP, CMADM #### [facility] [address] [place] [address] Dr. Esteban Meneses LIPASEon 07-10-2022 Lipase [Catalytic activity/Vol] 53.0 U/L Critically low 73.0-393.0 [facility] Comment on above: Performed By: #### L IPA, MARITO, CMP, CMADM #### [facility] [address] [place] [address] Dr. Esteban Meneses URon 07-10-2022 , QUAL Negative Normal NEGATIVE [facility] Comment on above: Performed By: #### L IPA, MARITO, CMP, CMADM #### [facility] [address] [place] [address] Dr. Esteban Meneses PROF 14(COMP METB)on 023 Albumin [Mass/Vol] 3.8 g/dL Normal 3.4-5.0 [facility] Comment on above: Performed By: #### L IPA, MARITO, CMP, CMADM #### [facility] [address] [address] [address] Esteban Meneses Albumin/Globulin [Mass ratio] 1.0 {ratio} Normal [facility] Comment on above: Performed By: #### L IPA, MARITO, CMP, CMADM #### [facility] [address] [place] [address] Dr. Esteban Meneses ALP [Catalytic activity/Vol] 77 U/L Normal 46-116 [facility] Comment on above: Performed By: #### L IPA, MARITO, CMP, CMADM #### [facility] [address] [place] [address] Dr. Esteban Meneses ALT [Catalytic activity/Vol] 19 U/L Normal 14-59 [facility] Comment on above: Performed By: #### L IPA, MARITO, CMP, CMADM #### [facility] [address] [place] [address] Dr. Esteban Meneses Anion gap [Moles/Vol] 12.0 mmol/L Normal [facility] Comment on above: Performed By: #### L IPA, MARITO, CMP, CMADM #### [facility] [address] [place] [address] Dr. Esteban Meneses AST [Catalytic activity/Vol] 14 U/L Critically low 15-37 [facility] Comment on above: Performed By: #### L IPA, MARITO, CMP, CMADM #### [facility] [address] [place] [address] Dr. Esteban Meneses Bilirubin [Mass/Vol] 0.7 mg/dL Normal 0.2-1.0 [facility] Comment on above: Performed By: #### L IPA, MARITO, CMP, CMADM #### [facility] [address] [place] [address] Dr. Esteban Meneses Calcium [Mass/Vol] 8.9 mg/dL Normal 8.5-10.1 [facility] Comment on above: Performed By: #### L IPA, MARITO, CMP, CMADM #### [facility] [address] [address] [address] Esteban Meneses Chloride [Moles/Vol] 103 mmol/L Normal 98-107 [facility] Comment on above: Performed By: #### L IPA, MARITO, CMP, CMADM #### [facility] [address] [address] [address] Esteban Meneses CO2 [Moles/Vol] 25.3 mmol/L Normal 21.0-32.0 [facility] Comment on above: Performed By: #### L IPA, MARITO, CMP, CMADM #### [facility] [address] [address] [address] Esteban Meneses Creatinine [Mass/Vol] 0.90 mg/dL Normal 0.55-1.02 [facility] Comment on above: Performed By: #### L IPA, MARITO, CMP, CMADM #### [facility] [address] [address] [address] Esteban Meneses EGFR-AF BRAZILIAN >60 Normal >=60 [facility] Comment on above: Performed By: #### L IPA, MARITO, CMP, CMADM #### [facility] [address] [address] [address] Esteban Meneses EGFR-NON AF BRAZILIAN >60 Normal >=60 [facility] Comment on above: Performed By: #### L IPA, MARITO, CMP, CMADM #### [facility] [address] [address] [address] Estbean Meneses Globulin (S) [Mass/Vol] 3.7 g/dL Normal [facility] Comment on above: Performed By: #### L IPA, MARITO, CMP, CMADM #### [facility] [address] [address] [address] Esteban Meneses Glucose [Mass/Vol] 97 mg/dL Normal 74-106 [facility] Comment on above: Performed By: #### L IPA, MARITO, CMP, CMADM #### [facility] [address] [address] [address] Esteban Meneses Potassium [Moles/Vol] 4.0 mmol/L Normal 3.5-5.1 [facility] Comment on above: Performed By: #### L IPA, MARITO, CMP, CMADM #### [facility] [address] [address] [address] Esteban Meneses Protein [Mass/Vol] 7.5 g/dL Normal 6.4-8.2 [facility] Comment on above: Performed By: #### L IPA, MARITO, CMP, CMADM #### [facility] [address] [place] [address] Dr. Esteban Meneses Sodium [Moles/Vol] 137 mmol/L Normal 136-145 [facility] Comment on above: Performed By: #### L IPA, MARITO, CMP, CMADM #### [facility] [address] [address] [address] Esteban Meneses Urea nitrogen [Mass/Vol] 16.0 mg/dL Normal 7.0-18.0 [facility] Comment on above: Performed By: #### L IPA, MARITO, CMP, CMADM #### [facility] [address] [place] [address] Dr. Esteban Meneses Urea nitrogen/Creatinine [Mass ratio] 17.8 mg/mg Normal [facility] Comment on above: Performed By: #### L IPA, MARITO, CMP, CMADM #### [facility] [address] [place] [address] Dr. Esteban Meneses US SINGLE QUAD RT [...] GABE PETERSON Date: 2022-07-08 15:40 Normal [facility] ER URINE PROFILEon 3 Clarity (U) CLEAR Normal CLEAR [facility] Comment on above: Performed By: #### L IPA, MARITO, CMP, CMADM #### [facility] [address] [place] [address] Dr. Esteban Meneses ERUAHD A micrscopic examination will be performed if indicated. Normal [facility] Comment on above: Performed By: #### L IPA, MARITO, CMP, CMADM #### [facility] [address] [place] [address] Dr. Esteban Meneses Hemoglobin Ql (U) TRACE-INTACT Abnormal NEGATIVE [facility] Comment on above: Performed By: #### L IPA, MARITO, CMP, CMADM #### [facility] [address] [place] [address] Dr. Esteban Meneses LEUKOCYTES Negative Normal NEGATIVE [facility] Comment on above: Performed By: #### L IPA, MARITO, CMP, CMADM #### [facility] [address] [address] [address] Esteban Meneses SPEC GRAVITY 1.025 Normal 1.005-<=1.025 [place] Comment on above: Performed By: #### L IPA, MARITO, CMP, CMADM #### [facility] [address] [address] [address] Esteban Meneses UA PROTEIN Negative Normal NEGATIVE/ TRACE [facility] Comment on above: Performed By: #### L IPA, MARITO, CMP, CMADM #### [facility] [address] [place] [address] Dr. Esteban Meneses UR MICRO IND INDICATED Normal [facility] Comment on above: Performed By: #### L IPA, MARITO, CMP, CMADM #### [facility] [address] [address] [address] Esteban Meneses Urobilinogen Qn (U) 1.0 {Roxana'U}/dL Normal 0.2 - 1. 0 [facility] Comment on above: Performed By: #### L IPA, MARITO, CMP, CMADM #### [facility] [address] [address] [address] Esteban Meneses URon 06-19-2022 , QUAL Negative Normal NEGATIVE [facility] Comment on above: Performed By: #### L IPA, MARITO, CMP, CMADM #### [facility] [address] [place] [address] Dr. Esteban Meneses URINE MICROSCOPIC ONLYon BACTERIA TRACE Abnormal NONE SEEN [facility] Comment on above: Performed By: #### L IPA, MARITO, CMP, CMADM #### [facility] [address] [place] [address] Dr. Esteban Meneses Bacteria identified Cx Nom (U) NOT INDICATED Normal [facility] Comment on above: Performed By: #### L IPA, MARITO, CMP, CMADM #### [facility] [address] [place] [address] Dr. Esteban Meneses CAST NONE SEEN Normal NONE SEEN [facility] Comment on above: Performed By: #### L IPA, MARITO, CMP, CMADM #### [facility] [address] [place] [address] Dr. Esteban Meneses Crystals LM Nom (Urine sed) NONE SEEN Normal NONE SEEN [facility] Comment on above: Performed By: #### L IPA, MARITO, CMP, CMADM #### [facility] [address] [address] [address] Esteban Meneses Epithelial cells LM Ql (Urine sed) FEW Abnormal NONE SEEN /RARE [facility] Comment on above: Performed By: #### L IPA, MARITO, CMP, CMADM #### [facility] [address] [place] [address] Dr. Esteban Meneses MUCOUS NONE SEEN Normal NONE SEEN [facility] Comment on above: Performed By: #### L IPA, MARITO, CMP, CMADM #### [facility] [address] [address] [address] Esteban Meneses RBC 0-2 Normal 0-2 [facility] Comment on above: Performed By: #### L IPA, MARITO, CMP, CMADM #### [facility] [address] [place] [address] Dr. Esteban Meneses WBC 0-2 Abnormal NONE SEEN [facility] Comment on above: Performed By: #### L IPA, MARITO, CMP, CMADM #### [facility] [address] [address] [address] Esteban Meneses Urinalysis - AUTOMATEDon Bilirubin Ql (U) Negative Normal NEGATIVE [facility] Other Comment on above: Performed By: #### L IPA, MARITO, CMP, CMADM #### [facility] [address] [place] [address] Dr. Esteban Meneses Color (U) yellow Normal YELLOW [employer] Other Comment on above: Performed By: #### L IPA, MARITO, CMP, CMADM #### [facility] [address] [place] [address] Dr. Esteban Meneses Glucose Ql (U) Negative Normal NEGATIVE [employer] Other Comment on above: Performed By: #### L IPA, MARITO, CMP, CMADM #### [facility] [address] [address] [address] Esteban Meneses Ketones Ql (U) Negative Normal NEGATIVE [employer] Other Comment on above: Performed By: #### L IPA, MARITO, CMP, CMADM #### [facility] [address] [place] [address] Dr. Esteban Meneses Nitrite Ql (U) Negative Normal NEGATIVE [employer] Other Comment on above: Performed By: #### L IPA, MARITO, CMP, CMADM #### [facility] [address] [address] [address] Esteban Meneses pH (U) 6.0 [pH] Normal 5-9 [employer] Other Comment on above: Performed By: #### L IPA, MARITO, CMP, CMADM #### [facility] [address] [address] [address] Esteban Meneses Appearance (U) clear [employer] Other Hemoglobin Ql (U) Trace-lysed [employer] Other Leukocyte esterase Test strip Ql (U) Negative [employer] Other Protein Ql (U) 30mg/Dl [employer] Other Specific gravity (U) [Rel density] >=1.030 [employer] Other Urobilinogen (U) [Mass/Vol] 0.2 mg/dL [employer] Other Urinalysis - AUTOMATED No rt [employer] Other Urine Cultureon 06-19-2022 Bacteria identified Cx Nom (U) <9,000 colonies/ml mixed bacterial skin contaminants 2 Days PERFORMED BY: [place] [address] PATHOLOGIST QUALITY MEASUREMENT SPECIALIST EDUARDO SOUZA M.D. [facility] Comment on above: Performed By: #### C UU #### [facility] [address] [place] [address] Bacteria identified Cx Nom (U) [employer] Other AMYLASEon 05-17-2022 Amylase [Catalytic activity/Vol] 38 U/L Normal 25-115 [facility] Comment on above: Performed By: #### L IPA, MARITO, CMP, CMADM #### [facility] [address] [address] [address] Esteban Meneses CARDIAC EMELY ADMITon 023 CK [Catalytic activity/Vol] 82 U/L Normal 26-192 [facility] Comment on above: Performed By: #### L IPA, MARITO, CMP, CMADM #### [facility] [address] [address] [address] Esteban Meneses CK.MB [Mass/Vol] ng/mL Normal <=3.60 [facility] Comment on above: Performed By: #### L IPA, MARITO, CMP, CMADM #### [facility] [address] [address] [address] Esteban Meneses HSTROP <4.0 Normal 4.0-51.3 [facility] Comment on above: Result Comment: CUT- OFF POINTS HAVE BEEN ESTABLISHED BASED ON THE FOURTH UNIVERSAL DEFINITIONS OF MYOCARDIAL INFARCTION. THE UPPER REFERENCE LIMIT (URL) OF TROPONIN, DEFINED THE 99TH PERCENTILE OF cTnI DISTRIBUTION IN A REFERENCE POPULATION, HAS BEEN CONFIRMED THE DECISION THRESHOLD FOR [place] DIAGNOSIS. Performed By: #### L IPA, MARITO, CMP, CMADM #### [facility] [address] [place] [address] Dr. Esteban Meneses DARYA 34 ng/mL Normal 9-82 [facility] Comment on above: Performed By: #### L IPA, MARITO, CMP, CMADM #### [facility] [address] [address] [address] Esteban Meneses CBC AUTO DIFFon 05-17-2022 BASO # 0.1 103/ul Normal 0.0-0.1 [facility] Comment on above: Performed By: #### L IPA, MARITO, CMP, CMADM #### [facility] [address] [address] [address] Esteban Meneses Basophils/100 WBC (Bld) 0.7 % Normal 0.2-2.0 [facility] Comment on above: Performed By: #### L IPA, MARITO, CMP, CMADM #### [facility] [address] [place] [address] Dr. Esteban Meneses EO # 0.2 103/ul Normal 0.0-0.7 [facility] Comment on above: Performed By: #### L IPA, MARITO, CMP, CMADM #### [facility] [address] [place] [address] Dr. Esteban Meneses Eosinophils/100 WBC (Bld) 1.9 % Normal 0.9-7.0 [facility] Comment on above: Performed By: #### L IPA, MARITO, CMP, CMADM #### [facility] [address] [place] [address] Dr. Esteban Meneses Erythrocyte distribution width (RBC) [Ratio] 11.9 % Normal 11.0-15.0 [facility] Comment on above: Performed By: #### L IPA, MARITO, CMP, CMADM #### [facility] [address] [address] [address] Esteban Meneses Hematocrit (Bld) [Volume fraction] 38.6 % Normal 36.0-48.0 [facility] Comment on above: Performed By: #### L IPA, MARITO, CMP, CMADM #### [facility] [address] [place] [address] Dr. Esteban Meneses Hemoglobin (Bld) [Mass/Vol] 13.5 g/dL Normal 12.0-16.0 [facility] Comment on above: Performed By: #### L IPA, MARITO, CMP, CMADM #### [facility] [address] [address] [address] Esteban Meneses IG # 0.02 10e3/ul Normal 0.00-0.03 [facility] Comment on above: Performed By: #### L IPA, MARITO, CMP, CMADM #### [facility] [address] [place] [address] Dr. Esteban Meneses IG % 0.2 % Normal 0.0-0.5 [facility] Comment on above: Performed By: #### L IPA, MARITO, CMP, CMADM #### [facility] [address] [place] [address] Dr. Esteban Meneses LYMPH # 3.1 103/ul Normal 1.2-3.8 [facility] Comment on above: Performed By: #### L IPA, MARITO, CMP, CMADM #### [facility] [address] [place] [address] Dr. Esteban Meneses Lymphocytes/100 WBC (Bld) 31.0 % Normal 20.5-60.0 [facility] Comment on above: Performed By: #### L IPA, MARITO, CMP, CMADM #### [facility] [address] [place] [address] Dr. Esteban Meneses MANUAL DIFF REQ NO Normal [place] Comment on above: Performed By: #### L IPA, MARITO, CMP, CMADM #### [facility] [address] [place] [address] Dr. Esteban Meneses MCH (RBC) [Entitic mass] 30.4 pg Normal 26.7-34.0 [facility] Comment on above: Performed By: #### L IPA, MARITO, CMP, CMADM #### [facility] [address] [place] [address] Dr. Esteban Meneses MCHC (RBC) [Mass/Vol] 35.0 g/dL Normal 29.9-35.2 [facility] Comment on above: Performed By: #### L IPA, MARITO, CMP, CMADM #### [facility] [address] [place] [address] Dr. Esteban Meneses MCV (RBC) [Entitic vol] 86.9 fL Normal 81.0-99.0 [facility] Comment on above: Performed By: #### L IPA, MARITO, CMP, CMADM #### [facility] [address] [place] [address] Dr. Esteban Meneses MONO # 0.5 103/ul Normal 0.3-0.8 [facility] Comment on above: Performed By: #### L IPA, MARITO, CMP, CMADM #### [facility] [address] [place] [address] Dr. Esteban Meneses Monocytes/100 WBC (Bld) 5.4 % Normal 1.7-12.0 [facility] Comment on above: Performed By: #### L IPA, MARITO, CMP, CMADM #### [facility] [address] [place] [address] Dr. Esteban Meneses NEUT # 6.1 103/ul Normal 1.4-6.5 [facility] Comment on above: Performed By: #### L IPA, MARITO, CMP, CMADM #### [facility] [address] [place] [address] Dr. Esteban Meneses Neutrophils/100 WBC (Bld) 60.8 % Normal 43.0-75.0 [facility] Comment on above: Performed By: #### L IPA, MARITO, CMP, CMADM #### [facility] [address] [place] [address] Dr. Esteban Meneses Platelet mean volume (Bld) [Entitic vol] 10.9 fL Normal 9.5-13.5 [facility] Comment on above: Performed By: #### L IPA, MARITO, CMP, CMADM #### [facility] [address] [place] [address] Dr. Esteban Meneses PLT 396 103/ul Normal 150-450 [facility] Comment on above: Performed By: #### L IPA, MARITO, CMP, CMADM #### [facility] [address] [place] [address] Dr. Esteban Meneses RBC 4.44 106/ul Normal 4.20-5.40 [facility] Comment on above: Performed By: #### L IPA, MARITO, CMP, CMADM #### [facility] [address] [place] [address] Dr. Esteban Meneses WBC 10.0 103/ul Normal 4.0-11.0 [facility] Comment on above: Performed By: #### L IPA, MARITO, CMP, CMADM #### [facility] [address] [place] [address] Dr. Esteban Meneses ER URINE PROFILEon 3 Bilirubin Ql (U) Negative Normal NEGATIVE [facility] Comment on above: Performed By: #### E ISH HENDRIX PREGU #### [facility] [address] [place] [address] Dr. Esteban Meneses Clarity (U) CLEAR Normal CLEAR [facility] Comment on above: Performed By: #### E RURISH, PREGU #### [facility] [address] [place] [address] Dr. Esteban Meneses Color (U) YELLOW Normal YELLOW [facility] Comment on above: Performed By: #### E RUR, UMICRO, PREGU #### [facility] [address] [address] [address] Esteban TERRAZAS A micrscopic examination will be performed if indicated. Normal [facility] Comment on above: Performed By: #### E RUR, UMICRO, PREGU #### [facility] [address] [address] [address] Esteban Meneses Glucose Ql (U) Negative Normal NEGATIVE [facility] Comment on above: Performed By: #### E RUR, UMICRO, PREGU #### [facility] [address] [address] [address] Esteban Meneses Hemoglobin Ql (U) TRACE-INTACT Abnormal NEGATIVE [facility] Comment on above: Performed By: #### E RUR, UMICRO, PREGU #### [facility] [address] [address] [address] Esteban Meneses Ketones Ql (U) Negative Normal NEGATIVE [facility] Comment on above: Performed By: #### E RUR, UMICRO, PREGU #### [facility] [address] [address] [address] Esteban Meneses LEUKOCYTES Negative Normal NEGATIVE [facility] Comment on above: Performed By: #### E RUR, UMICRO, PREGU #### [facility] [address] [address] [address] Esteban Meneses Nitrite Ql (U) Negative Normal NEGATIVE [facility] Comment on above: Performed By: #### E RUR, UMICRO, PREGU #### [facility] [address] [address] [address] Esteban Meneses pH (U) 6.0 [pH] Normal 5-9 [facility] Comment on above: Performed By: #### E RUR, UMICRO, PREGU #### [facility] [address] [address] [address] Esteban Meneses SPEC GRAVITY >=1.030 Abnormal 1.005-<=1.025 [facility] Comment on above: Performed By: #### E RURKETANICRO, PREGU #### [facility] [address] [place] [address] Dr. Esteban Meneses UA PROTEIN Negative Normal NEGATIVE/ TRACE [facility] Comment on above: Performed By: #### E RUR, UMICRO, PREGU #### [facility] [address] [address] [address] Esteban Meneses UR MICRO IND INDICATED Normal [facility] Comment on above: Performed By: #### E RURKETANICMARYSE, PREGU #### [facility] [address] [place] [address] Dr. Esteban Meneses Urobilinogen Qn (U) 0.2 {Roxana'U}/dL Normal 0.2 - 1. 0 [facility] Comment on above: Performed By: #### ISH BOCANEGRA, PREGU #### [facility] [address] [place] [address] Dr. Esteban Meneses LIPASEon 05-17-2022 Lipase [Catalytic activity/Vol] 69.0 U/L Critically low 73.0-393.0 [facility] Comment on above: Performed By: #### L IPA, MARITO, CMP, CMADM #### [facility] [address] [place] [address] Dr. Esteban Meneses URon 05-17-2022 , QUAL Negative Normal NEGATIVE [facility] Comment on above: Performed By: #### L IPA, MARITO, CMP, CMADM #### [facility] [address] [place] [address] Dr. Esteban Meneses PROF 14(COMP METB)on 023 Albumin [Mass/Vol] 3.5 g/dL Normal 3.4-5.0 [facility] Comment on above: Performed By: #### L IPA, MARITO, CMP, CMADM #### [facility] [address] [place] [address] Dr. Esteban Meneses Albumin/Globulin [Mass ratio] 0.9 {ratio} Normal [facility] Comment on above: Performed By: #### L IPA, MARITO, CMP, CMADM #### [facility] [address] [address] [address] Esteban Meneses ALP [Catalytic activity/Vol] 106 U/L Normal 46-116 [facility] Comment on above: Performed By: #### L IPA, MARITO, CMP, CMADM #### [facility] [address] [address] [address] Esteban Meneses ALT [Catalytic activity/Vol] 16 U/L Normal 14-59 [facility] Comment on above: Performed By: #### L IPA, MARITO, CMP, CMADM #### [facility] [address] [address] [address] Esteban Meneses Anion gap [Moles/Vol] 13.3 mmol/L Normal Th [facility] Comment on above: Performed By: #### L IPA, MARITO, CMP, CMADM #### [facility] [address] [place] [address] Dr. Esteban Meneses AST [Catalytic activity/Vol] 16 U/L Normal 15-37 [facility] Comment on above: Performed By: #### L IPA, MARITO, CMP, CMADM #### [facility] [address] [place] [address] Dr. Esteban Meneses Bilirubin [Mass/Vol] 0.2 mg/dL Normal 0.2-1.0 [facility] Comment on above: Performed By: #### L IPA, MARITO, CMP, CMADM #### [facility] [address] [address] [address] Esteban Meneses Calcium [Mass/Vol] 8.3 mg/dL Critically low 8.5-10.1 [facility] Comment on above: Performed By: #### L IPA, MARITO, CMP, CMADM #### [facility] [address] [place] [address] Dr. Esteban Meneses Chloride [Moles/Vol] 103 mmol/L Normal 98-107 [facility] Comment on above: Performed By: #### L IPA, MARITO, CMP, CMADM #### [facility] [address] [place] [address] Dr. Esteban Meneses CO2 [Moles/Vol] 25.1 mmol/L Normal 21.0-32.0 [facility] Comment on above: Performed By: #### L IPA, MARITO, CMP, CMADM #### [facility] [address] [address] [address] Esteban Meneses Creatinine [Mass/Vol] 0.98 mg/dL Normal 0.55-1.02 [facility] Comment on above: Performed By: #### L IPA, MARITO, CMP, CMADM #### [facility] [address] [address] [address] Esteban Meneses EGFR-AF BRAZILIAN >60 Normal >=60 [facility] Comment on above: Performed By: #### L IPA, MARITO, CMP, CMADM #### [facility] [address] [address] [address] Esteban Meneses EGFR-NON AF BRAZILIAN >60 Normal >=60 [facility] Comment on above: Performed By: #### L IPA, MARITO, CMP, CMADM #### [facility] [address] [address] [address] Esteban Meneses Globulin (S) [Mass/Vol] 3.9 g/dL Normal [facility] Comment on above: Performed By: #### L IPA, MARITO, CMP, CMADM #### [facility] [address] [address] [address] Esteban Meneses Glucose [Mass/Vol] 121 mg/dL Critically high 74-106 [facility] Comment on above: Performed By: #### L IPA, MARITO, CMP, CMADM #### [facility] [address] [address] [address] Esteban Meneses Potassium [Moles/Vol] 3.4 mmol/L Critically low 3.5-5.1 [facility] Comment on above: Performed By: #### L IPA, MARITO, CMP, CMADM #### [facility] [address] [address] [address] Esteban Meneses Protein [Mass/Vol] 7.4 g/dL Normal 6.4-8.2 [facility] Comment on above: Performed By: #### L IPA, MARITO, CMP, CMADM #### [facility] [address] [address] [address] Esteban Meneses Sodium [Moles/Vol] 138 mmol/L Normal 136-145 [facility] Comment on above: Performed By: #### L IPA, MARITO, CMP, CMADM #### [facility] [address] [place] [address] Dr. Esteban Meneses Urea nitrogen [Mass/Vol] 8.0 mg/dL Normal 7.0-18.0 [facility] Comment on above: Performed By: #### L IPA, MARITO, CMP, CMADM #### [facility] [address] [place] [address] Dr. Esteban Meneses Urea nitrogen/Creatinine [Mass ratio] 8.2 mg/mg Normal [facility] Comment on above: Performed By: #### L IPA, MARITO, CMP, CMADM #### [facility] [address] [place] [address] Dr. Esteban Meneses URINE MICROSCOPIC ONLYon BACTERIA TRACE Abnormal NONE SEEN The [facility] Comment on above: Performed By: #### L IPA, MARITO, CMP, CMADM #### [facility] [address] [place] [address] Dr. Esteban Meneses Bacteria identified Cx Nom (U) NOT INDICATED Normal [facility] Comment on above: Performed By: #### L IPA, MARITO, CMP, CMADM #### [facility] [address] [place] [address] Dr. Esteban Meneses CAST NONE SEEN Normal NONE SEEN The [facility] Comment on above: Performed By: #### L IPA, MARITO, CMP, CMADM #### [facility] [address] [place] [address] Dr. Esteban Meneses Crystals LM Nom (Urine sed) NONE SEEN Normal NONE SEEN [facility] Comment on above: Performed By: #### L IPA, MARITO, CMP, CMADM #### [facility] [address] [place] [address] Dr. Esteban Meneses Epithelial cells LM Ql (Urine sed) RARE Normal NONE SEEN /RARE The [facility] Comment on above: Performed By: #### L IPA, MARITO, CMP, CMADM #### [facility] [address] [address] [address] Esteban Meneses MUCOUS NONE SEEN Normal NONE SEEN The [facility] Comment on above: Performed By: #### L IPA, MARITO, CMP, CMADM #### [facility] [address] [address] [address] Esteban Meneses RBC NONE SEEN Abnormal 0-2 [facility] Comment on above: Performed By: #### L IPA, MARITO, CMP, CMADM #### [facility] [address] [address] [address] Esteban Meneses WBC NONE SEEN Normal NONE SEEN The [facility] Comment on above: Performed By: #### L IPA, MARITO, CMP, CMADM #### [facility] [address] [address] [address] Esteban Meneses XR ABD FLAT UP_PA [...] PATRICK NEW Date: 2022-05-17 20:06 Normal [facility] Quick Strepon 01-08-2022 S. pyogenes Org specific cx Ql (Throat) Negative [facility] Other Quick Strep [employer] Other SARS-CoV-2 (COVID-19) RNA NA A+probe Ql (Resp)on 01-08-2022 SARS-CoV-2 (COVID-19) RNA FLORENCIA+probe Ql (Unsp spec) Negative [employer] Other CHLAMYDIA/GONOCOCCUS FLORENCIA (SW AB/URINE/PAPon 11-29-2021 Chlamydia trachomatis, FLORENCIA Negative Normal Negative [facility] Comment on above: Performed By: #### L IPA, MARITO, CMP, CMADM #### [facility] [address] [address] [address] Esteban Meneses Neisseria gonorrhoeae, FLORENCIA Negative Normal Negative [facility] Comment on above: Performed By: #### L IPA, MARITO, CMP, CMADM #### [facility] [address] [address] [address] Esteban Meneses ER URINE PROFILEon 2 Bilirubin Ql (U) Negative Normal NEGATIVE [facility] Comment on above: Performed By: #### Liset HENDRIX UMICRO #### [facility] [address] [place] [address] Dr. Esteban Meneses Clarity (U) CLEAR Normal CLEAR [facility] Comment on above: Performed By: #### Liset HENDRIX UMICRO #### [facility] [address] [address] [address] Esteban Meneses Color (U) LT. YELLOW Normal YELLOW [facility] Comment on above: Performed By: #### Liset HENDRIX UMICRO #### [facility] [address] [address] [address] Esteban Meneses ERUAHD A micrscopic examination will be performed if indicated. Normal [facility] Comment on above: Performed By: #### Liset HENDRIX UMICRO #### [facility] [address] [address] [address] Esteban Meneses Glucose Ql (U) Negative Normal NEGATIVE The [facility] Comment on above: Performed By: #### Liset HENDRIX UMICRO #### [facility] [address] [address] [address] Esteban Meneses Hemoglobin Ql (U) TRACE-INTACT Abnormal NEGATIVE [facility] Comment on above: Performed By: #### Liset HENDRIX UMICRO #### [facility] [address] [place] [address] Dr. Esteban Meneses Ketones Ql (U) Negative Normal NEGATIVE [facility] Comment on above: Performed By: #### ISH BOCANEGRA #### [facility] [address] [place] [address] Dr. Esteban Meneses LEUKOCYTES Negative Normal NEGATIVE [facility] Comment on above: Performed By: #### ALEXY BOCANEGRARO #### [facility] [address] [place] [address] Dr. Esteban Meneses Nitrite Ql (U) Negative Normal NEGATIVE [facility] Comment on above: Performed By: #### ALEXY BOCANEGRARO #### [facility] [address] [place] [address] Dr. Esteban Meneses pH (U) 6.0 [pH] Normal 5-9 [facility] Comment on above: Performed By: #### ISH BOCANEGRA #### [facility] [address] [place] [address] Dr. Estbean Meneses SPEC GRAVITY 1.025 Normal 1.005-<=1.025 [place] Comment on above: Performed By: #### ISH BOCANEGRA #### [facility] [address] [place] [address] Dr. Esteban Meneses UA PROTEIN Negative Normal NEGATIVE/ TRACE [facility] Comment on above: Performed By: #### ISH BOCANEGRA #### [facility] [address] [place] [address] Dr. Esteban Meneses UR MICRO IND INDICATED Normal [facility] Comment on above: Performed By: #### ALEXY BOCANEGRARO #### [facility] [address] [place] [address] Dr. Esteban Meneses Urobilinogen Qn (U) 0.2 {Roxana'U}/dL Normal 0.2 - 1. 0 [facility] Comment on above: Performed By: #### ALEXY BOCANEGRARO #### [facility] [address] [place] [address] Dr. Esteban Meneses URon 11-27-2021 , QUAL Negative Normal NEGATIVE [facility] Comment on above: Performed By: #### L IPA, MARITO, CMP, CMADM #### [facility] [address] [place] [address] Dr. Esteban Meneses URINE MICROSCOPIC ONLYon BACTERIA NONE SEEN Normal NONE SEEN The [facility] Comment on above: Performed By: #### E RUR, UMICRO #### [facility] [address] [address] [address] Esteban Meneses Bacteria identified Cx Nom (U) NOT INDICATED Normal [facility] Comment on above: Performed By: #### E RUR, UMICRO #### [facility] [address] [place] [address] Dr. Esteban Meneses CAST NONE SEEN Normal NONE SEEN [facility] Comment on above: Performed By: #### E RUR, UMICRO #### [facility] [address] [place] [address] Dr. Esteban Meneses Crystals LM Nom (Urine sed) NONE SEEN Normal NONE SEEN The [facility] Comment on above: Performed By: #### E RUR, UMICRO #### [facility] [address] [place] [address] Dr. Esteban Meneses Epithelial cells LM Ql (Urine sed) MODERATE Abnormal NONE SEEN /RARE The [facility] Comment on above: Performed By: #### E RUR, UMICRO #### [facility] [address] [place] [address] Dr. Esteban Meneses MUCOUS TRACE Abnormal NONE SEEN The [facility] Comment on above: Performed By: #### E RUR, UMICRO #### [facility] [address] [place] [address] Dr. Esteban Meneses RBC 2-5 Abnormal 0-2 [facility] Comment on above: Performed By: #### E RUR, UMICRO #### [facility] [address] [place] [address] Dr. Esteban Meneses WBC NONE SEEN Normal NONE SEEN The [facility] Comment on above: Performed By: #### E RUR, UMICRO #### [facility] [address] [address] [address] Esteban Meneses US PELVIS TRANSVAGon 022 [...] DALIA STUART Date: 2021-11-27 15:01 Normal [facility] WET PREPon 11-27-2021 CLUE CELLS NONE SEEN Normal NONE SEEN The [facility] Comment on above: Performed By: #### W P #### [facility] [address] [place] [address] Dr. Esteban Meneses FUNGAL ELEMENTS NONE SEEN Normal NONE SEEN [facility] Comment on above: Performed By: #### W P #### [facility] [address] [place] [address] Dr. Esteban Meneses RBC -WET PREP NONE SEEN Normal NONE SEEN [facility] Comment on above: Performed By: #### W P #### [facility] [address] [place] [address] Dr. Esteban Meneses TRICHOMONAS NONE SEEN Normal NONE SEEN The [facility] Comment on above: Performed By: #### W P #### [facility] [address] [place] [address] Dr. Esteban Meneses WBC- WET PREP RARE Abnormal NONE SEEN [facility] Comment on above: Performed By: #### W P #### [facility] [address] [place] [address] Dr. Esteban Meneses WET PREP BACTERIA RARE Abnormal NONE SEEN [facility] Comment on above: Performed By: #### W P #### [facility] [address] [address] [address] Esteban Meneses COVID Quick Testingon 2020 Result Negative [employer] Other COMPREHENSIVE METABOLIC PANE [place] 11-27-2020 Albumin [Mass/Vol] 4.2 g/dL Normal 3.6-5.1 [facility] Comment on above: Performed By: #### 7 600, [id number], [id number] #### [facility] [address] [place] [address] [employer]: Claus Thrasher MD Albumin/Globulin [Mass ratio] 1.8 {ratio} Normal 1.0-2.5 [facility] Comment on above: Performed By: #### 7 600, [id number], [id number] #### [facility] [address] [place] [address] [employer]: Claus Thrasher MD ALP [Catalytic activity/Vol] 73 U/L Normal 31-125 [facility] Comment on above: Performed By: #### 7 600, [id number], [id number] #### [facility] [place] [address] [employer]: Claus Thrasher MD ALT [Catalytic activity/Vol] 9 U/L Normal 6-29 [facility] Comment on above: Performed By: #### 7 600, [id number], [id number] #### [facility] [place] [address] [employer]: Claus Thrasher MD AST [Catalytic activity/Vol] 11 U/L Normal 10-30 [facility] Comment on above: Performed By: #### 7 600, [id number], [id number] #### [facility] [place] [address] [employer]: Claus Thrasher MD Bilirubin [Mass/Vol] 0.3 mg/dL Normal 0.2-1.2 [facility] Comment on above: Performed By: #### 7 600, [id number], [id number] #### [facility] [place] [address] [employer]: Claus Thrasher MD BUN/CREATININE RATIO NOT APPLICABLE Normal 6-22 [facility] Comment on above: Performed By: #### 7 600, [id number], [id number] #### [facility] [place] [address] [employer]: Claus Thrasher MD Calcium [Mass/Vol] 9.4 mg/dL Normal 8.6-10.2 [facility] Comment on above: Performed By: #### 7 600, 19783, [id number] #### [facility] [place] [address] [employer]: Claus Thrasher MD Chloride [Moles/Vol] 105 mmol/L Normal 98-110 [facility] Comment on above: Performed By: #### 7 600, 81526, 34904 #### [facility] of [place] [address] [employer]: Claus Thrasher MD CO2 [Moles/Vol] 26 mmol/L Normal 20-32 [facility] Comment on above: Performed By: #### 7 600, 80912, 52575 #### [facility] of [place] [address] [employer]: Claus Thrasher MD Creatinine [Mass/Vol] 0.91 mg/dL Normal 0.50-1.[address] [facility] Comment on above: Performed By: #### 7 600, 71458, 32581 #### [facility] of [place] [address] [employer]: Claus Thrasher MD eGFR NON-AFR. BRAZILIAN 85 mL/min/1.73m2 Normal > OR = 60 [facility] Comment on above: Performed By: #### 7 600, 82542, 23438 #### [facility] of [address] [place] [address] [employer]: Claus Thrasher MD GFR/1.73 sq M.predicted among blacks MDRD (S/P/Bld) [Vol rate/Area] 99 mL/min/{1.73_m2} Normal > OR = 60 [facility] Comment on above: Performed By: #### 7 600, 83881, 28422 #### [facility] [address], [address] [place] [address] [employer]: Claus Thrasher MD Globulin (S) [Mass/Vol] 2.4 g/dL Normal 1.9-3.7 [facility] Comment on above: Performed By: #### 7 600, 08797, 36731 #### [facility] [place] [address] [employer]: Claus Thrasher MD Glucose [Mass/Vol] 79 mg/dL Normal 65-99 [facility] Comment on above: Result Comment: Fasting reference interval Performed By: #### 7 600, 65727, 79052 #### [facility] [address], [address] [place] [address] [employer]: Claus Thrasher MD Potassium [Moles/Vol] 4.2 mmol/L Normal 3.5-5.[address] [facility] Comment on above: Performed By: #### 7 600, 62851, 65125 #### [facility] [place] [address] [employer]: Claus Thrasher MD Protein [Mass/Vol] 6.6 g/dL Normal 6.1-8.1 [facility] Comment on above: Performed By: #### 7 600, 88678, 56005 #### [facility] [place] [address] [employer]: Claus Thrasher MD Sodium [Moles/Vol] 139 mmol/L Normal 135-146 [facility] Comment on above: Performed By: #### 7 600, 71964, 16218 #### [facility] [address], [address] [place] [address] [employer]: Claus Thrasher MD Urea nitrogen [Mass/Vol] 16 mg/dL Normal 7-25 [facility] Comment on above: Performed By: #### 7 600, 39610, 28518 #### [facility] [address], [address] [place] [address] [employer]: Claus Thrasher MD LIPID PANEL, [facility] 08-3 Cholesterol [Mass/Vol] 166 mg/dL Normal <200 [facility] Comment on above: Order Comment: FASTI NG:YES FASTING: YES Performed By: #### 7 600, 54468, 06577 #### [facility] [address], [address] [place] [address] [employer]: Claus Thrasher MD Cholesterol in HDL [Mass/Vol] 70 mg/dL Normal > OR = 50 [facility] Comment on above: Order Comment: FASTI NG:YES FASTING: YES Performed By: #### 7 600, 48560, 50919 #### [facility] [address], [address] [place] [address] [employer]: Claus Thrasher MD Cholesterol in LDL [Mass/Vol] [...] LDL-C. Rogelio SS et al. DEREK. 2013;310(19): 5446-4617 (http://education.[employer] Insp[employer] solutions to transform cities.[employer])/faq/TZZ433) Performed By: #### 7 600, 99965, 00906 #### [facility] [address], [address] [place] [address] [employer]: Claus Thrasher MD Cholesterol.total/Kristyn sterol in HDL [Mass ratio] 2.4 {ratio} Normal <5.0 [facility] Comment on above: Order Comment: FASTI NG:YES FASTING: YES Performed By: #### 7 600, 79548, 71840 #### [facility] [place] [address] [employer]: Claus Thrasher MD NON HDL CHOLESTEROL 96 mg/dL (calc) Normal <130 [facility] Comment on above: Order Comment: FASTI NG:YES FASTING: YES Result Comment: For patients with diabetes plus 1 major ASCVD risk factor, treating to a non-HDL-C goal of <100 mg/dL (LDL-C of <70 mg/dL) is considered a therapeutic option. Performed By: #### 7 600, 45902, 98636 #### [facility] [place] [address] [employer]: Claus Thrasher MD Triglyceride [Mass/Vol] 63 mg/dL Normal <150 [facility] Comment on above: Order Comment: FASTI NG:YES FASTING: YES Performed By: #### 7 600, 64388, 45116 #### [facility] [place] [address] [employer]: Claus Thrasher MD TSH+FREE T4on 11-27-2020 Free T4 [Mass/Vol] 1.1 ng/dL Normal 0.8-1.8 [facility] Comment on above: Performed By: #### 7 600, 23278, 99432 #### [facility] [place] [address] [employer]: Claus Thrasher MD TSH Qn 2.23 m[IU]/L Normal [facility] Comment on above: Result Comment: Refe rence Range > or = 20 Years 0.40-4.50 Ranges First trimester 0.26-2.66 Second trimester 0.55-2.73 Third trimester 0.43-2.91 Performed By: #### 7 600, 98678, 04899 #### [facility] [address] [place] [address] [employer]: Claus Thrasher MD Urine cultureon 12-08-2019 Culture NO SIGNIFICANT GROWTH [place] Special Requests NOT REPORTED [place] Specimen Description .CLEAN CATCH URINE [place] CBC auto differentialon Basophils (Bld) [#/Vol] 0.04 10*3/uL [place] Basophils/100 WBC (Bld) 0 % 0 - 2 % [place] Differential Type NOT REPORTED [place] Eosinophils (Bld) [#/Vol] 0.08 10*3/uL [place] Eosinophils/100 WBC (Bld) 1 % 1 - 4 % [place] Erythrocyte distribution width (RBC) [Ratio] 12.9 % 11.8 - 14.4 % [place] Hematocrit (Bld) [Volume fraction] 36.5 % 36.3 - 47.1 % [place] Hemoglobin (Bld) [Mass/Vol] 12.0 g/dL 11.9 - 15.1 g/dL [place] Immature granulocytes (Bld) [#/Vol] 0 % 0 [place] Immature granulocytes (Bld) [#/Vol] 0.04 10*3/uL [place] Interpretation and review of laboratory results Abnormal [place] Lymphocytes (Bld) [#/Vol] 1.98 10*3/uL [place] Lymphocytes/100 WBC (Bld) 19 % Low 24 - 43 % [place] MCH (RBC) [Entitic mass] 30.1 pg 25.2 - 33.5 pg [place] MCHC (RBC) [Mass/Vol] 32.9 g/dL 28.4 - 34.8 g/dL [place] MCV (RBC) [Entitic vol] 91.5 fL 82.6 - 102.9 fL [place] Monocytes (Bld) [#/Vol] 0.54 10*3/uL [place] Monocytes/100 WBC (Bld) 5 % 3 - 12 % [place] Platelet mean volume (Bld) [Entitic vol] 12.5 fL 8.1 - 13.5 fL [place] Platelets (Bld) [#/Vol] 294 10*3/uL [place] Platelets (Bld) [#/Vol] NOT REPORTED [place] RBC (Bld) [#/Vol] 3.99 10*6/uL 3.95 - 5.1 1 m/uL [place] RBC morphology finding Nom (Bld) NOT REPORTED [place] Segmented neutrophils/100 WBC (Bld) 75 % High 36 - 65 % [place] Segs Absolute 7.75 [place] WBC (Bld) [#/Vol] 0.0 10*3/uL 0.0 per 10 0 WBC [place] WBC (Bld) [#/Vol] 10.4 10*3/uL [place] WBC Morphology NOT REPORTED [place] DRUG SCREEN MULTI URINEon Amphetamine Screen, Ur Negative NEGATIVE [place] Barbiturate Screen, Ur Negative NEGATIVE [place] Benzodiazepine Screen, Urine Negative NEGATIVE [place] Buprenorphine Urine Negative NEGATIVE [place] Cannabinoid Scrn, Ur Negative NEGATIVE [place] Cocaine Metabolite, Urine Negative NEGATIVE [place] MDMA, Urine NOT REPORTED NEGATIVE [place] Methadone Screen, Urine Negative NEGATIVE [place] Methamphetamine, Urine Negative NEGATIVE [place] Opiates, Urine Negative NEGATIVE [place] Oxycodone Screen, Ur Negative NEGATIVE [place] Phencyclidine, Urine Negative NEGATIVE [place] Propoxyphene, Urine Negative NEGATIVE [place] Test Information NOT REPORTED [place] Tricyclic Antidepressants, Urine Negative NEGATIVE [place] Comment on above: Drug screen results are to be used for medical purposes only. All positive results are unconfirmed. Testing for employment or legal uses should be sent to a reference laboratory for confirmation. Microscopic Urinalysison Amorphous, UA NOT REPORTED None [place], [place] Bacteria, UA 2+ Abnormal None [place] Casts UA NOT REPORTED /LPF [place] Crystals, UA NOT REPORTED None /HPF [place] Epithelial Cells UA 10 TO 20 [place] Interpretation and review of laboratory results Abnormal [place] Mucus, UA NOT REPORTED None [place] Other Observations UA NOT REPORTED NOT REQ. [place] RBC (U) [#/Vol] 20 TO 50 [place] Renal Epithelial, UA NOT REPORTED 0 /HPF [place] Trichomonas, UA NOT REPORTED None [place] WBC, UA 0 TO 2 [place] Yeast, UA NOT REPORTED None [place] - [place] Urinalysison 12-07-2019 Bilirubin Urine Negative NEGATIVE [place] Color, UA YELLOW YELLOW [place] Glucose, Ur Negative NEGATIVE [place] Interpretation and review of laboratory results Abnormal [place] Ketones Ql (U) Negative NEGATIVE [place] Leukocyte esterase Test strip Ql (U) Negative NEGATIVE [place] Nitrite, Urine Negative NEGATIVE [place] pH, UA 7.0 [place] Protein (U) [Mass/Vol] 2+ Abnormal NEGATIVE [place] Specific Media, UA 1.020 [place], [place] Turbidity UA CLEAR CLEAR [place] Urinalysis Comments NOT REPORTED [place] Urine Hgb 3+ Abnormal NEGATIVE [place] Urobilinogen, Urine Normal Normal [place] CBCon 05-14-2019 Erythrocyte distribution width (RBC) [Ratio] 12.0 % 11.8 - 14.4 % [facility] Work Phone: Hematocrit (Bld) [Volume fraction] 39.8 % 36.3 - 47.1 % [employer] Phone: Hemoglobin (Bld) [Mass/Vol] 13.6 g/dL 11.9 - 15.1 g/dL [employer] Phone: MCH (RBC) [Entitic mass] 30.3 pg 25.2 - 33.5 pg [employer] Phone: MCHC (RBC) [Mass/Vol] 34.2 g/dL 28.4 - 34.8 g/dL [employer] Phone: MCV (RBC) [Entitic vol] 88.6 fL 82.6 - 102.9 fL [employer] Phone: Platelet mean volume (Bld) [Entitic vol] 11.6 fL 8.1 - 13.5 fL [employer] Phone: Platelets (Bld) [#/Vol] 356 10*3/uL [employer] Phone: RBC (Bld) [#/Vol] 4.49 10*6/uL 3.95 - 5.1 1 m/uL [employer] Phone: WBC (Bld) [#/Vol] 0.0 10*3/uL 0.0 per 10 0 WBC [employer] Phone: WBC (Bld) [#/Vol] 10.4 10*3/uL [employer] Phone: Comprehensive Metabolic Pane waylon 05-14-2019 Albumin [Mass/Vol] 4.1 g/dL 3.5 - 5.2 g/dL [employer] Phone: Albumin/Globulin [Mass ratio] 1.4 {ratio} [employer] Phone: ALP [Catalytic activity/Vol] 74 U/L 35 - 104 U/L [employer] Phone: ALT [Catalytic activity/Vol] 26 U/L 5 - 33 U/L [employer] Phone: Anion gap [Moles/Vol] 16 mmol/L 9 - 17 mmol/L [facility] Work Phone: AST [Catalytic activity/Vol] 19 U/L <32 [facility] [employer] Phone: Bilirubin Ql (U) 0.52 mg/dL 0.3 - 1.2 mg/dL [facility] Phone: Bun/Cre Ratio 12 [facility] [employer] Work Phone: Calcium [Mass/Vol] 9.4 mg/dL 8.6 - 10. 4 mg/dL [facility] [employer] Work Phone: Chloride [Moles/Vol] 100 mmol/L 98 - 10 7 mmol/L [facility] Phone: CO2 [Moles/Vol] 22 mmol/L 20 - 31 mmol/L [facility] Phone: Creatinine [Mass/Vol] 0.76 mg/dL 0.5 - 0.9 mg/dL [facility] Phone: GFR >60 >60 mL/min [facility] [employer] Phone: GFR Non- >60 >60 mL/min [facility] Work Phone: Glucose [Mass/Vol] 87 mg/dL 70 - 99 mg/dL [facility] [employer] Work Phone: Potassium [Moles/Vol] 3.7 mmol/L 3.7 - 5.3 mmol/L [facility] [employer] Phone: Protein [Mass/Vol] 7.1 g/dL 6.4 - 8.3 g/dL [facility] [employer] Phone: Sodium [Moles/Vol] 138 mmol/L 135 - 144 mmol/L [facility] Phone: Urea nitrogen [Mass/Vol] 9 mg/dL 6 - 20 mg/dL [facility] Phone: Metabolic Panelon 02-15-2020 GFR/1.73 sq M predicted among non-blacks MDRD (S/P/Bld) [Vol rate/Area] [employer] Phone: Comment on above: Average GFR for 20-2 9 years old: 116 mL/min/1.73sq m Chronic Kidney Disease: <60 mL/min/1.73sq m Kidney failure: <15 mL/min/1.73sq m eGFR calculated using average adult body mass. Additional eGFR calculator available at: http://www.[employer]/multiple_crcl_2012.htm Stage 1: Some kidney damage normal GFR Stage 2: Mild kidney damage GFR 60-89 Stage 3: Moderate kidney damage GFR 30-59 Stage 4: Severe kidney damage GFR 15-29 Stage 5: Severe kidney damage GFR <15 ESRD - chronic treatment by dialysis or transplant Microscopic Urinalysison Amorphous, UA NOT REPORTED None [employer] Work Phone: Bacteria, UA 2+ Abnormal None [employer] Work Phone: Casts UA NOT REPORTED /LPF [employer] Work Phone: Crystals UA NOT REPORTED None /HPF [employer] [facility] [employer] Work Phone: Epithelial Cells UA 10 TO 20 [employer] Work Phone: Interpretation and review of laboratory results Abnormal [employer] Phone: Mucus, UA NOT REPORTED None [employer] Work Phone: Other Observations UA NOT REPORTED NOT REQ. [facility] Work Phone: RBC (U) [#/Vol] 10 TO 20 [employer] Work Phone: Renal Epithelial, Urine NOT REPORTED 0 /HPF [employer] Work Phone: Trichomonas, UA NOT REPORTED None [employer] Work Phone: WBC, UA 2 TO 5 [employer] Work Phone: Yeast, UA NOT REPORTED None [facility] [employer] Work Phone: - [facility] [employer] Work Phone: Urinalysis Reflex to Culture on 05-14-2019 Bilirubin Urine SMALL Abnormal NEGATIVE [facility] Work Phone: Color, UA DARK YELLOW Abnormal YELLOW [facility] [employer] Work Phone: Glucose, Ur Negative NEGATIVE [facility] Work Phone: Interpretation and review of laboratory results Abnormal [facility] Work Phone: Ketones Ql (U) 2+ Abnormal NEGATIVE [facility] Work Phone: Leukocyte esterase Test strip Ql (U) TRACE Abnormal NEGATIVE [facility] [employer] Work Phone: Nitrite, Urine Negative NEGATIVE [facility] Work Phone: pH, UA 6.5 [facility] [employer] Work Phone: Protein (U) [Mass/Vol] 1+ Abnormal NEGATIVE [facility] [employer] Work Phone: Specific Media, UA 1.020 [facility] [employer] Work Phone: Turbidity UA CLEAR CLEAR [facility] [employer] Work Phone: Urinalysis Comments NOT REPORTED [facility] [employer] Work Phone: Urine Hgb 2+ Abnormal NEGATIVE [facility] Work Phone: Urobilinogen, Urine Normal Normal [facility] Work Phone: HIV ScreenOrdered By: Ira Hernandez on 04-19-2019 HIV Ag/Ab Non-Reactive NONREACTIVE [facility] Work Phone: Comment on above: No laboratory eviden ce of HIV infection. If acute HIV infection is suspected, consider testing for HIV-1 RNA. Hemoglobin [id number] By: Sena Hernandez on 04-19-2019 Glucose [Mass/Vol] 100 mg/dL [facility] [employer] Work Phone: Comment on above: The ADA and AACC rec ommend providing the estimated average glucose result to permit better patient understanding of their HBA1c result. HbA1c (Bld) [Mass fraction] 5.1 % 4.8 - 5.9 % [employer] Work Phone: Hepatitis C AntibodyOrdered By: Ira Hernandez on 04-19-2019 Hepatitis C Ab Non-Reactive NONREACTIVE [employer] [facility] Work Phone: Comment on above: The hepatitis [...] Hernandez on 04-19-2019 Absolute Eos # 0.07 [employer] [facility] Work Phone: Absolute Immature Granulocyte 0.04 [employer] Work Phone: Absolute Lymph # 2.07 [employer] [facility] Work Phone: Absolute [place] # 0.49 [employer] [facility] Work Phone: Basophils (Bld) [#/Vol] 0.05 10*3/uL [employer] Work Phone: Basophils/100 WBC (Bld) 1 % 0 - 2 % [facility] Work Phone: Differential Type NOT REPORTED [employer] Phone: Eosinophils/100 WBC (Bld) 1 % 1 - 4 % [employer] Phone: Erythrocyte distribution width (RBC) [Ratio] 12.9 % 11.8 - 14.4 % [employer] Work Phone: Hematocrit (Bld) [Volume fraction] 40.7 % 36.3 - 47.1 % [employer] Phone: Hemoglobin (Bld) [Mass/Vol] 12.9 g/dL 11.9 - 15.1 g/dL [employer] Phone: Hepatitis B Surface Ag Non-Reactive NONREACTIVE [employer] Phone: Immature granulocytes/100 WBC (Bld) 0 % 0 [employer] Phone: Interpretation and review of laboratory results Abnormal [employer] Phone: Lymphocytes/100 WBC (Bld) 22 % Low 24 - 43 % [employer] Phone: MCH (RBC) [Entitic mass] 29.7 pg 25.2 - 33.5 pg [employer] Phone: MCHC (RBC) [Mass/Vol] 31.7 g/dL 28.4 - 34.8 g/dL [employer] Phone: MCV (RBC) [Entitic vol] 93.6 fL 82.6 - 102.9 fL [employer] Phone: Monocytes/100 WBC (Bld) 5 % 3 - 12 % [facility] [employer] Phone: NRBC Automated 0.0 0.0 per 100 WBC [employer] Phone: Platelet Estimate NOT REPORTED [employer] Phone: Platelet mean volume (Bld) [Entitic vol] 11.7 fL 8.1 - 13.5 fL [employer] Phone: Platelets (Bld) [#/Vol] 341 10*3/uL [employer] Phone: RBC (Bld) [#/Vol] 4.35 10*6/uL 3.95 - 5.1 1 m/uL [employer] Phone: RBC morphology finding Nom (Bld) NOT REPORTED [employer] Phone: Rubella virus IgG Ql (S) 453.4 IU/mL [employer] Phone: Comment on above: REFERENCE RANGE: <5.0 NON-REACTIVE (non-immune) 5.0 TO 9.9 EQUIVOCAL >=10.0 REACTIVE (immune) Segmented neutrophils/100 WBC (Bld) 71 % High 36 - 65 % [employer] Phone: Segs Absolute 6.72 [employer] Work Phone: T. pallidum, IgG Non-Reactive NONREACTIVE [employer] Phone: Comment on above: T. pallidum antibodies are not detected. There is no serological evidence of infection with T. pallidum (early primary syphilis cannot be excluded). Retest in 2-4 weeks if syphilis is clinically suspect. WBC (Bld) [#/Vol] 9.4 10*3/uL [employer] Phone: WBC Morphology NOT REPORTED [employer] Phone: TYPE AND SCREENOrde red By: Ira Sotomayor David on 04-19-2019 ABO/Rh Positive [employer] Phone: T4, FreeOrdered By: Ira moore David on 04-19-2019 Thyroxine, Free 1.41 ng/dL 0.93 - 1.7 ng/dL [employer] Phone: TSH without ReflexOrdered By : Ira Sotomayor David on 04-19-2019 TSH Qn 2.62 m[IU]/L [employer] Phone: Urine Drug Screen, Comprehen siveOrdered By: Ira Sotomayor David on 04-19-2019 Amphetamine Screen, Ur Negative NEGATIVE [facility] Phone: Barbiturate Screen, Ur Negative NEGATIVE Me [employer] Phone: Benzodiazepine Screen, Urine Negative NEGATIVE [employer] Phone: Buprenorphine Urine Negative NEGATIVE [employer] Phone: Cannabinoid Scrn, Ur Negative NEGATIVE [facility] Work Phone: Cocaine Metabolite, Urine Negative NEGATIVE [facility] Work Phone: MDMA, Urine NOT REPORTED [facility]IVE [facility] Work Phone: Methadone Screen, Urine Negative NEGATIVE [facility] Work Phone: Methamphetamine, Urine Negative NEGATIVE [facility] Work Phone: Opiates, Urine Negative NEGATIVE [facility] Work Phone: Oxycodone Screen, Ur Negative NEGATIVE [facility] Work Phone: Phencyclidine, Urine Negative NEGATIVE [facility] Work Phone: Propoxyphene, Urine Negative NEGATIVE [facility] Work Phone: Test Information NOT REPORTED [facility] Work Phone: Tricyclic Antidepressants, Urine Negative NEGATIVE [facility] Work Phone: Comment on above: Drug screen results are to be used for medical purposes only. All positive results are unconfirmed. Testing for employment or legal uses should be sent to a reference laboratory for confirmation. Vital Signs Date Time Vital Sign Value Performing Clinician Facility 04-20-2023 09:15-0500 Body height 165.1 cm Cynthia Garciamond Other [employer] Other 04-20-2023 09:15-0500 Body mass index (BMI) [Ratio] 36.14 kg/m2 Cynthia Garciamond Other [employer] Other 04-20-2023 09:15-0500 Body temperature 99 [degF] Cynthia Monique Other [employer] Other 04-20-2023 09:15-0500 Body weight 98.52 kg Cynthia Monique Other [employer] Other 04-20-2023 09:15-0500 Respiratory rate 18 /min Cynthia Amaya Other [employer] Other 04-20-2023 09:15-0500 SaO2% (BldA) [Mass fraction] 99 % Cynthia Amaya Other [employer] Other 07-30-2022 10:10-0400 Body height 165.1 cm Cynthia Amaya Other [employer] Other 07-30-2022 10:10-0400 Body mass index (BMI) [Ratio] 37.77 kg/m2 Cynthia Garciamond Other [employer] Other 07-30-2022 10:10-0400 Body temperature 98.3 [degF] Cynthia Garciamond Other [employer] Other 07-30-2022 10:10-0400 Body weight 102.97 kg Cynthia Garciamond Other [employer] Other 07-30-2022 10:10-0400 Respiratory rate 18 /min Cynthia Garciamond Other [employer] Other 07-30-2022 10:10-0400 SaO2% (BldA) [Mass fraction] 97 % Cynthia Monique Other [employer] Other 07-23-2022 13:49-0400 Blood Pressure Location Marcelina DIXON [facility] 07-23-2022 13:49-0400 Diastolic blood pressure 72 mm[Hg] Marcelina DIXON [facility] 07-23-2022 13:49-0400 Heart rate 70 /min Marcelina DIXON [facility] [place] 07-23-2022 13:49-0400 Respiratory rate 16 /min Marcelina DIXON [facility] [place] 07-23-2022 13:49-0400 Systolic blood pressure 116 mm[Hg] Marcelina DIXON [facility] [place] 06-19-2022 16:10-0400 Body height 165.1 cm Abbey Sanders Other [employer] Other 06-19-2022 16:10-0400 Body mass index (BMI) [Ratio] 38.27 kg/m2 Abbey Princeler Other [employer] Other 06-19-2022 16:10-0400 Body temperature 97.1 [degF] Abbey Sanders Other [employer] Other 06-19-2022 16:10-0400 Body weight 104.33 kg Abbey Sanders Other [employer] Other 06-19-2022 16:10-0400 Respiratory rate 18 /min Abbey Sanders Other [employer] Other 06-19-2022 16:10-0400 SaO2% (BldA) [Mass fraction] 99 % Abbey Sanders Other [employer] Other 01-08-2022 11:15-0400 Body height 165.1 cm Cynthia Amaya Other [employer] Other 01-08-2022 11:15-0400 Body mass index (BMI) [Ratio] 36.61 kg/m2 Cynthia Amaya Other [employer] Other 01-08-2022 11:15-0400 Body temperature 98.6 [degF] Cynthia Amaya Other [employer] Other 01-08-2022 11:15-0400 Body weight 99.79 kg Cynthia Amaya Other [employer] Other 01-08-2022 11:15-0400 Respiratory rate 18 /min Cynthia Amaya Other [employer] Other 01-08-2022 11:15-0400 SaO2% (BldA) [Mass fraction] 98 % Cynthia Amaya Other [employer] Other 02-26-2021 14:40-0500 Body height 165.1 cm Mabel Realault Other [employer] Other 02-26-2021 14:40-0500 Body mass index (BMI) [Ratio] 38.27 kg/m2 Mabel Realault Other [employer] Other 02-26-2021 14:40-0500 Body temperature 96.9 [degF] Mabel Rosanna Other [employer] Other 02-26-2021 14:40-0500 Body weight 104.33 kg Mabel Rosanna Other [employer] Other 02-26-2021 14:40-0500 Diastolic blood pressure 81 mm[Hg] Mabel Rosanna Other [employer] Other 02-26-2021 14:40-0500 Respiratory rate 18 /min Mabel Rosanna Other [employer] Other 02-26-2021 14:40-0500 SaO2% (BldA) [Mass fraction] 98 % Mabel Marte Other [employer] Other 02-26-2021 14:40-0500 Systolic blood pressure 130 mm[Hg] Mabel Marte Other [employer] Other 01-11-2021 12:30-0400 Body height 165.1 cm Cynthia Amaya Other [employer] Other 01-11-2021 12:30-0400 Body mass index (BMI) [Ratio] 36.61 kg/m2 Cynthia Amaya Other [employer] Other 01-11-2021 12:30-0400 Body temperature 96.6 [degF] Cynthia Amaya Other [employer] Other 01-11-2021 12:30-0400 Body weight 99.79 kg Cynthia Amaya Other [employer] Other 01-11-2021 12:30-0400 Respiratory rate 18 /min Cynthia Amaya Other [employer] Other 01-11-2021 12:30-0400 SaO2% (BldA) [Mass fraction] 98 % Cynthia Amaya Other [employer] Other 12-09-2019 08:32-0400 Body Temperature 97.5 [degF] [facility] [place] [place] 12-09-2019 08:32-0400 BP Diastolic 63 mm[Hg] [facility] [place] , [place] 12-09-2019 08:32-0400 BP Systolic 111 mm[Hg] [facility] [place] , [place] 12-09-2019 08:32-0400 Pulse (Heart Rate) 71 /min Marylou Guerrier [facility] [place], [place] 12-09-2019 08:32-0400 Respiratory Rate 16 /min Marylou Guerrier [employer] 12-07-2019 22:15-0400 Pulse Oximetry 99 % [facility] [place] 12-07-2019 08:32-0400 BMI (Body Mass Index) 40.94 kg/m2 Marylou Guerrier [employer] [place], [place] 12-07-2019 08:32-0400 Body weight 111.58 kg [facility]ou [facility]errier [facility] [place] 12-07-2019 08:32-0400 Height 165.1 cm Marylou DesouzaNEWLINE [facility] [place] 05-14-2019 19:40-0500 BP Diastolic 63 mm[Hg] [employer] Phone: 05-14-2019 19:40-0500 BP Systolic 104 mm[Hg] [employer] Phone: 05-14-2019 19:40-0500 Pulse (Heart Rate) 85 /min [employer] Phone: 05-14-2019 19:40-0500 Pulse Oximetry 99 % [employer] Phone: 05-14-2019 19:40-0500 Respiratory Rate 18 /min [employer] Phone: 05-14-2019 15:20-0500 BMI (Body Mass Index) 41.6 kg/m2 [employer] Phone: 05-14-2019 15:20-0500 Body Temperature 98.01 [degF] [employer] Phone: 05-14-2019 15:20-0500 Body weight 113.4 kg [employer] Phone: Encounters Encounter Date Encounter Type Care Provider Facility Start: 04-20-2023 End: 04-20-2023 ambulatory Cynthia Amaya Other [facility] Other Start: 04-20-2023 Office outpatient vi sit 15 minutes Cynthia Amaya [facility] Start: 04-15-2023 End: 04-16-2023 ambulatory SAL Reyes [facility] Start: 01-14-2023 End: 01-15-2023 ambulatory [facility] Start: 08-20-2022 End: 08-21-2022 ambulatory [facility] Start: 08-13-2022 End: 08-14-[address] MIGUEL MAX Facility:[facility] Start: 08-06-2022 Encounter for other preprocedural examination DR MARCELINA DIXON . [facility] Start: 07-30-2022 Office outpatient vi sit 15 minutes Cynthia Amaya [facility] Start: 07-30-2022 End: 07-31-[address] MIGUEL MAX [facility] Other Start: 07-30-2022 End: 07-31-2022 Encounter for other preprocedural examination DR MIGUEL MAX Facility:[facility] Start: 07-23-2022 End: 07-24-2022 ambulatory Marcelina DIXON Facility:[facility] Start: 07-23-2022 End: 07-23-2022 Patient encounter procedure Marcelina DIXON General Surgery Nill/Said [facility] Start: 07-15-2022 End: 07-16-2022 ambulatory [facility] Start: 07-15-2022 ambulatory Marcelina DIXON Facility:[facility] Start: 07-11-2022 ambulatory Marcelina DIXON Facility:[facility] Start: 07-10-2022 End: 07-10-[address] MIGUEL MAX Facility:[facility] Start: 07-08-2022 End: 07-09-[address] MIGUEL MAX Facility:[facility] Start: 06-22-2022 End: 06-22-2022 ambulatory Abbey Sanders Other [employer] Other Start: 06-22-2022 Telephone encounter Abbey Sanders [facility] [address] Start: 06-19-2022 End: 06-19-2022 ambulatory NELSY SHAVER . Facility:[facility] Start: 06-19-2022 End: 06-19-2022 Departed Referred [employer] Abbey Tommy Work Phone: [facility] [place] Work Phone: Start: 06-19-2022 End: 06-19-2022 ambulatory [employer] Abbey Sanders Work Phone: [facility] Work Phone: Start: 06-19-2022 Office outpatient vi sit 15 minutes Abbey Sanders [facility] Start: 05-17-2022 End: 05-17-2022 ambulatory SISSY ZAPATA Facility:[facility] Start: 01-08-2022 End: 01-08-2022 ambulatory Cynthia Amaya Other [employer] Other Start: 01-08-2022 Office outpatient vi sit 15 minutes Cynthia Amaya [facility] Start: 11-27-2021 End: 11-27-[address] DALIA STUART Facility:[facility] Start: 02-26-2021 End: 02-26-2021 ambulatory Mabel Marte Other [employer] Other Start: 02-26-2021 Office outpatient vi sit 25 minutes Mabel Marte [facility] Start: 01-11-2021 (URG) Urgent Care Visit Cynthia handley [facility] Start: 09-03-2020 End: 09-03-2020 Patient encounter procedure Sal Bautista Work Phone: [facility] Laboratory Start: 09-03-2020 End: 09-03-2020 Subsequent hospital visit by physician Sal Bautista Work Phone: [facility] Laboratory Comment on above: Women's annual routi ne gynecological examination Start: 12-07-2019 End: 12-09-2019 Evaluation and management of inpatient Marylou Benedict Work Phone: [facility] Labor and Delivery Start: 11-21-2019 End: 11-21-2019 Subsequent hospital visit by physician Sal Bautista [facility] Laboratory Comment on above: 36 weeks gestation o f Start: 05-14-2019 End: 05-14-2019 Emergency department patient visit Felix Anderson Work Phone: [facility] ED Comment on above: Non-intractable vomi ting with nausea, unspecified vomiting type (Primary Dx) Start: 04-19-2019 End: 04-19-2019 Subsequent hospital visit by physician Sal Bautista Other Phone: [facility] Laboratory Comment on above: Amenorrhea; Positive urine [...] Start: 05-14-2019 Blood count complete automated Carmella Lio Work Phone: Start: 05-14-2019 Comprehensive metabo lic panel Carmella Thingies Work Phone: Start: 05-14-2019 Urinalysis microscopic only Carmella Lio Work Phone: Start: 05-14-2019 Urnls dip stick/tabl et rgnt auto w/o microscopy Carmella Vaca Work Phone: Start: 04-19-2019 Antibody screen Sal Bautista Other Phone: Start: 04-19-2019 Drug screen, qualitate/multi Ira Hernandez DO Work Phone: Start: 04-19-2019 End: 04-19-2019 Antibody hiv-1&hiv-2 single result Ira Hernandez DO Work Phone: Start: 04-19-2019 Hemoglobin glycosylated a1c Ira Hernandez DO Work Phone: Appendectomy Marcelina DIXON Plan of Treatment Date Care Activity Detail Author Start: 01-06-2028 DTaP/Tdap/Td vaccine (7 - Td or Tdap) DTaP/Tdap/Td vaccine (7 - Td or Tdap) [employer] Phone: Start: 01-06-2028 DTaP/Tdap/Td vaccine (7 - Td) DTaP/Tdap/Td vaccine (7 - Td) [employer] Phone: Start: 06-19-2022 Bacteria identified in Urine by Culture [facility] Start: 11-28-2020 Influenza vaccination Flu vacc ine (Season Ended) [employer] Phone: Start: 08-29-2020 Screening for malign ant neoplasm of cervix Cervical cancer screen [facility] [place] Comment on above: Postponed from 02/02 (Not Indicated) Start: 04-19-2020 Thyroid stimulating hormone measurement TSH testing [employer] Phone: Start: 04-19-2020 TSH Qn TSH testing [facility] Start: 04-19-2020 TSH testing TSH testing [facility] [employer] Work Phone: Start: 12-20-2019 End: 12-20-2019 Visit 12/20/2019 Visit Obstetrics and Gynecology Ira Tian, DO [address] [place] [address] [phone] [facility] OBSTETRICS & GYNECOLOGY Start: 11-29-2019 Influenza vaccination Flu vaccine (# 1) [place], [place] Start: 11-28-2019 End: 11-28-2019 Routine 11/28/2019 Routine Obstetrics and Gynecology Ira Tian DO [address] [place] [address] [facility] OBSTETRICS [facility]YNECOLOGY Start: 05-17-2019 End: 05-17-2019 Routine 05/17/2019 Routine Obstetrics and Gynecology Ira Tian DO [address] [address] [facility] OBSTETRICS & GYNECOLOGY Start: 04-25-2019 End: 04-25-2019 Professional / ancillary services management 04/25/2019 Ancillary Procedure Obstetrics and Gynecology [facility] OBSTETRICS & GYNECOLOGY Start: 11-28-2018 Influenza vaccination Flu vaccine (# 1) [facility] [employer] Phone: Start: 02-03-2012 Cervical cancer screen Cervical canc er screen [facility] Phone: Start: 02-03-2012 Screening for malign ant neoplasm of cervix Cervical cancer screen [facility] [employer] Phone: Start: 2006 HIV screen HIV screen [facility] [employer] Phone: Start: 2003 COVID-19 Vaccine (1) COVID-19 Vaccin e (1) [facility] [employer] Phone: Start: 02-03-1992 Varicella vaccine (1 of 2 - 2-dose childhood series) Varicella vaccine (1 of 2 - 2-dose childhood series) [facility] [employer] Phone: Start: 1991 TSH testing TSH testing [facility] [employer] Phone: End: 05-14-2019 Bacteria identified Cx Nom (U) Urine Culture Microbiology Routine Once for 1 Occurrences starting 05/14/2019 until 05/14/2019 [employer] Phone: Comment on above: Once for 1 Occurrenc es starting 05/14/2019 until 05/14/2019 Bacteria identified Cx Nom (U) [employer] Phone: End: 04-19-2019 Bacteria identified in Urine by Culture Urine Culture Microbiology Routine Amenorrhea Positive urine test Encounter for supervision of normal in first trimester, unspecified 1 Occurrences starting 04/19/2019 until 04/19/2019 [employer] Phone: Comment on above: 1 Occurrences starti ng 04/19/2019 until 04/19/2019 End: 04-19-2019 C.trachomatis N.gonorrhoeae DNA, Urine C.trachomatis N.gonorrhoeae DNA, Urine Microbiology Routine Amenorrhea Positive urine test Encounter for supervision of normal in first trimester, unspecified 1 Occurrences starting 04/19/2019 until 04/19/2019 [employer] Phone: Comment on above: 1 Occurrences starti ng 04/19/2019 until 04/19/2019 C.trachomatis N.gonorrhoeae DNA, Urine C.trachomatis N.gonorrhoeae DNA, Urine Microbiology Routine Amenorrhea Positive urine test Encounter for supervision of normal in first trimester, unspecified 04/19/2019 5:09 PM EST [employer] Phone: End: 11-21-2019 Culture, Strep B Screen, Vaginal/Rectal Culture, Strep B Screen, Vaginal/Rectal Microbiology Routine 36 weeks gestation of 1 Occurrences starting 11/21/2019 until 11/21/2019 [email or web address] Comment on above: 1 Occurrences starti ng 11/21/2019 until 11/21/2019 Culture, Strep B Scr een, Vaginal/Rectal Culture, Strep B Screen, Vaginal/Rectal Microbiology Routine 36 weeks gestation of 11/21/2019 12:30 PM EDT [email or web address] [place] End: 09-03-2020 Cytopathology procedure, preparation of smear, genital source [facility] Routine Women's annual routine gynecological examination 1 Occurrences starting 09/03/2020 until 09/03/2020 [employer] Work Phone: Comment on above: 1 Occurrences starti ng 09/03/2020 until 09/03/2020 Immunizations Immunization Date Immunization Notes Care Provider Galen jinaung 12-07-2019 diphtheria, tetanus toxoids and acellular pertussis vaccine, unspecified formulation [facility], [place] 12-07-2019 measles, mumps and rubella virus vaccine [facility], [place] NEGATED: Highlighted row has not occurred!07-23-2022 influenza virus vaccine, unspecified formulation Marcelina DIXON [facility] [place] NEGATED: Highlighted row has not occurred!07-23-2022 SARS-CoV-2 mRNA (tozinameran 5y-11y) vaccine Marcelina BAKERLaura [facility] [place] Payers Date Payer Category Payer Self-pay 2018 Unknown BCBS BCBS - [place] P PO xxxxxxxxxxxxxxx 2018-Present [address] [place] [address] xxxxxxxxxxxxxxx [id number] 1991 Unknown [id number] 1991 Unknown [id number] 1991 Unknown [id number] [id number] 1991 Unknown [id number] [id number] 1991 Unknown [id number] [id number] 1991 Unknown [id number] [id number] 1991 Unknown [id number] [id number] 1991 Unknown [id number] [id number] 1991 Unknown [id number] [id number] 1991 Unknown [id number] [id number] 1991 Unknown [id number] [id number] 1991 Unknown [id number] [id number] 1991 Unknown [id number] [id number] 1959 Medicaid [id number] [id number] 1959 Unknown [id number] Unknown [id number] Social History Date Type Detail Facility Start: 05-14-2019 End: 07-23-2022 Tobacco smoking status [facility] Never smoker [facility] Start: 04-19-2019 End: 05-14-2019 Alcohol intake Lifetime non-drinker (finding) [employer] Work Phone: Start: 04-19-2019 History SDOH Alcohol Frequency 1 [employer] Phone: Start: 02-23-2019 [employer] Work Phone: Start: 1990 Sex Assigned At Not on file [employer] Phone: Start: 09-27-2019 End: 09-03-2020 Tobacco use and exposure Never used [facility] [place] Exposure to SARS-CoV -2 (event) Not sure [place] Sex Assigned At [facility] Start: 1990 Sex Assigned At Female F [facility] Tobacco smoking status Never Gener [facility] [place] Functional Status Date Assessment Result Facility 07-23-2022 Functional Status N/A [facility] Clinical Notes 01-11-2021 to 04-20-2023 Note Date & Type Note Facility 04-20-2023 Evaluation note Encounter Date Diagnosis Assessment Notes Mar, Influenza A (ICD-10 - J10.1) Influenza: adult home care material was printed Drink plenty fluids, get plenty of rest. Use the fluticasone nasal spray as prescribed anterior sinus infection symptoms improved. Before starting the Medrol Dosepak, call your OB and clarify that this is okay. If it is okay with the OB, take the Medrol Dosepak as prescribed until gone. Take Mucinex as needed for nasal congestion. Take Tylenol as needed for aches and pains. Follow-up with your OB or family physician if no improvement in 2 to 3 days. It is recommended that you quarantine for another 2 days. Mar, Acute sinusitis, recurrence not specified, unspecified location (ICD-10 - J01.90) Mar, Second trimester (ICD-10 - Z34.92) Mar, Acute cough (ICD-10 - R05.1) [employer] Other 05-03-2023 Evaluation note* Encounter Date Diagnosis Assessment Notes Treatment Notes Treatment Clinical Notes July, Sore throat (ICD-10 - J02.9) July, Acute pharyngitis due to other specified organisms (ICD-10 - J02.8) Pharyngitis/tonsil lopharyngitis: adult home care material was printed Drink [...] of diseases classified elsewhere (ICD-10 - B96.89) [employer] Other 04-26-2023 NoteChief Complaint consultation for abdominal pain HPI Staff 32 year old female presents on consultation from [facility] [place] [facility] for abdominal pain. Presented to ED [...] female with h/o GERD, hypothyroidism, referred from [facility] ED for several week h/o intermittent [...] E&M of New Patient Moderate 45-59 Min 22478 2. Gastroesophageal reflux disease (K21.9: Gastro-esophageal reflux disease without esophagitis) will begin Protonix daily. Ordered: pantoprazole, 40 mg = 1 tab(s), Oral, Daily, # 30 tab(s), Refills(s) 3, Pharmacy: [id number], 165, cm, 07/23/22 13:58:00 EDT, Height/Length Dosing, 104.5, kg, 07/23/22 13:58:00 EDT, Weight Dosing E&M of New Patient Moderate 45-59 Min 55654 Follow-up No qualifying data available Problem List/Past Medical History Ongoing BMI 38.0-38.9,adult Gastroesophageal reflux disease Hiatal hernia Hypothyroidism RUQ pain Symptomatic cholelithiasis Vitamin D deficiency Historical No qualifying data Procedure/Surgical History Appendectomy. Medications Protonix 40 mg Tab-DR, 40 mg= 1 tab(s), Oral, Daily, 3 refills Slynd 4 mg oral tablet, 4 mg= 1 tab(s (more content not included)...[facility]Result Comment: Electronically Signed By: SUMI BARKLEY, Marcelina Alston\Date and Time Signed: 07/23/22 14:27 [id number] Evaluation note* Encounter Date Diagnosis Assessment Notes [...] understanding and is agreeable to treatment plan [employer] Other 10-12-2022 Evaluation note* Encounter Date Diagnosis [...] no improvement in 2 to 3 days. [employer] Other 11-30-2021 Evaluation note* Encounter Date Diagnosis Assessment Notes Treatment Notes Treatment Clinical Notes Jan, Herpes zoster without complication (ICD-10 - B02.9) [employer] Other 10-15-2021 Evaluation note* Encounter Date Diagnosis [...] Patient care instructions given in writting by [facility] Care At Home document. [employer] Other Evaluation + Plan note No data available for this section [facility] [place] Evaluation note* Diagnosis Women's annual routine gynecological examination documented in this encounter [employer] Phone: [email or web address] note* Diagnosis Amenorrhea Absence of menstruation Positive urine test Encounter for supervision of normal in first trimester, unspecified BMI 40.0-44.9, adult (HCC) Body Mass Index 40.0-44.9, adult Thyroid disease, antepartum Thyroid dysfunction, antepartum documented in this encounter [employer] Phone: [email or web address] noteNo assessment information available [facility] Work Phone: Evaluation noteNo InformationNort [employer] Other History general Narrative - Reported* Type Description Date Surgical History appendectomy Hospitalization History see above [employer] Other History general Narrative - Reported* Type Description Date Surgical History appendectomy Surgical History cholecystectomy Hospitalization History see above [employer] Other Hospital Discharge instructions No data available for this section [facility] Progress note No data available for this section [facility] [place] Discharge Instructions * Instructions* Carmella Vaca PA-C - 05/14/2019 Continue pushing liquids for the next 48 hours. Keep follow-up as scheduled with [facility]. If you go home and develop any worsening symptoms do not hesitate to return the emergency room. * Attachments The following attachments cannot be sent through Care Everywhere. * Nausea and Vomiting (Taiwanese) documented in this encounter* Instructions* Keya Haq RN - 12/09/2019 Follow-up with your OB doctor as specified. [facility] OB Department phone: Dr. Malgorzata Mills [facility] Dr. Sina Benedict [facility] [address] [facility] [address] [facility] [address] [place] or [place] Coni Orosco, MSN, [employer], CNM [facility] [address] [facility] [address] [address] Kelly [facility] [address] [facility] [address] Marylou Milton CNM [address] [place] [address] Dominique Worrell CNM [address] [place] [address] [phone] DIET Eat a well balanced diet focusing on foods high in fiber and protein. Drink plenty of fluids especially water. To avoid constipation you may take a mild stool softener as recommended by your doctor or hair assistant. ACTIVITY Gradually increase your activity. Resume exercise regimen only after advice by your doctor or hair assistant. Avoid lifting anything heavier than a gallon of milk for SIX weeks. Avoid driving until your doctor or hair assistant has given their approval. Rise slowly from [...] contact another adult for help or place infant in their crib on their back and [...] medications as recommended by your doctor or hair assistant for pain If you develop a warm, [...] vitamins as directed by your doctor or hair assistant. Refer to the booklet in the folder/binder for more information. If you feel you need more assistance or have questions, please call Latasha Iqbal IBCLC, strategic consultant, at or the OB department to [...] they become loose or soiled. If used, [place] should be removed by your care provider. [...] incidental Diagnosis Term Normal delivery Advance Directives Documents on File Type Date Recorded Patient Supervisor Residential Expl anation Advance Directives and Living Will Power of Electric Wheelchair Repairer Documents on File Type Date Recorded Patient Supervisor Residential Expl anation ACP-Advance Directive ACP-Power of Electric Wheelchair Repairer Latest Code Status on File Code Status Date Activated Date Inactivated Comments Full Code 12/07/2019 11:44 PM Full Code 12/07/2019 7:37 AM 12/07/2019 11:44 PM Full Code 12/07/2019 6:26 AM 12/07/2019 7:37 AM Latest Code Status on File Code Status Date Activated Date Inactivated Comments Full Code 12/07/2019 11:44 PM 12/09/2019 4:37 PM History of Present Illness * Marylou Benedict, [employer] - CNM - 12/09/2019 9:31 AM EDT [...] noted. FOB sleeping in chair at bedside. Infant sleeping inopen crib at mom's bedside. * [...] 2116 112/62 100 12/07/19 2115 98 % 12/07/19 2050 114/70 88 12/07/19 2037 117/87 98.4 F (36.9 C) Oral 71 [...] RN - 12/07/2019 10:[address] Sotomayor at bedside for delivery. * Zoe Han [...] for Visit (unrecogniz ed section and content) COUGH, CONGESTION Reason Comments Emesis pt states she has be en vomiting for 2 weeks,is 9 weeks , Pt states she has been on Phenergam Reglan and is on Keflex for a UTI Abdominal Cramping onset today Reason Comments Rupture of Membranes Status Reason Specialty Diagnoses / Procedures Referre d By Contact Referred To Contact Diagnoses Term Ira Tian, [address] [place] [address] [facility] INFORMATION SOURCE (unrecogn ized section and content) DATE CREATED AUTHOR 01/27/2021 [facility] DATE CREATED AUTHOR AUTHOR'S ORGANIZ ATION 08/13/2022 [facility] DATE CREATED AUTHOR AUTHOR'S ORGANIZ ATION 09/05/2022 [facility] DATE CREATED AUTHOR AUTHOR'S ORGANIZ ATION 01/04/2023 [facility] DATE CREATED AUTHOR AUTHOR'S ORGANIZ ATION 04/16/2023 [facility] Care Teams (unrecognized sec tion and [...] BE BASED ON THE PRIMARY CLINICAL RECORDS. [facility]. provides no warranty or guarantee of the accuracy or completeness of information in this document.
--- NOTE | 2023-04-23 05:03 | PC.NURSE ---
generalized rash, hives, concentrated mostly under areas where clothing touches including neck band of shirt and waistband of pants. Jaya is 20 weeks and recently was dx with influenza and prescribed Prednisone which she has never taken before. The rash just started last night after several doses of the Prednisone. She took one dose of Benadryl which did not help. She mentions a sore throat that also just started last night.
--- NOTE | 2023-04-23 05:10 | ED.ALLEREA1 ---
HPI - Allergic Reaction General Chief complaint: Skin/Abscess/Foreign Body Stated complaint: allergic reaction RASH Time Seen by Provider: 04/23/23 05:02 Source: patient Mode of arrival: walk-in Limitations: no limitations History of Present Illness HPI narrative: 33-year-old female presents for itching and rash. It started within the last day. Three days ago she was started on prednisone for influenza. The respiratory issue is much improved. The itching is continuous and she hasn't used any other new medications or heart attacks. She took some oral Benadryl at home. She is , twenty-two weeks. No vaginal bleeding. Related Data Previous Rx's Medication Instructions Recorded ondansetron 4 mg disintegrating 4 mg PO Q8H PRN nausea and 12/31/22 tablet vomiting 4 days #16 tabs doxylamine 10 mg-pyridoxine (vit 1 tab PO TID PRN nausea #30 tabs 01/04/23 B6) 10 mg tablet,delayed release (Diclegis) metoclopramide HCl 10 mg tablet 10 mg PO Q6H PRN nausea and 01/18/23 (Reglan) vomiting #12 tabs metoclopramide HCl 10 mg tablet 10 mg PO Q6H PRN nausea and 04/08/23 (Reglan) vomiting #12 tabs Allergies Allergy/AdvReac Type Severity Reaction Status Date / Time No Known Drug Allergies Allergy Verified 04/19/23 20:17 Review of Systems ROS Narrative A ten point review of systems is negative except as noted above. PFSH PFSH Social History Smoking status: Never smoker Exam Narrative Exam Narrative: Nurses note and vital signs reviewed and patient is not hypoxic. General: The patient appears well and in no apparent distress. Patient is resting comfortably on cart. Skin: Warm, dry, no pallor noted. There are areas of urticaria present primarily on her back and lower abdomen. Tongue not swollen. She is handling her oral secretions well. Head: Normocephalic, atraumatic Eye: Normal conjunctiva, no drainage Ears, Nose, Mouth, and Throat: oral mucosa is moist. Nares patent. Cardiovascular: Regular Rate and Rhythm Respiratory: Patient is in no distress, no accessory muscle use, lungs are clear to auscultation, no wheezing, rales or rhonchi Back: non-tender GI: often nontender Musculoskeletal: The patient has no evidence of calf tenderness, no pitting edema, symmetrical pulses noted bilaterally Neurological: A&O x4, normal speech Psychiatric: Cooperative Constitutional Vital Signs, click to edit/add: Last Vital Signs Temp 97.6 F 04/23/23 04:53 Pulse 107 H 04/23/23 04:53 Resp 18 04/23/23 04:53 BP 136/83 04/23/23 04:53 Pulse Ox 98 04/23/23 04:53 O2 Del Method Room Air 04/23/23 04:53 Course Vital Signs Vital signs: Vital Signs Temperature 97.6 F 04/23/23 04:53 Pulse Rate 107 H 04/23/23 04:53 Respiratory Rate 18 04/23/23 04:53 Blood Pressure 136/83 04/23/23 04:53 Pulse Oximetry 98 04/23/23 04:53 Oxygen Delivery Method Room Air 04/23/23 04:53 Temperature 97.6 F 04/23/23 04:53 Pulse Rate 107 H 04/23/23 04:53 Respiratory Rate 18 04/23/23 04:53 Blood Pressure 136/83 04/23/23 04:53 Pulse Oximetry 98 04/23/23 04:53 Oxygen Delivery Method Room Air 04/23/23 04:53 MDM - Allergic Reaction MDM Narrative Medical decision making narrative: the only new medication or Morris is prednisone. She will discontinue it and was given IM Benadryl. Treatment diagnosis and follow-up were discussed with the patient. Differential Diagnosis Differential diagnosis: Likely allergic reaction, contact dermatitis, adverse reaction to drug, viral enanthem and urticaria Discharge Plan Discharge Chief Complaint: Skin/Abscess/Foreign Body Clinical Impression: Allergic reaction to drug Patient Disposition: Home, Self-Care Time of Disposition Decision: 05:09 Condition: Good Mode of Transportation: Private Vehicle Prescriptions / Home Meds: No Action doxylamine-pyridoxine (vit B6) [Diclegis] 10-10 mg tablet,delayed release (DR/EC) 1 tab PO TID PRN (Reason: nausea) Qty: 30 0RF ondansetron 4 mg tablet,disintegrating 4 mg PO Q8H PRN (Reason: nausea and vomiting) 4 Days Qty: 16 0RF metoclopramide HCl [Reglan] 10 mg tablet 10 mg PO Q6H PRN (Reason: nausea and vomiting) Qty: 12 0RF metoclopramide HCl [Reglan] 10 mg tablet 10 mg PO Q6H PRN (Reason: nausea and vomiting) Qty: 12 0RF Instructions: General Allergic Reaction (ED) Additional Instructions: discontinue prednisone Benadryl, 25 mg by mouth every six hours as needed for itching and rash Stand Alone Forms: Portal Instructions Referrals: ZENAIDA BUTTS [Primary Care Provider] - 1 week
[2023-04-23] MEDS: DIPHENHYDRAMINE HCL 50 MG/ML (1ML) VIAL IM (05:31)
== END 2023-04-23 05:37 | disposition home or self-care (01) ==
PROVIDERS: Emergency Provider Emergency Medicine; PCP Family Medicine
DX: O9A.212 Injury, poisoning and certain other consequences of external causes complicating pregnancy, second trimester (principal); T38.0X5A Adverse effect of glucocorticoids and synthetic analogues, initial encounter; Z3A.22 22 weeks gestation of pregnancy
CPT/HCPCS: 96372; 99284; J1200

== ENCOUNTER 2023-04-24 16:04 | Emergency (ER) | payer OTHER, SELFPAY ==
[2023-04-24 16:06] VITALS: BP 120/70; PULSE 101; RESP 18; TEMP 37.1; O2SAT 97; BMI 35.8
--- OUTSIDE RECORDS SUMMARY | 2023-04-24 16:10 | XMS_ITS | CCD ---
Author Name Unknown Address [address] [place] [address] Organization [facility] Care Team Providers Care Framer Name Role Phone Sal Bautista Primary Care Provider Cynthia Amaya Unavailable Mabel Marte Unavailable RAMONA Sanders Attending Provider [phone] Abbey Sanders Unavailable SAL BAUTISTA Primary Care [...] SAL BAUTISTA G Primary Care Unavailable LISANG, SAL G Primary Care Unavailable DREW SUNGTRONG, IRA F Referring Unavail able DREW SUNGPRISCILLA IRA F Referring Unavail able SAL BAUTISTA G Primary Care Unavailable Allergies Allergy Classification Reported Allergen(s) Allergy Type Date of Onset Reaction(s) Facility (1 source) No Known Medication Allergies; Translations: [No Known Medication Allergies] Propensity to adverse reactions (disorder) [facility] Repository Medications Current Medications Medication Drug Class(es) [...] 30 tab(s), Refills(s) 3, Pharmacy: [id number], 165, cm, 07/23/22 13:58:00 EDT, Height/Length Dosing, [...] 06-05-2017 04-19-2019 Chronic Other aftercare (1 source) detention (current) use of hormonal contraceptives; Translations: [PANAMA HAT BLOCKER HORMONAL CONTRACEPTIVES] Onset: 05-20-2022 Episodic Other complications [...] 07-15-2022 Episodic Other aftercare (1 source) 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; Translations: [OTH PANAMA HAT BLOCKER CURRENT DRUG THERAPY] Onset: 11-29-2021 Episodic Other complications of (1 source) Thyroid disease in Episodic Unclassified (1 source) Acute cough R05.1 Viral infection (1 source) Zoster without complications Onset: 02-26-2021 Resolved: 02-26-2021 Episodic Results Test Name Value Interpretation Reference Range Facility COVID + FLU Quick Testingon 04-20-2023 SARS-CoV-2 (COVID-19) RNA FLORENCIA+probe Ql (Unsp spec) Negative [facility] Other COVID + FLU Quick Testing Positive [facility] Other COVID + FLU Quick Testing Negative [facility] Other Chlamydia/GC DNA, Uron 01-16 Chlamydia Probe, Ur Negative Normal NEG [facility] Comment on above: Result Comment: CHLA [...] target. Performed By: #### U CGP #### [facility] [email or web address] [address] [place] [address] [id number] [employer] Wrapper: Devin Yeager MD Gonorrhea Probe, Ur Negative Normal NEG [facility] Comment on above: Result Comment: NEIS [...] target. Performed By: #### U CGP #### [facility] [email or web address] [address] [place] [id number] [employer]: Devin Yeager MD HIV Ag/Abon 01-16-2023 HIV Ag/Ab Non-Reactive Normal NR [facility] Comment on above: Result Comment: No l aboratory evidence of HIV infection. If acute HIV infection is suspected, consider testing for HIV-1 RNA. Performed By: #### H IVCMB, GLYHGB, AHCV #### [facility] [email or web address] [address] [place] [address] [id number] [employer]: Devin Yeager MD Profileon T.pallidum Ab Screen Non-Reactive Normal NR [facility] Comment on above: Result Comment: T. pallidum antibodies are not detected. There is no serological evidence of infection with T. pallidum (early primary syphilis cannot be excluded). Retest in 2-4 weeks if syphilis is clinically suspect. Performed By: #### P RENAT #### [address] [id number] [employer]: Devin Yeager MD [facility] [address] [place] [address] [place] [address] [employer]: Dalia Dutton MD Cult,Urineon 01-15-2023 Cult,Urine Specimen Description .CLEAN CATCH URINE Culture NO SIGNIFICANT GROWTH Report Status FINAL 01/15/2023 Normal [facility] Comment on above: Performed By: #### U RC #### [address] [address] [employer]: Devin Yeager MD [facility] [address] [place] [address] [place] [address] [employer]: Dalia Dutton MD Hemoglobin A1Con 01-15-2023 Glucose [Mass/Vol] 100 mg/dL Normal [facility] Comment on above: Result Comment: The ADA and AACC recommend providing the estimated average glucose result to permit better patient understanding of their HBA1c result. Performed By: #### H IVCMB, GLYHGB, AHCV #### [address] [address] [employer]: Devin Yeager MD HbA1c (Bld) [Mass fraction] 5.1 % Normal 4.0-6.0 [facility] Comment on above: Performed By: #### H IVCMB, GLYHGB, AHCV #### [address] [address] [employer]: Devin Yeager MD Hep C Abon 01-15-2023 Hep C Ab Non-Reactive Normal NR [facility] Comment on above: Result Comment: The [...] By: #### H IVCMB, GLYHGB, AHCV #### [address] [id number] [employer]: Devin Yeager MD Profileon 3 Rubella Ab, IgG >500.0 Normal [facility] Comment on above: Result Comment: REFERENCE RANGE: <5.0 NON-REACTIVE (non-immune) 5.0 TO 9.9 EQUIVOCAL >=10.0 REACTIVE (immune) Performed By: #### P RENAT #### [address] [address] [employer]: Devin Yeager MD [address] [place] [address] [employer]: Dalia Dutton MD Hep B Surf Ag Non-Reactive Normal NR [facility] Comment on above: Performed By: #### P RENAT #### [address] [address] [employer]: Devin Yeager MD [address] [place] [address] [employer]: Dalia Dutton MD Profileon 3 Abs. Basophil 0.05 k/uL Normal 0.00-0.20 [facility] Comment on above: Performed By: #### P RENAT #### [address] [address] [employer]: Devin Yeager MD [address] [place] [address] [employer]: Dalia Dutton MD Abs.Imm.Granulocyte 0.03 k/uL Normal 0.00-0.30 [facility] Comment on above: Performed By: #### P RENAT #### [address] [address] [employer]: Devin Yeager MD [facility] [address] [place] [address] [place] [address] [employer]: Dalia Dutton MD Abs.Neutrophil (Seg) 7.47 k/uL Normal 1.50-8.10 [facility] Comment on above: Performed By: #### P RENAT #### [address] [place] [address] [employer]: Devin Yeager MD [facility] [address] [place] [address] Dr[address] [place] [place] [id number] [employer]: Dalia Dutton MD Basophils/100 WBC (Bld) 1 % Normal 0-2 [facility] Comment on above: Performed By: #### P RENAT #### [address] [address] [employer]: Devin Yeager MD [facility] [address] [place] [address] Dr. [place] [id number] [employer]: Dalia Dutton MD Eosinophils (Bld) [#/Vol] 0.08 10*3/uL Normal 0.00-0.44 [facility] Comment on above: Performed By: #### P RENAT #### [address] [address] [employer]: Devin Yeager MD [address] [place] [id number] [employer]: Dalia Dutton MD Eosinophils/100 WBC (Bld) 1 % Normal 1-4 [facility] Comment on above: Performed By: #### P RENAT #### [address] [address] [employer]: Devin Yeager MD [facility] [address] [place] [address] [place] [address] [employer]: Dalia Dutton MD Erythrocyte distribution width (RBC) [Ratio] 12.1 % Normal 11.8-14.4 [facility] Comment on above: Performed By: #### P RENAT #### [address] [address] [employer]: Devin Yeager MD [facility] [address] [place] [address] Dr. [place] [id number] [employer]: Dalia Dutton MD Hematocrit (Bld) [Volume fraction] 39.2 % Normal 36.3-47.1 [facility] Comment on above: Performed By: #### P RENAT #### [address] [address] [employer]: Devin Yeager MD [facility] [address] [place] [address] Dr. [place] [id number] [employer]: Dalia Dutton MD Hemoglobin (Bld) [Mass/Vol] 13.0 g/dL Normal 11.9-15.1 [facility] Comment on above: Performed By: #### P RENAT #### [address] [address] [employer]: Devin Yeager MD [address] [place] [id number] [employer]: Dalia Dutton MD Immature granulocytes/100 WBC (Bld) 0 % Normal 0 [facility] Comment on above: Performed By: #### P RENAT #### [address] [address] [employer]: Devin Yeager MD [facility] [address] [place] [address] [place] [address] [employer]: Dalia Dutton MD Lymphocytes (Bld) [#/Vol] 1.23 10*3/uL Normal 1.10-3.70 [facility] Comment on above: Performed By: #### P RENAT #### [address] [address] [employer]: Devin Yeager MD [facility] [address] [place] [address] [place] [address] [employer]: Dalia Dutton MD Lymphocytes/100 WBC (Bld) 13 % Low 24-43 [facility] Comment on above: Performed By: #### P RENAT #### [address] [address] [employer]: Devin Yeager MD [address] [place] [id number] [employer]: Dalia Dutton MD MCH (RBC) [Entitic mass] 30.0 pg Normal 25.2-33.5 [facility] Comment on above: Performed By: #### P RENAT #### [address] [address] [employer]: Devin Yeager MD [address] [place] [address] [employer]: Dalia Dutton MD MCHC (RBC) [Mass/Vol] 33.2 g/dL Normal 28.4-34.8 [facility] Comment on above: Performed By: #### P RENAT #### [address] [address] [employer]: Devin Yeager MD [address] [place] [id number] [employer]: Dalia Dutton MD MCV (RBC) [Entitic vol] 90.3 fL Normal 82.6-102.9 M [facility] Comment on above: Performed By: #### P RENAT #### [address] [address] [employer]: Devin Yeager MD [address] [place] [id number] [employer]: Dalia Dutton MD Monocytes (Bld) [#/Vol] 0.57 10*3/uL Normal 0.10-1.20 [facility] Comment on above: Performed By: #### P RENAT #### [address] [address] [employer]: Devin Yeager MD [address] Rosado [facility] Cl[employer] Wrapper: Dalia Dutton MD Monocytes/100 WBC (Bld) 6 % Normal 3-12 M [facility] Comment on above: Performed By: #### P RENAT #### [address] [place] [address] [employer] Wrapper: Devin Yeager MD [facility] [address] [place] [address] Dr. [place] [id number] [employer]: Dalia Dutton MD Neutrophil (Seg) 79 % High 36-65 [facility] Comment on above: Performed By: #### P RENAT #### [address] [address] [employer]: Devin Yeager MD [facility] [address] [place] [address] Dr. [place] [id number] [employer]: Dalia Dutton MD NRBC Automated 0.0 per 100 WBC Normal 0.0 [facility] Comment on above: Performed By: #### P RENAT #### [address] [address] [employer]: Devin Yeager MD [facility] [address] [place] [address] [place] [address] [employer]: Dalia Dutton MD Platelet mean volume (Bld) [Entitic vol] 12.6 fL Normal 8.1-13.5 [facility] Comment on above: Performed By: #### P RENAT #### [address] [address] [employer] W[employer]: Devin Yeager MD [facility] [address] [place] [address] [place] [address] [employer] Wrapper: Dalia Dutton MD Platelets (Bld) [#/Vol] 313 10*3/uL Normal 138-453 [facility] Comment on above: Performed By: #### P RENAT #### [address] [id number] [employer]: Devin Yeager MD [address] [place] [address] [employer]: Dalia Dutton MD RBC (Bld) [#/Vol] 4.34 10*6/uL Normal 3.95-5.11 [facility] Comment on above: Performed By: #### P RENAT #### [address] [id number] [employer]: Devin Yeager MD [address] [place] [id number] [employer]: Dalia Dutton MD WBC (Bld) [#/Vol] 9.4 10*3/uL Normal 3.5-11.3 [facility] Comment on above: Performed By: #### P RENAT #### [address] [address] [employer]: Devin Yeager MD [address] [place] [address] [employer] Wrapper: Dalia Dutton MD Type + Scrnon 01-14 Type + Scrn Negative Normal [facility] Comment on above: Performed By: #### P RTYS #### [address] [place] [address] [employer] Wrapper: Dalia Dutton MD TSH w/reflex to FT4on 2022 Thyroid Stim. Horm. 0.54 uIU/mL Normal 0.30-5.00 [facility] Comment on above: Performed By: #### T SHX #### [address] [place] [address] [employer] Wrapper: Dalia Dutton MD Provider Letteron 08-28-2022 Provider Letter August 28, 2022 ZULEYKA COBOS [address] [place] [id number] : 1990 To Whom It May Concern, The above named person may return to work 08/31/22 without restrictions. Sincerely, Dr. Marcelina Dixon MD General Surgery Normal [facility] Ambulatory Visit Summaryon 0 08-20-2022 Ambulatory Visit Summary ZULEYKA COBSO :1990 Visit Date:08/20/2022 Ambulatory Visit Instructions Your [...] RUQ pain Symptomatic cholelithiasis Vitamin D deficiency [facility] General Surgery Office/Clini c Noteon 08-20-2022 [...] BARKLEY, KRIS Hanson Only if needed [address] [place] [address]- Additional Instructions: Problem List/Past Medical [...] vac - Not Given Patient Refuses Normal [facility] Comment on above: Result Comment: Elec tronically Signed By: SUMI BARKLEY, Marcelina Alston\Date and Time Signed: 08/20/22 14:08 EDT Pathology Noteon 08-20-2022 Pathology Note [id number] 99#1.00CD:127 Normal [facility] Operative Reporton Operative Report [id number] BC#1.00CD:127 [facility] PREG HCG QUALon 08-13-2022 , QUAL Negative Normal NEGATIVE [facility] Comment on above: Performed By: #### P REG #### [facility] [address] [place] [address] Dr. Esteban Meneses Formson 08-05-2022 Forms [id number]. [id number] A0#1.00CD:127 Normal [facility] Quick Strepon 07-30-2022 S. pyogenes Org specific cx Ql (Throat) Negative [facility] Other Quick Strep [facility] Other Pre-Certification Formon Pre-Certification Form [id number] 272#1.00CD:127 [facility] Consent for Procedure/Surger yon 07-24-2022 Consent for Procedure/Surgery [id number]. [id number] F0#1.00CD:127 [facility] Facesheeton 07-24-2022 Facesheet [id number]. [id number] AF#1.00CD:127 [facility] Ambulatory Visit Summaryon 0 07-23-2022 Ambulatory [...] Gastroesophageal reflux disease Refills: 3 [id number] Unchanged drospirenone (Slynd 4 mg oral tablet) 1 Tablets By Mouth Every day Contact prescribing physician if questions or concerns Pharmacy Information [email or web address][id number]: [address] [place], [place] [id number] [phone] Medications and Immunizations Administered Not Given influenza virus vaccine, inactivated, Patient Refuses SARS-CoV-2 mRNA (tonicknameran 5y-11y) vac, Patient Refuses Allergies No Known Allergies No Known Medication Allergies Problems Ongoing - Any problem that you are currently receiving treatment for. BMI 38.0-38.9,adult Gastroesophageal reflux disease Hiatal hernia Hypothyroidism RUQ pain Symptomatic cholelithiasis Vitamin D deficiency Normal [facility] Vaginitis DNA Probeon 2022 Jessy Negative Normal NEG [facility] Comment on above: Result Comment: for Jessy sp. Method of testing is a DNA probe intended for detection and identification of Jessy species, Gardnerella vaginalis, and Trichomonas vaginalis nucleic acid in vaginal fluid specimens from patients with symptoms of vaginitis/vaginosis. Performed By: #### V AGP #### [facility] [email or web address] [address] [place] [address] [id number] [employer]: Devin Yeager MD [facility] [address] [place] [address] Dr. [place], [place] [id number] [employer]: Dalia Dutton MD Gardnerella Negative Normal [facility] Comment on above: Result Comment: for Gardnerella vaginalis Performed By: #### V AGP #### [facility] [address] [place] [address] [employer] Wrapper: Devin Yeager MD [facility] [address] [place] [address] Dr. [place], [place] [id number] [employer] Wrapper: Dalia Dutton MD Trichomonas Negative Normal NEG [facility] Comment on above: Result Comment: for Trichomonas Vaginalis Performed By: #### V AGP #### [address] [address] [employer]: Devin Yeager MD [facility] [address] [place] [address] Dr. [place], [place] [id number] [employer]: Dalia Dutton MD Vaginitis DNA Probeon 2022 Source .VAGINAL SWAB Normal [facility] Comment on above: Performed By: #### V AGP #### [address] [address] [employer]: Devin Yeager MD [facility] [address] [place] [address] Dr. [place], [place] [id number] [employer]: Dalia Dutton MD ED Note-Physicianon 07-15-19 ED Note-Physician [id number]#1.00CD:127 Normal [facility] RAD - Ultrasound Reporton RAD - Ultrasound Report [id number] 7C#1.00CD:127 Normal [facility] CBC AUTO DIFFon 07-10-2022 BASO # 0.0 103/ul Normal 0.0-0.1 [facility] Comment on above: Performed By: #### L IPA, MARITO, CMP, CMADM #### [facility] [address] [place], [place] [address] Dr. Esteban Meneses Basophils/100 WBC (Bld) 0.4 % Normal 0.2-2.0 [facility] Comment on above: Performed By: #### L IPA, MARITO, CMP, CMADM #### [facility] [address] [place] [address] Dr. Esteban Meneses EO # 0.1 103/ul Normal 0.0-0.7 [facility] Comment on above: Performed By: #### L IPA, MARITO, CMP, CMADM #### [facility] [address] [place] [address] Dr. Esteban Meneses Eosinophils/100 WBC (Bld) 0.8 % Critically low 0.9-7.0 [facility] Comment on above: Performed By: #### L IPA, MARITO, CMP, CMADM #### [facility] [address] [place] [address] Dr. Esteban Meneses Erythrocyte distribution width (RBC) [Ratio] 12.3 % Normal 11.0-15.0 [facility] Comment on above: Performed By: #### L IPA, MARITO, CMP, CMADM #### [facility] [address] [place] [address] Dr. Esteban Meneses Hematocrit (Bld) [Volume fraction] 37.9 % Normal 36.0-48.0 [facility] Comment on above: Performed By: #### L IPA, MARITO, CMP, CMADM #### [facility] [address] [place] [address] Dr. Esteban Meneses Hemoglobin (Bld) [Mass/Vol] 12.8 g/dL Normal 12.0-16.0 [facility] Comment on above: Performed By: #### L IPA, MARITO, CMP, CMADM #### [facility] [address] [place] [address] Dr. Esteban Meenses IG # 0.03 10e3/ul Normal 0.00-0.03 [facility] Comment on above: Performed By: #### L IPA, MARITO, CMP, CMADM #### [facility] [address] [place] [address] Dr. Esteban Meneses IG % 0.3 % Normal 0.0-0.5 [facility] Comment on above: Performed By: #### L IPA, MARITO, CMP, CMADM #### [facility] [address] [place] [address] Dr. Esteban Meneses LYMPH # 0.8 103/ul Critically low 1.2-3.[address] [facility] Comment on above: Performed By: #### L IPA, MARITO, CMP, CMADM #### [facility] [address] [place] [address] Dr. Esteban Meneses Lymphocytes/100 WBC (Bld) 8.2 % Critically low 20.5-60.0 [facility] Comment on above: Performed By: #### L IPA, MARITO, CMP, CMADM #### [facility] [address] [place] [address] Dr. Esteban Meneses MANUAL DIFF REQ NO Normal [facility] Comment on above: Performed By: #### L IPA, MARITO, CMP, CMADM #### [facility] [address] [place] [address] Dr. Esteban Meneses MCH (RBC) [Entitic mass] 29.4 pg Normal 26.7-34.0 [facility] Comment on above: Performed By: #### L IPA, MARITO, CMP, CMADM #### [facility] [address] [place] [address] Dr. Esteban Meneses MCHC (RBC) [Mass/Vol] 33.8 g/dL Normal 29.9-35.2 [facility] Comment on above: Performed By: #### L IPA, MARITO, CMP, CMADM #### [facility] [address] [place] [address] Dr. Esteban Meneses MCV (RBC) [Entitic vol] 87.1 fL Normal 81.0-99.0 [facility] Comment on above: Performed By: #### L IPA, MARITO, CMP, CMADM #### [facility] [address] [place] [address] Dr. Esteban Meneses MONO # 0.5 103/ul Normal 0.3-0.8 [facility] Comment on above: Performed By: #### L IPA, MARITO, CMP, CMADM #### [facility] [address] [address] [address] Esteban Meneses Monocytes/100 WBC (Bld) 5.1 % Normal 1.7-12.0 [facility] Comment on above: Performed By: #### L IPA, MARITO, CMP, CMADM #### [facility] [address] [place] [address] Dr. Esteban Meneses NEUT # 8.3 103/ul Critically high 1.4-6.5 [facility] Comment on above: Performed By: #### L IPA, MARITO, CMP, CMADM #### [facility] [address] [place] [address] Dr. Esteban Meneses Neutrophils/100 WBC (Bld) 85.2 % Critically high 43.0-75.0 [facility] Comment on above: Performed By: #### L IPA, MARITO, CMP, CMADM #### [facility] [address] [place] [address] Dr. Esteabn Meneses Platelet mean volume (Bld) [Entitic vol] 10.9 fL Normal 9.5-13.5 [facility] Comment on above: Performed By: #### L IPA, MARITO, CMP, CMADM #### [facility] [address] [place] [address] Dr. Esteban Meneses PLT 302 103/ul Normal 150-450 [facility] Comment on above: Performed By: #### L IPA, MARITO, CMP, CMADM #### [facility] [address] [place] [address] Dr. Esteban Meneses RBC 4.35 106/ul Normal 4.20-5.40 [facility] Comment on above: Performed By: #### L IPA, MARITO, CMP, CMADM #### [facility] [address] [place] [address] Dr. Esteban Meneses WBC 9.8 103/ul Normal 4.0-11.0 [facility] Comment on above: Performed By: #### L IPA, MARITO, CMP, CMADM #### [facility] [address] [address] [address] Esteban Meneses ER URINE PROFILEon 3 Bilirubin Ql (U) Negative Normal NEGATIVE [facility] Comment on above: Performed By: #### L IPA, MARITO, CMP, CMADM #### [facility] [address] [address] [address] Esteban Meneses Clarity (U) CLEAR Normal CLEAR [facility] Comment on above: Performed By: #### L IPA, MARITO, CMP, CMADM #### [facility] Laboratory [address] [address] [address] Esteban Meneses Color (U) YELLOW Normal YELLOW [facility] Comment on above: Performed By: #### L IPA, MARITO, CMP, CMADM #### [facility] Laboratory [address] [address] [address] Esteban TERRAZAS A micrscopic examination will be performed if indicated. Normal [facility] Comment on above: Performed By: #### L IPA, MARITO, CMP, CMADM #### [facility] Laboratory [address] [address] [address] Esteban Meneses Glucose Ql (U) Negative Normal NEGATIVE [facility] Comment on above: Performed By: #### L IPA, MARITO, CMP, CMADM #### [facility] Laboratory [address] [address] [address] Esteban Meneses Hemoglobin Ql (U) TRACE-INTACT Abnormal NEGATIVE [facility] Comment on above: Performed By: #### L IPA, MARITO, CMP, CMADM #### [facility] Laboratory [address] [address] [address] Esteban Meneses Ketones Ql (U) Negative Normal NEGATIVE [facility] Comment on above: Performed By: #### L IPA, MARITO, CMP, CMADM #### [facility] Laboratory [address] [address] [address] Esteban Meneses LEUKOCYTES Negative Normal NEGATIVE [facility] Comment on above: Performed By: #### L IPA, MARITO, CMP, CMADM #### [facility] Laboratory [address] [address] [address] Esteban Meneses Nitrite Ql (U) Negative Normal NEGATIVE [facility] Comment on above: Performed By: #### L IPA, MARITO, CMP, CMADM #### [facility] Laboratory [address] [place] [address] Dr. Esteban Meneses pH (U) 5.5 [pH] Normal 5-9 [facility] Comment on above: Performed By: #### L IPA, MARITO, CMP, CMADM #### [facility] Laboratory [address] [place] [address] Dr. Esteban Meneses SPEC GRAVITY 1.025 Normal 1.005-<=1.025 [facility] Comment on above: Performed By: #### L IPA, MARITO, CMP, CMADM #### [facility] Laboratory [address] [place] [address] Dr. Esteban Meneses UA PROTEIN TRACE Normal NEGATIVE/ TRACE [facility] Comment on above: Performed By: #### L IPA, MARITO, CMP, CMADM #### [facility] Laboratory [address] [place] [address] Dr. Esteban Meneses UR MICRO IND NOT INDICATED Normal [facility] Comment on above: Performed By: #### L IPA, MARITO, CMP, CMADM #### [facility] [address] [place] [address] Dr. Esteban Meneses Urobilinogen Qn (U) 0.2 {Roxana'U}/dL Normal 0.2 - 1. 0 [facility] Comment on above: Performed By: #### L IPA, MARITO, CMP, CMADM #### [facility] Laboratory [address] [place] [address] Dr. Esteban Meneses LIPASEon 07-10-2022 Lipase [Catalytic activity/Vol] 53.0 U/L Critically low 73.0-393.0 [facility] Comment on above: Performed By: #### L IPA, MARITO, CMP, CMADM #### [facility] Laboratory [address] [place] [address] Dr. Esteban Meneses URon 07-10-2022 , QUAL Negative Normal NEGATIVE [facility] Comment on above: Performed By: #### L IPA, MARITO, CMP, CMADM #### [facility] Laboratory [address] [place] [address] Dr. Esteban Meneses PROF 14(COMP METB)on 023 Albumin [Mass/Vol] 3.8 g/dL Normal 3.4-5.0 [facility] Comment on above: Performed By: #### L IPA, MARITO, CMP, CMADM #### [facility] Laboratory [address] [address] [address] Esteban Meneses Albumin/Globulin [Mass ratio] 1.0 {ratio} Normal [facility] Comment on above: Performed By: #### L IPA, MARITO, CMP, CMADM #### [facility] [address] [place] [address] Dr. Esteban Meneses ALP [Catalytic activity/Vol] 77 U/L Normal 46-116 [facility] Comment on above: Performed By: #### L IPA, MARITO, CMP, CMADM #### [facility] [address] [place] [address] Dr. Esteban Meneses ALT [Catalytic activity/Vol] 19 U/L Normal 14-59 [facility] Comment on above: Performed By: #### L IPA, MARITO, CMP, CMADM #### [facility] [address] [place] [address] Dr. Esteban Meneses Anion gap [Moles/Vol] 12.0 mmol/L Normal [facility] Comment on above: Performed By: #### L IPA, MARITO, CMP, CMADM #### [facility] [address] [place] [address] Dr. Esteban Meneses AST [Catalytic activity/Vol] 14 U/L Critically low 15-37 [facility] Comment on above: Performed By: #### L IPA, MARITO, CMP, CMADM #### [facility] [address] [place] [address] Dr. Esteban Meneses Bilirubin [Mass/Vol] 0.7 mg/dL Normal 0.2-1.0 [facility] Comment on above: Performed By: #### L IPA, MARITO, CMP, CMADM #### [facility] [address] [place] [address] Dr. Esteban Meneses Calcium [Mass/Vol] 8.9 mg/dL Normal 8.5-10.1 [facility] Comment on above: Performed By: #### L IPA, MARITO, CMP, CMADM #### [facility] [address] [address] [address] Esteban Meneses Chloride [Moles/Vol] 103 mmol/L Normal 98-107 [facility] Comment on above: Performed By: #### L IPA, MARITO, CMP, CMADM #### [facility] [address] [address] [address] Esteban Meneses CO2 [Moles/Vol] 25.3 mmol/L Normal 21.0-32.0 [facility] Comment on above: Performed By: #### L IPA, MARITO, CMP, CMADM #### [facility] [address] [address] [address] Esteban Meneses Creatinine [Mass/Vol] 0.90 mg/dL Normal 0.55-1.02 [facility] Comment on above: Performed By: #### L IPA, MARITO, CMP, CMADM #### [facility] [address] [address] [address] Esteban Meneses EGFR-AF BURUNDIAN >60 Normal >=60 [facility] Comment on above: Performed By: #### L IPA, MARITO, CMP, CMADM #### [facility] [address] [address] [address] Esteban Meneses EGFR-NON AF BURUNDIAN >60 Normal >=60 [facility] Comment on above: Performed By: #### L IPA, MARITO, CMP, CMADM #### [facility] [address] [address] [address] Esteban Meneses Globulin (S) [Mass/Vol] 3.7 g/dL Normal [facility] Comment on above: Performed By: #### L IPA, MARITO, CMP, CMADM #### [facility] [address] [address] [address] Esteban Meneses Glucose [Mass/Vol] 97 mg/dL Normal 74-106 [facility] Comment on above: Performed By: #### L IPA, MARITO, CMP, CMADM #### [facility] [address] [address] [address] Esteban Meneses Potassium [Moles/Vol] 4.0 mmol/L Normal 3.5-5.1 [facility] Comment on above: Performed By: #### L IPA, MARITO, CMP, CMADM #### [facility] [address] [address] [address] Esteban Meneses Protein [Mass/Vol] 7.5 g/dL Normal 6.4-8.2 [facility] Comment on above: Performed By: #### L IPA, MARITO, CMP, CMADM #### [facility] [address] [place] [address] Dr. Esteban Meneses Sodium [Moles/Vol] 137 mmol/L Normal 136-145 [facility] Comment on above: Performed By: #### L IPA, MARITO, CMP, CMADM #### [facility] [address] [address] [address] Esteban Meneses Urea nitrogen [Mass/Vol] 16.0 mg/dL Normal 7.0-18.0 [facility] Comment on above: Performed By: #### L IPA, MARITO, CMP, CMADM #### [facility] [address] [place] [address] Dr. Esteban Meneses Urea nitrogen/Creatinine [Mass ratio] 17.8 mg/mg Normal [facility] Comment on above: Performed By: #### L IPA, MARITO, CMP, CMADM #### [facility] [address] [place] [address] Dr. Esteban Meneses US SINGLE QUAD RT [...] GABE PETERSON Date: 2022-07-08 15:40 Normal [facility] ER URINE PROFILEon 3 Clarity (U) CLEAR Normal CLEAR [facility] Comment on above: Performed By: #### L IPA, MARITO, CMP, CMADM #### [facility] [address] [place] [address] Dr. Esteban Meneses ERUAHD A micrscopic examination will be performed if indicated. Normal [facility] Comment on above: Performed By: #### L IPA, MARITO, CMP, CMADM #### [facility] [address] [place] [address] Dr. Esteban Meneses Hemoglobin Ql (U) TRACE-INTACT Abnormal NEGATIVE [facility] Comment on above: Performed By: #### L IPA, MARITO, CMP, CMADM #### [facility] [address] [place] [address] Dr. Esteban Meneses LEUKOCYTES Negative Normal NEGATIVE [facility] Comment on above: Performed By: #### L IPA, MARITO, CMP, CMADM #### [facility] [address] [address] [address] Esteban Meneses SPEC GRAVITY 1.025 Normal 1.005-<=1.025 [facility] Comment on above: Performed By: #### L IPA, MARITO, CMP, CMADM #### [facility] [address] [address] [address] Esteban Meneses UA PROTEIN Negative Normal NEGATIVE/ TRACE [facility] Comment on above: Performed By: #### L IPA, MARITO, CMP, CMADM #### [facility] [address] [place] [address] Dr. Esteban Meneses UR MICRO IND INDICATED Normal [facility] Comment on above: Performed By: #### L IPA, MARITO, CMP, CMADM #### [facility] [address] [address] [address] Esteban Meneses Urobilinogen Qn (U) 1.0 {Roxana'U}/dL Normal 0.2 - 1. 0 [facility] Comment on above: Performed By: #### L IPA, MARITO, CMP, CMADM #### [facility] [address] [address] [address] Esteban Meneses URon 06-19-2022 , QUAL Negative Normal NEGATIVE [facility] Comment on above: Performed By: #### L IPA, MARITO, CMP, CMADM #### [facility] Laboratory [address] [place] [address] Dr. Esteban Meneses URINE MICROSCOPIC ONLYon BACTERIA TRACE Abnormal NONE SEEN [facility] Comment on above: Performed By: #### L IPA, MARITO, CMP, CMADM #### [facility] Laboratory [address] [place] [address] Dr. Esteban Meneses Bacteria identified Cx Nom (U) NOT INDICATED Normal [facility] Comment on above: Performed By: #### L IPA, MARITO, CMP, CMADM #### [facility] [address] [place] [address] Dr. Esteban Meneses CAST NONE SEEN Normal NONE SEEN [facility] Comment on above: Performed By: #### L IPA, MARITO, CMP, CMADM #### [facility] Laboratory [address] [place] [address] Dr. Esteban Meneses Crystals LM Nom (Urine sed) NONE SEEN Normal NONE SEEN [facility] Comment on above: Performed By: #### L IPA, MARITO, CMP, CMADM #### [facility] Laboratory [address] [address] [address] Esteban Meneses Epithelial cells LM Ql (Urine sed) FEW Abnormal NONE SEEN /RARE [facility] Comment on above: Performed By: #### L IPA, MARITO, CMP, CMADM #### [facility] Laboratory [address] [place] [address] Dr. Esteban Meneses MUCOUS NONE SEEN Normal NONE SEEN [facility] Comment on above: Performed By: #### L IPA, MARITO, CMP, CMADM #### [facility] [address] [address] [address] Esteban Meneses RBC 0-2 Normal 0-2 [facility] Comment on above: Performed By: #### L IPA, MARITO, CMP, CMADM #### [facility] [address] [place] [address] Dr. Esteban Meneses WBC 0-2 Abnormal NONE SEEN [facility] Comment on above: Performed By: #### L IPA, MARITO, CMP, CMADM #### [facility] [address] [address] [address] Esteban Meneses Urinalysis - AUTOMATEDon Bilirubin Ql (U) Negative Normal NEGATIVE 5o9 Other Comment on above: Performed By: #### L IPA, MARITO, CMP, CMADM #### [facility] [address] [place] [address] Dr. Esteban Meneses Color (U) yellow Normal YELLOW [employer] Other Comment on above: Performed By: #### L IPA, MARITO, CMP, CMADM #### [facility] [address] [place] [address] Dr. Esteban Meneses Glucose Ql (U) Negative Normal NEGATIVE [employer] Other Comment on above: Performed By: #### L IPA, MARITO, CMP, CMADM #### [facility] [address] [address] [address] Esteban Meneses Ketones Ql (U) Negative Normal NEGATIVE [employer] Other Comment on above: Performed By: #### L IPA, MARITO, CMP, CMADM #### [facility] [address] [place] [address] Dr. Esteban Meneses Nitrite Ql (U) Negative Normal NEGATIVE [employer] Other Comment on above: Performed By: #### L IPA, MARITO, CMP, CMADM #### [facility] [address] [address] [address] Esteban Meneses pH (U) 6.0 [pH] Normal 5-9 [employer] Other Comment on above: Performed By: #### L IPA, MARITO, CMP, CMADM #### [facility] [address] [address] [address] Esteban Meneses Appearance (U) clear [employer] Other Hemoglobin Ql (U) Trace-lysed [employer] Other Leukocyte esterase Test strip Ql (U) Negative [employer] Other Protein Ql (U) 30mg/Dl [employer] Other Specific gravity (U) [Rel density] >=1.030 [employer] Other Urobilinogen (U) [Mass/Vol] 0.2 mg/dL [employer] Other Urinalysis - AUTOMATED No rt [employer] Other Urine Cultureon 06-19-2022 Bacteria identified Cx Nom (U) <9,000 colonies/ml mixed bacterial skin contaminants 2 Days PERFORMED BY: [place] [address] PATHOLOGIST [employer] EDUARDO SOUZA M.D. [facility] Comment on above: Performed By: #### C UU #### [facility] [address] [place] [address] Bacteria identified Cx Nom (U) [employer] Other AMYLASEon 05-17-2022 Amylase [Catalytic activity/Vol] 38 U/L Normal 25-115 [facility] Comment on above: Performed By: #### L IPA, MARITO, CMP, CMADM #### [facility] [address] [address] [address] Esteban Meneses CARDIAC EMELY ADMITon 023 CK [Catalytic activity/Vol] 82 U/L Normal 26-192 [facility] Comment on above: Performed By: #### L IPA, MARITO, CMP, CMADM #### [facility] [address] [address] [address] Esteban Meneses CK.MB [Mass/Vol] ng/mL Normal <=3.60 [facility] Comment on above: Performed By: #### L IPA, MARITO, CMP, CMADM #### [facility] [address] [address] [address] Esteban Meneses HSTROP <4.0 Normal 4.0-51.3 [facility] Comment on above: Result Comment: CUT- OFF POINTS HAVE BEEN ESTABLISHED BASED ON THE FOURTH UNIVERSAL DEFINITIONS OF MYOCARDIAL INFARCTION. THE UPPER REFERENCE LIMIT (URL) OF TROPONIN, DEFINED THE 99TH PERCENTILE OF cTnI DISTRIBUTION IN A REFERENCE POPULATION, HAS BEEN CONFIRMED THE DECISION THRESHOLD FOR WA DIAGNOSIS. Performed By: #### L IPA, MARITO, CMP, CMADM #### [facility] [address] [place] [address] Dr. Esteban Meneses DARYA 34 ng/mL Normal 9-82 [facility] Comment on above: Performed By: #### L IPA, MARITO, CMP, CMADM #### [facility] [address] [address] [address] Esteban Meneses CBC AUTO DIFFon 05-17-2022 BASO # 0.1 103/ul Normal 0.0-0.1 [facility] Comment on above: Performed By: #### L IPA, MARITO, CMP, CMADM #### [facility] [address] [address] [address] Esteban Meneses Basophils/100 WBC (Bld) 0.7 % Normal 0.2-2.0 [facility] Comment on above: Performed By: #### L IPA, MARITO, CMP, CMADM #### [facility] [address] [place] [address] Dr. Esteban Mneeses EO # 0.2 103/ul Normal 0.0-0.7 [facility] Comment on above: Performed By: #### L IPA, MARITO, CMP, CMADM #### [facility] [address] [place] [address] Dr. Esteban Meneses Eosinophils/100 WBC (Bld) 1.9 % Normal 0.9-7.0 [facility] Comment on above: Performed By: #### L IPA, MARITO, CMP, CMADM #### [facility] [address] [place] [address] Dr. Esteban Meneses Erythrocyte distribution width (RBC) [Ratio] 11.9 % Normal 11.0-15.0 [facility] Comment on above: Performed By: #### L IPA, MARITO, CMP, CMADM #### [facility] [address] [address] [address] Esteban Meneses Hematocrit (Bld) [Volume fraction] 38.6 % Normal 36.0-48.0 [facility] Comment on above: Performed By: #### L IPA, MARITO, CMP, CMADM #### [facility] [address] [place] [address] Dr. Esteban Meneses Hemoglobin (Bld) [Mass/Vol] 13.5 g/dL Normal 12.0-16.0 [facility] Comment on above: Performed By: #### L IPA, MARITO, CMP, CMADM #### [facility] [address] [address] [address] Esteban Meneses IG # 0.02 10e3/ul Normal 0.00-0.03 [facility] Comment on above: Performed By: #### L IPA, MARITO, CMP, CMADM #### [facility] [address] [place] [address] Dr. Esteban Meneses IG % 0.2 % Normal 0.0-0.5 [facility] Comment on above: Performed By: #### L IPA, MARITO, CMP, CMADM #### [facility] [address] [place] [address] Dr. Esteban Meneses LYMPH # 3.1 103/ul Normal 1.2-3.8 [facility] Comment on above: Performed By: #### L IPA, MARITO, CMP, CMADM #### [facility] [address] [place] [address] Dr. Esteban Meneses Lymphocytes/100 WBC (Bld) 31.0 % Normal 20.5-60.0 [facility] Comment on above: Performed By: #### L IPA, MARITO, CMP, CMADM #### [facility] [address] [place] [address] Dr. Esteban Meneses MANUAL DIFF REQ NO Normal [facility] Comment on above: Performed By: #### L IPA, MARITO, CMP, CMADM #### [facility] [address] [place] [address] Dr. Esteban Meneses MCH (RBC) [Entitic mass] 30.4 pg Normal 26.7-34.0 [facility] Comment on above: Performed By: #### L IPA, MARITO, CMP, CMADM #### [facility] [address] [place] [address] Dr. Esteban Meneses MCHC (RBC) [Mass/Vol] 35.0 g/dL Normal 29.9-35.2 [facility] Comment on above: Performed By: #### L IPA, MARITO, CMP, CMADM #### [facility] [address] [place] [address] Dr. Esteban Meneses MCV (RBC) [Entitic vol] 86.9 fL Normal 81.0-99.0 [facility] Comment on above: Performed By: #### L IPA, MARITO, CMP, CMADM #### [facility] [address] [place] [address] Dr. Esteban Meneses MONO # 0.5 103/ul Normal 0.3-0.8 [facility] Comment on above: Performed By: #### L IPA, MARITO, CMP, CMADM #### [facility] [address] [place] [address] Dr. Esteban Meneses Monocytes/100 WBC (Bld) 5.4 % Normal 1.7-12.0 [facility] Comment on above: Performed By: #### L IPA, MARITO, CMP, CMADM #### [facility] [address] [place] [address] Dr. Esteban Meneses NEUT # 6.1 103/ul Normal 1.4-6.5 [facility] Comment on above: Performed By: #### L IPA, MARITO, CMP, CMADM #### [facility] [address] [place] [address] Dr. Esteban Meneses Neutrophils/100 WBC (Bld) 60.8 % Normal 43.0-75.0 [facility] Comment on above: Performed By: #### L IPA, MARITO, CMP, CMADM #### [facility] [address] [place] [address] Dr. Esteban Meneses Platelet mean volume (Bld) [Entitic vol] 10.9 fL Normal 9.5-13.5 [facility] Comment on above: Performed By: #### L IPA, MARITO, CMP, CMADM #### [facility] [address] [place] [address] Dr. Esteban Meneses PLT 396 103/ul Normal 150-450 [facility] Comment on above: Performed By: #### L IPA, MARITO, CMP, CMADM #### [facility] [address] [place] [address] Dr. Esteban Meneses RBC 4.44 106/ul Normal 4.20-5.40 [facility] Comment on above: Performed By: #### L IPA, MARITO, CMP, CMADM #### [facility] [address] [place] [address] Dr. Esteban Meneses WBC 10.0 103/ul Normal 4.0-11.0 [facility] Comment on above: Performed By: #### L IPA, MARITO, CMP, CMADM #### [facility] [address] [place] [address] Dr. Esteban Meneses ER URINE PROFILEon 3 Bilirubin Ql (U) Negative Normal NEGATIVE [facility] Comment on above: Performed By: #### E ISH HENDRIX PREGU #### [facility] [address] [place] [address] Dr. Esteban Meneses Clarity (U) CLEAR Normal CLEAR [facility] Comment on above: Performed By: #### E RURISH, PREGU #### [facility] [address] [place] [address] Dr. Esteban Meneses Color (U) YELLOW Normal YELLOW [facility] Comment on above: Performed By: #### E RUR, UMICRO, PREGU #### [facility] [address] [address] [address] Esteban TERRAZAS A micrscopic examination will be performed if indicated. Normal [facility] Comment on above: Performed By: #### E RUR, UMICRO, PREGU #### [facility] [address] [address] [address] Esteban Meneses Glucose Ql (U) Negative Normal NEGATIVE [facility] Comment on above: Performed By: #### E RUR, UMICRO, PREGU #### [facility] [address] [address] [address] Esteban Meneses Hemoglobin Ql (U) TRACE-INTACT Abnormal NEGATIVE [facility] Comment on above: Performed By: #### E RUR, UMICRO, PREGU #### [facility] [address] [address] [address] Esteban Meneses Ketones Ql (U) Negative Normal NEGATIVE [facility] Comment on above: Performed By: #### E RUR, UMICRO, PREGU #### [facility] [address] [address] [address] Esteban Meneses LEUKOCYTES Negative Normal NEGATIVE [facility] Comment on above: Performed By: #### E RUR, UMICRO, PREGU #### [facility] [address] [address] [address] Esteban Meneses Nitrite Ql (U) Negative Normal NEGATIVE [facility] Comment on above: Performed By: #### E RUR, UMICRO, PREGU #### [facility] [address] [address] [address] Esteban Meneses pH (U) 6.0 [pH] Normal 5-9 [facility] Comment on above: Performed By: #### E RUR, UMICRO, PREGU #### [facility] [address] [address] [address] Esteban Meneses SPEC GRAVITY >=1.030 Abnormal 1.005-<=1.025 [facility] Comment on above: Performed By: #### E RURKETANICRO, PREGU #### [facility] [address] [place] [address] Dr. Esteban Meneses UA PROTEIN Negative Normal NEGATIVE/ TRACE [facility] Comment on above: Performed By: #### E RUR, UMICRO, PREGU #### [facility] [address] [address] [address] Esteban Meneses UR MICRO IND INDICATED Normal [facility] Comment on above: Performed By: #### E RURKETANICMARYSE, PREGU #### [facility] [address] [place] [address] Dr. Esteban Meneses Urobilinogen Qn (U) 0.2 {Roxana'U}/dL Normal 0.2 - 1. 0 [facility] Comment on above: Performed By: #### ISH BOCANEGRA, PREGU #### [facility] [address] [place] [address] Dr. Esteban Meneses LIPASEon 05-17-2022 Lipase [Catalytic activity/Vol] 69.0 U/L Critically low 73.0-393.0 [facility] Comment on above: Performed By: #### L IPA, MARITO, CMP, CMADM #### [facility] [address] [place] [address] Dr. Esteban Meneses URon 05-17-2022 , QUAL Negative Normal NEGATIVE [facility] Comment on above: Performed By: #### L IPA, MARITO, CMP, CMADM #### [facility] [address] [place] [address] Dr. Esteban Meneses PROF 14(COMP METB)on 023 Albumin [Mass/Vol] 3.5 g/dL Normal 3.4-5.0 [facility] Comment on above: Performed By: #### L IPA, MARITO, CMP, CMADM #### [facility] [address] [place] [address] Dr. Esteban Meneses Albumin/Globulin [Mass ratio] 0.9 {ratio} Normal [facility] Comment on above: Performed By: #### L IPA, MARITO, CMP, CMADM #### [facility] [address] [address] [address] Esteban Meneses ALP [Catalytic activity/Vol] 106 U/L Normal 46-116 [facility] Comment on above: Performed By: #### L IPA, MARITO, CMP, CMADM #### [facility] [address] [address] [address] Esteban Meneses ALT [Catalytic activity/Vol] 16 U/L Normal 14-59 [facility] Comment on above: Performed By: #### L IPA, MARITO, CMP, CMADM #### [facility] [address] [address] [address] Esteban Meneses Anion gap [Moles/Vol] 13.3 mmol/L Normal [facility] Comment on above: Performed By: #### L IPA, MARITO, CMP, CMADM #### [facility] [address] [place] [address] Dr. Esteban Meneses AST [Catalytic activity/Vol] 16 U/L Normal 15-37 [facility] Comment on above: Performed By: #### L IPA, MARITO, CMP, CMADM #### [facility] [address] [place] [address] Dr. Esteban Meneses Bilirubin [Mass/Vol] 0.2 mg/dL Normal 0.2-1.0 [facility] Comment on above: Performed By: #### L IPA, MARITO, CMP, CMADM #### [facility] [address] [address] [address] Esteban Meneses Calcium [Mass/Vol] 8.3 mg/dL Critically low 8.5-10.1 [facility] Comment on above: Performed By: #### L IPA, MARITO, CMP, CMADM #### [facility] [address] [place] [address] Dr. Esteban Meneses Chloride [Moles/Vol] 103 mmol/L Normal 98-107 [facility] Comment on above: Performed By: #### L IPA, MARITO, CMP, CMADM #### [facility] [address] [place] [address] Dr. Esteban Meneses CO2 [Moles/Vol] 25.1 mmol/L Normal 21.0-32.0 [facility] Comment on above: Performed By: #### L IPA, MARITO, CMP, CMADM #### [facility] [address] [address] [address] Esteban Meneses Creatinine [Mass/Vol] 0.98 mg/dL Normal 0.55-1.02 [facility] Comment on above: Performed By: #### L IPA, MARITO, CMP, CMADM #### [facility] [address] [address] [address] Esteban Meneses EGFR-AF BURUNDIAN >60 Normal >=60 [facility] Comment on above: Performed By: #### L IPA, MARITO, CMP, CMADM #### [facility] [address] [address] [address] Esteban Meneses EGFR-NON AF BURUNDIAN >60 Normal >=60 [facility] Comment on above: Performed By: #### L IPA, MARITO, CMP, CMADM #### [facility] [address] [address] [address] Esteban Meneses Globulin (S) [Mass/Vol] 3.9 g/dL Normal [facility] Comment on above: Performed By: #### L IPA, MARITO, CMP, CMADM #### [facility] [address] [address] [address] Esteban Meneses Glucose [Mass/Vol] 121 mg/dL Critically high 74-106 [facility] Comment on above: Performed By: #### L IPA, MARITO, CMP, CMADM #### [facility] [address] [address] [address] Esteban Meneses Potassium [Moles/Vol] 3.4 mmol/L Critically low 3.5-5.1 [facility] Comment on above: Performed By: #### L IPA, MARITO, CMP, CMADM #### [facility] [address] [address] [address] Esteban Meneses Protein [Mass/Vol] 7.4 g/dL Normal 6.4-8.2 [facility] Comment on above: Performed By: #### L IPA, MARITO, CMP, CMADM #### [facility] [address] [address] [address] Esteban Meneses Sodium [Moles/Vol] 138 mmol/L Normal 136-145 [facility] Comment on above: Performed By: #### L IPA, MARITO, CMP, CMADM #### [facility] [address] [place] [address] Dr. Esteban Meneses Urea nitrogen [Mass/Vol] 8.0 mg/dL Normal 7.0-18.0 [facility] Comment on above: Performed By: #### L IPA, MARITO, CMP, CMADM #### [facility] [address] [place] [address] Dr. Esteban Meneses Urea nitrogen/Creatinine [Mass ratio] 8.2 mg/mg Normal [facility] Comment on above: Performed By: #### L IPA, MARITO, CMP, CMADM #### [facility] [address] [place] [address] Dr. Esteban Meneses URINE MICROSCOPIC ONLYon BACTERIA TRACE Abnormal NONE SEEN The [facility] Comment on above: Performed By: #### L IPA, MARITO, CMP, CMADM #### [facility] [address] [place] [address] Dr. Esteban Meneses Bacteria identified Cx Nom (U) NOT INDICATED Normal [facility] Comment on above: Performed By: #### L IPA, MARITO, CMP, CMADM #### [facility] [address] [place] [address] Dr. Esteban Meneses CAST NONE SEEN Normal NONE SEEN [facility] Comment on above: Performed By: #### L IPA, MARITO, CMP, CMADM #### [facility] [address] [place] [address] Dr. Esteban Meneses Crystals LM Nom (Urine sed) NONE SEEN Normal NONE SEEN [facility] Comment on above: Performed By: #### L IPA, MARITO, CMP, CMADM #### [facility] [address] [place] [address] Dr. Esteban Meneses Epithelial cells LM Ql (Urine sed) RARE Normal NONE SEEN /RARE [facility] Comment on above: Performed By: #### L IPA, MARITO, CMP, CMADM #### [facility] [address] [address] [address] Esteban Meneses MUCOUS NONE SEEN Normal NONE SEEN [facility] Comment on above: Performed By: #### L IPA, MARITO, CMP, CMADM #### [facility] [address] [address] [address] Esteban Meneses RBC NONE SEEN Abnormal 0-2 [facility] Comment on above: Performed By: #### L IPA, MARITO, CMP, CMADM #### [facility] [address] [address] [address] Esteban Meneses WBC NONE SEEN Normal NONE SEEN [facility] Comment on above: Performed By: #### L IPA, MARITO, CMP, CMADM #### [facility] [address] [address] [address] Esteban Meneses XR ABD FLAT UP_PA [...] PATRICK NEW Date: 2022-05-17 20:06 Normal [facility] Quick Strepon 01-08-2022 S. pyogenes Org specific cx Ql (Throat) Negative 5o9 Other Quick Strep [facility] Other SARS-CoV-2 (COVID-19) RNA NA A+probe Ql (Resp)on 01-08-2022 SARS-CoV-2 (COVID-19) RNA FLORENCIA+probe Ql (Unsp spec) Negative [facility] Other CHLAMYDIA/GONOCOCCUS FLORENCIA (SW AB/URINE/PAPon 11-29-2021 Chlamydia trachomatis, FLORENCIA Negative Normal Negative [facility] Comment on above: Performed By: #### L IPA, MARITO, CMP, CMADM #### [facility] [address] [address] [address] Esteban Meneses Neisseria gonorrhoeae, FLORENCIA Negative Normal Negative [facility] Comment on above: Performed By: #### L IPA, MARITO, CMP, CMADM #### [facility] [address] [address] [address] Esteban Meneses ER URINE PROFILEon 2 Bilirubin Ql (U) Negative Normal NEGATIVE [facility] Comment on above: Performed By: #### Liset HENDRIX UMICRO #### [facility] [address] [place] [address] Dr. Esteban Meneses Clarity (U) CLEAR Normal CLEAR [facility] Comment on above: Performed By: #### Liset HENDRIX UMICRO #### [facility] [address] [address] [address] Esteban Meneses Color (U) LT. YELLOW Normal YELLOW [facility] Comment on above: Performed By: #### Liset HENDRIX UMICRO #### [facility] [address] [address] [address] Esteban Meneses ERUAHD A micrscopic examination will be performed if indicated. Normal [facility] Comment on above: Performed By: #### Liset HENDRIX UMICRO #### [facility] [address] [address] [address] Esteban Meneses Glucose Ql (U) Negative Normal NEGATIVE [facility] Comment on above: Performed By: #### Liset HENDRIX UMICRO #### [facility] [address] [address] [address] Esteban Meneses Hemoglobin Ql (U) TRACE-INTACT Abnormal NEGATIVE [facility] Comment on above: Performed By: #### Liset HENDRIX UMICRO #### [facility] [address] [place] [address] Dr. Esteban Meneses Ketones Ql (U) Negative Normal NEGATIVE [facility] Comment on above: Performed By: #### ISH BOCANEGRA #### [facility] [address] [place] [address] Dr. Esteban Meneses LEUKOCYTES Negative Normal NEGATIVE [facility] Comment on above: Performed By: #### ALEXY BOCANEGRARO #### [facility] [address] [place] [address] Dr. Esteban Meneses Nitrite Ql (U) Negative Normal NEGATIVE [facility] Comment on above: Performed By: #### ALEXY BOCANEGRARO #### [facility] [address] [place] [address] Dr. Esteban Meneses pH (U) 6.0 [pH] Normal 5-9 [facility] Comment on above: Performed By: #### ISH BOCANEGRA #### [facility] [address] [place] [address] Dr. Esteban Meneses SPEC GRAVITY 1.025 Normal 1.005-<=1.025 [facility] Comment on above: Performed By: #### ISH BOCANEGRA #### [facility] [address] [place] [address] Dr. Esteban Meneses UA PROTEIN Negative Normal NEGATIVE/ TRACE [facility] Comment on above: Performed By: #### ISH BOCANEGRA #### [facility] [address] [place] [address] Dr. Esteban Meneses UR MICRO IND INDICATED Normal [facility] Comment on above: Performed By: #### ALEXY BOCANEGRARO #### [facility] [address] [place] [address] Dr. Esteban Meneses Urobilinogen Qn (U) 0.2 {Roxana'U}/dL Normal 0.2 - 1. 0 [facility] Comment on above: Performed By: #### ALEXY BOCANEGRARO #### [facility] [address] [place] [address] Dr. Esteban Meneses URon 11-27-2021 , QUAL Negative Normal NEGATIVE [facility] Comment on above: Performed By: #### L IPA, MARITO, CMP, CMADM #### [facility] [address] [place] [address] Dr. Esteban Meneses URINE MICROSCOPIC ONLYon BACTERIA NONE SEEN Normal NONE SEEN [facility] Comment on above: Performed By: #### E RUR, UMICRO #### [facility] [address] [address] [address] Esteban Meneses Bacteria identified Cx Nom (U) NOT INDICATED Normal [facility] Comment on above: Performed By: #### E RUR, UMICRO #### [facility] [address] [place] [address] Dr. Esteban Meneses CAST NONE SEEN Normal NONE SEEN [facility] Comment on above: Performed By: #### E RUR, UMICRO #### [facility] [address] [place] [address] Dr. Esteban Meneses Crystals LM Nom (Urine sed) NONE SEEN Normal NONE SEEN [facility] Comment on above: Performed By: #### E RUR, UMICRO #### [facility] [address] [place] [address] Dr. Esteban Meneses Epithelial cells LM Ql (Urine sed) MODERATE Abnormal NONE SEEN /RARE [facility] Comment on above: Performed By: #### E RUR, UMICRO #### [facility] [address] [place] [address] Dr. Esteban Meneses MUCOUS TRACE Abnormal NONE SEEN [facility] Comment on above: Performed By: #### E RUR, UMICRO #### [facility] [address] [place] [address] Dr. Esteban Meneses RBC 2-5 Abnormal 0-2 [facility] Comment on above: Performed By: #### E RUR, UMICRO #### [facility] [address] [place] [address] Dr. Esteban Meneses WBC NONE SEEN Normal NONE SEEN [facility] Comment on above: Performed By: #### E RUR, UMICRO #### [facility] [address] [address] [address] Esteban Meneses US PELVIS TRANSVAGon 022 [...] DALIA STUART Date: 2021-11-27 15:01 Normal [facility] WET PREPon 11-27-2021 CLUE CELLS NONE SEEN Normal NONE SEEN [facility] Comment on above: Performed By: #### W P #### [facility] [address] [place] [address] Dr. Esteban Meneses FUNGAL ELEMENTS NONE SEEN Normal NONE SEEN [facility] Comment on above: Performed By: #### W P #### [facility] [address] [place] [address] Dr. Esteban Meneses RBC -WET PREP NONE SEEN Normal NONE SEEN [facility] Comment on above: Performed By: #### W P #### [facility] [address] [place] [address] Dr. Esteban Meneses TRICHOMONAS NONE SEEN Normal NONE SEEN [facility] Comment on above: Performed By: #### W P #### [facility] [address] [place] [address] Dr. Esteban Meneses WBC- WET PREP RARE Abnormal NONE SEEN [facility] Comment on above: Performed By: #### W P #### [facility] [address] [place] [address] Dr. Esteban Meneses WET PREP BACTERIA RARE Abnormal NONE SEEN [facility] Comment on above: Performed By: #### W P #### [facility] [address] [address] [address] Esteban Meneses COVID Quick Testingon 2020 Result Negative [facility] Other COMPREHENSIVE METABOLIC PANE [place] 11-27-2020 Albumin [Mass/Vol] 4.2 g/dL Normal 3.6-5.1 [facility] Comment on above: Performed By: #### 7 600, 20854, 76720 #### [facility] [address] [address] [employer] Operator: Claus Thrasher MD Albumin/Globulin [Mass ratio] 1.8 {ratio} Normal 1.0-2.5 [facility] Comment on above: Performed By: #### 7 600, 55490, 31733 #### [facility] [address] [address] [employer] Operator: Claus Thrasher MD ALP [Catalytic activity/Vol] 73 U/L Normal 31-125 [facility] Comment on above: Performed By: #### 7 600, 78077, 73753 #### [facility] [address] [address] [employer] Operator: Claus Thrasher MD ALT [Catalytic activity/Vol] 9 U/L Normal 6-29 [facility] Comment on above: Performed By: #### 7 600, 93438, 00256 #### [facility] [address] [address] [employer] Operator: Claus Thrasher MD AST [Catalytic activity/Vol] 11 U/L Normal 10-30 [facility] Comment on above: Performed By: #### 7 600, 06432, 59437 #### [facility] [address] [address] [employer] Operator: Claus Thrasher MD Bilirubin [Mass/Vol] 0.3 mg/dL Normal 0.2-1.2 [facility] Comment on above: Performed By: #### 7 600, 69835, 08770 #### [facility] of [address] [address] [employer] Operator: Claus Thrasher MD BUN/CREATININE RATIO NOT APPLICABLE Normal 6-22 [facility] Comment on above: Performed By: #### 7 600, 77863, 48908 #### [facility] [address] [address] [employer] Bre[employer] Operator: Claus Thrasher MD Calcium [Mass/Vol] 9.4 mg/dL Normal 8.6-10.2 [facility] Comment on above: Performed By: #### 7 600, 16942, 99152 #### [facility] [address] [address] [employer] Operator: Claus Thrasher MD Chloride [Moles/Vol] 105 mmol/L Normal 98-110 [facility] Comment on above: Performed By: #### 7 600, 02665, 95697 #### [facility] [address] [address] [employer] Operator: Claus Thrasher MD CO2 [Moles/Vol] 26 mmol/L Normal 20-32 [facility] Comment on above: Performed By: #### 7 600, 84753, 40262 #### [facility] [address] [place] [address] [employer] Operator: Claus Thrasher MD Creatinine [Mass/Vol] 0.91 mg/dL Normal 0.50-1.[address] [facility] Comment on above: Performed By: #### 7 600, 82402, 70223 #### [facility] [address] [address] [employer] Operator: Claus Thrasher MD eGFR NON-AFR. BURUNDIAN 85 mL/min/1.73m2 Normal > OR = 60 [facility] Comment on above: Performed By: #### 7 600, 76789, 55118 #### [facility] of [address] [place] [address] [employer] Operator: Claus Thrasher MD GFR/1.73 sq M.predicted among blacks MDRD (S/P/Bld) [Vol rate/Area] 99 mL/min/{1.73_m2} Normal > OR = 60 [facility] Comment on above: Performed By: #### 7 600, 10866, 31114 #### [facility] [address], [address] [place] [address] [employer] Operator: Claus Thrasher MD Globulin (S) [Mass/Vol] 2.4 g/dL Normal 1.9-3.7 [facility] Comment on above: Performed By: #### 7 600, 04413, 18992 #### [facility] [address] [place] [address] [employer] Operator: Claus Thrasher MD Glucose [Mass/Vol] 79 mg/dL Normal 65-99 [facility] Comment on above: Result Comment: Fasting reference interval Performed By: #### 7 600, 16255, 83712 #### [facility] [address], [address] [place] [address] [employer] Operator: Claus Thrasher MD Potassium [Moles/Vol] 4.2 mmol/L Normal 3.5-5.[address] [facility] Comment on above: Performed By: #### 7 600, 81581, 44881 #### [facility] [address] [place] [address] [employer] Operator: Claus Thrasher MD Protein [Mass/Vol] 6.6 g/dL Normal 6.1-8.1 [facility] Comment on above: Performed By: #### 7 600, 02032, 41458 #### [facility] [address] [place] [address] [employer] Operator: Claus Thrasher MD Sodium [Moles/Vol] 139 mmol/L Normal 135-146 [facility] Comment on above: Performed By: #### 7 600, 86440, 77497 #### [facility] [address], [address] [place] [address] [employer] Operator: Claus Thrasher MD Urea nitrogen [Mass/Vol] 16 mg/dL Normal 7-25 [facility] Comment on above: Performed By: #### 7 600, 54066, 40012 #### [facility] [address], [address] [place] [address] [employer] Operator: Claus Thrasher MD LIPID PANEL, [facility] 08-3 Cholesterol [Mass/Vol] 166 mg/dL Normal <200 [facility] Comment on above: Order Comment: FASTI NG:YES FASTING: YES Performed By: #### 7 600, 35954, 75643 #### [facility] [address], [address] [place] [address] [employer] Operator: Claus Thrasher MD Cholesterol in HDL [Mass/Vol] 70 mg/dL Normal > OR = 50 [facility] Comment on above: Order Comment: FASTI NG:YES FASTING: YES Performed By: #### 7 600, 96555, 95488 #### [facility] [address], [address] [place] [address] [employer] Operator: Claus Thrasher MD Cholesterol in LDL [Mass/Vol] [...] LDL-C. Rogelio SS et al. DEREK. 2013;310(19): 3443-8218 ([email or web address]://[email or web address]) Performed By: #### 7 600, 73488, 57457 #### [facility] [address], [address] [place] [address] [employer] Operator: Claus Thrasher MD Cholesterol.total/Kristyn sterol in HDL [Mass ratio] 2.4 {ratio} Normal <5.0 [facility] Comment on above: Order Comment: FASTI NG:YES FASTING: YES Performed By: #### 7 600, 92593, 25660 #### [facility] [place] [address] [employer] Operator: Claus Thrasher MD NON HDL CHOLESTEROL 96 mg/dL (calc) Normal <130 [facility] Comment on above: Order Comment: FASTI NG:YES FASTING: YES Result Comment: For patients with diabetes plus 1 major ASCVD risk factor, treating to a non-HDL-C goal of <100 mg/dL (LDL-C of <70 mg/dL) is considered a therapeutic option. Performed By: #### 7 600, 81477, 34776 #### [facility] [place] [address] [employer] Operator: Claus Thrasher MD Triglyceride [Mass/Vol] 63 mg/dL Normal <150 [facility] Comment on above: Order Comment: FASTI NG:YES FASTING: YES Performed By: #### 7 600, 87446, 84501 #### [facility] [place] [address] [employer] Operator: Claus Thrasher MD TSH+FREE T4on 11-27-2020 Free T4 [Mass/Vol] 1.1 ng/dL Normal 0.8-1.8 [facility] Comment on above: Performed By: #### 7 600, 03462, 68104 #### [facility] [place] [address] [employer] Operator: Claus Thrasher MD TSH Qn 2.23 m[IU]/L Normal [facility] Comment on above: Result Comment: Refe rence Range > or = 20 Years 0.40-4.50 Ranges First trimester 0.26-2.66 Second trimester 0.55-2.73 Third trimester 0.43-2.91 Performed By: #### [id number] #### [facility] [address] [place] [address] Bale Breaker Operator: Claus Thrasher MD Urine cultureon 12-08-2019 Culture NO SIGNIFICANT GROWTH [place] Special Requests NOT REPORTED [place] Specimen Description .CLEAN CATCH URINE [place] CBC auto differentialon Basophils (Bld) [#/Vol] 0.04 10*3/uL [place] Basophils/100 WBC (Bld) 0 % 0 - 2 % M [place] Differential Type NOT REPORTED [place] Eosinophils (Bld) [#/Vol] 0.08 10*3/uL [place] Eosinophils/100 WBC (Bld) 1 % 1 - 4 % [place] Erythrocyte distribution width (RBC) [Ratio] 12.9 % 11.8 - 14.4 % [place] Hematocrit (Bld) [Volume fraction] 36.5 % 36.3 - 47.1 % [place] Hemoglobin (Bld) [Mass/Vol] 12.0 g/dL 11.9 - 15.1 g/dL [place] Immature granulocytes (Bld) [#/Vol] 0 % 0 [place] Immature granulocytes (Bld) [#/Vol] 0.04 10*3/uL [place] Interpretation and review of laboratory results Abnormal [place] Lymphocytes (Bld) [#/Vol] 1.98 10*3/uL [place] Lymphocytes/100 WBC (Bld) 19 % Low 24 - 43 % [place] MCH (RBC) [Entitic mass] 30.1 pg 25.2 - 33.5 pg [place] MCHC (RBC) [Mass/Vol] 32.9 g/dL 28.4 - 34.8 g/dL [place] MCV (RBC) [Entitic vol] 91.5 fL 82.6 - 102.9 fL [place] Monocytes (Bld) [#/Vol] 0.54 10*3/uL [place] Monocytes/100 WBC (Bld) 5 % 3 - 12 % [place] Platelet mean volume (Bld) [Entitic vol] 12.5 fL 8.1 - 13.5 fL [place] Platelets (Bld) [#/Vol] 294 10*3/uL [place] Platelets (Bld) [#/Vol] NOT REPORTED [place] RBC (Bld) [#/Vol] 3.99 10*6/uL 3.95 - 5.1 1 m/uL [place] RBC morphology finding Nom (Bld) NOT REPORTED [place] Segmented neutrophils/100 WBC (Bld) 75 % High 36 - 65 % [place] Segs Absolute 7.75 [place] WBC (Bld) [#/Vol] 0.0 10*3/uL 0.0 per 10 0 WBC [place] WBC (Bld) [#/Vol] 10.4 10*3/uL [place] WBC Morphology NOT REPORTED [place] DRUG SCREEN MULTI URINEon Amphetamine Screen, Ur Negative NEGATIVE [place] Barbiturate Screen, Ur Negative NEGATIVE [place] Benzodiazepine Screen, Urine Negative NEGATIVE [place] Buprenorphine Urine Negative NEGATIVE [place] Cannabinoid Scrn, Ur Negative NEGATIVE [place] Cocaine Metabolite, Urine Negative NEGATIVE [place] MDMA, Urine NOT REPORTED NEGATIVE [place] Methadone Screen, Urine Negative NEGATIVE [place] Methamphetamine, Urine Negative NEGATIVE [place] Opiates, Urine Negative NEGATIVE [place] Oxycodone Screen, Ur Negative NEGATIVE [place] Phencyclidine, Urine Negative NEGATIVE [place] Propoxyphene, Urine Negative NEGATIVE [place] Test Information NOT REPORTED [place] Tricyclic Antidepressants, Urine Negative NEGATIVE [place] Comment on above: Drug screen results are to be used for medical purposes only. All positive results are unconfirmed. Testing for employment or legal uses should be sent to a reference laboratory for confirmation. Microscopic Urinalysison Amorphous, UA NOT REPORTED None [place] Bacteria, UA 2+ Abnormal None [place] Casts UA NOT REPORTED /LPF [place] Crystals, UA NOT REPORTED None /HPF [place] Epithelial Cells UA 10 TO 20 [place] Interpretation and review of laboratory results Abnormal [place] Mucus, UA NOT REPORTED None [place] Other Observations UA NOT REPORTED NOT REQ. M [place] RBC (U) [#/Vol] 20 TO 50 [place] Renal Epithelial, UA NOT REPORTED 0 /HPF [place] Trichomonas, UA NOT REPORTED None [place] WBC, UA 0 TO 2 [place] Yeast, UA NOT REPORTED None [place] Urinalysison 12-07-2019 Bilirubin Urine Negative NEGATIVE [place] Color, UA YELLOW YELLOW [place] Glucose, Ur Negative NEGATIVE [place] Interpretation and review of laboratory results Abnormal [place] Ketones Ql (U) Negative NEGATIVE [place] Leukocyte esterase Test strip Ql (U) Negative NEGATIVE [place] Nitrite, Urine Negative NEGATIVE [place] pH, UA 7.0 [place] Protein (U) [Mass/Vol] 2+ Abnormal NEGATIVE [place], [place] Specific [employer], UA 1.020 [place], [place] Turbidity UA CLEAR CLEAR [place] Urinalysis Comments NOT REPORTED [place] Urine Hgb 3+ Abnormal NEGATIVE [place] Urobilinogen, Urine Normal Normal [place] CBCon 05-14-2019 Erythrocyte distribution width (RBC) [Ratio] 12.0 % 11.8 - 14.4 % [facility] Work Phone: Hematocrit (Bld) [Volume fraction] 39.8 % 36.3 - 47.1 % [facility] Phone: Hemoglobin (Bld) [Mass/Vol] 13.6 g/dL 11.9 - 15.1 g/dL [facility] Phone: MCH (RBC) [Entitic mass] 30.3 pg 25.2 - 33.5 pg [facility] Phone: MCHC (RBC) [Mass/Vol] 34.2 g/dL 28.4 - 34.8 g/dL [facility] Phone: MCV (RBC) [Entitic vol] 88.6 fL 82.6 - 102.9 fL [facility] Phone: Platelet mean volume (Bld) [Entitic vol] 11.6 fL 8.1 - 13.5 fL [facility] Phone: Platelets (Bld) [#/Vol] 356 10*3/uL [facility] Phone: RBC (Bld) [#/Vol] 4.49 10*6/uL 3.95 - 5.1 1 m/uL [facility] Phone: WBC (Bld) [#/Vol] 0.0 10*3/uL 0.0 per 10 0 WBC [facility] Phone: WBC (Bld) [#/Vol] 10.4 10*3/uL [facility] Phone: Comprehensive Metabolic Pane waylon 05-14-2019 Albumin [Mass/Vol] 4.1 g/dL 3.5 - 5.2 g/dL [facility] Phone: Albumin/Globulin [Mass ratio] 1.4 {ratio} [facility] Phone: ALP [Catalytic activity/Vol] 74 U/L 35 - 104 U/L [facility] Phone: ALT [Catalytic activity/Vol] 26 U/L 5 - 33 U/L [facility] Phone: Anion gap [Moles/Vol] 16 mmol/L 9 - 17 mmol/L [facility] Work Phone: AST [Catalytic activity/Vol] 19 U/L <32 [facility] [employer] Phone: Bilirubin Ql (U) 0.52 mg/dL 0.3 - 1.2 mg/dL [facility] Phone: Bun/Cre Ratio 12 [facility] [employer] Work Phone: Calcium [Mass/Vol] 9.4 mg/dL 8.6 - 10. 4 mg/dL [facility] Work Phone: Chloride [Moles/Vol] 100 mmol/L 98 - 10 7 mmol/L [facility] Phone: CO2 [Moles/Vol] 22 mmol/L 20 - 31 mmol/L [facility] Phone: Creatinine [Mass/Vol] 0.76 mg/dL 0.5 - 0.9 mg/dL [facility] Phone: GFR >60 >60 mL/min [facility] Phone: GFR Non- >60 >60 mL/min [facility] [employer] Work Phone: Glucose [Mass/Vol] 87 mg/dL 70 - 99 mg/dL [facility] [employer] Work Phone: Potassium [Moles/Vol] 3.7 mmol/L 3.7 - 5.3 mmol/L [facility] [employer] Phone: Protein [Mass/Vol] 7.1 g/dL 6.4 - 8.3 g/dL [facility] [employer] Phone: Sodium [Moles/Vol] 138 mmol/L 135 - 144 mmol/L [facility] Phone: Urea nitrogen [Mass/Vol] 9 mg/dL 6 - 20 mg/dL [facility] Phone: Metabolic Panelon 02-15-2020 GFR/1.73 sq M predicted among non-blacks MDRD (S/P/Bld) [Vol rate/Area] [facility] Phone: Comment on above: Average GFR for 20-2 9 years old: 116 mL/min/1.73sq m Chronic Kidney Disease: <60 mL/min/1.73sq m Kidney failure: <15 mL/min/1.73sq m eGFR calculated using average adult body mass. Additional eGFR calculator available at: http://www.[employer]/multiple_crcl_2012.htm Stage 1: Some kidney damage normal GFR Stage 2: Mild kidney damage GFR 60-89 Stage 3: Moderate kidney damage GFR 30-59 Stage 4: Severe kidney damage GFR 15-29 Stage 5: Severe kidney damage GFR <15 ESRD - chronic treatment by dialysis or transplant Microscopic Urinalysison Amorphous, UA NOT REPORTED None [facility] Work Phone: Bacteria, UA 2+ Abnormal None [facility] Work Phone: Casts UA NOT REPORTED /LPF [facility] Work Phone: Crystals UA NOT REPORTED None /HPF [employer] [facility] [employer] Work Phone: Epithelial Cells UA 10 TO 20 [facility] Work Phone: Interpretation and review of laboratory results Abnormal [facility] Phone: Mucus, UA NOT REPORTED None [facility] Work Phone: Other Observations UA NOT REPORTED NOT REQ. [facility] Work Phone: RBC (U) [#/Vol] 10 TO 20 [facility] Work Phone: Renal Epithelial, Urine NOT REPORTED 0 /HPF [facility] Work Phone: Trichomonas, UA NOT REPORTED None [facility] Work Phone: WBC, UA 2 TO 5 [facility] Work Phone: Yeast, UA NOT REPORTED None [facility] Work Phone: - [facility] Work Phone: Urinalysis Reflex to Culture on 05-14-2019 Bilirubin Urine SMALL Abnormal NEGATIVE [facility] Work Phone: Color, UA DARK YELLOW Abnormal YELLOW [facility] [employer] Work Phone: Glucose, Ur Negative NEGATIVE [facility] Work Phone: Interpretation and review of laboratory results Abnormal [facility] Work Phone: Ketones Ql (U) 2+ Abnormal NEGATIVE [facility] Work Phone: Leukocyte esterase Test strip Ql (U) TRACE Abnormal NEGATIVE [facility] Work Phone: Nitrite, Urine Negative NEGATIVE [facility] Work Phone: pH, UA 6.5 [facility] Work Phone: Protein (U) [Mass/Vol] 1+ Abnormal NEGATIVE [facility] Work Phone: Specific [employer], UA 1.020 [facility] Work Phone: Turbidity UA CLEAR CLEAR [facility] Work Phone: Urinalysis Comments NOT REPORTED [facility] [employer] Work Phone: Urine Hgb 2+ Abnormal NEGATIVE [facility] Work Phone: Urobilinogen, Urine Normal Normal [facility] Work Phone: HIV ScreenOrdered By: Ira Hernandez on 04-19-2019 HIV Ag/Ab Non-Reactive NONREACTIVE [facility] Work Phone: Comment on above: No laboratory eviden ce of HIV infection. If acute HIV infection is suspected, consider testing for HIV-1 RNA. Hemoglobin [id number] By: Sena Hernandez on 04-19-2019 Glucose [Mass/Vol] 100 mg/dL [facility] [employer] Work Phone: Comment on above: The ADA and AACC rec ommend providing the estimated average glucose result to permit better patient understanding of their HBA1c result. HbA1c (Bld) [Mass fraction] 5.1 % 4.8 - 5.9 % [facility] Work Phone: Hepatitis C AntibodyOrdered By: Ira Hernandez on 04-19-2019 Hepatitis C Ab Non-Reactive NONREACTIVE [employer] [facility] Work Phone: Comment on above: The hepatitis [...] Hernandez on 04-19-2019 Absolute Eos # 0.07 [employer] [facility] Work Phone: Absolute Immature Granulocyte 0.04 [facility] Work Phone: Absolute Lymph # 2.07 [employer] [facility] Work Phone: Absolute [place] # 0.[address] [employer] [address] [facility] Work Phone: Basophils (Bld) [#/Vol] 0.05 10*3/uL [facility] Work Phone: Basophils/100 WBC (Bld) 1 % 0 - 2 % [facility] Work Phone: Differential Type NOT REPORTED [facility] Phone: Eosinophils/100 WBC (Bld) 1 % 1 - 4 % [facility] Phone: Erythrocyte distribution width (RBC) [Ratio] 12.9 % 11.8 - 14.4 % [facility] Work Phone: Hematocrit (Bld) [Volume fraction] 40.7 % 36.3 - 47.1 % [facility] Phone: Hemoglobin (Bld) [Mass/Vol] 12.9 g/dL 11.9 - 15.1 g/dL [facility] Phone: Hepatitis B Surface Ag Non-Reactive NONREACTIVE [facility] Phone: Immature granulocytes/100 WBC (Bld) 0 % 0 [facility] Phone: Interpretation and review of laboratory results Abnormal [facility] Phone: Lymphocytes/100 WBC (Bld) 22 % Low 24 - 43 % [facility] Phone: MCH (RBC) [Entitic mass] 29.7 pg 25.2 - 33.5 pg [facility] Phone: MCHC (RBC) [Mass/Vol] 31.7 g/dL 28.4 - 34.8 g/dL [facility] Phone: MCV (RBC) [Entitic vol] 93.6 fL 82.6 - 102.9 fL [facility] Phone: Monocytes/100 WBC (Bld) 5 % 3 - 12 % [facility] [employer] Phone: NRBC Automated 0.0 0.0 per 100 WBC [facility] Phone: Platelet Estimate NOT REPORTED [facility] Phone: Platelet mean volume (Bld) [Entitic vol] 11.7 fL 8.1 - 13.5 fL [facility] Phone: Platelets (Bld) [#/Vol] 341 10*3/uL [facility] Phone: RBC (Bld) [#/Vol] 4.35 10*6/uL 3.95 - 5.1 1 m/uL [facility] Phone: RBC morphology finding Nom (Bld) NOT REPORTED [facility] Phone: Rubella virus IgG Ql (S) 453.4 IU/mL [facility] Phone: Comment on above: REFERENCE RANGE: <5.0 NON-REACTIVE (non-immune) 5.0 TO 9.9 EQUIVOCAL >=10.0 REACTIVE (immune) Segmented neutrophils/100 WBC (Bld) 71 % High 36 - 65 % [facility] Phone: Segs Absolute 6.72 [employer] Work Phone: T. pallidum, IgG Non-Reactive NONREACTIVE [facility] Phone: Comment on above: T. pallidum antibodies are not detected. There is no serological evidence of infection with T. pallidum (early primary syphilis cannot be excluded). Retest in 2-4 weeks if syphilis is clinically suspect. WBC (Bld) [#/Vol] 9.4 10*3/uL [facility] Phone: WBC Morphology NOT REPORTED [employer] Phone: TYPE AND SCREENOrde red By: Ira Sotomayor David on 04-19-2019 ABO/Rh Positive [facility] Phone: T4, FreeOrdered By: Ira moore David on 04-19-2019 Thyroxine, Free 1.41 ng/dL 0.93 - 1.7 ng/dL [facility] Phone: TSH without ReflexOrdered By : Ira Sotomayor David on 04-19-2019 TSH Qn 2.62 m[IU]/L [facility] Phone: Urine Drug Screen, Comprehen siveOrdered By: Ira Sotomayor David on 04-19-2019 Amphetamine Screen, Ur Negative NEGATIVE [facility] Phone: Barbiturate Screen, Ur Negative NEGATIVE [facility] Phone: Benzodiazepine Screen, Urine Negative NEGATIVE [facility] Phone: Buprenorphine Urine Negative NEGATIVE [facility] Phone: Cannabinoid Scrn, Ur Negative NEGATIVE Merc [...] Tricyclic Antidepressants, Urine Negative NEGATIVE [facility] Work Phone: Comment on above: Drug screen results are to be used for medical purposes only. All positive results are unconfirmed. Testing for employment or legal uses should be sent to a reference laboratory for confirmation. Vital Signs Date Time Vital Sign Value Performing Clinician Facility 04-20-2023 09:15-0500 Body height 165.1 cm Cynthia Garciamond Other [facility] Other 04-20-2023 09:15-0500 Body mass index (BMI) [Ratio] 36.14 kg/m2 Cynthia Garciamond Other [facility] Other 04-20-2023 09:15-0500 Body temperature 99 [degF] Cynthia Monique Other [facility] Other 04-20-2023 09:15-0500 Body weight 98.52 kg Cynthia Monique Other [facility] Other 04-20-2023 09:15-0500 Respiratory rate 18 /min Cynthia Amaya Other [facility] Other 04-20-2023 09:15-0500 SaO2% (BldA) [Mass fraction] 99 % Cynthia Amaya Other [facility] Other 07-30-2022 10:10-0400 Body height 165.1 cm Cynthia Amaya Other [facility] Other 07-30-2022 10:10-0400 Body mass index (BMI) [Ratio] 37.77 kg/m2 Cynthia Garciamond Other [facility] Other 07-30-2022 10:10-0400 Body temperature 98.3 [degF] Cynthia Garciamond Other [facility] Other 07-30-2022 10:10-0400 Body weight 102.97 kg Cynthia Garciamond Other [facility] Other 07-30-2022 10:10-0400 Respiratory rate 18 /min Cynthia Garciamond Other [facility] Other 07-30-2022 10:10-0400 SaO2% (BldA) [Mass fraction] 97 % Cynthia Monique Other [facility] Other 07-23-2022 13:49-0400 Blood Pressure Location Marcelina DIXON [facility] 07-23-2022 13:49-0400 Diastolic blood pressure 72 mm[Hg] Marcelina DIXON [facility] 07-23-2022 13:49-0400 Heart rate 70 /min Marcelina DIXON [facility] [place] 07-23-2022 13:49-0400 Respiratory rate 16 /min Marcelina DIXON [facility] [place] 07-23-2022 13:49-0400 Systolic blood pressure 116 mm[Hg] Marcelina DIXON [facility] [place] 06-19-2022 16:10-0400 Body height 165.1 cm Abbey Sanders Other [facility] Other 06-19-2022 16:10-0400 Body mass index (BMI) [Ratio] 38.27 kg/m2 Abbey Princeler Other [facility] Other 06-19-2022 16:10-0400 Body temperature 97.1 [degF] Abbey Sanders Other [facility] Other 06-19-2022 16:10-0400 Body weight 104.33 kg Abbey Sanders Other [facility] Other 06-19-2022 16:10-0400 Respiratory rate 18 /min Abbey Sanders Other [facility] Other 06-19-2022 16:10-0400 SaO2% (BldA) [Mass fraction] 99 % Abbey Sanders Other [facility] Other 01-08-2022 11:15-0400 Body height 165.1 cm Cynthia Amaya Other [facility] Other 01-08-2022 11:15-0400 Body mass index (BMI) [Ratio] 36.61 kg/m2 Cynthia Amaya Other [facility] Other 01-08-2022 11:15-0400 Body temperature 98.6 [degF] Cynthia Amaya Other [facility] Other 01-08-2022 11:15-0400 Body weight 99.79 kg Cynthia Amaya Other [facility] Other 01-08-2022 11:15-0400 Respiratory rate 18 /min Cynthia Amaya Other [facility] Other 01-08-2022 11:15-0400 SaO2% (BldA) [Mass fraction] 98 % Cynthia Amaya Other [facility] Other 02-26-2021 14:40-0500 Body height 165.1 cm Mabel Realault Other [facility] Other 02-26-2021 14:40-0500 Body mass index (BMI) [Ratio] 38.27 kg/m2 Mabel Realault Other [facility] Other 02-26-2021 14:40-0500 Body temperature 96.9 [degF] Mabel Rosanna Other [facility] Other 02-26-2021 14:40-0500 Body weight 104.33 kg Mabel Rosanna Other [facility] Other 02-26-2021 14:40-0500 Diastolic blood pressure 81 mm[Hg] Mabel Rosanna Other [facility] Other 02-26-2021 14:40-0500 Respiratory rate 18 /min Mabel Rosanna Other [facility] Other 02-26-2021 14:40-0500 SaO2% (BldA) [Mass fraction] 98 % Mabel Marte Other [facility] Other 02-26-2021 14:40-0500 Systolic blood pressure 130 mm[Hg] Mabel Marte Other [facility] Other 01-11-2021 12:30-0400 Body height 165.1 cm Cynthia Amaya Other [facility] Other 01-11-2021 12:30-0400 Body mass index (BMI) [Ratio] 36.61 kg/m2 Cynthia Amaya Other [facility] Other 01-11-2021 12:30-0400 Body temperature 96.6 [degF] Cynthia Amaya Other [facility] Other 01-11-2021 12:30-0400 Body weight 99.79 kg Cynthia Amaya Other [facility] Other 01-11-2021 12:30-0400 Respiratory rate 18 /min Cynthia Amaya Other [facility] Other 01-11-2021 12:30-0400 SaO2% (BldA) [Mass fraction] 98 % Cynthia Amaya Other [facility] Other 12-09-2019 08:32-0400 Body Temperature 97.5 [degF] [facility] [place] [place] 12-09-2019 08:32-0400 BP Diastolic 63 mm[Hg] [facility] [place] , [place] 12-09-2019 08:32-0400 BP Systolic 111 mm[Hg] [facility] [place] , [place] 12-09-2019 08:32-0400 Pulse (Heart Rate) 71 /min Marylou Guerrier [facility] [place], [place] 12-09-2019 08:32-0400 Respiratory Rate 16 /min Marylou [facility] [place] 12-07-2019 22:15-0400 Pulse Oximetry 99 % [facility] [place] 12-07-2019 08:32-0400 BMI (Body Mass Index) 40.94 kg/m2 Marylou Guerrier [facility] [place], [place] 12-07-2019 08:32-0400 Body weight 111.58 kg [facility] [place] 12-07-2019 08:32-0400 Height 165.1 cm Marylou [facility] [place] 05-14-2019 19:40-0500 BP Diastolic 63 mm[Hg] [employer] [facility] Phone: 05-14-2019 19:40-0500 BP Systolic 104 mm[Hg] [employer] Phone: 05-14-2019 19:40-0500 Pulse (Heart Rate) 85 /min [employer] Phone: 05-14-2019 19:40-0500 Pulse Oximetry 99 % [employer] Phone: 05-14-2019 19:40-0500 Respiratory Rate 18 /min [employer] Phone: 05-14-2019 15:20-0500 BMI (Body Mass Index) 41.6 kg/m2 [employer] Phone: 05-14-2019 15:20-0500 Body Temperature 98.01 [degF] [employer] Phone: 05-14-2019 15:20-0500 Body weight 113.4 kg [employer] Phone: Encounters Encounter Date Encounter Type Care Provider Facility Start: 04-20-2023 End: 04-20-2023 ambulatory Cynthia Amaya Other [facility] Other Start: 04-20-2023 Office outpatient vi sit 15 minutes Cynthia Amaya [facility] Start: 04-15-2023 End: 04-16-2023 ambulatory SAL [facility] Start: 01-14-2023 End: 01-15-2023 ambulatory [facility] Start: 08-20-2022 End: 08-21-2022 ambulatory [facility] Start: 08-13-2022 End: 08-14-[address] MIGUEL MAX Facility:[facility] Start: 08-06-2022 Encounter for other preprocedural examination DR MARCELINA DIXON . [facility] Start: 07-30-2022 Office outpatient vi sit 15 minutes Cynthia Amaya [facility] Start: 07-30-2022 End: 07-31-[address] MIGUEL MAX [employer] Other Start: 07-30-2022 End: 07-31-2022 Encounter for other preprocedural examination DR MIGUEL MAX Facility:[facility] Start: 07-23-2022 End: 07-24-2022 ambulatory Marcelina DIXON Facility:[facility] Start: 07-23-2022 End: 07-23-2022 Patient encounter procedure Marcelina DIXON [facility] Start: 07-15-2022 End: 07-16-2022 ambulatory [facility] Start: 07-15-2022 ambulatory Marcelina DIXON Facility:[facility] Start: 07-11-2022 ambulatory Marcelina DIXON Facility:[facility] Start: 07-10-2022 End: 07-10-[address] MIGUEL MAX Facility:[facility] Start: 07-08-2022 End: 07-09-[address] MIGUEL MAX Facility:[facility] Start: 06-22-2022 End: 06-22-2022 ambulatory Abbey Sanders Other [facility] Other Start: 06-22-2022 Telephone encounter Abbey Sanders [facility] [address] Start: 06-19-2022 End: 06-19-2022 ambulatory NELSY SHAVER . Facility:[facility] Start: 06-19-2022 End: 06-19-2022 Departed [employer] Abbey Tommy Work Phone: [facility] [place] Work Phone: Start: 06-19-2022 End: 06-19-2022 ambulatory [employer] Abbey Sanders Work Phone: [facility] Work Phone: Start: 06-19-2022 Office outpatient vi sit 15 minutes Abbey Sanders [facility] Start: 05-17-2022 End: 05-17-2022 ambulatory SISSY ZAPATA Facility:[facility] Start: 01-08-2022 End: 01-08-2022 ambulatory Cynthia Amaya Other [facility] Other Start: 01-08-2022 Office outpatient vi sit 15 minutes Cynthia Amaya [facility] Start: 11-27-2021 End: 11-27-[address] DALIA STUART Facility:[facility] Start: 02-26-2021 End: 02-26-2021 ambulatory Mabel Marte Other [facility] Other Start: 02-26-2021 Office outpatient vi sit 25 minutes Mabel Marte [facility] Start: 01-11-2021 (URG) Urgent Care Visit Cynthia handley [facility] Start: 09-03-2020 End: 09-03-2020 Patient encounter procedure Sal Bautista Work Phone: [facility] Start: 09-03-2020 End: 09-03-2020 Subsequent hospital visit by physician Sal Bautista Work Phone: [facility] Comment on above: Women's annual routi ne gynecological examination Start: 12-07-2019 End: 12-09-2019 Evaluation and management of inpatient Marylou Benedict Work Phone: [facility] Delivery Start: 11-21-2019 End: 11-21-2019 Subsequent hospital visit by physician Sal Bautista [facility] Comment on above: 36 weeks gestation o f Start: 05-14-2019 End: 05-14-2019 Emergency department patient visit Felix Anderson Work Phone: [facility] ED Comment on above: Non-intractable vomi ting with nausea, unspecified vomiting type (Primary Dx) Start: 04-19-2019 End: 04-19-2019 Subsequent hospital visit by physician Sal Bautista Other Phone: [facility] Comment on above: Amenorrhea; Positive [...] Start: 05-14-2019 Comprehensive metabo lic panel [employer] Work Phone: Start: 05-14-2019 Urinalysis microscopic only [...] DTaP/Tdap/Td vaccine (7 - Td or Tdap) [facility] Phone: Start: 01-06-2028 DTaP/Tdap/Td vaccine (7 - Td) DTaP/Tdap/Td vaccine (7 - Td) [employer] Phone: Start: 06-19-2022 Bacteria identified in Urine by Culture [facility] Start: 11-28-2020 Influenza vaccination Flu vacc ine (Season Ended) [employer] Phone: Start: 08-29-2020 Screening for malign ant neoplasm of cervix Cervical cancer screen [facility] Comment on above: Postponed from 02/02 (Not Indicated) Start: 04-19-2020 Thyroid stimulating hormone measurement TSH testing [employer] Phone: Start: 04-19-2020 TSH Qn TSH testing [facility] [employer] [facility] [employer] Start: 04-19-2020 TSH testing TSH testing [facility] [employer] Work Phone: Start: 12-20-2019 End: 12-20-2019 Visit 12/20/2019 Visit Obstetrics and Gynecology Ira Tian, DO [address] [place] [address] [phone] [facility] Start: 11-29-2019 Influenza vaccination Flu vaccine (# 1) [place] Start: 11-28-2019 End: 11-28-2019 Routine 11/28/2019 Routine Obstetrics and Gynecology Ira Tian DO [address] [place] [address] [facility] [facility] Start: 05-17-2019 End: 05-17-2019 Routine 05/17/2019 Routine Obstetrics and Gynecology Ira Tian DO [address] [address] [facility] Start: 04-25-2019 End: 04-25-2019 Professional / ancillary services management 04/25/2019 Ancillary Procedure Obstetrics and Gynecology [facility] Start: 11-28-2018 Influenza vaccination Flu vaccine (# 1) [facility] [employer] Phone: Start: 02-03-2012 Cervical cancer screen Cervical canc er screen [facility] Phone: Start: 02-03-2012 Screening for malign ant neoplasm of cervix Cervical cancer screen [facility] [employer] Phone: Start: 2006 HIV screen HIV screen [facility] [employer] Phone: Start: 2003 COVID-19 Vaccine (1) COVID-19 Vaccin e (1) [facility] [employer] Phone: Start: 02-03-1992 Varicella vaccine (1 of 2 - 2-dose childhood series) Varicella vaccine (1 of 2 - 2-dose childhood series) [facility] [employer] Phone: Start: 1991 TSH testing TSH testing [facility] [employer] Phone: End: 05-14-2019 Bacteria identified Cx Nom (U) Urine Culture Microbiology Routine Once for 1 Occurrences starting 05/14/2019 until 05/14/2019 [email or web address] Phone: Comment on above: Once for 1 Occurrenc es starting 05/14/2019 until 05/14/2019 Bacteria identified Cx Nom (U) [email or web address] Phone: End: 04-19-2019 Bacteria identified in Urine by Culture Urine Culture Microbiology Routine Amenorrhea Positive urine test Encounter for supervision of normal in first trimester, unspecified 1 Occurrences starting 04/19/2019 until 04/19/2019 [email or web address] Phone: Comment on above: 1 Occurrences starti ng 04/19/2019 until 04/19/2019 End: 04-19-2019 C.trachomatis N.gonorrhoeae DNA, Urine C.trachomatis N.gonorrhoeae DNA, Urine Microbiology Routine Amenorrhea Positive urine test Encounter for supervision of normal in first trimester, unspecified 1 Occurrences starting 04/19/2019 until 04/19/2019 [email or web address] Phone: Comment on above: 1 Occurrences starti ng 04/19/2019 until 04/19/2019 C.trachomatis N.gonorrhoeae DNA, Urine C.trachomatis N.gonorrhoeae DNA, Urine Microbiology Routine Amenorrhea Positive urine test Encounter for supervision of normal in first trimester, unspecified 04/19/2019 5:09 PM EST [email or web address] Phone: End: 11-21-2019 Culture, Strep B Screen, Vaginal/Rectal Culture, Strep B Screen, Vaginal/Rectal Microbiology Routine 36 weeks gestation of 1 Occurrences starting 11/21/2019 until 11/21/2019 [facility] Comment on above: 1 Occurrences starti ng 11/21/2019 until 11/21/2019 Culture, Strep B Scr een, Vaginal/Rectal Culture, Strep B Screen, Vaginal/Rectal Microbiology Routine 36 weeks gestation of 11/21/2019 12:30 PM EDT [facility] [place] End: 09-03-2020 Cytopathology procedure, preparation of smear, genital source [facility] Routine Women's annual routine gynecological examination 1 Occurrences starting 09/03/2020 until 09/03/2020 [facility] Work Phone: Comment on above: 1 Occurrences starti ng 09/03/2020 until 09/03/2020 Immunizations Immunization Date Immunization Notes Care Provider Galen jinaung 12-07-2019 diphtheria, tetanus toxoids and acellular pertussis vaccine, unspecified formulation [facility] [place], [place] 12-07-2019 measles, mumps and rubella virus vaccine [facility] [place] NEGATED: Highlighted row has not occurred!07-23-2022 influenza virus vaccine, unspecified formulation Marcelina DIXON [facility] [place] NEGATED: Highlighted row has not occurred!07-23-2022 SARS-CoV-2 mRNA (tozinameran 5y-11y) vaccine Marcelina BAKERLaura [facility] [place] Payers Date Payer Category Payer Self-pay 2018 Unknown BCBS BCBS - [place] P PO xxxxxxxxxxxxxxx 2018-Present [address] [place] [address] xxxxxxxxxxxxxxx [id number] 1991 Unknown [id number] [id number] 1991 Unknown [id number] [id number] 1991 Unknown [id number] [id number]3 1991 Unknown [id number] 2.16.840.1.256843.3.579.2.593 1991 Unknown [id number] 2.16.840.1.313157.3.579.2.593 1991 Unknown [id number] 2.16.840.1.361871.3.579.2.593 1991 Unknown [id number] 2.16.840.1.586057.3.579.2.593 1991 Unknown [id number] 2.16.840.1.573130.3.579.2.727 1991 Unknown [id number] 2.16.840.1.070383.3.579.2.727 1991 Unknown [id number] 2.16.840.1.890128.3.579.2.727 1991 Unknown [id number] 2.16.840.1.741702.3.579.2.173 1991 Unknown [id number] 2.16.840.1.889024.3.579.2.173 1991 Unknown [id number] 2.16.840.1.860211.3.579.2.173 1958 Medicaid [id number] [id number] .[id number] 1959 Unknown [id number] [id number] .[id number] Unknown [id number] [id number] Social History Date Type Detail Facility Start: 05-14-2019 End: 07-23-2022 Tobacco smoking status [facility] Never smoker [facility] Start: 04-19-2019 End: 05-14-2019 Alcohol intake Lifetime non-drinker (finding) [facility] Work Phone: Start: 04-19-2019 History SDOH Alcohol Frequency 1 [email or web address] Phone: Start: 02-23-2019 [facility] Phone: Start: 1990 Sex Assigned At Not on file [facility] Phone: Start: 09-27-2019 End: 09-03-2020 Tobacco use and exposure Never used [facility] [place] Exposure to SARS-CoV -2 (event) Not sure [facility] [place] Sex Assigned At [facility] Start: 1991 Sex Assigned At Female F [facility] Tobacco smoking status Never [facility] [place] Functional Status Date Assessment Result Facility 07-23-2022 [...] Z34.92) Mar, Acute cough (ICD-10 - R05.1) [facility] Other 05-03-2023 Evaluation note* Encounter Date Diagnosis [...] of diseases classified elsewhere (ICD-10 - B96.89) [facility] Other 04-26-2023 NoteChief Complaint consultation for abdominal pain HPI Staff 32 year old female presents on consultation from [facility] [place] [facility] for abdominal pain. Presented to ED [...] female with h/o GERD, hypothyroidism, referred from [facility] ED for several week h/o intermittent RUQ [...] E&M of New Patient Moderate 45-59 Min 88414 2. Gastroesophageal reflux disease (K21.9: Gastro-esophageal reflux disease without esophagitis) will begin Protonix daily. Ordered: pantoprazole, 40 mg = 1 tab(s), Oral, Daily, # 30 tab(s), Refills(s) 3, [facility]: [id number], 165, cm, 07/23/22 13:58:00 EDT, Height/Length Dosing, 104.5, kg, 07/23/22 13:58:00 EDT, Weight Dosing E&M of New Patient Moderate 45-59 Min 42048 Follow-up No qualifying data available Problem List/Past Medical History Ongoing BMI 38.0-38.9,adult Gastroesophageal reflux disease Hiatal hernia Hypothyroidism RUQ pain Symptomatic cholelithiasis Vitamin D deficiency Historical No qualifying data Procedure/Surgical History Appendectomy. Medications Protonix 40 mg Tab-DR, 40 mg= 1 tab(s), Oral, Daily, 3 refills Slynd 4 mg oral tablet, 4 mg= 1 tab(s (more content not included)...OhiohealthComment on above:Result Comment: Electronically Signed By: SUMI BARKLEY, Marcelina Alston\Date and Time Signed: 07/23/22 14:27 [id number] Evaluation note* Encounter Date Diagnosis Assessment Notes [...] understanding and is agreeable to treatment plan [facility] Other 10-12-2022 Evaluation note* Encounter Date Diagnosis [...] no improvement in 2 to 3 days. [facility] Other 11-30-2021 Evaluation note* Encounter Date Diagnosis Assessment Notes Treatment Notes Treatment Clinical Notes Jan, Herpes zoster without complication (ICD-10 - B02.9) [facility] Other 10-15-2021 Evaluation note* Encounter Date Diagnosis [...] Patient care instructions given in writting by [facility] Care At Home document. [facility] Other Evaluation + Plan note No data available for this section [facility] [place] Evaluation note* Diagnosis Women's annual routine gynecological examination documented in this encounter [email or web address] Phone: [email or web address] note* Diagnosis Amenorrhea Absence of menstruation Positive urine test Encounter for supervision of normal in first trimester, unspecified BMI 40.0-44.9, adult (HCC) Body Mass Index 40.0-44.9, adult Thyroid disease, antepartum Thyroid dysfunction, antepartum documented in this encounter [email or web address] Phone: [email or web address] noteNo assessment information available [facility] Work Phone: Evaluation noteNo InformationNort [employer] Other History general Narrative - Reported* Type Description Date Surgical History appendectomy Hospitalization History see above [facility] Other History general Narrative - Reported* Type Description Date Surgical History appendectomy Surgical History cholecystectomy Hospitalization History see above [facility] Other Hospital Discharge instructions No data available for this section [facility] Progress note No data available for this section [facility] [place] Discharge Instructions * Instructions* Carmella Vaca PA-C - 05/14/2019 Continue pushing liquids for the next 48 hours. Keep follow-up as scheduled with [facility]. If you go home and develop any worsening symptoms do not hesitate to return the emergency room. * Attachments The following attachments cannot be sent through Care Everywhere. * Nausea and Vomiting (Cook Islander) documented in this encounter* Instructions* Keya Haq RN - 12/09/2019 Follow-up with your OB doctor as specified. [facility] OB Department phone: Dr. Malgorzata Mills [facility] Dr. Sina Benedict [facility] [address] [facility] [address] [place] Coni Orosco, MSN, TRAILER BODY ASSEMBLER, CNM [facility] [address] [facility] [address] [address] [facility] [address] [facility] [address] Marylou Milton CNM [address] [place] [address] [place] [address] Dominique Worrell CNM [address] [place] [address] [place] [address] [phone] DIET Eat a well balanced diet focusing on foods high in fiber and protein. Drink plenty of fluids especially water. To avoid constipation you may take a mild stool softener as recommended by your doctor or junior recruiter. ACTIVITY Gradually increase your activity. Resume exercise regimen only after advice by your doctor or junior recruiter. Avoid lifting anything heavier than a gallon of milk for SIX weeks. Avoid driving until your doctor or junior recruiter has given their approval. Rise slowly from [...] medications as recommended by your doctor or junior recruiter for pain If you develop a warm, [...] vitamins as directed by your doctor or junior recruiter. Refer to the booklet in the folder/binder for more information. If you feel you need more assistance or have questions, please call Latasha Iqbal IBCLC, consultant dietitian, at or the OB department to schedule [...] they become loose or soiled. If used, [place] should be removed by your care provider. 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 Helper Expl anation Advance Directives and Living Will Power of Partner Alliance Manager Documents on File Type Date Recorded Patient Repair Armature Winder Helper Expl anation ACP-Advance Directive ACP-Power of Partner Alliance Manager Latest Code Status on File Code Status Date Activated Date Inactivated Comments Full Code 12/07/2019 11:44 PM Full Code 12/07/2019 7:37 AM 12/07/2019 11:44 PM Full Code 12/07/2019 6:26 AM 12/07/2019 7:37 AM Latest Code Status on File Code Status Date Activated Date Inactivated Comments Full Code 12/07/2019 11:44 PM 12/09/2019 4:37 PM History of Present Illness * Marylou Benedict, TRAILER BODY ASSEMBLER - CNM - 12/09/2019 9:31 AM EDT [...] Referred To Contact Diagnoses Term Ira Tian, [address] [place] [address] [facility] INFORMATION SOURCE (unrecogn ized section and content) DATE CREATED AUTHOR 01/27/2021 [facility] DATE CREATED AUTHOR AUTHOR'S ORGANIZ ATION 08/13/2022 [facility] [place] [facility] DATE CREATED AUTHOR AUTHOR'S ORGANIZ ATION 09/05/2022 [facility] DATE CREATED AUTHOR AUTHOR'S ORGANIZ ATION 01/04/2023 [facility] DATE CREATED AUTHOR AUTHOR'S ORGANIZ ATION 04/16/2023 [facility] Care Teams (unrecognized sec tion and content) [...] BE BASED ON THE PRIMARY CLINICAL RECORDS. [facility] [employer] [facility]. provides no warranty or guarantee of the accuracy or completeness of information in this document.
--- NOTE | 2023-04-24 16:22 | ED_ITS ---
HPI - Allergic Reaction General Chief complaint: Allergic Reaction Stated complaint: allergic reaction-seen yesterday Time Seen by Provider: 04/24/23 16:07 Source: patient Mode of arrival: walk-in History of Present Illness HPI narrative: 33-year-old female presents for ALLERGIC reaction. She was seen here yesterday and presented with ALLERGIC reaction to prednisone. She was put on it for influenza. She was given IM Benadryl yesterday and today she continues to have itching particularly on her arms. No other new medications. No fever or abdominal pain. She's twenty-two weeks . Related Data Home Medications Medication Instructions Recorded Confirmed ondansetron 4 mg disintegrating 8 mg PO Q8H PRN nausea and vomiting 04/24/23 04/24/23 tablet Previous Rx's Medication Instructions Recorded doxylamine 10 mg-pyridoxine (vit 1 tab PO TID PRN nausea #30 tabs 01/04/23 B6) 10 mg tablet,delayed release (Diclegis) metoclopramide HCl 10 mg tablet 10 mg PO Q6H PRN nausea and 01/18/23 (Reglan) vomiting #12 tabs metoclopramide HCl 10 mg tablet 10 mg PO Q6H PRN nausea and 04/08/23 (Reglan) vomiting #12 tabs Allergies Allergy/AdvReac Type Severity Reaction Status Date / Time prednisolone AdvReac Mild Verified 04/24/23 16:12 Review of Systems ROS Narrative A ten point review of systems is negative except as noted above. PFSH PFSH Social History Smoking status: Never smoker Exam Narrative Exam Narrative: Nurses note and vital signs reviewed and patient is not hypoxic. General: The patient appears well and in no apparent distress. Patient is resting comfortably on cart. Skin: Warm, dry, no pallor noted. There is erythema on her arms but there is no urticaria. She is scratching at the areas of erythema. Head: Normocephalic, atraumatic Eye: Normal conjunctiva, no drainage Ears, Nose, Mouth, and Throat: oral mucosa is moist. Nares patent. Cardiovascular: Regular Rate and Rhythm Respiratory: Patient is in no distress, no accessory muscle use, lungs are clear to auscultation, no wheezing, rales or rhonchi Back: non-tender GI: soft gravid and nontender Musculoskeletal: The patient has no evidence of calf tenderness, no pitting edema, symmetrical pulses noted bilaterally Neurological: A&O, normal speech Psychiatric: Cooperative Constitutional Vital Signs, click to edit/add: Last Vital Signs Temp 98.8 F 04/24/23 16:06 Pulse 101 H 04/24/23 16:06 Resp 18 04/24/23 16:06 BP 120/70 04/24/23 16:06 Pulse Ox 97 04/24/23 16:06 O2 Del Method Room Air 04/24/23 16:06 Course Vital Signs Vital signs: Vital Signs Temperature 98.8 F 04/24/23 16:06 Pulse Rate 101 H 04/24/23 16:06 Respiratory Rate 18 04/24/23 16:06 Blood Pressure 120/70 04/24/23 16:06 Pulse Oximetry 97 04/24/23 16:06 Oxygen Delivery Method Room Air 04/24/23 16:06 Temperature 98.8 F 04/24/23 16:06 Pulse Rate 101 H 04/24/23 16:06 Respiratory Rate 18 04/24/23 16:06 Blood Pressure 120/70 04/24/23 16:06 Pulse Oximetry 97 04/24/23 16:06 Oxygen Delivery Method Room Air 04/24/23 16:06 MDM - Allergic Reaction MDM Narrative Medical decision making narrative: she is given IM Benadryl and will continue oral Benadryl at home. Treatment diagnosis and follow-up were discussed with the patient. Differential Diagnosis Differential diagnosis: Likely allergic reaction, contact dermatitis and adverse reaction to drug Discharge Plan Discharge Chief Complaint: Allergic Reaction Clinical Impression: Allergic reaction Patient Disposition: Home, Self-Care Time of Disposition Decision: 16:21 Condition: Good Mode of Transportation: Private Vehicle Prescriptions / Home Meds: No Action doxylamine-pyridoxine (vit B6) [Diclegis] 10-10 mg tablet,delayed release (D R/EC) 1 tab PO TID PRN (Reason: nausea) Qty: 30 0RF ondansetron 4 mg tablet,disintegrating 8 mg PO Q8H PRN (Reason: nausea and vomiting) metoclopramide HCl [Reglan] 10 mg tablet 10 mg PO Q6H PRN (Reason: nausea and vomiting) Qty: 12 0RF metoclopramide HCl [Reglan] 10 mg tablet 10 mg PO Q6H PRN (Reason: nausea and vomiting) Qty: 12 0RF Instructions: General Allergic Reaction (ED) Additional Instructions: continue oral Benadryl Stand Alone Forms: Portal Instructions Referrals: ZENAIDA BUTTS [Primary Care Provider] - 1 week
[2023-04-24] MEDS: DIPHENHYDRAMINE HCL 50 MG/ML (1ML) VIAL IM (16:31)
== END 2023-04-24 16:38 | disposition home or self-care (01) ==
PROVIDERS: Emergency Provider Emergency Medicine; PCP Family Medicine
DX: O26.892 Other specified pregnancy related conditions, second trimester (principal); T78.40XA Allergy, unspecified, initial encounter; Z3A.22 22 weeks gestation of pregnancy
CPT/HCPCS: 96372; 99284; J1200

== ENCOUNTER 2023-10-14 11:30 | Outpatient (OUT) | payer OTHER, SELFPAY ==
--- OUTSIDE RECORDS SUMMARY | 2023-10-14 11:41 | XMS_ITS | CCD ---
Author Organization [facility] Care Team Providers Care Medical Physics Professor Name Role Phone Sal Butts Primary Care Provider Cynthia Amaya Unavailable Mabel Marte Unavailable RAMONA Sanders Attending Provider Abbey Sanders Unavailable SAL BUTTS Primary Care Physician DR MAGO MAX Primary Care Unavailable MARIA DEL CARMEN, DR ARTURO Reyes Admitting Unavailgrey JOYCE, DR ARTURO Reyes Attending Unavailabl liset FREEMAN ., LEONARD MUNSON Consulting UnavailSISSY Sun Consulting Unavailable NEFTALY ., BOSTON Admitting Unavailable NEFTALY ., B[place]ON Attending Unavailable MANSOOR, DR MAGO Eddy Primary Care Unavailable NEFTALY ., [place] Consulting Unavailable PATRICK NEW Consulting Unavailable NARCISO, DR DALIA Macedo Consulting Unavailable NEFTALY ., [place] Admitting Unavailable NEFTALY Stubbs, OBSTON Attending Unavailable MANSOOR, DR MAGO Eddy Primary Care Unavailable LEONARD JUNIOR Consulting UnavailRamo Stubbs, B[place]ON Consulting Unavailable MANSOOR, DR MAGO Eddy Primary Care Unavailable NILL ., DR HEWITT Attending Unavailable NILL ., DR HEWITT Admitting Unavailable MANSOOR, DR MAGO Eddy Primary Care Unavailable NILL ., DR HEWITT Admitting Unavailable NILL ., DR HEWITT Attending Unavailable NILL ., DR HEWITT Consulting Unavailable JOHN PARIKH Consulting Unavailable RONEN HAWKINS Consulting Unavailable MANSOOR, DR MAGO Eddy Primary Care Unavailable NICHOLAS, DR GABE Eddy Consulting Unavailable MANSOOR, DR MAGO Eddy Admitting Unavailable MANSOOR, DR MAGO Eddy Attending Unavailable MANSOOR, DR MAGO Eddy Consulting Unavailable NELSY SALDANA Admitting Unavailable NELSY SALDANA Attending Unavailable PETE Stubbs, LEONARD MUNSON Consulting Unavailabl e KUNEzio, DR MAGO Eddy Primary Care Unavailable NELSY SALDANA Consulting Unavailable NILLMarcelina Attending Unavailable NILL, Marcelina Eddy Attending Unavailable NILLMarcelina Attending Unavailable Abbey Sanders Attending Unavailable Abbey Sanders Admitting Unavailable NO FAMILY, PHYSICIAN Primary Care Unavailable Furlong DO Sal G Primary Care Provider MAGO MAX Attending Unavailable FURLONG, SAL G Referring Unavailable FURLONG, SAL G Primary Care Unavailable Furlong, Sal G Primary Care Provider [phone] FURLONG, SAL G Primary Care Unavailable ROSIO GERBER Attending Unavailable FURLONG, SAL G Primary Care Unavailable NEIDA WILKINSON Admitting Unavailable NEIDA WILKINSON Attending Unavailable GUERITA MEJIA Admitting Unavailable GUERITA MEJIA Attending Unavailable FURLONG, SAL G Primary Care Unavailable D'ABREAU RADHA, E ARTURO~[id number] POOL Admitt ing Unavailable D'ABREAU RADHA, E ARTURO~[id number] POOL Attend ing Unavailable FURLONG, SAL G Primary Care Unavailable JODY BENEDICT Admitting Unavailabl JODY Roque Attending Unavailabl e FURLONG, SAL G Primary Care Unavailable IRA IQU F Referring Unavail able FURLONG, SAL G Primary Care Unavailable DREW HERNANDEZ IRA F Referring Unavail able FURLONG, SAL G Primary Care Unavailable DREW HERNANDEZ IRA F Referring Unavail able FURLONG, SAL G Primary Care Unavailable BILLIE, JUSTEEN Referring Unavailable FURLONG, SAL G Primary Care Unavailable FURLONG, SAL Referring Unavailable BILLIE, JUSTEEN Admitting Unavailable BILLIE, JUSTEEN Attending Unavailable FURLONG, SAL G Primary Care Unavailable JODY BENEDICT Admitting Unavailabl JODY Roque Attending Unavailabl e FURLONG, SAL G Primary Care Unavailable Allergies Allergy Classification Reported Allergen(s) Allergy Type Date of Onset Reaction(s) Facility (1 source) No Known Medication Allergies; Translations: [No Known Medication Allergies] Propensity to adverse reactions (disorder) [facility] Repository (6 sources) methylPREDNISolone Drug Allergy 05-11-19 24 [facility] Medications Current Medications Medication Drug Class(es) Dates [...] capable and may self administer at bedside. cephalexin 500 mg oral capsule (6 sources) Cephalosporin Antibacterial Start: 08-05-2023 End: 08-05-2023 take 1 capsule by mouth three times daily cephALEXin (KEFLEX) 500 MG capsule Take 1 capsule by mouth 3 times daily 21 capsule 0 08/05/2023 Active Start: 05-14-2019 End: 05-21-2019 cephALEXin (KEFLEX) capsule 500 mg docusate sodium 100 mg oral capsule (1 source) Start: 12-07-2019 take 100 mg by mouth twice daily as needed for constipation 100 mg, Oral, 2 TIMES DAILY PRN, Constipation, Starting Thu12/07/19 at 2344 Do not crush or break. famotidine 20 mg oral tablet (1 source) Histamine-2 Receptor Antagonist Start: 04-24-2023 take 1 tablet by mouth in the morning, then take 1 tablet by mouth at bedtime famotidine (PEPCID) 20 mg tablet Indications: Acute idiopathic urticaria Take 1 tablet (20 mg total) by mouth in the morning and 1 tablet (20 mg total) before bedtime. 60 tablet 0 04/24/2023 Active fluticasone propionate 0.05 mg/actuat metered dose nasal spray (1 source) Corticosteroid Start: 04-20-2023 take 2 spray(s) nasal route once daily [...] mg oral tablet (1 source) Corticosteroid Start: 04-20-2023 Medrol 4 MG as directed Orally As [...] Daily, # 30 tab(s), Refills(s) 3, [id number], 165, cm, 07/23/22 13:58:00 EDT, Height/Length Dosing, 104.5, kg, 07/23/22 13:58:00 EDT, Weight Dosing Start Date: 07/23/22 Status: Ordered PNV 43-dfmz-kvgmfjsddfli-d doe 29 mg iron-1 mg -350 mg comb pack,tablet DR,capsule DR (1 source) PNV 05-paun-jeljnvaaj ate-dha 29 mg iron-1 mg -350 mg comb pack,tablet DR,capsule DR Take by mouth. 0 Active MV-Min-Fe Fum-FA-DHA ( 1 PO) (6 sources) MV-Min-Fe Fum-FA-DHA ( 1 PO) Take by mouth 0 Active Vit-Fe Fumarate-FA ( VITAMIN) 27-0.8 [...] Nausea 30 tablet 0 05/02/2019 06/01/2019 Active valACYclovir 1000 mg oral tablet (1 source) Herpesvirus Nucleoside Analog DNA Polymerase Inhibitor, Herpes Simplex Virus Nucleoside Analog DNA Polymerase Inhibitor, Herpes Zoster Virus Nucleoside Analog DNA Polymerase Inhibitor Start: 02-26-2021 valACYclovir HCl 1 GM 1 tablet Orally twice for 7 days Jan, Active vitamin b6 50 mg oral tablet (1 source) Start: 03-04-2023 take 1 tablet by mouth in the morning pyridoxine, vitamin B6, (B-6) 50 mg tablet Indications: Vomiting affecting Take 1 tablet (50 mg total) by mouth in the morning. 90 tablet 1 03/04/2023 Active witch nick 500 mg/ml medicated pad [...] / sodium lactate 0.028 meq/ml injectable solution (3 sources) Start: 08-14-2023 End: 08-14-2023 lactated ringers bolus 500 mL Start: 05-27-2023 End: 05-27-2023 lactated ringers bolus 500 m L Start: 12-07-2019 End: 12-07-2019 lactated ringers infusion cefdinir 300 mg oral capsule (1 source) Cephalosporin Antibacterial Start: 05-12-2014 take 1 capsule by mouth every twelve hours Omnicef 300 MG 1 capsule Orally every 12 hrs for 10 day(s) Apr, Not-Taking hydrOXYzine pamoate 50 mg oral capsule (2 sources) Antihistamine Start: 05-27-2023 End: 05-27-2023 hydrOXYzine pamoate (VISTARIL) capsule 50 mg Start: 04-24-2023 take 1 tablet by imtiaz th every six hours as needed hydrOXYzine (ATARAX) 10 mg tablet Indications: Acute idiopathic urticaria Take 1 tablet (10 mg total) by mouth every 6 (six) hours as needed for itching (hives). 120 tablet 0 04/24/2023 Active 2 ml ondansetron 2 mg/ml injection (17 sources) Serotonin-3 Receptor Antagonist Start: 08-14-2023 End: 08-14-2023 ondansetron (ZOFRAN) injection 4 mg Start: 05-27-2023 End: 05-27-2023 ondansetron (ZOFRAN) injecti on 4 mg Start: 04-14-2023 ondansetron (Z OFRAN-ODT) 8 MG TBDP disintegrating tablet Place 1 tablet under the tongue every 8 hours as needed for Nausea or Vomiting 60 tablet 1 04/14/2023 Active Start: 02-10-2023 ondansetron OD T (ZOFRAN ODT) 4 mg disintegrating tablet Dissolve 1 tablet (4 mg total) on tongue in the morning. 0 02/10/2023 Active Start: 12-07-2019 End: 12-07-2019 ondansetron (ZOFRAN) injecti on 4 mg Start: 05-17-2019 End: 12-09-2019 take [...] or Vomiting 10 tablet 0 05/14/2019 Active take 1 tablet by imtiaz th every eight hours as needed for nausea and vomiting ondansetron (ZOFRAN) 8 mg tablet Take 1 tablet (8 mg total) by mouth every 8 (eight) hours as needed for nausea or vomiting. For 0 Active Zofran Active oxytocin (PITOCIN) 30 Units [...] End: 12-07-2019 ropivacaine (NAROPIN) 0.2% injection 0.2% 50 ml sodium chloride 9 mg/ml injection (4 sources) Start: 08-05-2023 End: 08-05-2023 sodium chloride 0.9 % bolus 1,000 mL Start: 12-08-2019 10 mL, Intrave nous, EVERY 12 HOURS SCHEDULED (2 times per day), First dose on Lou 12/08/19 at 0900, Start: 12-07-2019 take 10 mL intravenous route o nce 10 mL, Intravenous, PRN, Line Care, Starting 12/07/19 at 2344 After every IV line use Start: 05-14-2019 End: 05-14-2019 0.9 % sodium chloride bolus Problems Active Problems Problem Classification Problem Date Documented Date Episodic/Chronic Abdominal pain (20 sources) Pelvic and perineal pain; Translations: [Epigastric pain] Onset: 06-07-2017 Resolved: 12-09-2019 04-19-2019 Episodic Allergic reactions (2 sources) Acute idiopathic urticaria; Translations: [Idiopathic urticaria] Onset: 04-24-2023 04-24-2023 Episodic Bacterial infection; unspecified site (1 source) Other specified bacterial agents as the cause of diseases classified elsewhere Episodic Biliary tract disease (3 sources) Cholelithiasis without obstruction; Translations: [Calculus of gallbladder without cholecystitis without obstruction] Onset: 07-23-2022 Episodic Cardiac dysrhythmias (4 sources) Tachycardia; Translations: [Tachycardia, unspecified] Onset: 08-05-2023 08-05-2023 Episodic Early or threatened labor (5 sources) Finding of uterine contractions; Translations: [False labor, unspecified] Onset: 08-10-2023 08-10-2023 Episodic Esophageal disorders (15 sources) Gastroesophageal reflux disease; Translations: [Gastro-esophageal reflux disease without esophagitis] Onset: 06-05-2017 04-19-2019 Chronic Fluid and electrolyte disorders (2 sources) Dehydration; Translations: [Dehydration] Onset: 08-05-2023 08-05-2023 Episodic Immunizations and screening for infectious disease (7 sources) Contact with and (suspected) exposure to other viral communicable diseases; Translations: [Contact with and (suspected) exposure to other viral communicable diseases Z20.828] Onset: 01-11-2021 Resolved: 01-11-2021 Episodic Influenza (2 sources) Influenza due to other identified influenza virus with other respiratory manifestations; Translations: [Influenza] Episodic Liveborn (9 sources) Pierre liveborn unspecified as to place of ; Translations: [Single liveborn , unspecified as to place of ] Onset: 05-27-2023 05-27-2023 Episodic Menstrual disorders (2 sources) Amenorrhea; Translations: [Amenorrhea, unspecified] Onset: 01-14-2023 Chronic Nausea and vomiting (2 sources) Nausea and vomiting; Translations: [Nausea with vomiting, unspecified] Onset: 07-14-2022 Episodic Nutritional deficiencies (13 sources) Vitamin D deficiency; Translations: [Vitamin D deficiency, unspecified] Onset: 06-05-2017 04-19-2019 Chronic Other aftercare (1 source) FPC (current) use of hormonal contraceptives; Translations: [SEC REPORTING CONSULTANT HORMONAL CONTRACEPTIVES] Onset: 05-20-2022 Episodic Other complications of (1 source) Obesity complicating , first trimester; Translations: [Obesity complicating , first trimester] Onset: 01-14-2023 Chronic Other nutritional; endocrine; and metabolic disorders (1 source) Body mass index 40+ - severely obese Chronic Other nutritional; endocrine; and metabolic disorders (1 source) Body mass index 30+ - obesity 07-23-2022 Chronic Other and delivery including normal (20 sources) Delivery normal; Translations: [Term ] Onset: 12-07-2019 Resolved: 12-09-2019 12-09-2019 Episodic Other upper respiratory infections (5 sources) Acute upper respiratory infection, unspecified; Translations: [Acute pharyngitis, unspecified] Onset: 01-11-2021 Resolved: 01-11-2021 Episodic Polyhydramnios and other problems of amniotic cavity (7 sources) Premature rupture of membranes; Translations: [Premature rupture of membranes, unspecified as to length of time between rupture and onset of labor, unspecified weeks of gestation] Onset: 06-27-2023 06-27-2023 Episodic Residual codes; unclassified (1 source) Gestation period, 36 weeks; Translations: [36 weeks gestation of ] Episodic Residual codes; unclassified (1 source) Gestation period, 33 weeks; Translations: [33 weeks gestation of ] 07-13-2023 Episodic Residual codes; unclassified (2 sources) Gestation period, 37 weeks; Translations: [37 weeks gestation of ] Onset: 08-06-2023 08-06-2023 Episodic Residual codes; unclassified (1 source) 36 weeks gestation of ; Translations: [36 weeks gestation of ] Onset: 08-03-2023 Episodic Residual codes; unclassified (1 source) 33 weeks gestation of ; Translations: [33 weeks gestation of ] Onset: 07-13-2023 Episodic Thyroid disorders (14 sources) Hypothyroidism; Translations: [Hypothyroidism, unspecified] Onset: 06-05-2017 04-19-2019 Chronic Unclassified (1 source) COUGH, UNSPECIFIED; Translations: [COUGH, UNSPECIFIED] Onset: 05-20-2022 Urinary tract infections (1 source) Cystitis, unspecified without hematuria; Translations: [CYSTITIS UNS WITHOUT HEMATURIA] Onset: 06-23-2022 Episodic Past or Other Problems Problem Classification Problem Date Documented Date Episodic/Chronic Abdominal hernia (14 sources) Hiatal hernia; Translations: [Diaphragmatic hernia without obstruction or gangrene] Onset: 06-10-2017 04-19-2019 Episodic Appendicitis and other appendiceal conditions (20 sources) Appendicitis; Translations: [Unspecified appendicitis] Onset: 08-25-2018 04-19-2019 Episodic Esophageal disorders (1 source) Esophagitis; Translations: [Esophagitis] Onset: 06-10-2017 06-10-2017 Episodic Genitourinary symptoms and ill-defined conditions (6 sources) Dysuria; Translations: [Retention of urine, unspecified] Onset: 06-19-2022 Episodic Mood disorders (1 source) Mood disorders Onset: 04-24-2023 04-24-2023 Other aftercare (1 source) 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 Basophil 0.05 k/uL Normal 0.00-0.20 [facility] Comment on above: Performed By: #### C DP #### [facility] [address] [place] [address] Window Assembler: Dalia Dutton MD Abs.Imm.Granulocyte 0.05 k/uL Normal 0.00-0.30 [facility] Comment on above: Performed By: #### C DP #### [facility] [address] [place], [place] [id number] Window Assembler: Dalia Dutton MD Abs.Neutrophil (Seg) 10.12 k/uL High 1.50-8.10 [facility] Comment on above: Performed By: #### C DP #### [facility] [address] [place], [facility] Window Assembler: Dalia Dutton MD Basophils/100 WBC (Bld) 0 % Normal 0-[address] [facility] Comment on above: Performed By: #### C DP #### [address] [place], [facility] Window Assembler: Dalia Dutton MD Eosinophils (Bld) [#/Vol] 0.08 10*3/uL Normal 0.00-0.44 [facility] Comment on above: Performed By: #### C DP #### [facility] [address] [place] [address] Dr. [place], [facility] Window Assembler: Dalia Dutton MD Eosinophils/100 WBC (Bld) 1 % Normal 1-4 [facility] Comment on above: Performed By: #### C DP #### [facility] [address] [place] [address] Dr. [place], [facility] Window Assembler: Dalia Dutton MD Erythrocyte distribution width (RBC) [Ratio] 12.7 % Normal 11.8-14.4 [facility] Comment on above: Performed By: #### C DP #### [facility] [address] [place], [facility]83 Window Assembler: Dalia Dutton MD Hematocrit (Bld) [Volume fraction] 34.7 % Low 36.3-47.1 [facility] Comment on above: Performed By: #### C DP #### [address] [place], [facility]83 Window Assembler: Dalia Dutton MD Hemoglobin (Bld) [Mass/Vol] 11.5 g/dL Low 11.9-15.1 [facility] Comment on above: Performed By: #### C DP #### [facility] [address] [place] [address] Window Assembler: Dalia Dutton MD Immature granulocytes/100 WBC (Bld) 0 % Normal 0 [facility] Comment on above: Performed By: #### C DP #### [facility] [address] [place] [address] Dr. [place], [place] [id number] Window Assembler: Dalia Dutton MD Lymphocytes (Bld) [#/Vol] 2.32 10*3/uL Normal 1.10-3.70 [facility] Comment on above: Performed By: #### C DP #### [address] [place], [facility]83 Window Assembler: Dalia Dutton MD Lymphocytes/100 WBC (Bld) 18 % Low 24-43 [facility] Comment on above: Performed By: #### C DP #### [address] [place] [address] Window Assembler: Dalia Dutton MD MCH (RBC) [Entitic mass] 30.0 pg Normal 25.2-33.5 [facility] Comment on above: Performed By: #### C DP #### [facility] [address] [place] [address] Dr. [place], [facility]83 Window Assembler: Dalia Dutton MD MCHC (RBC) [Mass/Vol] 33.1 g/dL Normal 28.4-34.8 [facility] Comment on above: Performed By: #### C DP #### [address] [place] [address] Window Assembler: Dalia Dutton MD MCV (RBC) [Entitic vol] 90.6 fL Normal 82.6-102.9 [facility] Comment on above: Performed By: #### C DP #### [facility] [address] [place], [place] [id number] Window Assembler: Dalia Dutton MD Monocytes (Bld) [#/Vol] 0.61 10*3/uL Normal 0.10-1.20 [facility] Comment on above: Performed By: #### C DP #### [facility] [address] [place], [place] [id number] Window Assembler: Dalia Dutton MD Monocytes/100 WBC (Bld) 5 % Normal 3-[address] [facility] Comment on above: Performed By: #### C DP #### [facility] [address] [place], [place] [id number] Window Assembler: Dalia Dutton MD Neutrophil (Seg) 76 % High 36-65 [facility] Comment on above: Performed By: #### C DP #### [facility] [address] [place], [place] [id number] Window Assembler: Dalia Dutton MD NRBC Automated 0.0 per 100 WBC Normal 0.0 [facility] Comment on above: Performed By: #### C DP #### [address] [place], [place] [id number] Window Assembler: Dalia Dutton MD Platelet mean volume (Bld) [Entitic vol] 12.6 fL Normal 8.1-13.5 [facility] Comment on above: Performed By: #### C DP #### [facility] [address] [place], [place] [id number] Window Assembler: Dalia Dutton MD Platelets (Bld) [#/Vol] 299 10*3/uL Normal 138-453 [facility] Comment on above: Performed By: #### C DP #### [facility] [address] [place], [place] [id number] Window Assembler: Dalia Dutton MD RBC (Bld) [#/Vol] 3.83 10*6/uL Low 3.95-5.11 [facility] Comment on above: Performed By: #### C DP #### [facility] [address] [place], [place] [id number] Window Assembler: Dalia Dutton MD WBC (Bld) [#/Vol] 13.2 10*3/uL High 3.5-11.3 [facility] Comment on above: Performed By: #### C DP #### [facility] [address] [place] [address] Window Assembler: Dalia Dutton MD Type + Screenon 08-23-2023 Type + Screen Sample Expiration 08/26/2023,2359 Arm Band Number [id number] ABO/Rh(D) O POSITIVE Antibody Screen NEGATIVE Normal [facility] Comment on above: Performed By: #### U AX, UMICAO #### [facility] [address] [place] [address] Window Assembler: Dalia Dutton MD Microscopic Urinalysison Bacteria LM Ql (Urine sed) 2+ Abnormal None [facility] Epithelial cells LM.HPF (Urine sed) [#/Area] 10 TO 20 [facility] Interpretation and review of laboratory results Abnormal [facility] RBC LM.HPF (Urine sed) [#/Area] 0 TO 2 [facility] WBC LM.HPF (Urine sed) [#/Area] 2 TO 5 [facility] Urinalysison 08-14-2023 Bilirubin Ql (U) SMALL Abnormal NEGATIVE [facility] Clarity (U) Clear Clear [facility] Color (U) Dark Yellow Abnormal Yellow [facility] Glucose Test strip (U) [Mass/Vol] Negative NEGATIVE mg/dL [facility] Hemoglobin Auto test strip Ql (U) Negative NEGATIVE [facility] Interpretation and review of laboratory results Abnormal [facility] Ketones (U) [Mass/Vol] 1+ Abnormal NEGAT BECKY mg/dL [facility] Leukocyte esterase Test strip Ql (U) TRACE Abnormal NEGATIVE [facility] Nitrite Ql (U) Negative [facility] pH (U) 6.5 [pH] 5.0 - 9.0 [facility] Protein (U) [Mass/Vol] 2+ Abnormal NEGAT BECKY mg/dL [facility] Specific gravity (U) [Rel density] High 1.010 - 1.020 [facility] Urobilinogen Qn (U) Normal 0.0 - 1. 0 EU/dL [facility] Urinalysis, Routineon 2023 Bilirubin, SemiQt,Ur SMALL Abnormal NEG [facility] Comment on above: Performed By: #### T SH #### [facility] [address] [place] [address] Window Assembler: Dalia Dutton MD Blood, Urine Negative Normal NEG [facility] Comment on above: Performed By: #### T SH #### [facility] [address] [place] [address] Window Assembler: Dalia Dutton MD Clarity (U) Clear Normal CLEAR [facility] Comment on above: Performed By: #### T SH #### [facility] [address] [place] [address] Window Assembler: Dalia Dutton MD Color (U) Dark Yellow Abnormal YEL [facility] Comment on above: Performed By: #### T SH #### [facility] [address] [place] [address] Window Assembler: Dalia Dutton MD Glucose Ql (U) Negative Normal NEG [facility] Comment on above: Performed By: #### T SH #### [facility] [address] [place] [address] Window Assembler: Dalia Dutton MD Ketones Ql (U) 1+ mg/dL Abnormal NEG [facility] in Hospital Comment on above: Performed By: #### T SH #### [facility] [address] [place], [place] [id number] Window Assembler: Dalia Dutton MD Leukocyte esterase Test strip Ql (U) TRACE Abnormal NEG [facility] Comment on above: Performed By: #### T SH #### [facility] [address] [place], [place] [id number] Window Assembler: Dalia Dutton MD Nitrite,Ur Negative Normal NEG [facility] Comment on above: Performed By: #### T SH #### [facility] [address] [place] [address] [place], [place] [id number] Window Assembler: Dalia Dutton MD PH,Ur 6.5 Normal 5.0-9.0 [facility] Comment on above: Performed By: #### T SH #### [facility] [address] [place] [address] Dr[place], [place] [id number] Window Assembler: Dalia Dutton MD Protein Ql (U) 2+ mg/dL Abnormal NEG [facility] Comment on above: Performed By: #### T SH #### [facility] [address] [place] [address] Dr. [place], [place] [id number] Window Assembler: Dalia Dutton MD Spec. [place],Ur >1.030 High 1.010-1.020 [facility] Comment on above: Performed By: #### T SH #### [facility] [address] [place] [address] Dr. [place], [place] [id number] Window Assembler: Dalia Dutton MD Urobilinogen,Ur Normal Normal 0.0-1.0 [facility] Comment on above: Performed By: #### T SH #### [facility] [address] [place] [address] Dr. [place], [place] [id number] Window Assembler: Dalia Dutton MD Urinalysis,Microon 4 Bacteria 2+ Abnormal NONE [facility] Comment on above: Performed By: #### T SH #### [facility] [address] [place], [place] [id number] Window Assembler: Dalia Dutton MD Epithelial cells LM Ql (Urine sed) 10 TO 20 Normal 0-25 [facility] Comment on above: Performed By: #### T SH #### [facility] [address] [place], [place] [id number] Window Assembler: Dalia Dutton MD Urine RBC's 0 TO 2 Normal 0-2 [facility] Comment on above: Performed By: #### T SH #### [facility] [address] [place], [place] [id number] Window Assembler: Dalia Dutton MD Urine WBC's 2 TO 5 Normal 0-5 [facility] Comment on above: Performed By: #### T SH #### [facility] [address] [place], [facility]83 Window Assembler: Dalia Dutton MD Cult,Urineon 08-11-2023 Cult,Urine Specimen Description .CLEAN CATCH URINE Culture NO SIGNIFICANT GROWTH Report Status FINAL 08/11/2023 Normal [facility] Comment on above: Performed By: #### U AX, OLMANO #### [facility] [address] [place] [address] [place] [address] Window Assembler: Dalia Dutton MD Rule Out Grp.B Strepon 08-10 Rule Out Grp.B Strep Specimen Description .VAGINA Culture STREPTOCOCCI, BETA HEMOLYTIC GROUP B MODERATE GROWTH Report Status FINAL 08/11/2023 SUSCEPTIBILITY Organism STREPTOCOCCI BETA HEMOLYTIC GROUP B Method ELENI Penicillin <=0.06 SUSCEPTIBLE Ceftriaxone <=0.12 SUSCEPTIBLE Clindamycin >=1 RESISTANT Vancomycin 0.5 SUSCEPTIBLE Susceptible [facility] Comment on above: Performed By: #### U AX, UMICAO #### [facility] [address] [place] [address] Window Assembler: Dalia Dutton MD Microscopic Urinalysison Bacteria LM Ql (Urine sed) 2+ Abnormal None [facility] Epithelial cells LM.HPF (Urine sed) [#/Area] 5 TO 10 [facility] Interpretation and review of laboratory results Abnormal [facility] RBC LM.HPF (Urine sed) [#/Area] None [facility] WBC LM.HPF (Urine sed) [#/Area] 2 TO 5 [facility] Urinalysison 08-10-2023 Bilirubin Ql (U) Negative NEGATIVE [facility] Clarity (U) Clear Clear [facility] Color (U) Yellow Yellow [facility] Glucose Test strip (U) [Mass/Vol] Negative NEGATIVE mg/dL [facility] Hemoglobin Auto test strip Ql (U) Negative NEGATIVE [facility] Interpretation and review of laboratory results Abnormal [facility] Ketones (U) [Mass/Vol] Negative NEGAT BECKY mg/dL [facility] Leukocyte esterase Test strip Ql (U) SMALL Abnormal NEGATIVE [facility] Nitrite Ql (U) Negative [facility]GATIVE [facility] pH (U) 6.5 [pH] 5.0 - 9.0 [facility] Protein (U) [Mass/Vol] TRACE Abnormal NEGAT BECKY mg/dL [facility] Specific gravity (U) [Rel density] 1.025 High 1.010 - 1.020 [facility] Urobilinogen Qn (U) Normal 0.0 - 1. 0 EU/dL [facility] Urinalysis, Routineon 2023 Bilirubin, SemiQt,Ur Negative Normal NEG [facility] Comment on above: Performed By: #### T SH #### [facility] [address] [place] [address] Window Assembler: Dalia Dutton MD Blood, Urine Negative Normal NEG [facility] Comment on above: Performed By: #### T SH #### [facility] [address] [place] [address] Window Assembler: Dalia Dutton MD Clarity (U) Clear Normal CLEAR [facility] Comment on above: Performed By: #### T SH #### [facility] [address] [place] [address] Window Assembler: Dalia Dutton MD Color (U) Yellow Normal YEL [facility] Comment on above: Performed By: #### T SH #### [facility] [address] [place] [address] Window Assembler: Dalia Dutotn MD Glucose Ql (U) Negative Normal NEG [facility] Comment on above: Performed By: #### T SH #### [facility] [address] [place] [address] [place] [address] Window Assembler: Dalia Dutton MD Ketones Ql (U) Negative Normal NEG [facility] Comment on above: Performed By: #### T SH #### [facility] [address] [place], [place] [id number] Window Assembler: Dalia Dutton MD Leukocyte esterase Test strip Ql (U) SMALL Abnormal NEG [facility] Comment on above: Performed By: #### T SH #### [facility] [address] [place] [address] Dr. [place], [place] [phone] Window Assembler: Dalia Dutton MD Nitrite,Ur Negative Normal NEG [facility] Comment on above: Performed By: #### T SH #### [facility] [address] [place], [place] [phone] Window Assembler: Dalia Dutton MD PH,Ur 6.5 Normal 5.0-9.0 [facility] Comment on above: Performed By: #### T SH #### [facility] [address] [place] [address] Window Assembler: Dalia Dutton MD Protein Ql (U) TRACE Abnormal NEG [facility] Comment on above: Performed By: #### T SH #### [facility] [address] [place] [address] Window Assembler: Dalia Dutton MD Spec. [place],Ur 1.025 High 1.010-1.020 [facility] Comment on above: Performed By: #### T SH #### [facility] [address] [place] [address] Window Assembler: Dalia Dutton MD Urobilinogen,Ur Normal Normal 0.0-1.0 [facility] Comment on above: Performed By: #### T SH #### [facility] [address] [place], [place] [id number] Window Assembler: Dalia Dutton MD Urinalysis,Microon 4 Bacteria 2+ Abnormal NONE [facility] Comment on above: Performed By: #### T SH #### [facility] [address] [place], [place] [id number] Window Assembler: Dalia Dutton MD Epithelial cells LM Ql (Urine sed) 5 TO 10 Normal 0-25 [facility] Comment on above: Performed By: #### T SH #### [facility] [address] [place] [address] Dr. [place], [place] [id number] Window Assembler: Dalia Dutton MD Urine RBC's None Normal 0-2 [facility] Comment on above: Performed By: #### T SH #### [facility] [address] [place], [facility]83 Window Assembler: Dalia Dutton MD Urine WBC's 2 TO 5 Normal 0-5 [facility] Comment on above: Performed By: #### T SH #### [facility] [address] [place] [address] Window Assembler: Dalia Dutton MD Cult,Urineon 08-07-2023 Cult,Urine Specimen Description .CLEAN CATCH URINE Culture NO SIGNIFICANT GROWTH Report Status FINAL 08/07/2023 Normal [facility] Comment on above: Performed By: #### U #### [facility] [address] [place] [address] Window Assembler: Devin Yeager MD [facility] [address] [place] [address] Window Assembler: Dalia Dutton MD Basic Metabolic Panelon Anion gap [Moles/Vol] 15 mmol/L 9 - 17 mmol/L [facility] Calcium [Mass/Vol] 9.0 mg/dL 8.6 - 10. 4 mg/dL [facility] Chloride [Moles/Vol] 104 mmol/L 98 - 10 7 mmol/L [facility] CO2 [Moles/Vol] 19 mmol/L Low 20 - 31 mmol/L [facility] Creatinine [Mass/Vol] 0.6 mg/dL 0.5 - 0.9 mg/dL [facility] Est, Glom Arielt Rate - PIN[facility] Comment on above: These results are not intended for use in patients <18 years of age. eGFR results are calculated without a race factor using the 2020 CKD-EPI equation. Careful clinical correlation is recommended, particularly when comparing to results calculated using previous equations. The CKD-EPI equation is less accurate in patients with extremes of muscle mass, extra-renal metabolism of creatine, excessive creatine ingestion, or following therapy that affects renal tubular secretion. Glucose [Mass/Vol] 101 mg/dL High 70 - 99 mg/dL [facility] Interpretation and review of laboratory results Abnormal [facility] Potassium [Moles/Vol] 3.7 mmol/L 3.7 - 5.3 mmol/L [facility] Sodium [Moles/Vol] 138 mmol/L 135 - 144 mmol/L [facility] Urea nitrogen [Mass/Vol] 12 mg/dL 6 - 20 mg/dL [facility] Urea nitrogen/Creatinine [Mass ratio] 20 mg/mg 9 - 20 [facility] Basic Metabolic Profon 08-04 Anion gap [Moles/Vol] 15 mmol/L Normal 9-17 [facility] Comment on above: Performed By: #### U AX, UMICAO #### [facility] [address] [place], [place] [id number] Window Assembler: Dalia Dutton MD BUN/CRE Ratio 20 Normal 9-20 [facility] Comment on above: Performed By: #### U AX, UMICAO #### [facility] [address] [place], [place] [phone] Window Assembler: Dalia Dutton MD Calcium [Mass/Vol] 9.0 mg/dL Normal 8.6-10.4 [facility] Comment on above: Performed By: #### U AX, UMICAO #### [facility] [address] [place], [place] [id number] Window Assembler: Dalia Dutton MD Chloride [Moles/Vol] 104 mmol/L Normal 98-107 [facility] Comment on above: Performed By: #### U AX, UMICAO #### [facility] [address] [place], [place] [id number] Window Assembler: Dalia Dutton MD CO2 [Moles/Vol] 19 mmol/L Low 20-31 [facility] Comment on above: Performed By: #### U AX, UMICAO #### [facility] [address] [place], [place] [phone] Window Assembler: Dalia Dutton MD Creatinine [Mass/Vol] 0.6 mg/dL Normal 0.5-0.9 [facility] Comment on above: Performed By: #### U AX, UMICAO #### [facility] [address] [place] [address] Window Assembler: Dalia Dutton MD GFR/1.73 sq M.predicted among non-blacks MDRD (S/P/Bld) [Vol rate/Area] mL/min/{1.73_m2} Normal >60 [facility] Comment on above: Result Comment: These results are not intended for use in patients <18 years of age. eGFR results are calculated without a race factor using the 2020 CKD-EPI equation. Careful clinical correlation is recommended, particularly when comparing to results calculated using previous equations. The CKD-EPI equation is less accurate in patients with extremes of muscle mass, extra-renal metabolism of creatine, excessive creatine ingestion, or following therapy that affects renal tubular secretion. Performed By: #### U AX, UMICAO #### [facility] [address] [place] [address] Dr. [place] [id number] Window Assembler: Dalia Dutton MD Glucose [Mass/Vol] 101 mg/dL High 70-99 [facility] Comment on above: Performed By: #### U AX, UMICAO #### [address] [place] [phone] Window Assembler: Dalia Dutton MD Potassium [Moles/Vol] 3.7 mmol/L Normal 3.7-5.3 [facility] Comment on above: Performed By: #### U AX, UMICAO #### [facility] [address] [place] [address] [place] [address] Window Assembler: Dalia Dutton MD Sodium [Moles/Vol] 138 mmol/L Normal 135-144 [facility] Comment on above: Performed By: #### U AX, UMICAO #### [address] [place] [id number] Window Assembler: Dalia Dutton MD Urea nitrogen [Mass/Vol] 12 mg/dL Normal 6-20 [facility] Comment on above: Performed By: #### U AX, UMICAO #### [facility] [address] [place] [address] Dr. [place], [place] [phone] Window Assembler: Dalia Dutton MD Brain Natri. Peptideon 08-04 Natriuretic peptide B (Bld) [Mass/Vol] 64 pg/mL Normal <300 [facility] Comment on above: Result Comment: An age-independent cutoff point of 300 pg/ml has a 98% negative predictive value excluding acute heart failure. Performed By: #### B CUSTOMER ENGINEERING SPECIALIST #### [facility] [address] [place] [address] Window Assembler: Dalia Dutton MD Brain Natriuretic Peptideon 08-05-2023 Natriuretic peptide B (Bld) [Mass/Vol] 64 pg/mL NINF - 300 pg/mL [facility] Comment on above: An age-independent cutoff point of 300 pg/ml has a 98% negative predictive value excluding acute heart failure. [facility] CBC with Auto Differentialon 08-05-2023 Basophils (Bld) [#/Vol] 0.04 10*3/uL [facility] Basophils/100 WBC (Bld) 0 % 0 - 2 % [facility] Eosinophils (Bld) [#/Vol] 0.07 10*3/uL [facility] Eosinophils/100 WBC (Bld) 1 % 1 - 4 % [facility] Erythrocyte distribution width (RBC) [Ratio] 12.7 % 11.8 - 14.4 % [facility] Hematocrit (Bld) [Volume fraction] 34.1 % Low 36.3 - 47.1 % [facility] Hemoglobin (Bld) [Mass/Vol] 11.7 g/dL Low 11.9 - 15.1 g/dL [facility] Immature granulocytes (Bld) [#/Vol] 0.05 10*3/uL [facility] Immature granulocytes/100 WBC (Bld) 0 % 0 [facility] Interpretation and review of laboratory results Abnormal [facility] Lymphocytes/100 WBC (Bld) 16 % Low 24 - 43 % [facility] Lymphocytes/100 WBC (Bld) 1.99 % [facility] MCH (RBC) [Entitic mass] 30.5 pg 25.2 - 33.5 pg [facility] MCHC (RBC) [Mass/Vol] 34.3 g/dL 28.4 - 34.8 g/dL [facility] MCV (RBC) [Entitic vol] 89.0 fL 82.6 - 102.9 fL [facility] Monocytes/100 WBC (Bld) 5 % 3 - 12 % [facility] Monocytes/100 WBC (Bld) 0.60 % [facility] Neutrophils/100 WBC (Bld) 78 % High 36 - 65 % [facility] Nucleated RBC/100 WBC (Bld) [Ratio] 0.0 % 0.0 per 100 WBC [facility] Platelet mean volume (Bld) [Entitic vol] 12.2 fL 8.1 - 13.5 fL [facility] Platelets (Bld) [#/Vol] 308 10*3/uL [facility] RBC (Bld) [#/Vol] 3.83 10*6/uL Low 3.95 - 5.1 1 m/uL [facility] Segmented neutrophils/100 WBC (Bld) 9.83 % High [facility] WBC other (Bld) [#/Vol] 12.6 High [facility] CBC with Diffon 08-05-2023 Abs. Basophil 0.04 k/uL Normal 0.00-0.20 [facility] Comment on above: Performed By: #### TONYA KOHLER #### [facility] [address] [place] [address] [place] [address] Window Assembler: Dalia Dutton MD Abs.Imm.Granulocyte 0.05 k/uL Normal 0.00-0.30 [facility] Comment on above: Performed By: #### TONYA KOHLER #### [facility] [address] [place] [address] Dr. [place], [place] [address] Window Assembler: Dalia Dutton MD Abs.Neutrophil (Seg) 9.83 k/uL High 1.50-8.10 [facility] Comment on above: Performed By: #### TONYA KOHLER #### [facility] [address] [place] [address] Dr. [place] [phone] Window Assembler: Dalia Dutton MD Basophils/100 WBC (Bld) 0 % Normal 0-[address] [facility] Comment on above: Performed By: #### TONYA KOHLER #### [address] [place] [address] Window Assembler: Dalia Dutton MD Eosinophils (Bld) [#/Vol] 0.07 10*3/uL Normal 0.00-0.44 [facility] Comment on above: Performed By: #### U AX, UMICAO #### [address] [place], [facility]83 Window Assembler: Dalia Dutton MD Eosinophils/100 WBC (Bld) 1 % Normal 1-4 [facility] Comment on above: Performed By: #### U AXKETANICAO #### [address] [place] [id number] Window Assembler: Dalia Dutton MD Erythrocyte distribution width (RBC) [Ratio] 12.7 % Normal 11.8-14.4 [facility] Comment on above: Performed By: #### U AX UMICAO #### [address] [place], [place] [id number] Window Assembler: Dalia Dutton MD Hematocrit (Bld) [Volume fraction] 34.1 % Low 36.3-47.1 [facility] Comment on above: Performed By: #### U AX UMICAO #### [address] [place], [place] [address] Window Assembler: Dalia Dutton MD Hemoglobin (Bld) [Mass/Vol] 11.7 g/dL Low 11.9-15.1 [facility] Comment on above: Performed By: #### U AX UMICAO #### [address] [place], [place] [phone] Window Assembler: Dalia Dutton MD Immature granulocytes/100 WBC (Bld) 0 % Normal 0 [facility] Comment on above: Performed By: #### U AX, UMICAO #### [address] [place], [place] [id number] Window Assembler: Dalia Dutton MD Lymphocytes (Bld) [#/Vol] 1.99 10*3/uL Normal 1.10-3.70 [facility] Comment on above: Performed By: #### U AX, UMICAO #### [address] [place], [place] [phone] Window Assembler: Dalia Dutton MD Lymphocytes/100 WBC (Bld) 16 % Low 24-43 [facility] Comment on above: Performed By: #### U AX, UMICAO #### [address] [place], [facility]83 Window Assembler: Dalia Dutton MD MCH (RBC) [Entitic mass] 30.5 pg Normal 25.2-33.5 [facility] Comment on above: Performed By: #### U AX, UMICAO #### [address] [place], [facility]83 Window Assembler: Dalia Dutton MD MCHC (RBC) [Mass/Vol] 34.3 g/dL Normal 28.4-34.8 [facility] Comment on above: Performed By: #### U AX, UMICAO #### [address] [place], [facility]83 Window Assembler: Dalia Dutton MD MCV (RBC) [Entitic vol] 89.0 fL Normal 82.6-102.[address] [facility] Comment on above: Performed By: #### U AX, UMICAO #### [address] [place], [place] [phone] Window Assembler: Dalia Dutton MD Monocytes (Bld) [#/Vol] 0.60 10*3/uL Normal 0.10-1.20 [facility] Comment on above: Performed By: #### U AX, UMICAO #### [address] [place], [place] 1322183 Window Assembler: Dalia Dutton MD Monocytes/100 WBC (Bld) 5 % Normal 3-[address] [facility] Comment on above: Performed By: #### U AX, UMICAO #### [facility] [address] [place] [address] Window Assembler: Dalia Dutton MD Neutrophil (Seg) 78 % High 36-65 [facility] Comment on above: Performed By: #### U AX, UMICAO #### [facility] [address] [place], [place] 9258983 Window Assembler: Dalia Dutton MD NRBC Automated 0.0 per 100 WBC Normal 0.0 [facility] Comment on above: Performed By: #### U AX, UMICAO #### [facility] [address] [place], [place] [phone] Window Assembler: Dalia Dutton MD Platelet mean volume (Bld) [Entitic vol] 12.2 fL Normal 8.1-13.5 [facility] Comment on above: Performed By: #### U AX, UMICAO #### [address] [place], [place] [id number] Window Assembler: Dalia Dutton MD Platelets (Bld) [#/Vol] 308 10*3/uL Normal 138-453 [facility] Comment on above: Performed By: #### U AX, UMICAO #### [facility] [address] [place], [place] [phone] Window Assembler: Dalia Dutton MD RBC (Bld) [#/Vol] 3.83 10*6/uL Low 3.95-5.11 [facility] Comment on above: Performed By: #### U AX, UMICAO #### [facility] [address] [place], [place] [phone] Window Assembler: Dalia Dutton MD WBC (Bld) [#/Vol] 12.6 10*3/uL High 3.5-11.3 [facility] Comment on above: Performed By: #### U TONYA DARBY #### [facility] [address] [address] Window Assembler: Dalia Dutton MD Microscopic Urinalysison Bacteria LM Ql (Urine sed) 3+ Abnormal None [facility] Epithelial cells LM.HPF (Urine sed) [#/Area] 10 TO 20 [facility] Interpretation and review of laboratory results Abnormal [facility] Mucus Ql (Urine sed) 1+ Abnormal None [facility] RBC LM.HPF (Urine sed) [#/Area] 0 TO 2 [facility] WBC LM.HPF (Urine sed) [#/Area] 5 TO 10 [facility] TSHon 08-05-2023 TSH Qn 1.28 m[IU]/L [facility] Thyroid Stim. Horm.on 2023 Thyroid Stim. Horm. 1.28 uIU/mL Normal 0.30-5.00 [facility] Comment on above: Performed By: #### T SH #### [facility] [address] [place], [facility]83 Window Assembler: Dalia Dutton MD Troponinon 08-05-2023 Troponin, High Sens <6 Normal 0-14 [facility] Comment on above: Result Comment: High Sensitivity Troponin values cannot be compared with other Troponin methodologies. Performed By: #### U TONYA DARBY #### [facility] [address] [place], [place] [id number] Window Assembler: Dalia Dutton MD Troponin I.cardiac High sensitivity method [Mass/Vol] ng/L 0 - 14 ng/L [facility] Comment on above: High Sensitivity Tro ponin values cannot be compared with other Troponin methodologies. [facility] UA w/Reflex Cultureon 2023 Bilirubin, SemiQt,Ur Negative Normal NEG [facility] Comment on above: Performed By: #### T SH #### [facility] [address] [place] [address] Window Assembler: Dalia Dutton MD Blood, Urine Negative Normal NEG [facility] Comment on above: Performed By: #### T SH #### [facility] [address] [place] [address] [place] [address] Window Assembler: Dalia Dutton MD Clarity (U) Cloudy Abnormal CLEAR [facility] Comment on above: Performed By: #### T SH #### [address] [place] [address] Window Assembler: Dalia Dutton MD Color (U) Yellow Normal YEL [facility] Comment on above: Performed By: #### T SH #### [facility] [address] [place] [address] Dr. [place], [facility]83 Window Assembler: Dalia Dutton MD Glucose Ql (U) Negative Normal NEG [facility] Comment on above: Performed By: #### T SH #### [address] [place], [facility]83 Window Assembler: Dalia Dutton MD Ketones Ql (U) Negative Normal NEG [facility] Comment on above: Performed By: #### T SH #### [facility] [address] [place] [address] Dr. [place], [facility]83 Window Assembler: Dalia Dutton MD Leukocyte esterase Test strip Ql (U) SMALL Abnormal NEG [facility] Comment on above: Performed By: #### T SH #### [address] [place] [address] Window Assembler: Dalia Dutton MD Nitrite,Ur Negative Normal [facility] Comment on above: Performed By: #### T SH #### [facility] [facility] [address] [place] [address] Dr. [place], [facility]83 Window Assembler: Dalia Dutton MD PH,Ur 6.5 Normal 5.0-9.0 [facility] Comment on above: Performed By: #### T SH #### [facility] [address] [place], [place] [id number] Window Assembler: Dalia Dutton MD Protein Ql (U) TRACE Abnormal NEG [facility] in Hospital Comment on above: Performed By: #### T SH #### [facility] [address] [place], [facility]83 Window Assembler: Dalia Dutton MD Spec. [place],Ur >1.030 High 1.010-1.020 [facility] Comment on above: Performed By: #### T SH #### [facility] [address] [place] [address] Dr. [place] [id number] Window Assembler: Dalia Dutton MD Urobilinogen,Ur Normal Normal 0.0-1.0 [facility] Comment on above: Performed By: #### T SH #### [facility] [address] [place], [facility]83 Window Assembler: Dalia Dutton MD Urinalysis with Reflex to Cu ltureon 08-05-2023 Bilirubin Ql (U) Negative NEGATIVE [facility] Clarity (U) Cloudy Abnormal Clear [facility] Color (U) Yellow Yellow [facility] Glucose Test strip (U) [Mass/Vol] Negative NEGATIVE mg/dL [facility] Hemoglobin Auto test strip Ql (U) Negative NEGATIVE [facility] Interpretation and review of laboratory results Abnormal [facility] Ketones (U) [Mass/Vol] Negative NEGAT BECKY mg/dL [facility] Leukocyte esterase Test strip Ql (U) SMALL Abnormal NEGATIVE [facility] Nitrite Ql (U) Negative NEGATIVE [facility] pH (U) 6.5 [pH] 5.0 - 9.0 [facility] Protein (U) [Mass/Vol] TRACE Abnormal NEGAT BECKY mg/dL [facility] Specific gravity (U) [Rel density] High 1.010 - 1.020 [facility] Urobilinogen Qn (U) Normal 0.0 - 1. 0 EU/dL [facility] Urinalysis,Microon 4 Bacteria 3+ Abnormal [facility] Comment on above: Performed By: #### T SH #### [facility] [address] [place], [place] [id number] Window Assembler: Dalia Dutton MD Epithelial cells LM Ql (Urine sed) 10 TO 20 Normal 0-25 [facility] Comment on above: Performed By: #### T SH #### [facility] [address] [place], [place] [id number] Window Assembler: Dalia Dutton MD Mucus Strands 1+ Abnormal [facility] Comment on above: Performed By: #### T SH #### [facility] [address] [place], [place] [id number] Window Assembler: Dalia Dutton MD Urine RBC's 0 TO 2 Normal 0-2 [facility] Comment on above: Performed By: #### T SH #### [facility] [address] [place], [place] [id number] Window Assembler: Dalia Dutton MD Urine WBC's 5 TO 10 Normal 0-5 [facility] Comment on above: Performed By: #### T SH #### [facility] [address] [place] [address] Window Assembler: Dalia Dutton MD Microscopic Urinalysison Bacteria LM Ql (Urine sed) 2+ Abnormal [facility] Epithelial cells LM.HPF (Urine sed) [#/Area] 5 TO 10 [facility] Interpretation and review of laboratory results Abnormal [facility] Mucus Ql (Urine sed) 2+ Abnormal None [facility] RBC LM.HPF (Urine sed) [#/Area] None [facility] WBC LM.HPF (Urine sed) [#/Area] 2 TO 5 [facility] UA w/Reflex Cultureon 2023 Bilirubin, SemiQt,Ur Negative Normal NEG [facility] Comment on above: Performed By: #### U AX, UMICAO #### [facility] [address] [place] [address] Dr. [place], [place] [id number] Window Assembler: Dalia Dutton MD Blood, Urine Negative Normal [facility] Comment on above: Performed By: #### U AX, UMICAO #### [address] [place], [place] [id number] Window Assembler: Dalia Dutton MD Clarity (U) Clear Normal CLEAR [facility] Comment on above: Performed By: #### U AX, UMICAO #### [address] [place], [facility]83 Window Assembler: Dalia Dutton MD Color (U) Yellow Normal YEL [facility] Comment on above: Performed By: #### U AX, UMICAO #### [address] [place], [place] [id number] Window Assembler: Dalia Dutton MD Glucose Ql (U) Negative Normal NEG [facility] Comment on above: Performed By: #### U AX, UMICAO #### [facility] [address] [place] [address] [place] [address] Window Assembler: Dalia Dutton MD Ketones Ql (U) 1+ mg/dL Abnormal NEG [facility] Comment on above: Performed By: #### U AX, UMICAO #### [address] [place] [address] Window Assembler: Dalia Dutton MD Leukocyte esterase Test strip Ql (U) TRACE Abnormal NEG [facility] Comment on above: Performed By: #### U AX, UMICAO #### [facility] [address] [place], [place] [id number] Window Assembler: Dalia Dutton MD Nitrite,Ur Negative Normal NEG [facility] Comment on above: Performed By: #### U AX, UMICAO #### [facility] [address] [place] [address] Dr. [place], [place] [phone] Window Assembler: Dalia Dutton MD PH,Ur 6.0 Normal 5.0-9.0 [facility] Comment on above: Performed By: #### U AX, UMICAO #### [facility] [address] [place] [address] Dr. [place], [place] [id number] Window Assembler: Dalia Dutton MD Protein Ql (U) 1+ mg/dL Abnormal NEG [facility] Comment on above: Performed By: #### U AX, UMICAO #### [address] [place], [place] [id number] Window Assembler: Dalia Dutton MD Spec. [place],Ur >1.030 High 1.010-1.020 [facility] Comment on above: Performed By: #### U AX, UMICAO #### [address] [place], [place] [id number] Window Assembler: Dalia Dutton MD Urobilinogen,Ur Normal Normal 0.0-1.0 [facility] Comment on above: Performed By: #### U AX, UMICAO #### [facility] [address] [place], [place] [phone] Window Assembler: Dalia Dutton MD Urinalysis with Reflex to Cu ltureon 07-13-2023 Bilirubin Ql (U) Negative NEGATIVE [facility] Clarity (U) Clear Clear [facility] Color (U) Yellow Yellow [facility] Glucose Test strip (U) [Mass/Vol] Negative NEGATIVE mg/dL [facility] Hemoglobin Auto test strip Ql (U) Negative NEGATIVE [facility] Interpretation and review of laboratory results Abnormal [facility] Ketones (U) [Mass/Vol] 1+ Abnormal NEGAT BECKY mg/dL [facility] Leukocyte esterase Test strip Ql (U) TRACE Abnormal NEGATIVE [facility] Nitrite Ql (U) Negative NEGATIVE [facility] pH (U) 6.0 [pH] 5.0 - 9.0 [facility] Protein (U) [Mass/Vol] 1+ Abnormal NEGAT BECKY mg/dL [facility] Specific gravity (U) [Rel density] High 1.010 - 1.020 [facility] Urobilinogen Qn (U) Normal 0.0 - 1. 0 EU/dL [facility] Urinalysis,Microon 4 Bacteria 2+ Abnormal NONE [facility] Comment on above: Performed By: #### U TONYA DARBY #### [facility] [address] [place] [address] Window Assembler: Dalia Dutton MD Epithelial cells LM Ql (Urine sed) 5 TO 10 Normal 0-25 [facility] Comment on above: Performed By: #### U TONYA DARBY #### [facility] [address] [place] [address] Window Assembler: Dalia Dutton MD Mucus Strands 2+ Abnormal NONE [facility] Comment on above: Performed By: #### U AXTONYA #### [facility] [address] [place], [place] [phone] Window Assembler: Dalia Dutton MD Urine RBC's None Normal 0-2 [facility] Comment on above: Performed By: #### U AXTONYA #### [facility] [address] [place] [address] Window Assembler: Dalia Dutton MD Urine WBC's 2 TO 5 Normal 0-5 [facility] Comment on above: Performed By: #### U AX, UMICAO #### [facility] [address] [place], [place] [phone] Window Assembler: Dalia Dutton MD Urinalysis, Routineon 2023 Bilirubin, SemiQt,Ur Negative Normal [facility] Comment on above: Performed By: #### U AX, UMICAO #### [facility] [address] [place], [place] [phone] Window Assembler: Dalia Dutton MD Blood, Urine 2+ Abnormal NEG [facility] Comment on above: Performed By: #### U AX, UMICAO #### [address] [place], [place] [phone] Window Assembler: Dalia Dutton MD Clarity (U) SLIGHTLY CLOUDY Abnormal CLEAR [facility] Comment on above: Performed By: #### U AX, UMICAO #### [facility] [address] [place] [address] Dr. [place], [place] [id number] Window Assembler: Dalia Dutton MD Color (U) Yellow Normal YEL [facility] Comment on above: Performed By: #### U AX, UMICAO #### [facility] [address] [place] [address] [place] [address] Window Assembler: Dalia Dutton MD Glucose Ql (U) Negative Normal NEG [facility] Comment on above: Performed By: #### U AX, UMICAO #### [facility] [address] [place] [address] Window Assembler: Dalia Dutton MD Ketones Ql (U) Negative Normal NEG [facility] Comment on above: Performed By: #### U AX, UMICAO #### [facility] [address] [place], [place] [phone] Window Assembler: Dalia Dutton MD Leukocyte esterase Test strip Ql (U) Negative Normal NEG [facility] Comment on above: Performed By: #### U AX, UMICAO #### [facility] [address] [place], [place] [phone] Window Assembler: Dalia Dutton MD Nitrite,Ur Negative Normal NEG [facility] Comment on above: Performed By: #### U AX, UMICAO #### [facility] [address] [place], [place] [phone] Window Assembler: Dalia Dutton MD PH,Ur 7.0 Normal 5.0-9.0 [facility] Comment on above: Performed By: #### U AX, UMICAO #### [facility] [address] [place], [place] [address] Window Assembler: Dalia Dutton MD Protein Ql (U) TRACE Abnormal NEG [facility] Comment on above: Performed By: #### U AX, UMICAO #### [facility] [address] [place], [place] [address] Window Assembler: Dalia Dutton MD Spec. [place],Ur 1.020 Normal 1.010-1.020 [facility] Comment on above: Performed By: #### U AX, UMICAO #### [address] [place], [place] [phone] Window Assembler: Dalia Dutton MD Urobilinogen,Ur Normal Normal 0.0-1.0 [facility] Comment on above: Performed By: #### U AX, UMICAO #### [facility] [address] [place], [facility]83 Window Assembler: Dalia Dutton MD Urinalysis,Microon 4 Bacteria 1+ Abnormal NONE [facility] Comment on above: Performed By: #### U AX, UMICAO #### [facility] [address] [place], [place] [phone] Window Assembler: Dalia Dutton MD Epithelial cells LM Ql (Urine sed) 10 TO 20 Normal 0-25 [facility] Comment on above: Performed By: #### U AX, UMICAO #### [facility] [address] [place] [address] Window Assembler: Dalia Dutton MD Mucus Strands TRACE Abnormal NONE [facility] Comment on above: Performed By: #### U AX, UMICAO #### [facility] [address] [place], [place] [phone] Window Assembler: Dalia Dutton MD Urine RBC's 2 TO 5 Normal 0-2 [facility] Comment on above: Performed By: #### U AX, UMICAO #### [facility] [address] [place], [place] [phone] Window Assembler: Dalia Dutton MD Urine WBC's 0 TO 2 Normal 0-5 [facility] Comment on above: Performed By: #### U AX, KETANICAO #### [facility] [address] [place], [facility]83 Window Assembler: Dalia Dutton MD Cult,Urineon 05-29-2023 Cult,Urine Specimen Description .CLEAN CATCH URINE Culture NO SIGNIFICANT GROWTH Report Status FINAL 05/29/2023 Normal [facility] Comment on above: Performed By: #### T SH #### [facility] [address] [place] [address] Dr. [place], [facility]83 Window Assembler: Dalia Dutton MD CBC with Auto Differentialon 05-27-2023 Basophils (Bld) [#/Vol] 0.03 10*3/uL [facility] Basophils/100 WBC (Bld) 0 % 0 - 2 % [facility] Eosinophils (Bld) [#/Vol] 0.12 10*3/uL [facility] Eosinophils/100 WBC (Bld) 1 % 1 - 4 % [facility] Erythrocyte distribution width (RBC) [Ratio] 12.7 % 11.8 - 14.4 % [facility] Hematocrit (Bld) [Volume fraction] 34.7 % Low 36.3 - 47.1 % [facility] Hemoglobin (Bld) [Mass/Vol] 11.5 g/dL Low 11.9 - 15.1 g/dL [facility] Immature granulocytes (Bld) [#/Vol] 0.04 10*3/uL [facility] Immature granulocytes/100 WBC (Bld) 0 % 0 [facility] Interpretation and review of laboratory results Abnormal [facility] Lymphocytes/100 WBC (Bld) 15 % Low 24 - 43 % [facility] Lymphocytes/100 WBC (Bld) 1.81 % [facility] MCH (RBC) [Entitic mass] 30.7 pg 25.2 - 33.5 pg [facility] MCHC (RBC) [Mass/Vol] 33.1 g/dL 28.4 - 34.8 g/dL [facility] MCV (RBC) [Entitic vol] 92.8 fL 82.6 - 102.9 fL [facility] Monocytes/100 WBC (Bld) 5 % 3 - 12 % [facility] Monocytes/100 WBC (Bld) 0.57 % [facility] Neutrophils/100 WBC (Bld) 79 % High 36 - 65 % [facility] Nucleated RBC/100 WBC (Bld) [Ratio] 0.0 % 0.0 per 100 WBC [facility] Platelet mean volume (Bld) [Entitic vol] 11.7 fL 8.1 - 13.5 fL [facility] Platelets (Bld) [#/Vol] 297 10*3/uL [facility] RBC (Bld) [#/Vol] 3.74 10*6/uL Low 3.95 - 5.1 1 m/uL [facility] Segmented neutrophils/100 WBC (Bld) 9.38 % High [facility] WBC other (Bld) [#/Vol] 12.0 High [facility] CBC with Diffon 05-27-2023 Abs. Basophil 0.03 k/uL Normal 0.00-0.20 [facility] Comment on above: Performed By: #### C DP, CP #### [address] [place], [place] [address] Window Assembler: Dalia Dutton MD Abs.Imm.Granulocyte 0.04 k/uL Normal 0.00-0.30 [facility] Comment on above: Performed By: #### C DP, CP #### [address] [place] [address] Window Assembler: Dalia Dutton MD Abs.Neutrophil (Seg) 9.38 k/uL High 1.50-8.10 [facility] Comment on above: Performed By: #### C DP, CP #### [address] [place] [address] Window Assembler: Dalia Dutton MD Basophils/100 WBC (Bld) 0 % Normal 0-2 [facility] Comment on above: Performed By: #### C DP, CP #### [address] [place] [address] Window Assembler: Dalia Dutton MD Eosinophils (Bld) [#/Vol] 0.12 10*3/uL Normal 0.00-0.44 [facility] Comment on above: Performed By: #### C DP, CP #### [address] [place] [address] Window Assembler: Dalia Dutton MD Eosinophils/100 WBC (Bld) 1 % Normal 1-4 [facility] Comment on above: Performed By: #### C DP, CP #### [address] [place] [address] Window Assembler: Dalia Dutton MD Erythrocyte distribution width (RBC) [Ratio] 12.7 % Normal 11.8-14.4 [facility] Comment on above: Performed By: #### C DP, CP #### [address] [place], [facility]83 Window Assembler: Dalia Dutton MD Hematocrit (Bld) [Volume fraction] 34.7 % Low 36.3-47.1 [facility] Comment on above: Performed By: #### C DP, CP #### [facility] [address] [place] [address] Dr. [place], [facility]83 Window Assembler: Dalia Dutton MD Hemoglobin (Bld) [Mass/Vol] 11.5 g/dL Low 11.9-15.1 [facility] Comment on above: Performed By: #### C DP, CP #### [address] [place] [address] Window Assembler: Dalia Dutton MD Immature granulocytes/100 WBC (Bld) 0 % Normal 0 [facility] Comment on above: Performed By: #### C DP, CP #### [facility] [address] [place] [address] Dr. [place], [facility]83 Window Assembler: Dalia Dutton MD Lymphocytes (Bld) [#/Vol] 1.81 10*3/uL Normal 1.10-3.70 [facility] Comment on above: Performed By: #### C DP, CP #### [address] [place], [facility]83 Window Assembler: Dalia Dutton MD Lymphocytes/100 WBC (Bld) 15 % Low 24-43 [facility] Comment on above: Performed By: #### C DP, CP #### [facility] [address] [place] [address] Dr. [place], [facility]83 Window Assembler: Dalia Dutton MD MCH (RBC) [Entitic mass] 30.7 pg Normal 25.2-33.5 [facility] Comment on above: Performed By: #### C DP, CP #### [facility] [address] [place] [address] Dr. [place], [facility]83 Window Assembler: Dalia Dutton MD MCHC (RBC) [Mass/Vol] 33.1 g/dL Normal 28.4-34.8 [facility] Comment on above: Performed By: #### C DP, CP #### [address] [place], [place] [address] Window Assembler: Dalia Dutton MD MCV (RBC) [Entitic vol] 92.8 fL Normal 82.6-102.9 [facility] Comment on above: Performed By: #### C DP, CP #### [address] [place], [place] [address] Window Assembler: Dalia Dutton MD Monocytes (Bld) [#/Vol] 0.57 10*3/uL Normal 0.10-1.20 [facility] Comment on above: Performed By: #### C DP, CP #### [address] [place], [place] [address] Window Assembler: Dalia Dutton MD Monocytes/100 WBC (Bld) 5 % Normal 3-12 [facility] Comment on above: Performed By: #### C DP, CP #### [address] [place], [place] [address] Window Assembler: Dalia Dutton MD Neutrophil (Seg) 79 % High 36-65 [facility] Comment on above: Performed By: #### C DP, CP #### [address] [place], [facility]83 Window Assembler: Dalia Dutton MD NRBC Automated 0.0 per 100 WBC Normal 0.0 [facility] Comment on above: Performed By: #### C DP, CP #### [address] [place], [place] [address] Window Assembler: Dalia Dutton MD Platelet mean volume (Bld) [Entitic vol] 11.7 fL Normal 8.1-13.5 [facility] Comment on above: Performed By: #### C DP, CP #### [facility] [address] [place] [address] Window Assembler: Dalia Dutton MD Platelets (Bld) [#/Vol] 297 10*3/uL Normal 138-453 [facility] Comment on above: Performed By: #### C DP, CP #### [facility] [address] [place] [address] Window Assembler: Dalia Dutton MD RBC (Bld) [#/Vol] 3.74 10*6/uL Low 3.95-5.11 [facility] Comment on above: Performed By: #### C DP, CP #### [facility] [address] [place] [address] Window Assembler: Dalia Dutton MD WBC (Bld) [#/Vol] 12.0 10*3/uL High 3.5-11.3 [facility] Comment on above: Performed By: #### C DP, CP #### [address] [place], [place] [id number] Window Assembler: Dalia Dutton MD Comp Metabolic Profon 2023 Potassium [Moles/Vol] 4.0 mmol/L Normal 3.7-5.3 [facility] Comment on above: Performed By: #### C DP, CP #### [address] [place], [place] 3100383 Window Assembler: Dalia Dutton MD Albumin [Mass/Vol] 3.4 g/dL Low 3.5-5.2 [facility] Comment on above: Performed By: #### C DP, CP #### [facility] [address] [place], [place] [id number] Window Assembler: Dalia Dutton MD Albumin/Glob Ratio 1.2 Normal 1.0-2.5 [facility] Comment on above: Performed By: #### C DP, CP #### [facility] [address] [place], [place] 8558383 Window Assembler: Dalia Dutton MD Alkaline Phos 71 U/L Normal 35-104 [facility] Comment on above: Performed By: #### C DP, CP #### [facility] [address] [place], [place] 7753783 Window Assembler: Dalia Dutton MD ALT [Catalytic activity/Vol] 5 U/L Normal 5-33 [facility] Comment on above: Performed By: #### C DP, CP #### [facility] [address] [place], [place] [phone] Window Assembler: Dalia Dutton MD Anion gap [Moles/Vol] 10 mmol/L Normal 9-17 [facility] Comment on above: Performed By: #### C DP, CP #### [facility] [address] [place], [place] 754[address]83 Window Assembler: Dalia Dutton MD AST [Catalytic activity/Vol] 11 U/L Normal <32 [facility] Comment on above: Performed By: #### C DP, CP #### [facility] [address] [place] [address] Dr. [place], [place] 2245783 Window Assembler: Dalia Dutton MD Bilirubin [Mass/Vol] 0.2 mg/dL Low 0.3-1.2 [facility] Comment on above: Performed By: #### C DP, CP #### [facility] [address] [place], [place] [address]88[address]83 Window Assembler: Dalia Dutton MD BUN/CRE Ratio 13 Normal 9-20 [facility] Comment on above: Performed By: #### C DP, CP #### [facility] [address] [place], [place] 0499583 Window Assembler: Dalia Dutton MD Calcium [Mass/Vol] 8.6 mg/dL Normal 8.6-10.4 [facility] Comment on above: Performed By: #### C DP, CP #### [facility] [address] [place], [place] [id number] Window Assembler: Dalia Dutton MD Chloride [Moles/Vol] 103 mmol/L Normal 98-107 [facility] Comment on above: Performed By: #### C DP, CP #### [facility] [address] [place], [place] 08[address]83 Window Assembler: Dalia Dutton MD CO2 [Moles/Vol] 23 mmol/L Normal 20-31 [facility] Comment on above: Performed By: #### C DP, CP #### [facility] [address] [place], [place] [phone] Window Assembler: Dalai Dutton MD Creatinine [Mass/Vol] 0.6 mg/dL Normal 0.5-0.9 [facility] Comment on above: Performed By: #### C DP, CP #### [facility] [address] [place], [place] [phone] Window Assembler: Dalia Dutton MD GFR/1.73 sq M.predicted among non-blacks MDRD (S/P/Bld) [Vol rate/Area] mL/min/{1.73_m2} Normal >60 [facility] Comment on above: Result Comment: These results are not intended for use in patients <18 years of age. eGFR results are calculated without a race factor using the 2020 CKD-EPI equation. Careful clinical correlation is recommended, particularly when comparing to results calculated using previous equations. The CKD-EPI equation is less accurate in patients with extremes of muscle mass, extra-renal metabolism of creatine, excessive creatine ingestion, or following therapy that affects renal tubular secretion. Performed By: #### C DP, CP #### [facility] [address] [place] [address] Window Assembler: Dalia Dutton MD Glucose [Mass/Vol] 77 mg/dL Normal 70-99 [facility] Comment on above: Performed By: #### C DP, CP #### [facility] [address] [place] [address] Window Assembler: Dalia Dutton MD Protein [Mass/Vol] 6.3 g/dL Low 6.4-8.3 [facility] Comment on above: Performed By: #### C DP, CP #### [facility] [address] [place] [address] Window Assembler: Dalia Dutton MD Sodium [Moles/Vol] 136 mmol/L Normal 135-144 [facility] Comment on above: Performed By: #### C DP, CP #### [facility] [address] [place] [address] Window Assembler: Dalia Dutton MD Urea nitrogen [Mass/Vol] 8 mg/dL Normal 6-20 [facility] Comment on above: Performed By: #### C DP, CP #### [facility] [address] [place] [address] Window Assembler: Dalia Dutton MD Comprehensive Metabolic Pane [facility] 05-27-2023 Albumin [Mass/Vol] 3.4 g/dL Low 3.5 - 5.2 g/dL [facility] Albumin/Globulin [Mass ratio] 1.2 {ratio} 1.0 - 2.5 [facility] ALP [Catalytic activity/Vol] 71 U/L 35 - 104 U/L [facility] ALT [Catalytic activity/Vol] 5 U/L 5 - 33 U/L [facility] Anion gap [Moles/Vol] 10 mmol/L 9 - 17 mmol/L [facility] AST [Catalytic activity/Vol] 11 U/L NINF - 32 U/L [facility] Bilirubin [Mass/Vol] 0.2 mg/dL Low 0.3 - 1 .2 mg/dL [facility] Calcium [Mass/Vol] 8.6 mg/dL 8.6 - 10. 4 mg/dL [facility] Chloride [Moles/Vol] 103 mmol/L 98 - 10 7 mmol/L [facility] CO2 [Moles/Vol] 23 mmol/L 20 - 31 mmol/L [facility] Creatinine [Mass/Vol] 0.6 mg/dL 0.5 - 0.9 mg/dL [facility] GFR/1.73 sq M.predicted MDRD (S/P/Bld) [Vol rate/Area] - PINF [facility] Comment on above: These results are not intended for use in patients <18 years of age. eGFR results are calculated without a race factor using the 2020 CKD-EPI equation. Careful clinical correlation is recommended, particularly when comparing to results calculated using previous equations. The CKD-EPI equation is less accurate in patients with extremes of muscle mass, extra-renal metabolism of creatine, excessive creatine ingestion, or following therapy that affects renal tubular secretion. Glucose [Mass/Vol] 77 mg/dL 70 - 99 mg/dL [facility] Interpretation and review of laboratory results Abnormal [facility] Potassium [Moles/Vol] 4.0 mmol/L 3.7 - 5.3 mmol/L [facility] Protein [Mass/Vol] 6.3 g/dL Low 6.4 - 8.3 g/dL [facility] Sodium [Moles/Vol] 136 mmol/L 135 - 144 mmol/L [facility] Urea nitrogen [Mass/Vol] 8 mg/dL 6 - 20 mg/dL [facility] Urea nitrogen/Creatinine [Mass ratio] 13 mg/mg 9 - 20 [facility] Microscopic Urinalysison Bacteria LM Ql (Urine sed) 2+ Abnormal None [facility] Epithelial cells LM.HPF (Urine sed) [#/Area] 10 TO 20 [facility] Interpretation and review of laboratory results Abnormal [facility] Mucus Ql (Urine sed) 1+ Abnormal None [facility] RBC LM.HPF (Urine sed) [#/Area] None [facility] WBC LM.HPF (Urine sed) [#/Area] 2 TO 5 [facility] Urinalysison 05-27-2023 Bilirubin Ql (U) Negative NEGATIVE [facility] Clarity (U) Clear Clear [facility] Color (U) Yellow Yellow [facility] Glucose Test strip (U) [Mass/Vol] Negative NEGATIVE mg/dL [facility] Hemoglobin Auto test strip Ql (U) Negative NEGATIVE [facility] Interpretation and review of laboratory results Abnormal [facility] Ketones (U) [Mass/Vol] Negative NEGAT BECKY mg/dL [facility] Leukocyte esterase Test strip Ql (U) SMALL Abnormal NEGATIVE [facility] Nitrite Ql (U) Negative NEGATIVE [facility] pH (U) 7.0 [pH] 5.0 - 9.0 [facility] Protein (U) [Mass/Vol] 1+ Abnormal NEGAT BECKY mg/dL [facility] Specific gravity (U) [Rel density] 1.025 High 1.010 - 1.020 [facility] Urobilinogen Qn (U) Normal 0.0 - 1. 0 EU/dL [facility] Urinalysis, Routineon 2023 Bilirubin, SemiQt,Ur Negative Normal NEG [facility] Comment on above: Performed By: #### T SH #### [facility] [address] [place] [address] [place] [address] Window Assembler: Dalia Dutton MD Blood, Urine Negative Normal NEG [facility] Comment on above: Performed By: #### T SH #### [facility] [address] [place] [address] [place] [address] Window Assembler: Dalia Dutton MD Clarity (U) Clear Normal CLEAR [facility] Comment on above: Performed By: #### T SH #### [facility] [address] [place] [address] Window Assembler: Dalia Dutton MD Color (U) Yellow Normal YEL [facility] Comment on above: Performed By: #### T SH #### [facility] [address] [place] [address] Window Assembler: Dalia Dutton MD Glucose Ql (U) Negative Normal NEG [facility] Comment on above: Performed By: #### T SH #### [facility] [address] [place] [address] [place] [address] Window Assembler: Dalia Dutton MD Ketones Ql (U) Negative Normal NEG [facility] Comment on above: Performed By: #### T SH #### [facility] [address] [place] [address] Dr[address] [place], [place] [id number] Window Assembler: Dalia Dutton MD Leukocyte esterase Test strip Ql (U) SMALL Abnormal NEG [facility] Comment on above: Performed By: #### T SH #### [address] [place], [place] [id number] Window Assembler: Dalia Dutton MD Nitrite,Ur Negative Normal [facility] Comment on above: Performed By: #### T SH #### [facility] [address] [place] [address] Dr[place], [place] [id number] Window Assembler: Dalia Dutton MD PH,Ur 7.0 Normal 5.0-9.0 [facility] Comment on above: Performed By: #### T SH #### [address] [place], [place] [id number] Window Assembler: Dalia Dutton MD Protein Ql (U) 1+ mg/dL Abnormal NEG [facility] Comment on above: Performed By: #### T SH #### [facility] [address] [place] [address] Dr[address] [place], [place] [id number] Window Assembler: Dalia Dutton MD Spec. [place],Ur 1.025 High 1.010-1.020 [facility] Comment on above: Performed By: #### T SH #### [facility] [address] [place] [address] Dr[place], [place] [id number] Window Assembler: Dalia Dutton MD Urobilinogen,Ur Normal Normal 0.0-1.0 [facility] Comment on above: Performed By: #### T SH #### [facility] [address] [place] [address] Window Assembler: Dalia Dutton MD Urinalysis,Microon 4 Bacteria 2+ Abnormal NONE [facility] Comment on above: Performed By: #### T SH #### [facility] [address] [place] [address] Window Assembler: Dalia Dutton MD Epithelial cells LM Ql (Urine sed) 10 TO 20 Normal 0-25 [facility] Comment on above: Performed By: #### T SH #### [facility] [address] [place] [address] Window Assembler: Dalia Dutton MD Mucus Strands 1+ Abnormal NONE [facility] Comment on above: Performed By: #### T SH #### [facility] [address] [place] [address] Window Assembler: Dalia Dutton MD Urine RBC's None Normal 0-2 [facility] Comment on above: Performed By: #### T SH #### [facility] [address] [place] [address] Window Assembler: Dalia Dutton MD Urine WBC's 2 TO 5 Normal 0-5 [facility] Comment on above: Performed By: #### T SH #### [facility] [address] [place] [address] Window Assembler: Dalia Dutton MD COVID + FLU Quick Testingon 04-20-2023 SARS-CoV-2 (COVID-19) RNA FLORENCIA+probe Ql (Unsp spec) Negative [facility] Other COVID + FLU Quick Testing Positive [facility] Other COVID + FLU Quick Testing Negative [facility] Other Chlamydia/GC DNA, Uron 01-16 Chlamydia Probe, Ur Negative Normal NEG [facility] Comment on above: Result Comment: CHLA [...] target. Performed By: #### U CGP #### [facility] [address] [place], [place] [id number] Window Assembler: Devin Yeager MD Gonorrhea Probe, Ur Negative Normal NEG [facility] Comment on above: Result Comment: NEIS [...] target. Performed By: #### U CGP #### [facility] [address], [place] [id number] Window Assembler: Devin Yeager MD HIV Ag/Abon 01-16-2023 HIV Ag/Ab Non-Reactive Normal [facility] Comment on above: Result Comment: No l aboratory evidence of HIV infection. If acute HIV infection is suspected, consider testing for HIV-1 RNA. Performed By: #### U AX, UMICAO #### [facility] [address] [place] [address] Window Assembler: Dalia Dutton MD Profileon T.pallidum Ab Screen Non-Reactive Normal NR [facility] Comment on above: Result Comment: T. pallidum antibodies are not detected. There is no serological evidence of infection with T. pallidum (early primary syphilis cannot be excluded). Retest in 2-4 weeks if syphilis is clinically suspect. Performed By: #### U AX, UMICAO #### [facility] [address] [place] [address] Window Assembler: Dalia Dutton MD Cult,Urineon 01-15-2023 Cult,Urine Specimen Description .CLEAN CATCH URINE Culture NO SIGNIFICANT GROWTH Report Status FINAL 01/15/2023 Normal [facility] Comment on above: Performed By: #### U RC #### [facility] [address], [place] [id number] Window Assembler: Devin Yeager MD [facility] [address] [place] [address] Window Assembler: Dalia Dutton MD Hemoglobin A1Con 01-15-2023 Glucose [Mass/Vol] 100 mg/dL Normal [facility] Comment on above: Result Comment: The ADA and AACC recommend providing the estimated average glucose result to permit better patient understanding of their HBA1c result. Performed By: #### U WILNER, UMICAO #### [address] [place] [address] Window Assembler: Dalia Dutton MD HbA1c (Bld) [Mass fraction] 5.1 % Normal 4.0-6.0 [facility] Comment on above: Performed By: #### U AX, UMICAO #### [facility] [address] [place] [address] [place] [address] Window Assembler: Dalia Dutton MD Hep C Abon 01-15-2023 Hep C Ab Non-Reactive Normal NR [facility] Comment on above: Result Comment: The [...] HCV RNA by PCR. Performed By: #### T SH #### [facility] [address] [place] [address] [place] [address] Window Assembler: Dalia Dutton MD Profileon 3 Rubella Ab, IgG >500.0 Normal [facility] Comment on above: Result Comment: REFERENCE RANGE: <5.0 NON-REACTIVE (non-immune) 5.0 TO 9.9 EQUIVOCAL >=10.0 REACTIVE (immune) Performed By: #### U AXOLMANO #### [address] [place] [address] Window Assembler: Dalia Dutton MD Hep B Surf Ag Non-Reactive Normal NR [facility] Comment on above: Performed By: #### U TONYA DARBY #### [address] [place] [address] Window Assembler: Dalia Dutton MD Profileon 3 Abs. Basophil 0.05 k/uL Normal 0.00-0.20 [facility] Comment on above: Performed By: #### U AXKETANICAO #### [address] [place], [place] [address] Window Assembler: Dalia Dutton MD Abs.Imm.Granulocyte 0.03 k/uL Normal 0.00-0.30 [facility] Comment on above: Performed By: #### U KETAN DARBYICAO #### [address] [place], [place] [address] Window Assembler: Dalia Dutton MD Abs.Neutrophil (Seg) 7.47 k/uL Normal 1.50-8.10 [facility] Comment on above: Performed By: #### U AXOLMANO #### [address] [place], [facility] Window Assembler: Dalia Dutton MD Basophils/100 WBC (Bld) 1 % Normal 0-[address] [facility] Comment on above: Performed By: #### U AXKETANICAO #### [address] [place], [place] [id number] Window Assembler: Dalia Dutton MD Eosinophils (Bld) [#/Vol] 0.08 10*3/uL Normal 0.00-0.44 [facility] Comment on above: Performed By: #### U AX, UMICAO #### [address] [place], [place] [id number] Window Assembler: Dalia Dutton MD Eosinophils/100 WBC (Bld) 1 % Normal 1-4 [facility] Comment on above: Performed By: #### U AX, UMICAO #### [address] [place], [place] [id number] Window Assembler: Dalia Dutton MD Erythrocyte distribution width (RBC) [Ratio] 12.1 % Normal 11.8-14.4 [facility] Comment on above: Performed By: #### U AX, UMICAO #### [address] [place], [place] [id number] Window Assembler: Dalia Dutton MD Hematocrit (Bld) [Volume fraction] 39.2 % Normal 36.3-47.1 [facility] Comment on above: Performed By: #### U AX, UMICAO #### [address] [place], [place] [id number] Window Assembler: Dalia Dutton MD Hemoglobin (Bld) [Mass/Vol] 13.0 g/dL Normal 11.9-15.1 [facility] Comment on above: Performed By: #### U AX, UMICAO #### [address] [place], [place] [phone] Window Assembler: Dalia Dutton MD Immature granulocytes/100 WBC (Bld) 0 % Normal 0 [facility] Comment on above: Performed By: #### U AX, UMICAO #### [address] [place], [place] [id number] Window Assembler: Dalia Dutton MD Lymphocytes (Bld) [#/Vol] 1.23 10*3/uL Normal 1.10-3.70 [facility] Comment on above: Performed By: #### U AX, UMICAO #### [facility] [address] [place], [place] [address]87[address]83 Window Assembler: Dalia Dutton MD Lymphocytes/100 WBC (Bld) 13 % Low 24-43 [facility] Comment on above: Performed By: #### U AX, UMICAO #### [facility] [address] [place] [address] Window Assembler: Dalia Dutton MD MCH (RBC) [Entitic mass] 30.0 pg Normal 25.2-33.5 [facility] Comment on above: Performed By: #### U AX, UMICAO #### [address] [place], [facility] ( Window Assembler: Dalia Dutton MD MCHC (RBC) [Mass/Vol] 33.2 g/dL Normal 28.4-34.8 [facility] Comment on above: Performed By: #### U AX, UMICAO #### [address] [place] [address] Window Assembler: Dalia Dutton MD MCV (RBC) [Entitic vol] 90.3 fL Normal 82.6-102.[address] [facility] Comment on above: Performed By: #### U AX, UMICAO #### [address] [place] [address] Window Assembler: Dalia Dutton MD Monocytes (Bld) [#/Vol] 0.57 10*3/uL Normal 0.10-1.20 [facility] Comment on above: Performed By: #### U AX, UMICAO #### [address] [place] [address] Window Assembler: Dalia Dutton MD Monocytes/100 WBC (Bld) 6 % Normal 3-[address] [facility] Comment on above: Performed By: #### U AX, UMICAO #### [facility] [address] [place], [place] [phone] Window Assembler: Dalia Dutton MD Neutrophil (Seg) 79 % High 36-65 [facility] Comment on above: Performed By: #### U AX, UMICAO #### [facility] [address] [place], [place] 707[address]83 Window Assembler: Dalia Dutton MD NRBC Automated 0.0 per 100 WBC Normal 0.0 [facility] Comment on above: Performed By: #### U AX, KETANICAO #### [facility] [address] [place], [place] [phone] Window Assembler: Dalia Dutton MD Platelet mean volume (Bld) [Entitic vol] 12.6 fL Normal 8.1-13.5 [facility] Comment on above: Performed By: #### U AXOLMANO #### [address] [place], [place] [id number] Window Assembler: Dalia Dutton MD Platelets (Bld) [#/Vol] 313 10*3/uL Normal 138-453 [facility] Comment on above: Performed By: #### U AX, UMICAO #### [facility] [address] [place], [place] [phone] Window Assembler: Dalia Dutton MD RBC (Bld) [#/Vol] 4.34 10*6/uL Normal 3.95-5.11 [facility] Comment on above: Performed By: #### U AX, UMICAO #### [facility] [address] [place], [place] [address]607483 Window Assembler: Dalia Dutton MD WBC (Bld) [#/Vol] 9.4 10*3/uL Normal 3.5-11.3 [facility] Comment on above: Performed By: #### U AX, OLMANO #### [facility] [address] [place] [address] Window Assembler: Dalia Dutton MD Type + Scrnon 01-14 Type + Scrn Negative Normal [facility] Comment on above: Performed By: #### U AX, OLMANO #### [facility] [address] [place] [address] Window Assembler: Dalia Dutton MD TSH w/reflex to FT4on 2022 Thyroid Stim. Horm. 0.54 uIU/mL Normal 0.30-5.00 [facility] Comment on above: Performed By: #### U WILNER, TONYA #### [facility] [address] [place] [address] Window Assembler: Dalia Dutton MD Provider Letteron 08-28-2022 Provider Letter August 28, 2022 [address] COBOS [address] [place] [id number] : 1990 To Whom It May Concern, The above named person may return to work 08/31/22 without restrictions. Sincerely, Dr. Marcelina Jonas MD General Surgery [facility] Ambulatory Visit Summaryon 0 08-20-2022 Ambulatory Visit Summary ZULEYKA COBOS :1990 Visit Date:08/20/2022 Ambulatory Visit Instructions Your Diagnosis Symptomatic cholelithiasis Your Care Team Attending Physician - SUMI BARKLEY, Marcelina Eddy Primary Care Physician - SAL BUTTS DO This Is Your Medications List Contact [...] pain Symptomatic cholelithiasis Vitamin D deficiency Normal [facility] General Surgery Office/Clini c Noteon 08-20-2022 [...] Marcelina Eddy, KRIS Only if needed [address] [place] [address]- Additional Instructions: Problem List/Past Medical [...] - Not Given Patient Refuses SARS-CoV-2 mRNA (togracyeran 5y-11y) vac - Not Given Patient Refuses Normal [facility] Comment on above: Result Comment: Elec tronically Signed By: Marcelina JONAS MD\.br\Date and Time Signed: 08/20/22 14:08 EDT Pathology Noteon 08-20-2022 Pathology Note [id number] 99#1.00CD:127 Normal [facility] Operative Reporton Operative Report [id number] BC#1.00CD:127 Normal [facility] PREG HCG QUALon 08-13-2022 , QUAL Negative Normal NEGATIVE [facility] Comment on above: Performed By: #### P REG #### [facility] [address] [place], [place] [address] Dr. Esteban Meneses Formson 08-05-2022 Forms [id number] A0#1.00CD:127 Normal [facility] Quick Strepon 07-30-2022 S. pyogenes Org specific cx Ql (Throat) Negative [employer] Other Quick Strep [employer] Other Pre-Certification Formon Pre-Certification Form [id number] 272#1.00CD:127 [facility] Consent for Procedure/Surger yon 07-24-2022 Consent for Procedure/Surgery [id number] F0#1.00CD:127 [facility] Facesheeton 07-24-2022 Facesheet [id number] AF#1.00CD:127 [facility] Ambulatory Visit Summaryon 0 07-23-2022 Ambulatory Visit Summary ZULEYKA COBOS :1990 Visit Date:07/23/2022 Ambulatory Visit Instructions Your Diagnosis Symptomatic cholelithiasis Gastroesophageal reflux disease Your Care Team Attending Physician - SUMI BARKLEY, Marcelina Eddy Primary Care Physician - SAL BUTTS DO This Is Your Medications List pantoprazole [...] reflux disease Refills: 3 [id number] Unchanged drospirenone (Slynd 4 mg oral tablet) 1 Tablets By Mouth Every day Contact prescribing physician if questions or concerns Pharmacy Information [id number]: [address], [place] [id number] [phone] Medications and Immunizations Administered Not Given influenza virus vaccine, inactivated, Patient Refuses SARS-CoV-2 mRNA (tozinameran 5y-11y) vac, Patient Refuses Allergies No Known Allergies No Known Medication Allergies Problems Ongoing - Any problem that you are currently receiving treatment for. BMI 38.0-38.9,adult Gastroesophageal reflux disease Hiatal hernia Hypothyroidism RUQ pain Symptomatic cholelithiasis Vitamin D deficiency Normal [facility] ED Note-Physicianon 07-15-19 ED Note-Physician [id number]#1.00CD:127 Normal [facility] RAD - Ultrasound Reporton RAD - Ultrasound Report [id number] 7C#1.00CD:127 Normal [facility] CBC AUTO DIFFon 07-10-2022 BASO # 0.0 103/ul Normal 0.0-0.1 [facility] Comment on above: Performed By: #### L IPA, MARITO, CMP, CMADM #### [facility] [address] [place] [address] [address] Esteabn Meneses Basophils/100 WBC (Bld) 0.4 % Normal 0.2-2.0 [facility] Comment on above: Performed By: #### L IPA, MARITO, CMP, CMADM #### [facility] [address] [place] [address] [address] Esteban Meneses EO # 0.1 103/ul Normal 0.0-0.7 [facility] Comment on above: Performed By: #### L IPA, MARITO, CMP, CMADM #### [facility] [address] [place] [address] [address] Esteban Meneses Eosinophils/100 WBC (Bld) 0.8 % Critically low 0.9-7.0 [facility] Comment on above: Performed By: #### L IPA, MARITO, CMP, CMADM #### [facility] [address] [place] [address] [address] Esteban Meneses Erythrocyte distribution width (RBC) [Ratio] 12.3 % Normal 11.0-15.0 [facility] Comment on above: Performed By: #### L IPA, MARITO, CMP, CMADM #### [facility] [address] [place] [address] Dr. Esteban Meneses Hematocrit (Bld) [Volume fraction] 37.9 % Normal 36.0-48.0 [facility] Comment on above: Performed By: #### L IPA, MARITO, CMP, CMADM #### [facility] [address] [place] [address] Dr. Esteban Meneses Hemoglobin (Bld) [Mass/Vol] 12.8 g/dL Normal 12.0-16.0 [facility] Comment on above: Performed By: #### L IPA, MARITO, CMP, CMADM #### [facility] [address] [place] [address] Dr. Esteban Meneses IG # 0.03 10e3/ul Normal 0.00-0.03 [facility] Comment on above: Performed By: #### L IPA, MARITO, CMP, CMADM #### [facility] [address] [place] [address] Dr. Esteban Meneses IG % 0.3 % Normal 0.0-0.5 [facility] Comment on above: Performed By: #### L IPA, MARITO, CMP, CMADM #### [facility] [address] [place] [address] Dr. Esteban Meneses LYMPH # 0.8 103/ul Critically low 1.2-3.8 [facility] Comment on above: Performed By: #### L IPA, MARITO, CMP, CMADM #### [facility] [address] [place] [address] Dr. Esteban Meneses Lymphocytes/100 WBC (Bld) 8.2 % Critically low 20.5-60.0 [facility] Comment on above: Performed By: #### L IPA, MARITO, CMP, CMADM #### [facility] [address] [place] [address] Dr. Esteban Meneses MANUAL DIFF REQ NO Normal [facility] Comment on above: Performed By: #### L IPA, MARITO, CMP, CMADM #### [facility] [address] [place] [address] Dr. Esteban Meneses MCH (RBC) [Entitic mass] 29.4 pg Normal 26.7-34.0 [facility] Comment on above: Performed By: #### L IPA, MARITO, CMP, CMADM #### [facility] [address] [place] [address] Dr. Esteban Meneses MCHC (RBC) [Mass/Vol] 33.8 g/dL Normal 29.9-35.2 [facility] Comment on above: Performed By: #### L IPA, MARITO, CMP, CMADM #### [facility] [address] [place] [address] Dr. Esteban Meneses MCV (RBC) [Entitic vol] 87.1 fL Normal 81.0-99.0 [facility] Comment on above: Performed By: #### L IPA, MARITO, CMP, CMADM #### [facility] [address] [place] [address] Dr. Esteban Meneses MONO # 0.5 103/ul Normal 0.3-0.8 [facility] Comment on above: Performed By: #### L IPA, MARITO, CMP, CMADM #### [facility] [address] [place] [address] Dr. Esteban Meneses Monocytes/100 WBC (Bld) 5.1 % Normal 1.7-12.0 [facility] Comment on above: Performed By: #### L IPA, MARITO, CMP, CMADM #### [facility] [address] [place] [address] Dr. Esteban Meneses NEUT # 8.3 103/ul Critically high 1.4-6.5 [facility] Comment on above: Performed By: #### L IPA, MARITO, CMP, CMADM #### [facility] [address] [place] [address] Dr. Esteban Meneses Neutrophils/100 WBC (Bld) 85.2 % Critically high 43.0-75.0 [facility] Comment on above: Performed By: #### L IPA, MARITO, CMP, CMADM #### [facility] [address] [place] [address] Dr. Esteban Meneses Platelet mean volume (Bld) [Entitic vol] 10.9 fL Normal 9.5-13.5 [facility] Comment on above: Performed By: #### L IPA, MARITO, CMP, CMADM #### [facility] [address] [address] [address] Esteban Meneses PLT 302 103/ul Normal 150-450 [facility] Comment on above: Performed By: #### L IPA, MARITO, CMP, CMADM #### [facility] [address] [place] [address] Dr. Esteban Meneses RBC 4.35 106/ul Normal 4.20-5.40 [facility] Comment on above: Performed By: #### L IPA, MARITO, CMP, CMADM #### [facility] [address] [place] [address] Dr. Esteban Meneses WBC 9.8 103/ul Normal 4.0-11.0 [facility] Comment on above: Performed By: #### L IPA, MARITO, CMP, CMADM #### [facility] [address] [place] [address] Dr. Esteban Meneses ER URINE PROFILEon 3 Bilirubin Ql (U) Negative Normal NEGATIVE [facility] Comment on above: Performed By: #### L IPA, MARITO, CMP, CMADM #### [facility] [address] [place] [address] Dr. Esteban Meneses Clarity (U) CLEAR Normal CLEAR [facility] Comment on above: Performed By: #### L IPA, MARITO, CMP, CMADM #### [facility] [address] [place] [address] Dr. Esteban Meneses Color (U) YELLOW Normal YELLOW [facility] Comment on above: Performed By: #### L IPA, MARITO, CMP, CMADM #### [facility] [address] [address] [address] Esteban TERRAZAS A micrscopic examination will be performed if indicated. Normal [facility] Comment on above: Performed By: #### L IPA, MARITO, CMP, CMADM #### [facility] [address] [address] [address] Esteban Meneses Glucose Ql (U) Negative Normal NEGATIVE [facility] Comment on above: Performed By: #### L IPA, MARITO, CMP, CMADM #### [facility] [address] [address] [address] Esteban Meneses Hemoglobin Ql (U) TRACE-INTACT Abnormal NEGATIVE [facility] Comment on above: Performed By: #### L IPA, MARITO, CMP, CMADM #### [facility] [address] [address] [address] Esteban Meneses Ketones Ql (U) Negative Normal NEGATIVE [facility] Comment on above: Performed By: #### L IPA, MARITO, CMP, CMADM #### [facility] [address] [address] [address] Esteban Meneses LEUKOCYTES Negative Normal NEGATIVE [facility] Comment on above: Performed By: #### L IPA, MARITO, CMP, CMADM #### [facility] [address] [address] [address] Esteban Meneses Nitrite Ql (U) Negative Normal NEGATIVE [facility] Comment on above: Performed By: #### L IPA, MARITO, CMP, CMADM #### [facility] [address] [address] [address] Esteban Meneses pH (U) 5.5 [pH] Normal 5-9 [facility] Comment on above: Performed By: #### L IPA, MARITO, CMP, CMADM #### [facility] [address] [address] [address] Esteban Meneses SPEC GRAVITY 1.025 Normal 1.005-<=1.025 [facility] Comment on above: Performed By: #### L IPA, MARITO, CMP, CMADM #### [facility] [address] [address] [address] Esteban Mensees UA PROTEIN TRACE Normal NEGATIVE/ TRACE [facility] Comment on above: Performed By: #### L IPA, MARITO, CMP, CMADM #### [facility] [address] [address] [address] Esteban Meneses UR MICRO IND NOT INDICATED Normal [facility] Comment on above: Performed By: #### L IPA, MARITO, CMP, CMADM #### [facility] [address] [place] [address] Dr. Esteban Meneses Urobilinogen Qn (U) 0.2 {Roxana'U}/dL Normal 0.2 - 1. 0 [facility] Comment on above: Performed By: #### L IPA, MAIRTO, CMP, CMADM #### [facility] [address] [place] [address] Dr. Esteban Meneses LIPASEon 07-10-2022 Lipase [Catalytic activity/Vol] 53.0 U/L Critically low 73.0-393.0 [facility] Comment on above: Performed By: #### L IPA, MARITO, CMP, CMADM #### [facility] [address] [place] [address] Dr. Esteban Meneses URon 07-10-2022 , QUAL Negative Normal NEGATIVE [facility] Comment on above: Performed By: #### L IPA, MARITO, CMP, CMADM #### [facility] [address] [place] [address] Dr. Esteban Meneses PROF 14(COMP METB)on 023 Albumin [Mass/Vol] 3.8 g/dL Normal 3.4-5.0 [facility] Comment on above: Performed By: #### L IPA, MARITO, CMP, CMADM #### [facility] [address] [place] [address] Dr. Esteban Meneses Albumin/Globulin [Mass ratio] 1.0 {ratio} Normal [facility] Comment on above: Performed By: #### L IPA, MARITO, CMP, CMADM #### [facility] [address] [place] [address] Dr. Esteban Meneses ALP [Catalytic activity/Vol] 77 U/L Normal 46-116 [facility] Comment on above: Performed By: #### L IPA, MARITO, CMP, CMADM #### [facility] [address] [address] [address] Esteban Meneses ALT [Catalytic activity/Vol] 19 U/L Normal 14-59 [facility] Comment on above: Performed By: #### L IPA, MARITO, CMP, CMADM #### [facility] [address] [address] [address] Esteban Meneses Anion gap [Moles/Vol] 12.0 mmol/L Normal [facility] Comment on above: Performed By: #### L IPA, MARITO, CMP, CMADM #### [facility] [address] [address] [address] Esteban Meneses AST [Catalytic activity/Vol] 14 U/L Critically low 15-37 [facility] Comment on above: Performed By: #### L IPA, MARITO, CMP, CMADM #### [facility] [address] [address] [address] Esteban Meneses Bilirubin [Mass/Vol] 0.7 mg/dL Normal 0.2-1.0 [facility] Comment on above: Performed By: #### L IPA, MARITO, CMP, CMADM #### [facility] [address] [address] [address] Esteban Meneses Calcium [Mass/Vol] 8.9 mg/dL Normal 8.5-10.1 [facility] Comment on above: Performed By: #### L IPA, MARITO, CMP, CMADM #### [facility] [address] [address] [address] Esteban Meneses Chloride [Moles/Vol] 103 mmol/L Normal 98-107 [facility] Comment on above: Performed By: #### L IPA, MARITO, CMP, CMADM #### [facility] [address] [address] [address] Esteban Meneses CO2 [Moles/Vol] 25.3 mmol/L Normal 21.0-32.0 [facility] Comment on above: Performed By: #### L IPA, MARITO, CMP, CMADM #### [facility] [address] [address] [address] Esteban Meneses Creatinine [Mass/Vol] 0.90 mg/dL Normal 0.55-1.02 [facility] Comment on above: Performed By: #### L IPA, MARITO, CMP, CMADM #### [facility] [address] [address] [address] Esteban Meneses EGFR-AF [place] >60 Normal >=60 [facility] Comment on above: Performed By: #### L IPA, MARITO, CMP, CMADM #### [facility] [address] [address] [address] Esteban Meneses EGFR-NON AF [place] >60 Normal >=60 [facility] Comment on above: Performed By: #### L IPA, MARITO, CMP, CMADM #### [facility] [address] [place] [address] Dr. Esteban Meneses Globulin (S) [Mass/Vol] 3.7 g/dL Normal [facility] Comment on above: Performed By: #### L IPA, MARITO, CMP, CMADM #### [facility] [address] [address] [address] Esteban Meneses Glucose [Mass/Vol] 97 mg/dL Normal 74-106 [facility] Comment on above: Performed By: #### L IPA, MARITO, CMP, CMADM #### [facility] [address] [address] [address] Esteban Meneses Potassium [Moles/Vol] 4.0 mmol/L Normal 3.5-5.1 [facility] Comment on above: Performed By: #### L IPA, MARITO, CMP, CMADM #### [facility] [address] [address] [address] Esteban Meneses Protein [Mass/Vol] 7.5 g/dL Normal 6.4-8.2 [facility] Comment on above: Performed By: #### L IPA, MARITO, CMP, CMADM #### [facility] [address] [place] [address] Dr. Esteban Meneses Sodium [Moles/Vol] 137 mmol/L Normal 136-145 [facility] Comment on above: Performed By: #### L IPAMARITO, CMP, CMADM #### [facility] [address] [place] [address] Dr. Esteban Meneses Urea nitrogen [Mass/Vol] 16.0 mg/dL Normal 7.0-18.0 [facility] Comment on above: Performed By: #### L IPAMARITO, CMP, CMADM #### [facility] [address] [place] [address] Dr. Esteban Meneses Urea nitrogen/Creatinine [Mass ratio] 17.8 mg/mg Normal [facility] Comment on above: Performed By: #### L MARITO HERNADEZ, CMP, CMADM #### [facility] [address] [place] [address] Dr. Esteban Meneses US SINGLE QUAD RT [...] GABE PETERSON Date: 2022-07-08 15:40 Normal [facility] ER URINE PROFILEon 3 Clarity (U) CLEAR Normal CLEAR [facility] Comment on above: Performed By: #### L IPA, MARITO, CMP, CMADM #### [facility] [address] [place] [address] Dr. Esteban MONTEZMeagan A micrscopic examination will be performed if indicated. Normal [facility] Comment on above: Performed By: #### L IPA, MARITO, CMP, CMADM #### [facility] [address] [address] [address] Esteban Meneses Hemoglobin Ql (U) TRACE-INTACT Abnormal NEGATIVE [facility] Comment on above: Performed By: #### L IPA, MARITO, CMP, CMADM #### [facility] [address] [address] [address] Esteban Meneses LEUKOCYTES Negative Normal NEGATIVE [facility] Comment on above: Performed By: #### L IPA, MARITO, CMP, CMADM #### [facility] [address] [address] [address] Esteban Meneses SPEC GRAVITY 1.025 Normal 1.005-<=1.025 [facility] Comment on above: Performed By: #### L IPA, MARITO, CMP, CMADM #### [facility] [address] [address] [address] Esteban Meneses UA PROTEIN Negative Normal NEGATIVE/ TRACE [facility] Comment on above: Performed By: #### L IPA, MARITO, CMP, CMADM #### [facility] [address] [address] [address] Esteban Meneses UR MICRO IND INDICATED Normal [facility] Comment on above: Performed By: #### L IPA, MARITO, CMP, CMADM #### [facility] [address] [address] [address] Esteban Meneses Urobilinogen Qn (U) 1.0 {Roxana'U}/dL Normal 0.2 - 1. 0 [facility] Comment on above: Performed By: #### L IPA, MARITO, CMP, CMADM #### [facility] [address] [address] [address] Esteban Meneses URon 06-19-2022 , QUAL Negative Normal NEGATIVE [facility] Comment on above: Performed By: #### L IPA, MARITO, CMP, CMADM #### [facility] [address] [place] [address] Dr. Esteban Meneses URINE MICROSCOPIC ONLYon BACTERIA TRACE Abnormal NONE SEEN [facility] Comment on above: Performed By: #### L IPA, MARITO, CMP, CMADM #### [facility] [address] [place] [address] Dr. Esteban Meneses Bacteria identified Cx Nom (U) NOT INDICATED Normal [facility] Comment on above: Performed By: #### L IPA, MARITO, CMP, CMADM #### [facility] [address] [address] [address] Esteban Meneses CAST NONE SEEN Normal NONE SEEN [facility] Comment on above: Performed By: #### L IPA, MARITO, CMP, CMADM #### [facility] [address] [place] [address] Dr. Esteban Meneses Crystals LM Nom (Urine sed) NONE SEEN Normal NONE SEEN [facility] Comment on above: Performed By: #### L IPA, MARITO, CMP, CMADM #### [facility] [address] [place] [address] Dr. Esteban Meneses Epithelial cells LM Ql (Urine sed) FEW Abnormal NONE SEEN /RARE [facility] Comment on above: Performed By: #### L IPA, MARITO, CMP, CMADM #### [facility] [address] [place] [address] Dr. Esteban Meneses MUCOUS NONE SEEN Normal NONE SEEN [facility] Comment on above: Performed By: #### L IPA, MARITO, CMP, CMADM #### [facility] [address] [place] [address] Dr. Esteban Meneses RBC 0-2 Normal 0-2 [facility] Comment on above: Performed By: #### L IPA, MARITO, CMP, CMADM #### [facility] [address] [address] [address] Esteban Meneses WBC 0-2 Abnormal NONE SEEN [facility] Comment on above: Performed By: #### L IPA, MARITO, CMP, CMADM #### [facility] [address] [place] [address] Dr. Esteban Meneses Urinalysis - AUTOMATEDon Bilirubin Ql (U) Negative Normal NEGATIVE [employer] Other Comment on above: Performed By: #### L IPA, MARITO, CMP, CMADM #### [facility] [address] [address] [address] Esteban Meneses Color (U) yellow Normal YELLOW [employer] Other Comment on above: Performed By: #### L IPA, MARITO, CMP, CMADM #### [facility] [address] [address] [address] Esteban Meneses Glucose Ql (U) Negative Normal NEGATIVE [employer] Other Comment on above: Performed By: #### L IPA, MARITO, CMP, CMADM #### [facility] [address] [address] [address] Esteban Meneses Ketones Ql (U) Negative Normal NEGATIVE [employer] Other Comment on above: Performed By: #### L IPA, MARITO, CMP, CMADM #### [facility] [address] [address] [address] Esteban Meneses Nitrite Ql (U) Negative Normal NEGATIVE [employer] Other Comment on above: Performed By: #### L IPA, MARITO, CMP, CMADM #### [facility] [address] [address] [address] Esteban Meneses pH (U) 6.0 [pH] Normal 5-9 [employer] Other Comment on above: Performed By: #### L IPA, MARITO, CMP, CMADM #### [facility] [address] [address] [address] Esteban Meneses Appearance (U) clear [employer] Other Hemoglobin Ql (U) Trace-lysed [employer] Other Leukocyte esterase Test strip Ql (U) Negative [employer] Other Protein Ql (U) 30mg/Dl [employer] Other Specific gravity (U) [Rel density] >=1.030 [employer] Other Urobilinogen (U) [Mass/Vol] 0.2 mg/dL [employer] Other Urinalysis - AUTOMATED No rt [employer] Other Urine Cultureon 06-19-2022 Bacteria identified Cx Nom (U) <9,000 colonies/ml mixed bacterial skin contaminants 2 Days PERFORMED BY: [place] [address] PATHOLOGIST CW OPERATOR EDUARDO SOUZA M.D. Normal [facility] Comment on above: Performed By: #### C UU #### [address] Bacteria identified Cx Nom (U) [employer] [facility] Other AMYLASEon 05-17-2022 Amylase [Catalytic activity/Vol] 38 U/L Normal 25-115 [facility] Comment on above: Performed By: #### L IPA, MARITO, CMP, CMADM #### [facility] [address] [address] [address] Esteban Meneses CARDIAC EMELY ADMITon 023 CK [Catalytic activity/Vol] 82 U/L Normal 26-192 [facility] Comment on above: Performed By: #### L IPA, MARITO, CMP, CMADM #### [facility] [address] [address] [address] Esteban Meneses CK.MB [Mass/Vol] ng/mL Normal <=3.60 [facility] Comment on above: Performed By: #### L IPA, MARITO, CMP, CMADM #### [facility] [address] [address] [address] Esteban Meneses HSTROP <4.0 Normal 4.0-51.3 [facility] Comment on above: Result Comment: CUT- OFF POINTS HAVE BEEN ESTABLISHED BASED ON THE FOURTH UNIVERSAL DEFINITIONS OF MYOCARDIAL INFARCTION. THE UPPER REFERENCE LIMIT (URL) OF TROPONIN, DEFINED THE 99TH PERCENTILE OF cTnI DISTRIBUTION IN A REFERENCE POPULATION, HAS BEEN CONFIRMED THE DECISION THRESHOLD FOR [place] DIAGNOSIS. Performed By: #### L IPA, MARITO, CMP, CMADM #### [facility] [address] [place] [address] Dr. Esteban Meneses DARYA 34 ng/mL Normal 9-82 [facility] Comment on above: Performed By: #### L IPA, MARITO, CMP, CMADM #### [facility] [address] [place] [address] Dr. Esteban Meneses CBC AUTO DIFFon 05-17-2022 BASO # 0.1 103/ul Normal 0.0-0.1 [facility] Comment on above: Performed By: #### L IPA, MARITO, CMP, CMADM #### [facility] [address] [place] [address] Dr. Esteban Meneses Basophils/100 WBC (Bld) 0.7 % Normal 0.2-2.0 [facility] Comment on above: Performed By: #### L IPA, MARITO, CMP, CMADM #### [facility] [address] [place] [address] Dr. Esteban Meneses EO # 0.2 103/ul Normal 0.0-0.7 [facility] Comment on above: Performed By: #### L IPA, MARITO, CMP, CMADM #### [facility] [address] [place] [address] Dr. Esteban Meneses Eosinophils/100 WBC (Bld) 1.9 % Normal 0.9-7.0 [facility] Comment on above: Performed By: #### L IPA, MARITO, CMP, CMADM #### [facility] [address] [place] [address] Dr. Esteban Meneses Erythrocyte distribution width (RBC) [Ratio] 11.9 % Normal 11.0-15.0 [facility] Comment on above: Performed By: #### L IPA, MARITO, CMP, CMADM #### [facility] [address] [place] [address] Dr. Esteban Meneses Hematocrit (Bld) [Volume fraction] 38.6 % Normal 36.0-48.0 [facility] Comment on above: Performed By: #### L IPA, MARITO, CMP, CMADM #### [facility] [address] [place] [address] Dr. Esteban Meneses Hemoglobin (Bld) [Mass/Vol] 13.5 g/dL Normal 12.0-16.0 [facility] Comment on above: Performed By: #### L IPA, MARITO, CMP, CMADM #### [facility] [address] [place] [address] Dr. Esteban Meneses IG # 0.02 10e3/ul Normal 0.00-0.03 [facility] Comment on above: Performed By: #### L IPA, MARITO, CMP, CMADM #### [facility] [address] [place] [address] Dr. Esteban Meneses IG % 0.2 % Normal 0.0-0.5 [facility] Comment on above: Performed By: #### L IPA, MARITO, CMP, CMADM #### [facility] [address] [place] [address] Dr. Esteban Meneses LYMPH # 3.1 103/ul Normal 1.2-3.8 [facility] Comment on above: Performed By: #### L IPA, MARITO, CMP, CMADM #### [facility] [address] [place] [address] Dr. Esteban Meneses Lymphocytes/100 WBC (Bld) 31.0 % Normal 20.5-60.0 [facility] Comment on above: Performed By: #### L IPA, MARITO, CMP, CMADM #### [facility] [address] [place] [address] Dr. Esteban Meneses MANUAL DIFF REQ NO Normal [facility] Comment on above: Performed By: #### L IPA, MARITO, CMP, CMADM #### [facility] [address] [place] [address] Dr. Esteban Meneses MCH (RBC) [Entitic mass] 30.4 pg Normal 26.7-34.0 [facility] Comment on above: Performed By: #### L IPA, MARITO, CMP, CMADM #### [facility] [address] [place] [address] Dr. Esteban Meneses MCHC (RBC) [Mass/Vol] 35.0 g/dL Normal 29.9-35.2 [facility] Comment on above: Performed By: #### L IPA, MARITO, CMP, CMADM #### [facility] [address] [place] [address] Dr. Esteban Meneses MCV (RBC) [Entitic vol] 86.9 fL Normal 81.0-99.0 [facility] Comment on above: Performed By: #### L IPA, MARITO, CMP, CMADM #### [facility] [address] [place] [address] Dr. Esteban Meneses MONO # 0.5 103/ul Normal 0.3-0.8 [facility] Comment on above: Performed By: #### L IPA, MARITO, CMP, CMADM #### [facility] [address] [place] [address] Dr. Esteban Meneses Monocytes/100 WBC (Bld) 5.4 % Normal 1.7-12.0 [facility] Comment on above: Performed By: #### L IPA, MARITO, CMP, CMADM #### [facility] [address] [place] [address] Dr. Esteban Meneses NEUT # 6.1 103/ul Normal 1.4-6.5 [facility] Comment on above: Performed By: #### L IPA, MARITO, CMP, CMADM #### [facility] [address] [place] [address] Dr. Esteban Meneses Neutrophils/100 WBC (Bld) 60.8 % Normal 43.0-75.0 [facility] Comment on above: Performed By: #### L IPA, MARITO, CMP, CMADM #### [facility] [address] [place] [address] Dr. sEteban Meneses Platelet mean volume (Bld) [Entitic vol] 10.9 fL Normal 9.5-13.5 [facility] Comment on above: Performed By: #### L IPA, MARITO, CMP, CMADM #### [facility] [address] [place] [address] Dr. Esteban Meneses PLT 396 103/ul Normal 150-450 [facility] Comment on above: Performed By: #### L IPA, MARITO, CMP, CMADM #### [facility] [address] [place] [address] Dr. Esteban Meneses RBC 4.44 106/ul Normal 4.20-5.40 [facility] Comment on above: Performed By: #### L IPA, MARITO, CMP, CMADM #### [facility] [address] [place] [address] Dr. Esteban Meneses WBC 10.0 103/ul Normal 4.0-11.0 [facility] Comment on above: Performed By: #### L IPA, MARITO, CMP, CMADM #### [facility] [address] [place] [address] Dr. Esteban Meneses ER URINE PROFILEon 3 Bilirubin Ql (U) Negative Normal NEGATIVE [facility] Comment on above: Performed By: #### ISH BOCANEGRA, PREGU #### [facility] [address] [place] [address] Dr. Esteban Meneses Clarity (U) CLEAR Normal CLEAR [facility] Comment on above: Performed By: #### ISH BOCANEGRA, PREGU #### [facility] [address] [place] [address] Dr. Esteban Meneses Color (U) YELLOW Normal YELLOW [facility] Comment on above: Performed By: #### ISH BOCANEGRA, PREGU #### [facility] [address] [place] [address] Dr. Esteban TERRAZAS A micrscopic examination will be performed if indicated. Normal [facility] Comment on above: Performed By: #### ISH BOCANEGRA, PREGU #### [facility] [address] [place] [address] Dr. Esteban Meneses Glucose Ql (U) Negative Normal NEGATIVE [facility] Comment on above: Performed By: #### Liset DENNISRISH, PREGU #### [facility] [address] [place] [address] Dr. Esteban Meneses Hemoglobin Ql (U) TRACE-INTACT Abnormal NEGATIVE [facility] Comment on above: Performed By: #### ISH BOCANEGRA, PREGU #### [facility] [address] [place] [address] Dr. Esteban Meneses Ketones Ql (U) Negative Normal NEGATIVE [facility] Comment on above: Performed By: #### Liset RURISH, PREGU #### [facility] [address] [address] [address] Esteban Meneses LEUKOCYTES Negative Normal NEGATIVE [facility] Comment on above: Performed By: #### ISH BOCANEGRA, PREGU #### [facility] [address] [place] [address] Dr. Esteban Meneses Nitrite Ql (U) Negative Normal NEGATIVE [facility] Comment on above: Performed By: #### ISH BOCANEGRA, PREGU #### [facility] [address] [place] [address] Dr. Esteban Meneses pH (U) 6.0 [pH] Normal 5-9 [facility] Comment on above: Performed By: #### ISH BOCANEGRA, PREGU #### [facility] [address] [place] [address] Dr. Esteban Meneses SPEC GRAVITY >=1.030 Abnormal 1.005-<=1.025 [facility] Comment on above: Performed By: #### ISH BOCANEGRA, PREGU #### [facility] [address] [place] [address] Dr. Esteban Meneses UA PROTEIN Negative Normal NEGATIVE/ TRACE [facility] Comment on above: Performed By: #### ISH BOCANEGRA, PREGU #### [facility] [address] [place] [address] Dr. Esteban Meneses UR MICRO IND INDICATED Normal [facility] Comment on above: Performed By: #### ISH BOCANEGRA, PREGU #### [facility] [address] [place] [address] Dr. Esteban Meneses Urobilinogen Qn (U) 0.2 {Roxana'U}/dL Normal 0.2 - 1. 0 [facility] Comment on above: Performed By: #### E RUR, UMICRO, PREGU #### [facility] [address] [place] [address] Dr. Esteban Meneses LIPASEon 05-17-2022 Lipase [Catalytic activity/Vol] 69.0 U/L Critically low 73.0-393.0 [facility] Comment on above: Performed By: #### L IPA, MARITO, CMP, CMADM #### [facility] [address] [place] [address] Dr. Esteban Meneses URon 05-17-2022 , QUAL Negative Normal NEGATIVE [facility] Comment on above: Performed By: #### L IPA, MARITO, CMP, CMADM #### [facility] [address] [place] [address] Dr. Esteban Meneses PROF 14(COMP METB)on 023 Albumin [Mass/Vol] 3.5 g/dL Normal 3.4-5.0 [facility] Comment on above: Performed By: #### L IPA, MARITO, CMP, CMADM #### [facility] [address] [place] [address] Dr. Esteban Meneses Albumin/Globulin [Mass ratio] 0.9 {ratio} Normal [facility] Comment on above: Performed By: #### L IPA, MARITO, CMP, CMADM #### [facility] [address] [place] [address] Dr. Esteban Meneses ALP [Catalytic activity/Vol] 106 U/L Normal 46-116 [facility] Comment on above: Performed By: #### L IPA, MARITO, CMP, CMADM #### [facility] [address] [place] [address] Dr. Esteban Meneses ALT [Catalytic activity/Vol] 16 U/L Normal 14-59 [facility] Comment on above: Performed By: #### L IPA, MARITO, CMP, CMADM #### [facility] [address] [place] [address] Dr. Esteban Meneses Anion gap [Moles/Vol] 13.3 mmol/L Normal [facility] Comment on above: Performed By: #### L IPA, MARITO, CMP, CMADM #### [facility] [address] [address] [address] Esteban Meneses AST [Catalytic activity/Vol] 16 U/L Normal 15-37 [facility] Comment on above: Performed By: #### L IPA, MARITO, CMP, CMADM #### [facility] [address] [address] [address] Esteban Meneses Bilirubin [Mass/Vol] 0.2 mg/dL Normal 0.2-1.0 [facility] Comment on above: Performed By: #### L IPA, MARITO, CMP, CMADM #### [facility] [address] [place] [address] Dr. Esteban Meneses Calcium [Mass/Vol] 8.3 mg/dL Critically low 8.5-10.1 [facility] Comment on above: Performed By: #### L IPA, MARITO, CMP, CMADM #### [facility] [address] [address] [address] Esteban Meneses Chloride [Moles/Vol] 103 mmol/L Normal 98-107 [facility] Comment on above: Performed By: #### L IPA, MARITO, CMP, CMADM #### [facility] [address] [place] [address] Dr. Esteban Meneses CO2 [Moles/Vol] 25.1 mmol/L Normal 21.0-32.0 [facility] Comment on above: Performed By: #### L IPA, MARITO, CMP, CMADM #### [facility] [address] [address] [address] Esteban Meneses Creatinine [Mass/Vol] 0.98 mg/dL Normal 0.55-1.02 [facility] Comment on above: Performed By: #### L IPA, MARITO, CMP, CMADM #### [facility] [address] [address] [address] Esteban Meneses EGFR-AF [place] >60 Normal >=60 [facility] Comment on above: Performed By: #### L IPA, MARITO, CMP, CMADM #### [facility] [address] [address] [address] Esteban Meneses EGFR-NON AF [place] >60 Normal >=60 [facility] Comment on above: Performed By: #### L IPA, MARITO, CMP, CMADM #### [facility] [address] [address] [address] Esteban Meneses Globulin (S) [Mass/Vol] 3.9 g/dL [facility] Comment on above: Performed By: #### L IPA, MARITO, CMP, CMADM #### [facility] [address] [address] [address] Esteban Meneses Glucose [Mass/Vol] 121 mg/dL Critically high 74-106 [facility] Comment on above: Performed By: #### L IPA, MARITO, CMP, CMADM #### [facility] [address] [address] [address] Esteban Meneses Potassium [Moles/Vol] 3.4 mmol/L Critically low 3.5-5.1 [facility] Comment on above: Performed By: #### L IPA, MARITO, CMP, CMADM #### [facility] [address] [address] [address] Esteban Meneses Protein [Mass/Vol] 7.4 g/dL Normal 6.4-8.2 [facility] Comment on above: Performed By: #### L IPA, MARITO, CMP, CMADM #### [facility] [address] [address] [address] Esteban Meneses Sodium [Moles/Vol] 138 mmol/L Normal 136-145 [facility] Comment on above: Performed By: #### L IPA, MARITO, CMP, CMADM #### [facility] [address] [place] [address] Dr. Esteban Meneses Urea nitrogen [Mass/Vol] 8.0 mg/dL Normal 7.0-18.0 [facility] Comment on above: Performed By: #### L IPA, MARITO, CMP, CMADM #### [facility] [address] [address] [address] Esteban Meneses Urea nitrogen/Creatinine [Mass ratio] 8.2 mg/mg Normal [facility] Comment on above: Performed By: #### L IPA, MARITO, CMP, CMADM #### [facility] [address] [address] [address] Esteban Meneses URINE MICROSCOPIC ONLYon BACTERIA TRACE Abnormal NONE SEEN [facility] Comment on above: Performed By: #### L IPA, MARITO, CMP, CMADM #### [facility] [address] [address] [address] Esteban Meneses Bacteria identified Cx Nom (U) NOT INDICATED Normal [facility] Comment on above: Performed By: #### L IPA, MARITO, CMP, CMADM #### [facility] [address] [address] [address] Esteban Meneses CAST NONE SEEN Normal NONE SEEN [facility] Comment on above: Performed By: #### L IPA, MARITO, CMP, CMADM #### [facility] [address] [address] [address] Esteban Meneses Crystals LM Nom (Urine sed) NONE SEEN Normal NONE SEEN [facility] Comment on above: Performed By: #### L IPA, MARITO, CMP, CMADM #### [facility] [address] [address] [address] Esteban Meneses Epithelial cells LM Ql (Urine sed) RARE Normal NONE SEEN /RARE [facility] Comment on above: Performed By: #### L IPA, MARITO, CMP, CMADM #### [facility] [address] [address] [address] Esteban Meneses MUCOUS NONE SEEN Normal NONE SEEN [facility] Comment on above: Performed By: #### L IPA, MARITO, CMP, CMADM #### [facility] [address] [place] [address] Dr. Esteban Meneses RBC NONE SEEN Abnormal 0-2 [facility] Comment on above: Performed By: #### L IPA, MARITO, CMP, CMADM #### [facility] [address] [address] [address] Esteban Meneses WBC NONE SEEN Normal NONE SEEN [facility] Comment on above: Performed By: #### L IPA, MARITO, CMP, CMADM #### [facility] [address] [address] [address] Esteban Meneses XR ABD FLAT UP_PA [...] PATRICK NEW Date: 2022-05-17 20:06 Normal [facility] Quick Strepon 01-08-2022 S. pyogenes Org specific cx Ql (Throat) Negative [employer] Other Quick Strep [employer] Other SARS-CoV-2 (COVID-19) RNA NA A+probe Ql (Resp)on 01-08-2022 SARS-CoV-2 (COVID-19) RNA FLORENCIA+probe Ql (Unsp spec) Negative [employer] Other CHLAMYDIA/GONOCOCCUS FLORENCIA (SW AB/URINE/PAPon 11-29-2021 Chlamydia trachomatis, FLORENCIA Negative Normal Negative [facility] Comment on above: Performed By: #### L IPA, MARITO, CMP, CMADM #### [facility] [address] [address] [address] Esteban Meneses Neisseria gonorrhoeae, FLORENCIA Negative Normal Negative [facility] Comment on above: Performed By: #### L IPA, MARITO, CMP, CMADM #### [facility] [address] [place], [place] [address] Dr. Esteban Meneses ER URINE PROFILEon 08-31-202 2 Bilirubin Ql (U) Negative Normal NEGATIVE [facility] Comment on above: Performed By: #### Liset HENDRIX UMICRO #### [facility] [address] [place] [address] Dr. Esteban Meneses Clarity (U) CLEAR Normal CLEAR [facility] Comment on above: Performed By: #### Liset HENDRIX, UMICRO #### [facility] [address] [address] [address] Esteban Meneses Color (U) LT. YELLOW Normal YELLOW [facility] Comment on above: Performed By: #### Liset HENDRIX UMICRO #### [facility] [address] [place] [address] Dr. Esteban TERRAZAS A micrscopic examination will be performed if indicated. Normal [facility] Comment on above: Performed By: #### Liset HENDRIX UMICRO #### [facility] [address] [place] [address] Dr. Esteban Meneses Glucose Ql (U) Negative Normal NEGATIVE [facility] Comment on above: Performed By: #### Liset HENDRIX UMICRO #### [facility] [address] [place] [address] Dr. Esteban Meneses Hemoglobin Ql (U) TRACE-INTACT Abnormal NEGATIVE [facility] Comment on above: Performed By: #### Liset HENDRIX UMICRO #### [facility] [address] [place] [address] Dr. Esteban Meneses Ketones Ql (U) Negative Normal NEGATIVE [facility] Comment on above: Performed By: #### Liset HENDRIX UMICRO #### [facility] [address] [place] [address] Dr. Esteban Meneses LEUKOCYTES Negative Normal NEGATIVE [facility] Comment on above: Performed By: #### Liset HENDRIX UMICRO #### [facility] [address] [place] [address] Dr. Esteban Meneses Nitrite Ql (U) Negative Normal NEGATIVE [facility] Comment on above: Performed By: #### Liset HENDRIX UMICRO #### [facility] [address] [place], [place] [id number] Dr. Esteban Meneses pH (U) 6.0 [pH] Normal 5-9 [facility] Comment on above: Performed By: #### ISH BOCANEGRA #### [facility] [address] [place] [address] Dr. Esteban Meneses SPEC GRAVITY 1.025 Normal 1.005-<=1.025 [facility] Comment on above: Performed By: #### AELXY BOCANEGRARO #### [facility] [address] [place] [address] Dr. Esteban Meneses UA PROTEIN Negative Normal NEGATIVE/ TRACE [facility] Comment on above: Performed By: #### ALEXY BOCANEGRARO #### [facility] [address] [place] [address] Dr. Esteban Meneses UR MICRO IND INDICATED Normal [facility] Comment on above: Performed By: #### ALEXY BOCANEGRARO #### [facility] [address] [place] [address] Dr. Esteban Meneses Urobilinogen Qn (U) 0.2 {Roxana'U}/dL Normal 0.2 - 1. 0 [facility] Comment on above: Performed By: #### ALEXY BOCANEGRARO #### [facility] [address] [place] [address] Dr. Esteban Meneses URon 11-27-2021 , QUAL Negative Normal NEGATIVE [facility] Comment on above: Performed By: #### L IPA, MARITO, CMP, CMADM #### [facility] [address] [place] [address] Dr. Esteban Meneses URINE MICROSCOPIC ONLYon BACTERIA NONE SEEN Normal NONE SEEN [facility] Comment on above: Performed By: #### ALEXY BOCANEGRARO #### [facility] [address] [place] [address] Dr. Esteban Meneses Bacteria identified Cx Nom (U) NOT INDICATED Normal [facility] Comment on above: Performed By: #### ALEXY BOCANEGRARO #### [facility] [address] [place] [address] Dr. Esteban Meneses CAST NONE SEEN Normal NONE SEEN [facility] Comment on above: Performed By: #### E RUR, UMICRO #### [facility] [address] [place] [address] Dr. Esteban Meneses Crystals LM Nom (Urine sed) NONE SEEN Normal NONE SEEN [facility] Comment on above: Performed By: #### E RUR, UMICRO #### [facility] [address] [place] [address] Dr. Esteban Meneses Epithelial cells LM Ql (Urine sed) MODERATE Abnormal NONE SEEN /RARE [facility] Comment on above: Performed By: #### E RUR, UMICRO #### [facility] [address] [place] [address] Dr. Esteban Meneses MUCOUS TRACE Abnormal NONE SEEN [facility] Comment on above: Performed By: #### E RUR, UMICRO #### [facility] [address] [place] [address] Dr. Esteban Meneses RBC 2-5 Abnormal 0-2 [facility] Comment on above: Performed By: #### E RUR, UMICRO #### [facility] [address] [place] [address] Dr. Esteban Meneses WBC NONE SEEN Normal NONE SEEN [facility] Comment on above: Performed By: #### E RUR, UMICRO #### [facility] [address] [place] [address] Dr. Esteban Meneses US PELVIS TRANSVAGon 022 [...] DALIA STUART Date: 2021-11-27 15:01 Normal [facility] WET PREPon 11-27-2021 CLUE CELLS NONE SEEN Normal NONE SEEN [facility] Comment on above: Performed By: #### W P #### [facility] [address] [place] [address] Dr. Esteban Meneses FUNGAL ELEMENTS NONE SEEN Normal NONE SEEN [facility] Comment on above: Performed By: #### W P #### [facility] [address] [address] [address] Esteban Meneses RBC -WET PREP NONE SEEN Normal NONE SEEN [facility] Comment on above: Performed By: #### W P #### [facility] [address] [place] [address] Dr. Esteban Meneses TRICHOMONAS NONE SEEN Normal NONE SEEN [facility] Comment on above: Performed By: #### W P #### [facility] [address] [address] [address] Esteban Meneses WBC- WET PREP RARE Abnormal NONE SEEN [facility] Comment on above: Performed By: #### W P #### [facility] [address] [place] [address] Dr. Esteban Meneses WET PREP BACTERIA RARE Abnormal NONE SEEN [facility] Comment on above: Performed By: #### W P #### [facility] [address] [place] [address] Dr. Esteban Meneses COVID Quick Testingon 2020 Result Negative [employer] Other COMPREHENSIVE METABOLIC PANE [facility] [place] 11-27-2020 Albumin [Mass/Vol] 4.2 g/dL Normal 3.6-5.1 [facility] Comment on above: Performed By: #### 7 600, 56123, 24342 #### [facility] [address], [address] [place] [address] Lumber Hacker: Claus Thrasher MD Albumin/Globulin [Mass ratio] 1.8 {ratio} Normal 1.0-2.5 [facility] Comment on above: Performed By: #### 7 600, 00314, 49021 #### [facility] of [address] [address] Lumber Hacker: Claus Thrasher MD ALP [Catalytic activity/Vol] 73 U/L Normal 31-125 [facility] Comment on above: Performed By: #### 7 600, 94783, 53502 #### [facility] [address] [address] Lumber Hacker: Claus Thrasher MD ALT [Catalytic activity/Vol] 9 U/L Normal 6-29 [facility] Comment on above: Performed By: #### 7 600, 74124, 01200 #### [facility] [address] [place] [address] Lumber Hacker: Claus Thrasher MD AST [Catalytic activity/Vol] 11 U/L Normal 10-30 [facility] Comment on above: Performed By: #### 7 600, 51688, 63416 #### [facility] [address] [place] [address] L[employer] Hacker: Claus Thrasher MD Bilirubin [Mass/Vol] 0.3 mg/dL Normal 0.2-1.2 [facility] Comment on above: Performed By: #### 7 600, 73983, 59364 #### [facility] [address] [place] [address] Lumber Hacker: Claus Thrasher MD BUN/CREATININE RATIO NOT APPLICABLE Normal 6-22 [facility] Comment on above: Performed By: #### 7 600, 40589, 95583 #### [facility] [address] [place] [address] Lumber Hacker: Claus Thrasher MD Calcium [Mass/Vol] 9.4 mg/dL Normal 8.6-10.2 [facility] Comment on above: Performed By: #### 7 600, 92005, 41518 #### [facility] of [address], [address] [place] [address] Lumber Hacker: Claus Thrasher MD Chloride [Moles/Vol] 105 mmol/L Normal 98-110 [facility] Comment on above: Performed By: #### 7 600, 88416, 45273 #### [facility] [address] [place] [address] L[employer] Hacker: Claus Thrasher MD CO2 [Moles/Vol] 26 mmol/L Normal 20-32 [facility] Comment on above: Performed By: #### 7 600, 35362, 67688 #### [facility] [address] [place] [address] Lumber Hacker: Clasu Thrasher MD Creatinine [Mass/Vol] 0.91 mg/dL Normal 0.50-1.[address] [facility] Comment on above: Performed By: #### 7 600, , 59872 #### [facility] [address] [place] [address] Lumber Hacker: Claus Thrasher MD eGFR NON-AFR. [place] 85 mL/min/1.73m2 Normal > OR = 60 [facility] Comment on above: Performed By: #### 7 600, 14257, 17149 #### [facility] [address] [place] [address] Lumber Hacker: Claus Thrasher MD GFR/1.73 sq M.predicted among blacks MDRD (S/P/Bld) [Vol rate/Area] 99 mL/min/{1.73_m2} Normal > OR = 60 [facility] Comment on above: Performed By: #### 7 600, 95999, 51901 #### [facility] [address] [place] [address] Lumber Hacker: Claus Thrasher MD Globulin (S) [Mass/Vol] 2.4 g/dL Normal 1.9-3.7 [facility] Comment on above: Performed By: #### 7 600, 38989, 20007 #### [facility] of [address], [address] [place] [address] Lumber Hacker: Claus Thrasher MD Glucose [Mass/Vol] 79 mg/dL Normal 65-99 [facility] Comment on above: Result Comment: Fasting reference interval Performed By: #### 7 600, 51617, 62672 #### [facility] of [address], [address] [place] [address] Lumber Hacker: Claus Thrasher MD Potassium [Moles/Vol] 4.2 mmol/L Normal 3.5-5.[address] [facility] [address] [facility] Comment on above: Performed By: #### 7 600, 38762, 93980 #### [facility] of [address], [address] [place] [address] Lumber Hacker: Claus Thrasher MD Protein [Mass/Vol] 6.6 g/dL Normal 6.1-8.1 [facility] Comment on above: Performed By: #### 7 600, 48675, 93127 #### [facility] of [address], [address] [place] [address] Lumber Hacker: Claus Thrasher MD Sodium [Moles/Vol] 139 mmol/L Normal 135-146 [facility] Comment on above: Performed By: #### 7 600, 47440, 41608 #### [facility] of [address], [address] [place] [address] Lumber Hacker: Claus Thrasher MD Urea nitrogen [Mass/Vol] 16 mg/dL Normal 7-25 [facility] Comment on above: Performed By: #### 7 600, 66594, 66574 #### [facility] [place] [address] Lumber Hacker: Claus Thrasher MD LIPID PANEL, [facility] 08- Cholesterol [Mass/Vol] 166 mg/dL Normal <200 [facility] Comment on above: Order Comment: FASTI NG:YES FASTING: YES Performed By: #### 7 600, 45274, 55939 #### [facility] of [address], [address] [place] [address] Lumber Hacker: Claus Thrasher MD Cholesterol in HDL [Mass/Vol] 70 mg/dL Normal > OR = 50 [facility] Comment on above: Order Comment: FASTI NG:YES FASTING: YES Performed By: #### 7 600, 73534, 40640 #### [facility] [address], [address] [place] [address] Lumber Hacker: Claus Thrasher MD Cholesterol in LDL [Mass/Vol] [...] LDL-C. Rogelio JOHNSON et al. DEREK. 2013;310(19): 1051-0091 (http://education.Namshi.[employer]/faq/HKV597) Performed By: #### 7 600, 21939, 61862 #### [facility] [place] [address] Lumber Hacker: Claus Thrasher MD Cholesterol.total/Kristyn sterol in HDL [Mass ratio] 2.4 {ratio} Normal <5.0 [facility] Comment on above: Order Comment: FASTI NG:YES FASTING: YES Performed By: #### 7 600, 11700, 66981 #### [facility] [address], [address] [place] [address] Lumber Hacker: Claus Thrasher MD NON HDL CHOLESTEROL 96 mg/dL (calc) Normal <130 [facility] Comment on above: Order Comment: FASTI NG:YES FASTING: YES Result Comment: For patients with diabetes plus 1 major ASCVD risk factor, treating to a non-HDL-C goal of <100 mg/dL (LDL-C of <70 mg/dL) is considered a therapeutic option. Performed By: #### 7 600, 41016, 07934 #### [facility] [address], [address] [place] [address] Lumber Hacker: Claus Thrasher MD Triglyceride [Mass/Vol] 63 mg/dL Normal <150 [facility] Comment on above: Order Comment: FASTI NG:YES FASTING: YES Performed By: #### 7 600, 83009, 77608 #### [facility] [place] [address] Lumber Hacker: Claus Thrasher MD TSH+FREE T4on 11-27-2020 Free T4 [Mass/Vol] 1.1 ng/dL Normal 0.8-1.8 [facility] Comment on above: Performed By: #### 7 600, 82301, 03671 #### [facility] [place] [address] Lumber Hacker: Claus Thrasher MD TSH Qn 2.23 m[IU]/L Normal [facility] Comment on above: Result Comment: Refe rence Range > or = 20 Years 0.40-4.50 Ranges First trimester 0.26-2.66 Second trimester 0.55-2.73 Third trimester 0.43-2.91 Performed By: #### 7 600, 30716, 19177 #### [facility] [place] [address] Lumber Hacker: Claus Thrasher MD Urine cultureon 12-08-2019 Culture NO SIGNIFICANT GROWTH [facility] [place] Special Requests NOT REPORTED [place], [place] Specimen Description .CLEAN CATCH URINE [facility] [place] CBC auto differentialon Basophils (Bld) [#/Vol] 0.04 10*3/uL [facility] [place] Basophils/100 WBC (Bld) 0 % 0 - 2 % M [facility] [place] Differential Type NOT REPORTED [place], [place] Eosinophils (Bld) [#/Vol] 0.08 10*3/uL [facility] [place] Eosinophils/100 WBC (Bld) 1 % 1 - 4 % [place] Erythrocyte distribution width (RBC) [Ratio] 12.9 % 11.8 - 14.4 % [place] Hematocrit (Bld) [Volume fraction] 36.5 % 36.3 - 47.1 % [place] Hemoglobin (Bld) [Mass/Vol] 12.0 g/dL 11.9 - 15.1 g/dL [place] Immature granulocytes (Bld) [#/Vol] 0 % 0 [place] Immature granulocytes (Bld) [#/Vol] 0.04 10*3/uL [place] Interpretation and review of laboratory results Abnormal [place] Lymphocytes (Bld) [#/Vol] 1.98 10*3/uL [place] Lymphocytes/100 WBC (Bld) 19 % Low 24 - 43 % [place] MCH (RBC) [Entitic mass] 30.1 pg 25.2 - 33.5 pg [place] MCHC (RBC) [Mass/Vol] 32.9 g/dL 28.4 - 34.8 g/dL [place] MCV (RBC) [Entitic vol] 91.5 fL 82.6 - 102.9 fL [place] Monocytes (Bld) [#/Vol] 0.54 10*3/uL [place] Monocytes/100 WBC (Bld) 5 % 3 - 12 % [place], [place] Platelet mean volume (Bld) [Entitic vol] 12.5 fL 8.1 - 13.5 fL [place], [place] Platelets (Bld) [#/Vol] 294 10*3/uL [place] Platelets (Bld) [#/Vol] NOT REPORTED [place] RBC (Bld) [#/Vol] 3.99 10*6/uL 3.95 - 5.1 1 m/uL [place], [place] RBC morphology finding Nom (Bld) NOT REPORTED [place] Segmented neutrophils/100 WBC (Bld) 75 % High 36 - 65 % [place] Segs Absolute 7.75 [place], [place] WBC (Bld) [#/Vol] 0.0 10*3/uL 0.0 per 10 0 WBC [place] WBC (Bld) [#/Vol] 10.4 10*3/uL [place] WBC Morphology NOT REPORTED [place], [place] DRUG SCREEN MULTI URINEon Amphetamine Screen, Ur Negative NEGATIVE [place] Barbiturate Screen, Ur Negative NEGATIVE [facility], [place] Benzodiazepine Screen, Urine Negative NEGATIVE [facility], [place] Buprenorphine Urine Negative NEGATIVE [place], [place] Cannabinoid Scrn, Ur Negative NEGATIVE [place] Cocaine Metabolite, Urine Negative NEGATIVE [place] MDMA, Urine NOT REPORTED NEGATIVE [place] Methadone Screen, Urine Negative NEGATIVE [place], [place] Methamphetamine, Urine Negative NEGATIVE [place] Opiates, Urine Negative NEGATIVE [place] Oxycodone Screen, Ur Negative NEGATIVE [place] Phencyclidine, Urine Negative NEGATIVE [place] Propoxyphene, Urine Negative NEGATIVE [place] Test Information NOT REPORTED [place] Tricyclic Antidepressants, Urine Negative NEGATIVE [place] Comment on above: Drug screen results are to be used for medical purposes only. All positive results are unconfirmed. Testing for employment or legal uses should be sent to a reference laboratory for confirmation. Microscopic Urinalysison Amorphous, UA NOT REPORTED None [place] Bacteria, UA 2+ Abnormal None [place], [place] Casts UA NOT REPORTED /LPF [place] Crystals, UA NOT REPORTED None /HPF [place] Epithelial Cells UA 10 TO 20 [place] Interpretation and review of laboratory results Abnormal [place] Mucus, UA NOT REPORTED None [place], [place] Other Observations UA NOT REPORTED NOT REQ. M [place], [place] RBC (U) [#/Vol] 20 TO 50 [place] Renal Epithelial, UA NOT REPORTED 0 /HPF [place] Trichomonas, UA NOT REPORTED None [facility] [place] WBC, UA 0 TO 2 [place] Yeast, UA NOT REPORTED None [place], [place] - [place] Urinalysison 12-07-2019 Bilirubin Urine Negative NEGATIVE [facility] [place] Color, UA YELLOW YELLOW [place] Glucose, Ur Negative NEGATIVE [place] Interpretation and review of laboratory results Abnormal [place] Ketones Ql (U) Negative NEGATIVE [place] Leukocyte esterase Test strip Ql (U) Negative NEGATIVE [place] Nitrite, Urine Negative NEGATIVE [place] pH, UA 7.0 [place] Protein (U) [Mass/Vol] 2+ Abnormal NEGATIVE [place] Specific [place], UA 1.020 [place], [place] Turbidity UA CLEAR CLEAR [place], [place] Urinalysis Comments NOT REPORTED [place], [place] Urine Hgb 3+ Abnormal NEGATIVE [place] Urobilinogen, Urine Normal Normal [place] CBCon 05-14-2019 Erythrocyte distribution width (RBC) [Ratio] 12.0 % 11.8 - 14.4 % [facility] [employer] Phone: Hematocrit (Bld) [Volume fraction] 39.8 % 36.3 - 47.1 % [facility] [employer] Phone: Hemoglobin (Bld) [Mass/Vol] 13.6 g/dL 11.9 - 15.1 g/dL [facility] [employer] Phone: MCH (RBC) [Entitic mass] 30.3 pg 25.2 - 33.5 pg [facility] [employer] Phone: MCHC (RBC) [Mass/Vol] 34.2 g/dL 28.4 - 34.8 g/dL [facility] [employer] Phone: MCV (RBC) [Entitic vol] 88.6 fL 82.6 - 102.9 fL [facility] Phone: Platelet mean volume (Bld) [Entitic vol] 11.6 fL 8.1 - 13.5 fL [employer] Phone: Platelets (Bld) [#/Vol] 356 10*3/uL [employer] Phone: RBC (Bld) [#/Vol] 4.49 10*6/uL 3.95 - 5.1 1 m/uL [employer] Phone: WBC (Bld) [#/Vol] 0.0 10*3/uL 0.0 per 10 0 WBC [employer] Phone: WBC (Bld) [#/Vol] 10.4 10*3/uL [employer] Phone: Comprehensive Metabolic Pane keiry 05-14-2019 Albumin [Mass/Vol] 4.1 g/dL 3.5 - 5.2 g/dL [employer] Phone: Albumin/Globulin [Mass ratio] 1.4 {ratio} [employer] Phone: ALP [Catalytic activity/Vol] 74 U/L 35 - 104 U/L [employer] Phone: ALT [Catalytic activity/Vol] 26 U/L 5 - 33 U/L [employer] Phone: Anion gap [Moles/Vol] 16 mmol/L 9 - 17 mmol/L [employer] Phone: AST [Catalytic activity/Vol] 19 U/L <32 [employer] Phone: Bilirubin Ql (U) 0.52 mg/dL 0.3 - 1.2 mg/dL [employer] Phone: Bun/Cre Ratio 12 [facility] [employer] Work Phone: Calcium [Mass/Vol] 9.4 mg/dL 8.6 - 10. 4 mg/dL [employer] Phone: Chloride [Moles/Vol] 100 mmol/L 98 - 10 7 mmol/L [employer] Phone: CO2 [Moles/Vol] 22 mmol/L 20 - 31 mmol/L [employer] Phone: Creatinine [Mass/Vol] 0.76 mg/dL 0.5 - 0.9 mg/dL [employer] Phone: GFR >60 >60 mL/min [employer] Phone: GFR Non- >60 >60 mL/min [employer] Phone: Glucose [Mass/Vol] 87 mg/dL 70 - 99 mg/dL [employer] Phone: Potassium [Moles/Vol] 3.7 mmol/L 3.7 - 5.3 mmol/L [employer] Phone: Protein [Mass/Vol] 7.1 g/dL 6.4 - 8.3 g/dL [employer] Phone: Sodium [Moles/Vol] 138 mmol/L 135 - 144 mmol/L [employer] Phone: Urea nitrogen [Mass/Vol] 9 mg/dL 6 - 20 mg/dL [employer] Phone: Metabolic Panelon 05-14-2019 GFR/1.73 sq M predicted among non-blacks MDRD (S/P/Bld) [Vol rate/Area] [employer] Phone: Comment on above: Average GFR for 20-2 9 years old: 116 mL/min/1.73sq m Chronic Kidney Disease: <60 mL/min/1.73sq m Kidney failure: <15 mL/min/1.73sq m eGFR calculated using average adult body mass. Additional eGFR calculator available at: http://www.[employer]/multiple_crcl_2012.htm Stage 1: Some kidney damage normal GFR Stage 2: Mild kidney damage GFR 60-89 Stage 3: Moderate kidney damage GFR 30-59 Stage 4: Severe kidney damage GFR 15-29 Stage 5: Severe kidney damage GFR <15 ESRD - chronic treatment by dialysis or transplant Microscopic Urinalysison Amorphous, UA NOT REPORTED None [employer] Work Phone: Bacteria, UA 2+ Abnormal None [employer] Work Phone: Casts UA NOT REPORTED /LPF [employer] Work Phone: Crystals UA NOT REPORTED None /HPF [facility] Work Phone: Epithelial Cells UA 10 TO 20 [facility] Work Phone: Interpretation and review of laboratory results Abnormal [employer] Work Phone: Mucus, UA NOT REPORTED None [employer] Work Phone: Other Observations UA NOT REPORTED NOT REQ. M [facility] [employer] Work Phone: RBC (U) [#/Vol] 10 TO 20 [employer] Work Phone: Renal Epithelial, Urine NOT REPORTED 0 /HPF [employer] Work Phone: Trichomonas, UA NOT REPORTED None [employer] Work Phone: WBC, UA 2 TO 5 [employer] Work Phone: Yeast, UA NOT REPORTED None [employer] Work Phone: - [employer] Work Phone: Urinalysis Reflex to Culture on 05-14-2019 Bilirubin Urine SMALL Abnormal NEGATIVE [facility] Work Phone: Color, UA DARK YELLOW Abnormal YELLOW [employer] Work Phone: Glucose, Ur Negative NEGATIVE [employer] Work Phone: Interpretation and review of laboratory results Abnormal [employer] Work Phone: Ketones Ql (U) 2+ Abnormal NEGATIVE [employer] Work Phone: Leukocyte esterase Test strip Ql (U) TRACE Abnormal NEGATIVE [facility] [employer] Work Phone: Nitrite, Urine Negative NEGATIVE [facility] Work Phone: pH, UA 6.5 [facility] [employer] Work Phone: Protein (U) [Mass/Vol] 1+ Abnormal NEGATIVE [facility] [employer] Work Phone: Specific [place], UA 1.020 [facility] [employer] Work Phone: Turbidity UA CLEAR CLEAR [facility] [employer] Work Phone: Urinalysis Comments NOT REPORTED [facility] [employer] Work Phone: Urine Hgb 2+ Abnormal NEGATIVE [facility] [employer] Work Phone: Urobilinogen, Urine Normal Normal [facility] [employer] Work Phone: HIV ScreenOrdered By: Ira Hernandez on 04-19-2019 HIV Ag/Ab Non-Reactive NONREACTIVE [facility] Work Phone: Comment on above: No laboratory eviden ce of HIV infection. If acute HIV infection is suspected, consider testing for HIV-1 RNA. Hemoglobin [id number] By: Sena Hernandez on 04-19-2019 Glucose [Mass/Vol] 100 mg/dL [facility] Work Phone: Comment on above: The ADA and AACC rec ommend providing the estimated average glucose result to permit better patient understanding of their HBA1c result. HbA1c (Bld) [Mass fraction] 5.1 % 4.8 - 5.9 % [facility] Work Phone: Hepatitis C AntibodyOrdered By: Ira Hernandez on 04-19-2019 Hepatitis C Ab Non-Reactive NONREACTIVE [employer] [facility] Work Phone: Comment on above: The [...] Hernandez on 04-19-2019 Absolute Eos # 0.07 [facility] Work Phone: Absolute Immature Granulocyte 0.04 [facility] Work Phone: Absolute Lymph # 2.07 [facility] Work Phone: Absolute Pierce # 0.49 [facility] Work Phone: Basophils (Bld) [#/Vol] 0.05 10*3/uL [facility] Work Phone: Basophils/100 WBC (Bld) 1 % 0 - 2 % [facility] Work Phone: Differential Type NOT REPORTED [facility] Phone: Eosinophils/100 WBC (Bld) 1 % 1 - 4 % [facility] Phone: Erythrocyte distribution width (RBC) [Ratio] 12.9 % 11.8 - 14.4 % [facility] Phone: Hematocrit (Bld) [Volume fraction] 40.7 % 36.3 - 47.1 % [employer] Phone: Hemoglobin (Bld) [Mass/Vol] 12.9 g/dL 11.9 - 15.1 g/dL [employer] Phone: Hepatitis B Surface Ag Non-Reactive NONREACTIVE [facility] Phone: Immature granulocytes/100 WBC (Bld) 0 % 0 [facility] Phone: Interpretation and review of laboratory results Abnormal [employer] Phone: Lymphocytes/100 WBC (Bld) 22 % Low 24 - 43 % [employer] Phone: MCH (RBC) [Entitic mass] 29.7 pg 25.2 - 33.5 pg [employer] Phone: MCHC (RBC) [Mass/Vol] 31.7 g/dL 28.4 - 34.8 g/dL [employer] Phone: MCV (RBC) [Entitic vol] 93.6 fL 82.6 - 102.9 fL [employer] Phone: Monocytes/100 WBC (Bld) 5 % 3 - 12 % [facility] Phone: NRBC Automated 0.0 0.0 per 100 WBC [employer] Phone: Platelet Estimate NOT REPORTED [employer] Phone: Platelet mean volume (Bld) [Entitic vol] 11.7 fL 8.1 - 13.5 fL [employer] Phone: Platelets (Bld) [#/Vol] 341 10*3/uL [employer] Phone: RBC (Bld) [#/Vol] 4.35 10*6/uL 3.95 - 5.1 1 m/uL [employer] Phone: RBC morphology finding Nom (Bld) NOT REPORTED [employer] Phone: Rubella virus IgG Ql (S) 453.4 IU/mL [employer] Phone: Comment on above: REFERENCE RANGE: <5.0 NON-REACTIVE (non-immune) 5.0 TO 9.9 EQUIVOCAL >=10.0 REACTIVE (immune) Segmented neutrophils/100 WBC (Bld) 71 % High 36 - 65 % [employer] Phone: Segs Absolute 6.72 [employer] Work Phone: T. pallidum, IgG Non-Reactive NONREACTIVE [employer] Phone: Comment on above: T. pallidum antibodies are not detected. There is no serological evidence of infection with T. pallidum (early primary syphilis cannot be excluded). Retest in 2-4 weeks if syphilis is clinically suspect. WBC (Bld) [#/Vol] 9.4 10*3/uL [employer] Work Phone: WBC Morphology NOT REPORTED [facility] Work Phone: TYPE AND SCREENOrde red By: Ira Russell Hernandez on 04-19-2019 ABO/Rh Positive [facility] [employer] Work Phone: T4, FreeOrdered By: Ira moore David on 04-19-2019 Thyroxine, Free 1.41 ng/dL 0.93 - 1.7 ng/dL [employer] Work Phone: TSH without ReflexOrdered By : Ira Russell David on 04-19-2019 TSH Qn 2.62 m[IU]/L [employer] Work Phone: Urine Drug Screen, Comprehen siveOrdered By: Ira Russell David on 04-19-2019 Amphetamine Screen, Ur Negative NEGATIVE [facility] Work Phone: Barbiturate Screen, Ur Negative NEGATIVE [facility] Work Phone: Benzodiazepine Screen, Urine Negative NEGATIVE [facility] Work Phone: Buprenorphine Urine Negative NEGATIVE [facility] Work Phone: Cannabinoid Scrn, Ur Negative NEGATIVE [facility] Work Phone: Cocaine Metabolite, Urine Negative NEGATIVE [facility] Work Phone: MDMA, Urine NOT REPORTED NEGATIVE [facility] Work Phone: Methadone Screen, Urine Negative NEGATIVE [facility] Work Phone: Methamphetamine, Urine Negative NEGATIVE [facility] Work Phone: Opiates, Urine Negative NEGATIVE [facility] Work Phone: Oxycodone Screen, Ur Negative NEGATIVE [facility] Work Phone: Phencyclidine, Urine Negative NEGATIVE [facility] Work Phone: Propoxyphene, Urine Negative NEGATIVE [employer] Work Phone: Test Information NOT REPORTED [employer] Work Phone: Tricyclic Antidepressants, Urine Negative NEGATIVE [employer] [facility] Work Phone: Comment on above: Drug screen results are to be used for medical purposes only. All positive results are unconfirmed. Testing for employment or legal uses should be sent to a reference laboratory for confirmation. Vital Signs Date Time Vital Sign Value Performing Clinician Facility 08-14-2023 11:51-0400 Diastolic blood pressure 76 mm[Hg] Ira Tolentinog DO Work Phone: [employer] 08-14-2023 11:51-0400 Heart rate 99 /min Ira Hernandez DO Work Phone: [employer] 08-14-2023 11:51-0400 Systolic blood pressure 111 mm[Hg] Ira Hernandez DO Work Phone: [employer] 08-14-2023 10:49-0400 Body temperature 97.59 [degF] Ira Hernandez DO Work Phone: [employer] 08-14-2023 10:49-0400 Respiratory rate 18 /min Ira Hernandez [employer] Work Phone: [employer] 08-14-2023 10:49-0400 SaO2% (BldA) [Mass fraction] 98 % Ira Hernandez DO Work Phone: [employer] 08-10-2023 15:00-0400 Body height 162.6 cm Yenny Wise APRN [facility] Work Phone: [facility] [employer] 08-10-2023 15:00-0400 Body mass index (BMI) [Ratio] 37.76 kg/m2 [facility]enny [facility] Work Phone: [employer] 08-10-2023 15:00-0400 Body weight 99.79 kg Yenny Collins [employer] Work Phone: [facility] [employer] 08-10-2023 14:55-0400 Body temperature 97.59 [degF] Yenny Wise APRN - [employer] Work Phone: [facility] [employer] 08-10-2023 14:55-0400 Diastolic blood pressure 78 mm[Hg] Yenny Collins [employer] Work Phone: [facility] [employer] 08-10-2023 14:55-0400 Heart rate 98 /min Yenny Wise APRN - CN[employer]mie Work Phone: [facility] [employer] 08-10-2023 14:55-0400 Respiratory rate 18 /min Yenny Wise APRN - CNM Work Phone: [facility] [employer] 08-10-2023 14:55-0400 SaO2% (BldA) [Mass fraction] 98 % Yenny Wise APRN - [employer] Work Phone: [facility] [employer] 08-10-2023 14:55-0400 Systolic blood pressure 111 mm[Hg] Yenny Wise APRN - [employer] Work Phone: [facility] [employer] 08-05-2023 21:02-0400 Body temperature 98.4 [degF] Jody Benedict ORTHOPEDIC DENTIST - CNM Work Phone: [facility] [employer] 08-05-2023 21:02-0400 Diastolic blood pressure 68 mm[Hg] Jody Benedict ORTHOPEDIC DENTIST - CNM Work Phone: [facility] [employer] 08-05-2023 21:02-0400 Heart rate 91 /min Jody Benedict APRN - CNM Work Phone: [facility] [employer] 08-05-2023 21:02-0400 Respiratory rate 16 /min Jody Benedict ORTHOPEDIC DENTIST - CNM Work Phone: [facility] [employer] 08-05-2023 21:02-0400 Systolic blood pressure 123 mm[Hg] Jody Benedict APRN - CNM Work Phone: [facility] [employer] 08-05-2023 19:23-0400 SaO2% (BldA) [Mass fraction] 100 % Jdoy Benedict RAMONA - CNM Work Phone: [facility] [employer] 08-05-2023 18:45-0400 Diastolic blood pressure 62 mm[Hg] Rosio Gerber DO Work Phone: [facility] [employer] 08-05-2023 18:45-0400 Heart rate 85 /min Rosio Gerber DO Work Phone: [facility] [employer] 08-05-2023 18:45-0400 Respiratory rate 23 /min Rosio Gerber DO Work Phone: [facility] [employer] 08-05-2023 18:45-0400 SaO2% (BldA) [Mass fraction] 98 % Rosio Gerber DO Work Phone: [facility] [employer] 08-05-2023 18:45-0400 Systolic blood pressure 103 mm[Hg] Rosio Gerber DO Work Phone: [facility] [employer] 08-05-2023 16:35-0400 Body height 162.6 cm Rosio Gerber DO Work Phone: [facility] [employer] 08-05-2023 16:35-0400 Body mass index (BMI) [Ratio] 37.76 kg/m2 Rosio Gerber DO Work Phone: [facility] [employer] 08-05-2023 16:35-0400 Body temperature 99 [degF] Rosio Gerber DO Work Phone: [facility] [employer] 08-05-2023 16:35-0400 Body weight 99.79 kg Rosio Gerber DO Work Phone: [facility] [employer] 05-27-2023 20:21-0500 Diastolic blood pressure 56 mm[Hg] Jody Jak GREENE - AIYANAM Work Phone: [facility] [employer] 05-27-2023 20:21-0500 Heart rate 76 /min Jody Collins CNM Work Phone: [facility] [employer] 05-27-2023 20:21-0500 Systolic blood pressure 103 mm[Hg] Jody Collins [employer] Work Phone: [facility] [employer] 05-27-2023 19:06-0500 Respiratory rate 16 /min Jody Collins [employer] Work Phone: [facility] [employer] 05-27-2023 18:44-0500 Body temperature 98.29 [degF] Jody Collins [employer] Work Phone: [facility] [employer] 05-27-2023 18:44-0500 SaO2% (BldA) [Mass fraction] 98 % Jody Collins [employer] Work Phone: [facility] [employer] 04-24-2023 11:45-0500 Body height 165.1 cm Mago Max APRN-PULP MACHINE OPERATOR Work Phone: [facility] 04-24-2023 11:45-0500 Body mass index (BMI) [Ratio] 35.61 kg/m2 Mago Max APRN-PULP MACHINE OPERATOR [facility] 04-24-2023 11:45-0500 Body temperature 97.7 [degF] Mago Max APRN-PULP MACHINE OPERATOR [facility]: [facility] 04-24-2023 11:45-0500 Body weight 97.07 kg Mago Max APRN-PULP MACHINE OPERATOR Work Phone: [facility] 04-24-2023 11:45-0500 Diastolic blood pressure 60 mm[Hg] Mago Max APRN-PULP MACHINE OPERATOR Work [facility]: [facility] 04-24-2023 11:45-0500 Heart rate 115 /min Mago Max APRN-PULP MACHINE OPERATOR Work Phone: [employer] 04-24-2023 11:45-0500 SaO2% (BldA) [Mass fraction] 98 % Mago Max APRN-PULP MACHINE OPERATOR Work Phone: [employer] 04-24-2023 11:45-0500 Systolic blood pressure 110 mm[Hg] Mago Max APRN-PULP MACHINE OPERATOR Work Phone: [employer] 04-20-2023 09:15-0500 Body height 165.1 cm Cynthia Garciamond Other [employer] Other 04-20-2023 09:15-0500 Body mass index (BMI) [Ratio] 36.14 kg/m2 Cynthia Monique Other [employer] Other 04-20-2023 09:15-0500 Body temperature 99 [degF] Cynthia Garciamond Other [employer] Other 04-20-2023 09:15-0500 Body weight 98.52 kg Cynthia Garciamond Other [employer] Other 04-20-2023 09:15-0500 Respiratory rate 18 /min Cynthia Garciamond Other [employer] Other 04-20-2023 09:15-0500 SaO2% (BldA) [Mass fraction] 99 % Cynthia Monique Other [employer] Other 07-30-2022 10:10-0400 Body height 165.1 cm Cynthia Monique Other [employer] Other 07-30-2022 10:10-0400 Body mass index (BMI) [Ratio] 37.77 kg/m2 Cynthia Monique Other [employer] Other 07-30-2022 10:10-0400 Body temperature 98.3 [degF] Cynthia Amaya Other [employer] Other 07-30-2022 10:10-0400 Body weight 102.97 kg Cynthia Amaya Other [employer] Other 07-30-2022 10:10-0400 Respiratory rate 18 /min Cynthia Amaya Other [employer] Other 07-30-2022 10:10-0400 SaO2% (BldA) [Mass fraction] 97 % Cynthia Amaya Other [employer] Other 07-23-2022 13:49-0400 Blood Pressure Location [facility] [place] 07-23-2022 13:49-0400 Diastolic blood pressure 72 mm[Hg] [facility] [place] 07-23-2022 13:49-0400 Heart rate 70 /min [facility] [place] 07-23-2022 13:49-0400 Respiratory rate 16 /min [facility] [place] 07-23-2022 13:49-0400 Systolic blood pressure 116 mm[Hg] [facility] [place] 06-19-2022 16:10-0400 Body height 165.1 cm Abbey Sanders Other [employer] Other 06-19-2022 16:10-0400 Body mass index (BMI) [Ratio] 38.27 kg/m2 Abbey Sanders Other [employer] Other 06-19-2022 16:10-0400 Body temperature 97.1 [degF] Abbey Sanders Other [employer] Other 06-19-2022 16:10-0400 Body weight 104.33 kg Abbey Sanders Other [employer] Other 06-19-2022 16:10-0400 Respiratory rate 18 /min Abbey Sanders Other [employer] Other 06-19-2022 16:10-0400 SaO2% (BldA) [Mass fraction] 99 % Abbey Sanders Other [employer] Other 01-08-2022 11:15-0400 Body height 165.1 cm Cynthia Garciamond Other [employer] Other 01-08-2022 11:15-0400 Body mass index (BMI) [Ratio] 36.61 kg/m2 Cynthia Garciamond Other [employer] Other 01-08-2022 11:15-0400 Body temperature 98.6 [degF] Cynthia Garciamond Other [employer] Other 01-08-2022 11:15-0400 Body weight 99.79 kg Cynthia Garciamond Other [employer] Other 01-08-2022 11:15-0400 Respiratory rate 18 /min Cynthia Monique Other [employer] Other 01-08-2022 11:15-0400 SaO2% (BldA) [Mass fraction] 98 % Cynthia Monique Other [employer] Other 02-26-2021 14:40-0500 Body height 165.1 cm Mabel Marte Other [employer] Other 02-26-2021 14:40-0500 Body mass index (BMI) [Ratio] 38.27 kg/m2 Mabel Marte Other [employer] Other 02-26-2021 14:40-0500 Body temperature 96.9 [degF] Mabel Marte Other [employer] Other 02-26-2021 14:40-0500 Body weight 104.33 kg Mabel Marte Other [employer] Other 02-26-2021 14:40-0500 Diastolic blood pressure 81 mm[Hg] Mabel Marte Other [employer] Other 02-26-2021 14:40-0500 Respiratory rate 18 /min Mabel Marte Other [employer] Other 02-26-2021 14:40-0500 SaO2% (BldA) [Mass fraction] 98 % Mabel Marte Other [employer] Other 02-26-2021 14:40-0500 Systolic blood pressure 130 mm[Hg] Mabel Marte Other [employer] Other 01-11-2021 12:30-0400 Body height 165.1 cm Cynthia Amaya Other [employer] Other 01-11-2021 12:30-0400 Body mass index (BMI) [Ratio] 36.61 kg/m2 Cynthia Amaya Other [employer] Other 01-11-2021 12:30-0400 Body temperature 96.6 [degF] Cynthia Amaya Other [employer] Other 01-11-2021 12:30-0400 Body weight 99.79 kg Cynthia Amaya Other [employer] Other 01-11-2021 12:30-0400 Respiratory rate 18 /min Cynthia Amaya Other [employer] Other 01-11-2021 12:30-0400 SaO2% (BldA) [Mass fraction] 98 % Cynthia Amaya Other [employer] Other 12-09-2019 08:32-0400 Body Temperature 97.5 [degF] [facility] [employer] [facility] [place] 12-09-2019 08:32-0400 BP Diastolic 63 mm[Hg] Jody Benedict [facility] , [place] 12-09-2019 08:32-0400 BP Systolic 111 mm[Hg] Jody Benedict [facility] , [place] 12-09-2019 08:32-0400 Pulse (Heart Rate) 71 /min Jody Benedict [facility], [place] 12-09-2019 08:32-0400 Respiratory Rate 16 /min [facility]ody [employer] [facility] [place] 12-07-2019 22:15-0400 Pulse Oximetry 99 % [facility] [place] 12-07-2019 08:32-0400 BMI (Body Mass Index) 40.94 kg/m2 [facility] [place] 12-07-2019 08:32-0400 Body weight 111.58 kg [facility] [place] 12-07-2019 08:32-0400 Height 165.1 cm Jody Benedict [facility] , [place] 05-14-2019 19:40-0500 BP Diastolic 63 mm[Hg] [facility] Work Phone: 05-14-2019 19:40-0500 BP Systolic 104 mm[Hg] [employer] Phone: 05-14-2019 19:40-0500 Pulse (Heart Rate) 85 /min [employer] Phone: 05-14-2019 19:40-0500 Pulse Oximetry 99 % [employer] Phone: 05-14-2019 19:40-0500 Respiratory Rate 18 /min [employer] Phone: 05-14-2019 15:20-0500 BMI (Body Mass Index) 41.6 kg/m2 [employer] Phone: 05-14-2019 15:20-0500 Body Temperature 98.01 [degF] [employer] Work Phone: 05-14-2019 15:20-0500 Body weight 113.4 kg [employer] Phone: Encounters Encounter Date Encounter Type Care Provider Facility Start: 08-23-2023 End: 08-24-2023 [facility] Start: 08-14-2023 End: 08-14-2023 [facility] Start: 08-14-2023 End: 08-14-2023 Subsequent hospital visit by physician Ira Hernandez DO Work Phone: [facility] Labor and Delivery Start: 08-10-2023 End: 08-10-2023 [facility] Start: 08-10-2023 End: 08-10-2023 Subsequent hospital visit by physician Yenny Collins CNM Work Phone: [facility] Labor and Delivery Start: 08-05-2023 End: 08-05-2023 ambulatory JODY BENEDICT [facility] Start: 08-05-2023 End: 08-05-2023 Subsequent hospital visit by physician Jody Benedict ORTHOPEDIC DENTIST - CNM Work Phone: [facility] Labor and Delivery Start: 08-05-2023 End: 08-05-2023 Emergency department patient visit Rosio Gerber DO Work Phone: [facility] ED Comment on above: Episodic Tachycardia (Primary Dx); Dehydration Start: 08-03-2023 End: 08-04-2023 ambulatory YENNY WISE [facility] Start: 07-13-2023 End: 07-14-[address] [facility] Start: 07-13-2023 End: 07-13-2023 Subsequent hospital visit by physician Sal Butts Work Phone: [facility] Laboratory Comment on above: 33 weeks gestation o f Start: 06-27-2023 End: 06-27-2023 ambulatory E ARTURO~[id number] SELBY MeaganSANDRA [facility] Start: 05-27-2023 End: 05-28-2023 ambulatory JODY BENEDICT [facility] Start: 05-27-2023 End: 05-27-2023 Subsequent hospital visit by physician Jody Benedict ORTHOPEDIC DENTIST - CNM Work Phone: [facility] Labor and Delivery Start: 04-24-2023 End: 04-24-2023 ambulatory [facility] Start: 04-24-2023 End: 04-24-2023 Office outpatient visit 15 minutes [facility] ORTHOPEDIC DENTIST-PULP MACHINE OPERATOR Work Phone: [facility] Physicians Internal Medicine - Family Medicine Comment on above: Acute idiopathic urt icaria (Primary Dx); Influenza; Hyperemesis affecting , antepartum Start: 04-20-2023 End: 04-20-2023 ambulatory Cynthia Amaya Other [employer] Other Start: 04-20-2023 Office outpatient vi sit 15 minutes Cynthia Amaya [facility] [place] Start: 04-15-2023 End: 04-16-2023 ambulatory [facility] Start: 01-14-2023 End: 01-15-2023 ambulatory [facility] Start: 08-20-2022 End: 08-21-2022 ambulatory [facility] Start: 08-13-2022 End: 08-14-[address] MAGO MAX Facility:[facility] Start: 08-06-2022 Encounter for other preprocedural examination DR MARCELINA JONAS . [facility] Start: 07-30-2022 Office outpatient vi sit 15 minutes Cynthia Amaya [facility] [place] Start: 07-30-2022 End: 07-31-[address] MAGO MAX [employer] Other Start: 07-30-2022 End: 07-31-2022 Encounter for other preprocedural examination DR MAGO MAX Facility:[facility] Start: 07-23-2022 End: 07-24-2022 ambulatory [facility] Start: 07-23-2022 End: 07-23-2022 Patient encounter procedure Marcelina JONAS General Surgery N[facility] Start: 07-15-2022 ambulatory Marcelina JONAS Facility:[facility] Start: 07-11-2022 ambulatory Mareclina JONAS Facility:[facility] Start: 07-10-2022 End: 07-10-[address] MAGO MAX Facility:[facility] Start: 07-08-2022 End: 07-09-[address] MAGO MAX Facility:[facility] Start: 06-22-2022 End: 06-22-2022 ambulatory Abbey Sanders Other [employer] Other Start: 06-22-2022 Telephone encounter Abbey [facility] [address] Start: 06-19-2022 End: 06-19-2022 ambulatory NELSY SHAVER . Facility:[facility] Start: 06-19-2022 End: 06-19-2022 Departed Referred RAMONA Sanders Work Phone: [facility] [place] Work Phone: Start: 06-19-2022 End: 06-19-2022 ambulatory RAMONA Sanders Work Phone: [facility] Work Phone: Start: 06-19-2022 Office outpatient vi sit 15 minutes Abbey Princeler [facility] [place] Start: 05-17-2022 End: 05-17-2022 ambulatory SISSY ZAPATA Facility:[facility] Start: 01-08-2022 End: 01-08-2022 ambulatory Cynthia Amaya Other [employer] Other Start: 01-08-2022 Office outpatient vi sit 15 minutes Cynthia Amaya [facility] [place] Start: 11-27-2021 End: 11-27-[address] DALIA STUART Facility:[facility] Start: 02-26-2021 End: 02-26-2021 ambulatory Mabel Marte Other [employer] Other Start: 02-26-2021 Office outpatient vi sit 25 minutes Mabel Marte [facility] [place] Start: 01-11-2021 (URG) Urgent Care Visit Cynthia handley [facility] [place] Start: 09-03-2020 End: 09-03-2020 Patient encounter procedure Sal Butts Work Phone: [facility] Laboratory Start: 09-03-2020 End: 09-03-2020 Subsequent hospital visit by physician Sal Butts Work Phone: [facility] Laboratory Comment on above: Women's annual routi ne gynecological examination Start: 12-07-2019 End: 12-09-2019 Evaluation and management of inpatient Jody Benedict Work Phone: [facility] Labor and Delivery Start: 11-21-2019 End: 11-21-2019 Subsequent hospital visit by physician Sal Butts [facility] Laboratory Comment on above: 36 weeks gestation o f Start: 05-14-2019 End: 05-14-2019 Emergency department patient visit Felix Anderson Work Phone: [facility] ED Comment on above: Non-intractable vomi ting with nausea, unspecified vomiting type (Primary Dx) Start: 04-19-2019 End: 04-19-2019 Subsequent hospital visit by physician Sal Butts Other Phone: [facility] Laboratory Comment on above: Amenorrhea; Positive urine test; Encounter for supervision of normal in first trimester, unspecified ; BMI 40.0-44.9, adult (HCC); Thyroid disease, antepartum Procedures Date Procedure Procedure Detail Performing Clinician Start: 08-14-2023 Urinalysis microscopic only Neidalizett Wilkinson ORTHOPEDIC DENTIST - CNM Work Phone: Start: 08-14-2023 Urnls dip stick/tabl et rgnt auto w/o microscopy Neida Jake Minh ORTHOPEDIC DENTIST - CNM Work Phone: Start: 08-10-2023 Urinalysis microscopic only Justeen Billie ORTHOPEDIC DENTIST - CNM Work Phone: Start: 08-10-2023 Urnls dip stick/tabl et rgnt auto w/o microscopy Justeen Billie ORTHOPEDIC DENTIST - CNM Work Phone: Start: 08-05-2023 Urinalysis microscopic only Roiso J Gerber DO Work Phone: Start: 08-05-2023 Urnls dip stick/tabl et rgnt auto w/o microscopy Rosio J Gerber DO Work Phone: Start: 08-05-2023 Basic metabolic pane l calcium total Rosio J Gerber DO Work Phone: Start: 08-05-2023 Ecg routine ecg w/le ast 12 lds w/i&r Rosio J Gerber DO Work Phone: Start: 07-13-2023 Urinalysis microscopic only Ira F Drew Hernandez DO Work Phone: Start: 07-13-2023 Urnls dip stick/tabl et rgnt auto w/o microscopy Ira Hernandez DO Work Phone: Start: 05-27-2023 Comprehensive metabo lic panel Jody Adams Jak ORTHOPEDIC DENTIST - CN Work Phone: Start: 05-27-2023 Urinalysis microscopic only Jody Adams Jak ORTHOPEDIC DENTIST - CN Work Phone: Start: 05-27-2023 Urnls dip stick/tabl et rgnt auto w/o microscopy Jody Adams Jak ORTHOPEDIC DENTIST - CN Work Phone: Start: 04-24-2023 Follow-up visit Follow-up MAGO MAX Start: 04-24-2023 Adult depression scr eening assessment Mago Max ORTHOPEDIC DENTIST-PULP MACHINE OPERATOR Work Phone: Start: 09-03-2020 Microscopic observat ion [Identifier] in Cervix by Cyto stain Jody Jak ORTHOPEDIC DENTIST - CN Work Phone: Start: 12-07-2019 Blood count complete auto&auto difrntl wbc Jody Angie Benedict Work Phone: Start: 12-07-2019 Culture bacterial quanttative colony count urine Jody Angie Benedict Work Phone: Start: 12-07-2019 Drug screen class list a Jody Angie Benedict Work Phone: Start: 12-07-2019 Urinalysis microscopic only Jody Angie Benedict Work Phone: Start: 12-07-2019 Urnls dip stick/tabl et rgnt auto w/o microscopy Jody Angie Benedict Work Phone: Start: 05-14-2019 Blood count complete automated Carmella Vaca Work Phone: Start: 05-14-2019 Comprehensive metabo lic panel Carmella Vaca Work Phone: Start: 05-14-2019 Urinalysis microscopic only Carmella Vaca Work Phone: Start: 05-14-2019 Urnls dip stick/tabl et rgnt auto w/o microscopy Carmella Vaca Work Phone: Start: 04-19-2019 Antibody screen Sal Butts Other Phone: Start: 04-19-2019 Drug screen, qualitate/multi Ira Jhonatan Drew Hernandez DO Work Phone: Start: 04-19-2019 End: 04-19-2019 Antibody hiv-1&hiv-2 single result Ira Jhonatan Drew Hernandez DO Work Phone: Start: 04-19-2019 Hemoglobin glycosylated a1c Ira Jhonatan Drew Hernandez DO Work Phone: Appendectomy Marcelina JONAS Plan of Treatment Date Care Activity Detail Author Start: 01-06-2028 DTaP,Tdap and Td Vaccines (7 - Td or Tdap) DTaP,Tdap and Td Vaccines (7 - Td or Tdap) [facility] Start: 01-06-2028 DTaP/Tdap/Td vaccine (7 - Td or Tdap) DTaP/Tdap/Td vaccine (7 - Td or Tdap) [facility] Start: 01-06-2028 DTaP/Tdap/Td vaccine (7 - Td) DTaP/Tdap/Td vaccine (7 - Td) [facility] Work Phone: Start: 04-24-2024 Adult BMI Screening Adult BMI Screen ing [facility] Start: 04-24-2024 Depression Screening Depression Scre ening [facility] Start: 04-24-2024 Tobacco Screening Tobacco Screening [facility] Start: 10-29-2023 Influenza vaccination Flu vacc ine (Season Ended) [facility] Start: 09-04-2023 Screening for malign ant neoplasm of cervix [facility] Start: 08-19-2023 End: 08-19-2023 Patient encounter procedure 08/19/2023 1:30 PM EDT Routine [facility] Part of [address] [place] [address] Ira Qiu, DO [address] [place] [address] OB1 [facility] Comment on above: OB1 Start: 08-17-2023 End: 08-17-2023 Patient encounter procedure 08/17/2023 5:30 PM EDT Routine [facility] Part [address] [address] Ira Qiu, DO [address] [place] [address] OB1 [facility] Comment on above: OB1 Start: 08-10-2023 End: 08-10-2023 Patient encounter procedure 08/10/2023 5:45 PM EDT Routine [facility] [address] [address] Ira Qiu, DO [address] [place] [address] OB1 [facility] Comment on above: OB1 Start: 07-27-2023 End: 07-27-2023 Patient encounter procedure 07/27/2023 6:15 PM EDT Routine [facility] [address] [address] Ira Qiu, DO [address] [place] [address] OB1 [facility] Comment on above: OB1 [facility] Start: 07-16-2023 Depression Screen Depression Screen [facility] Start: 06-23-2023 End: 06-23-2023 Patient encounter procedure 06/23/2023 8:30 AM EDT Routine [facility] [address] [place] [address] Ira Qiu, [address] [place] [address] 30w [facility] Comment on above: 30w Start: 06-23-2023 End: 06-23-2023 Professional / ancillary services management 06/23/2023 8:00 AM EDT Ancillary Procedure [facility]OLOG[facility] [address] [place] [address] 30w [facility] Comment on above: 30w Start: 06-08-2023 End: 06-08-2023 Patient encounter procedure 06/08/2023 5:15 PM EDT Routine [facility] [address] [place] [address] Ira Qiu, [address] [place] [address] 28 wk ob / GTT [facility] Comment on above: 28 wk ob / GTT Start: 05-27-2023 Tdap Vaccine during Tdap Vaccine during [facility] Start: 11-28-2022 Influenza vaccination Influenza Vacc ine [facility] Start: 10-28-2022 Influenza vaccination Flu vaccine (# 1) [facility] Start: 06-19-2022 Bacteria identified in Urine by Culture [facility] Start: 2021 Screening for malign ant neoplasm of cervix HPV (without or with Pap) [facility] Start: 11-28-2020 Influenza vaccination Flu vacc ine (Season Ended) [facility] Work Phone: Start: 08-29-2020 Screening for malign ant neoplasm of cervix Cervical cancer screen [facility] Comment on above: Postponed from 02/02 (Not Indicated) Start: 04-19-2020 Thyroid stimulating hormone measurement TSH testing [facility] Phone: Start: 04-19-2020 TSH Qn TSH testing [facility] [place] Start: 04-19-2020 TSH testing TSH testing [facility] Work Phone: Start: 12-20-2019 End: 12-20-2019 Visit 12/20/2019 Visit Obstetrics and Gynecology Ira Qiu, DO [address] [place] [id number] [phone] [facility] Start: 11-29-2019 Influenza vaccination Flu vaccine (# 1) [facility] [place] Start: 11-28-2019 End: 11-28-2019 Routine 11/28/2019 Routine Obstetrics and Gynecology Ira Qiu DO [address] [place] [address] [facility] Start: 05-17-2019 End: 05-17-2019 Routine 05/17/2019 Routine Obstetrics and Gynecology Ira Qiu DO [address] [address] [facility] Start: 04-25-2019 End: 04-25-2019 Professional / ancillary services management 04/25/2019 Ancillary Procedure Obstetrics and Gynecology [facility] Start: 11-28-2018 Influenza vaccination Flu vaccine (# 1) [facility] Phone: Start: 02-03-2012 Cervical cancer screen Cervical canc er screen [facility] Phone: Start: 02-03-2012 Screening for malign ant neoplasm of cervix [facility] Start: 2009 Adult BMI Follow Up Plan Adult BMI Follow Up Plan [facility] Start: 2006 HIV screen HIV screen [facility] Phone: Start: 2003 COVID-19 Vaccine (1) COVID-19 Vaccin e (1) [employer] Phone: Start: 02-03-1992 Varicella vaccine (1 of 2 - 2-dose childhood series) Varicella vaccine (1 of 2 - 2-dose childhood series) [facility] Start: 1991 COVID-19 Vaccine (#1) COVID-19 Vacci ne (#1) [facility] Start: 1991 Hepatitis B vaccine (1 of 3 - 3-dose series) Hepatitis B vaccine (1 of 3 - 3-dose series) [facility] Start: 1991 TSH testing TSH testing [facility] Phone: End: 05-14-2019 Bacteria identified Cx Nom (U) Urine Culture Microbiology Routine Once for 1 Occurrences starting 05/14/2019 until 05/14/2019 [employer] Phone: Comment on above: Once for 1 Occurrenc es starting 05/14/2019 until 05/14/2019 Bacteria identified Cx Nom (U) [employer] Phone: End: 04-19-2019 Bacteria identified in Urine by Culture Urine Culture Microbiology Routine Amenorrhea Positive urine test Encounter for supervision of normal in first trimester, unspecified 1 Occurrences starting 04/19/2019 until 04/19/2019 [employer] Phone: Comment on above: 1 Occurrences starti ng 04/19/2019 until 04/19/2019 End: 05-27-2023 Bacteria identified in Urine by Culture [facility] Comment on above: One Time for 1 Occur rences starting 05/27/2023 until 05/27/2023 End: 04-19-2019 C.trachomatis N.gonorrhoeae DNA, Urine C.trachomatis N.gonorrhoeae DNA, Urine Microbiology Routine Amenorrhea Positive urine test Encounter for supervision of normal in first trimester, unspecified 1 Occurrences starting 04/19/2019 until 04/19/2019 [employer] Phone: Comment on above: 1 Occurrences starti ng 04/19/2019 until 04/19/2019 C.trachomatis N.gonorrhoeae DNA, Urine C.trachomatis N.gonorrhoeae DNA, Urine Microbiology Routine Amenorrhea Positive urine test Encounter for supervision of normal in first trimester, unspecified 04/19/2019 5:09 PM EST [employer] Phone: End: 11-21-2019 Culture, Strep B Screen, Vaginal/Rectal Culture, Strep B Screen, Vaginal/Rectal Microbiology Routine 36 weeks gestation of 1 Occurrences starting 11/21/2019 until 11/21/2019 [place] Comment on above: 1 Occurrences starti ng 11/21/2019 until 11/21/2019 Culture, Strep B Scr een, Vaginal/Rectal Culture, Strep B Screen, Vaginal/Rectal Microbiology Routine 36 weeks gestation of 11/21/2019 12:30 PM EDT [place] End: 08-05-2023 Culture, Urine [employer] Comment on above: One Time for 1 Occur rences starting 08/05/2023 until 08/05/2023 End: 08-10-2023 Culture, Urine [employer] Comment on above: One Time for 1 Occur rences starting 08/10/2023 until 08/10/2023 End: 09-03-2020 Cytopathology procedure, preparation of smear, genital source PAP SMEAR Lab Routine Women's annual routine gynecological examination 1 Occurrences starting 09/03/2020 until 09/03/2020 [employer] Phone: Comment on above: 1 Occurrences starti ng 09/03/2020 until 09/03/2020 EKG 12 Lead EKG 12 Lead ECG STAT 08/05/2023 4:52 PM EDT [employer] End: 08-05-2023 nonstress test nonstress test OB Routine One Time for 1 Occurrences starting 08/05/2023 until 08/05/2023 [employer] Comment on above: One Time for 1 Occur rences starting 08/05/2023 until 08/05/2023 nonstress test nonst ress test OB Routine Daily until discontinued starting 08/11/2023 [employer] Work Phone: Comment on above: Daily until disconti nued starting 08/11/2023 End: 08-14-2023 nonstress test nonstress test OB Routine One Time for 1 Occurrences starting 08/14/2023 until 08/14/2023 [facility] [employer] [facility] Work Phone: Comment on above: One Time for 1 Occur rences starting 08/14/2023 until 08/14/2023 Nonrebreather mask oxygen Nonrebreather mask oxygen Respiratory Care Routine As Needed until discontinued starting 05/27/2023 [facility] Comment on above: As Needed until disc ontinued starting 05/27/2023 End: 05-27-2023 SVE SVE Point of Care Testing Routine One Time for 1 Occurrences starting 05/27/2023 until 05/27/2023 [facility] Comment on above: One Time for 1 Occur rences starting 05/27/2023 until 05/27/2023 End: 08-10-2023 SVE SVE Point of Care Testing Routine One Time for 1 Occurrences starting 08/10/2023 until 08/10/2023 [facility] Comment on above: One Time for 1 Occur rences starting 08/10/2023 until 08/10/2023 Immunizations Immunization Date Immunization Notes Care Provider Fa cility 12-07-2019 diphtheria, tetanus toxoids and acellular pertussis vaccine, unspecified formulation [facility] 12-07-2019 measles, mumps and rubella virus vaccine [facility] [place] 01-07-2018 Influenza, injectabl e, Madin Leigh Ann Canine Kidney, preservative free, quadrivalent Mago Max ORTHOPEDIC DENTIST-PULP MACHINE OPERATOR Work Phone: [facility] 01-07-2018 influenza virus vaccine, unspecified formulation Mago Max ORTHOPEDIC DENTIST-PULP MACHINE OPERATOR Work Phone: [facility] 01-05-2018 tetanus toxoid, reduced diphtheria toxoid, and acellular pertussis vaccine, adsorbed Mago Max ORTHOPEDIC DENTIST-PULP MACHINE OPERATOR Work Phone: [facility] 04-09-2017 Influenza, injectabl e, Madin [place] Canine Kidney, preservative free, quadrivalent Mago Max ORTHOPEDIC DENTIST-PULP MACHINE OPERATOR Work Phone: [facility] 03-30-2017 influenza, seasonal, injectable Mago Max ORTHOPEDIC DENTIST-PULP MACHINE OPERATOR Work Phone: [facility] 10-14-1996 diphtheria, tetanus toxoids and acellular pertussis vaccine, unspecified formulation Mago Max ORTHOPEDIC DENTIST-PULP MACHINE OPERATOR Work Phone: [facility] 10-14-1996 measles, mumps and rubella virus vaccine Mago Max ORTHOPEDIC DENTIST-PULP MACHINE OPERATOR Work Phone: [facility] 10-14-1996 poliovirus vaccine, inactivated Mago Max ORTHOPEDIC DENTIST-PULP MACHINE OPERATOR Work Phone: [facility] 09-20-1992 diphtheria, tetanus toxoids and pertussis vaccine Mago Max ORTHOPEDIC DENTIST-PULP MACHINE OPERATOR Work Phone: [facility] 05-30-1992 haemophilus influenz ae type b vaccine, conjugate unspecified formulation Mago Max ORTHOPEDIC DENTIST-PULP MACHINE OPERATOR Work Phone: [facility] 05-30-1992 measles, mumps and rubella virus vaccine Mago Max ORTHOPEDIC DENTIST-PULP MACHINE OPERATOR Work Phone: [facility] 1991 diphtheria, tetanus toxoids and pertussis vaccine Mago Max ORTHOPEDIC DENTIST-PULP MACHINE OPERATOR Work Phone: [facility] 1991 haemophilus influenz ae type b vaccine, conjugate unspecified formulation Mago Max ORTHOPEDIC DENTIST-PULP MACHINE OPERATOR Work Phone: [facility] 1991 trivalent poliovirus vaccine, live, oral Mago Max ORTHOPEDIC DENTIST-PULP MACHINE OPERATOR Work Phone: [facility] 1991 diphtheria, tetanus toxoids and pertussis vaccine Mago Max ORTHOPEDIC DENTIST-PULP MACHINE OPERATOR Work Phone: [facility] 1991 haemophilus influenz ae type b vaccine, conjugate unspecified formulation Mago Max ORTHOPEDIC DENTIST-PULP MACHINE OPERATOR Work Phone: [facility] 1991 trivalent poliovirus vaccine, live, oral Mago Max ORTHOPEDIC DENTIST-PULP MACHINE OPERATOR Work Phone: [facility] 1991 diphtheria, tetanus toxoids and pertussis vaccine Mago Max ORTHOPEDIC DENTIST-PULP MACHINE OPERATOR Work Phone: [facility] 1991 haemophilus influenz ae type b vaccine, conjugate unspecified formulation Mago Max ORTHOPEDIC DENTIST-PULP MACHINE OPERATOR Work Phone: [facility] 1991 trivalent poliovirus vaccine, live, oral Mago Max ORTHOPEDIC DENTIST-PULP MACHINE OPERATOR Work Phone: [facility] NEGATED: Highlighted row has not occurred!07-23-2022 influenza virus vaccine, unspecified formulation Marcelina JONAS [facility] [place] NEGATED: Highlighted row has not occurred!07-23-2022 SARS-CoV-2 mRNA (tozinameran 5y-11y) vaccine Marcelina JONAS [facility] [place] Payers Date Payer Category Payer Unknown [facility] [id number] 2023-Present [phone] [address] [address] [place] [address] [id number] 2022 Self-pay 2018 Unknown BCBS [place] - [place] P PO xxxxxxxxxxxxxxx 2018-Present [address] [place] [address] xxxxxxxxxxxxxxx [id number] 1991 Unknown [id number] 1991 Unknown [id number] 2.16.840.1.613027.3.579.2.593 1991 Unknown [id number] 2.16.840.1.812097.3.579.2.593 1991 Unknown [id number] 2.16.840.1.198180.3.579.2.593 1991 Unknown [id number] 2.16.840.1.450974.3.579.2.593 1991 Unknown [id number] 2.16.840.1.749734.3.579.2.593 1991 Unknown [id number] 2.16.840.1.983341.3.579.2.593 1991 Unknown [id number] 2.16.840.1.668429.3.579.2.727 1991 Unknown [id number] 2.16.840.1.161013.3.579.2.727 1991 Unknown [id number] 2.16.840.1.041363.3.579.2.727 1991 Unknown [id number] 2.16.840.1.358217.3.579.2.128 6 1991 Unknown [id number] 2.16.840.1.815319.3.579.2.173 1991 Unknown [id number] 2.16.840.1.511375.3.579.2.173 1991 Unknown [id number] 2.16.840.1.136884.3.579.2.173 1991 Unknown [id number] 2.16.840.1.402525.3.579.2.173 1991 Unknown [id number] 2.16.840.1.691368.3.579.2.173 1991 Unknown [id number] 2.16.840.1.926707.3.579.2.173 1991 Unknown [id number] 2.16.840.1.802156.3.579.2.173 1991 Unknown [id number] 2.16.840.1.449840.3.579.2.173 1991 Unknown [id number] 2.16.840.1.492018.3.579.2.173 1991 Unknown [id number] 2.16.840.1.381148.3.579.2.173 1991 Unknown [id number] 2.16.840.1.574145.3.579.2.173 1958 Medicaid [id number] 1.2.840.172307.1.13.239.2.7.3 .[id number] 1959 Unknown [id number] 1.2.840.303078.1.13.239.2.7.3 .266415.315 Unknown [id number] 2.16.840.1.787044.3.579.2.531 Social History Date Type Detail Facility Start: 05-14-2019 End: 01-14-2023 Tobacco smoking status NYIS Never smoker [facility] Start: 04-19-2019 End: 05-14-2019 Alcohol intake Lifetime non-drinker (finding) [facility] Phone: Start: 04-19-2019 History SDOH Alcohol Frequency 1 [employer] Phone: Start: 02-23-2019 [employer] Phone: Start: 1990 Sex Assigned At Not on file [employer] Phone: Start: 09-27-2019 End: 01-14-2023 Tobacco use and exposure Never used [facility] [place] Exposure to SARS-CoV -2 (event) Not sure [facility] [place], [place] Start: 01-31-2022 End: 08-14-2023 Sex Assigned At [facility] Start: 1990 Sex Assigned At Female [facility] Tobacco smoking status Never [facility] [place] Start: 04-24-2023 End: 08-14-2023 Alcohol intake Ex-drinker (finding) [facility] Start: 04-24-2023 End: 08-14-2023 Alcohol intake [facility] Do you belong to any clubs or organizations such as roman catholic groups, unions, fraternal or athletic groups, or school groups? No [facility] Are you now , , , , never or living with a partner? [facility] How often to you hav e a drink containing alcohol? Monthly or less [facility] How many standard dr inks containing alcohol do you have on a typical day? 3 or 4 [facility] How often do you hav e 6 or more drinks on 1 occasion? Monthly [facility] Do you feel stress - tense, restless, nervous, or anxious, or unable to sleep at night because your mind is troubled all the time - these days [OSQ] Not at all [facility] Start: 01-31-2022 Education 12 [facility] Start: 04-29-2020 Gender identity Identifies as female gender (finding) [facility] Start: 04-29-2020 Sexual orientation Heterosexual (finding) [facility] (I/We) worried wheth er (my/our) food would run out before (I/we) got money to buy more. Never true [facility] Functional Status Date Assessment Result Facility 07-23-2022 Functional Status N/A [facility] Clinical Notes 01-11-2021 to 08-14-2023 Discharge InstructionsJennifer Hidalgo RN - 08/14/2023 11:40 AM Jeninfer Lawrence RN - 08/14/2023 10:34 AM EDTDischarge Elise Stanley RN - 08/10/2023 3:47 PM EDTDischarge Instructions Note Date & Type Note Facility 08-14-2023 Hospital Discharg e instructions Peg Gabriel RN - 08/14/2023 1:37 PM EDT OUTPATIENT DISCHARGE Dr. Malgorzata BRON[address] Dr. Sina Benedict [address] [address] Sina Wilkinson CN [address] [facility] [id number] [phone] Coni Orosco, MSN, ORTHOPEDIC DENTIST, CNM [facility] [address] [facility] [address] [address] Kelly [address] [facility] [id number] Jody Milton CNM [address] [place] [address] [place] [address] Dominique Worrell CNM [address] [place] [address] [place] [address] [phone] ACTIVITY LIMITATIONS: (x )Up and about as desired and tolerated ( )Up to bathroom only ( )Lay on either side ( )Avoid heavy lifting or exercise ( )No sex ( )No nipple stimulation ( )Complet bedrest ( )Avoid using stairs (x )Increase fluids DRINK AT LEAST eight-8oz. Glasses of water daily. Call your Doctor if: ( x )Contractions are every 5 minutes apart (from start of one to the start of the next contraction) lasting 60 seconds for at least 1 hour, strong enough you can not walk or talk through the contraction and regular. ( x )Bag of water breaks ( x )Vaginal bleeding ( x )Unusual pain occurs ( x )Decreased movement ( ) labor: If you have 4 contractions in an hour Keep your scheduled follow up appointment. IN CASE OF EMERGENCY CONTACT LABOR AND DELIVERY . documented in this encounter [facility] 08-14-2023 History of Presen t illness Narrative Zuleyka Cobos is here in L&D at 38w2d for:rule out uterine contractions Maternal Vitals Temp: 97.6 F (36.4 C) Temp Source: Oral BP: 106/60 Pulse: (!) 113 Respirations: 18 Findings Baseline: 130 BPM Baseline Classification: Normal Variability: Moderate Decelerations: None Accelerations: Yes Acoustic Stimulator: No Movement: Yes Multiple Gestation?: No Uterine contractions/10 min.: 3 Interpretation: Reactive Interpreted by: O Gwen RN/Anneliese Gabriel RN $Non Stress Test Charge : Yes NST Time start: 1100 NST Time stop: 1120 NST is reactive. Quality of tracing is satisfactory. Pt arrives to unit at this time with complaints of contractions since 0800 this morning. States she is having contractions that last around 3 minutes pretty close together also states she gets really sweaty and throws up . Rating pains 6/10 at this time. Denies leaking of fluids or vaginal bleeding. Patient provided urine sample and placed on FHR monitors at this time. documented in this encounter [facility] 08-10-2023 Hospital Discharg e Elise Silva RN - 08/10/2023 5:51 PM EDT OUTPATIENT DISCHARGE Dr. Malgorzata Mills [facility] Dr. Sina Benedict [address] [facility] [id number] [place] [address] or [place] ACTIVITY LIMITATIONS: (x )Up and about as desired and tolerated ( )Up to bathroom only (x )Lay on either side ( x)Avoid heavy lifting or exercise ( )No sex ( )No nipple stimulation ( )Complet bedrest ( )Avoid using stairs ( x )Increase fluids DRINK AT LEAST eight-8oz. Glasses of water daily. Call your Doctor if: ( x )Contractions are every 5 minutes apart (from start of one to the start of the next contraction) lasting 60 seconds for at least 1 hour, strong enough you can not walk or talk through the contraction and regular. (x )Bag of water breaks (x )Vaginal bleeding ( x )Unusual pain occurs ( x )Decreased movement ( ) labor: If you have 4 contractions in an hour Keep your scheduled follow up appointment. . IN CASE OF EMERGENCY CONTACT LABOR AND DELIVERY . documented in this encounter [facility] 08-10-2023 History of Presen t illness Narrative Candy Cooker Helper calls report to Tamanna ALEJO and reports pt arrival, complaints of contractions since this morning, SVE, urinalysis results and that patient on keflex since 08/05/23 for UTI, pt c/o decreased movement - NST reactive. Order received to send urine culture and Tamanna ALEJO will discuss with Dr. Russell if she wants patient to go to 5:45pm appointment or stay in unit and have SVE in 2 hrs. Tamanna ALEJO will call typewriters functional tester back. Patient arrives from home, states she has been having contractions since 07:30 this morning, states they are spread out . Pt reports decreased movement. Pt denies vaginal bleeding, pt denies leaking of fluid. Pt states she is having mucous like discharge. Pt denies problems during . Pt states she is on the last day of antibiotic for UTI. Pt sees Dr. Russell for care and had appt last Thursday and was 1cm dilated. Pt states she also has an appt today at 5:45pm. Pt denies headache, blurred vision or epigastric pain. Pt denies pain or frequency when urinating. documented in this encounter [facility] 08-05-2023 Hospital Discharg Heather Frank RN - 08/05/2023 9:08 PM EDT OUTPATIENT DISCHARGE Dr. Malgorzata Mills [facility] Dr. Sina Benedict [facility] [address] [facility] [address] [facility] [address] [address] Sina Wilkinson [facility] [address] [facility] [address] [phone] ACTIVITY LIMITATIONS: ( x )Up and about as desired and tolerated ( )Up to bathroom only ( )Lay on either side ( )Avoid heavy lifting or exercise ( )No sex ( )No nipple stimulation ( )Complet bedrest ( )Avoid using stairs ( x )Increase fluids DRINK AT LEAST eight-8oz. Glasses of water daily. Call your Doctor if: ( x )Contractions are every 5 minutes apart (from start of one to the start of the next contraction) lasting 60 seconds for at least 1 hour, strong enough you can not walk or talk through the contraction and regular. ( x )Bag of water breaks ( x )Vaginal bleeding ( x )Unusual pain occurs ( x )Decreased movement ( ) labor: If you have 4 contractions in an hour Keep your scheduled follow up appointment. Or call for a follow up on . IN CASE OF EMERGENCY CONTACT LABOR AND DELIVERY . documented in this encounter [facility] 08-05-2023 [facility] Discharg Rosio Villarreal DO - 08/05/2023 6:29 PM EDT Try to increase your fluid intake. Return if you have any worsening symptoms. The following attachments cannot be sent through Care Everywhere.Palpitations (Telugu)documented in this encounter [facility] 05-27-2023 [facility] Discharg e Heather Ruzi RN - 05/27/2023 10:29 PM EST OUTPATIENT DISCHARGE Dr Sina Wilkinson [facility] [address] [facility] [address] [phone] ACTIVITY LIMITATIONS: ( x )Up and about as desired and tolerated ( )Up to bathroom only ( )Lay on either side ( )Avoid heavy lifting or exercise ( )No sex ( )No nipple stimulation ( )Complet bedrest ( )Avoid using stairs ( x )Increase fluids DRINK AT LEAST eight-8oz. Glasses of water daily. Call your Doctor if: ( )Contractions are every 5 minutes apart (from start of one to the start of the next contraction) lasting 60 seconds for at least 1 hour, strong enough you can not walk or talk through the contraction and regular. ( x )Bag of water breaks ( x )Vaginal bleeding ( x )Unusual pain occurs ( x )Decreased movement ( x ) labor: If you have 4 contractions in an hour Keep your scheduled follow up appointment. Or call for a follow up on . IN CASE OF EMERGENCY CONTACT LABOR AND DELIVERY . documented in this encounter [facility] 05-27-2023 History of Presen t illness Narrative Jody Benedict CNM called and notified of UA results, CBC and CMP results. Provider informed that pt is still complaining of headache despite oral hydration. Provider orders 50mg Vistaril PO to be given to pt. documented in this encounter [facility] 04-24-2023 History of Presen t illness Narrative Subjective Patient ID: Zuleyka Cobos is a 33 y.o. female. She was in the ER yesterday for acute onset uriticarial rash She was treated with prednisone on Thursday when she was diagnosed with influenza On Thursday she went in for her regular IV fluids she has been being treated with for her hyperemesis gravidarum On she developed the acute itchy and broke out with the hives, they gave her IV benadryl and stopped the prednisone Today she still have diffuse hives and not only do they itch but they are painful and swollen as they are all over the palms of her hands and feet She is not having any respiratory distress The following portions of the patient's history were reviewed and updated as appropriate: allergies, current medications, past family history, past medical history, past social history, past surgical history, problem list, and medication reconciliation was completed including current medication and post discharge medication. Review of Systems Constitutional: Negative. HENT: Positive for congestion. Eyes: Negative. Respiratory: Positive for cough. Negative for shortness of breath. Gastrointestinal: Positive for nausea and vomiting. Negative for diarrhea. Endocrine: Negative. Genitourinary: Negative. Musculoskeletal: Negative. Skin: Positive for rash. Allergic/Immunologic: Negative. Hematological: Negative. Psychiatric/Behavioral: Negative. Objective Physical Exam Vitals and nursing note reviewed. Constitutional: Appearance: She is ill-appearing. HENT: Head: Normocephalic. Right Ear: Tympanic membrane and ear canal normal. Left Ear: Tympanic membrane and ear canal normal. Nose: Congestion present. Mouth/Throat: Mouth: Mucous membranes are moist. Eyes: Conjunctiva/sclera: Conjunctivae normal. Cardiovascular: Rate and Rhythm: Normal rate and regular rhythm. Heart sounds: Normal heart sounds. No murmur heard. Pulmonary: Effort: Pulmonary effort is normal. Breath sounds: Normal breath sounds. Musculoskeletal: Cervical back: Neck supple. Right lower leg: No edema. Left lower leg: No edema. Lymphadenopathy: Cervical: No cervical adenopathy. Skin: General: Skin is warm and dry. Capillary Refill: Capillary refill takes less than 2 seconds. Comments: Small hives on palms of hands, numerous Swelling of heels with hives on the dorsum of feet numerous Upper extremities, numerous small hives on the upper arms and a few on the forearms None on the face and chest Neurological: Mental Status: She is alert. Motor: No weakness. Gait: Gait normal. Psychiatric: Behavior: Behavior normal. Thought Content: Thought content normal. Assessment/Plan Zuleyka was seen today for follow-up. Diagnoses and all orders for this visit: Acute idiopathic urticaria - hydrOXYzine (ATARAX) 10 mg tablet; Take 1 tablet (10 mg total) by mouth every 6 (six) hours as needed for itching (hives). - famotidine (PEPCID) 20 mg tablet; Take 1 tablet (20 mg total) by mouth in the morning and 1 tablet (20 mg total) before bedtime. Influenza Hyperemesis affecting , antepartum From her history and reviewing her ER record it seems most likely the urticaria is part of her influenza virus and not the prednisone however it seems prudent not to resume the prednisone at this time She is getting no relief with the benadryl which is typical of an urticaria of viral origin Will try swithcing to hydroxyzine instead which is still safe for her , she should use this until the urticaria subsides Will also try adding an additional histamine karlene in pepcid She should continue her zofran for the hyperemesis and her weekly IV for hydration Discussed that obviously this is uncomfortable but it is self-limited however if she has any airway symptoms she would need to return to the ER She does seem other than a cough to have recovered from the influenza RAD[facility] Murillo 04/24/23 1418 [facility] note Encounter Date Diagnosis Assessment [...] Z34.92) Mar, Acute cough (ICD-10 - R05.1) [facility] Other 05-03-2023 Evaluation note* Encounter Date Diagnosis [...] of diseases classified elsewhere (ICD-10 - B96.89) [facility] Other 04-26-2023 NoteChief Complaint consultation for abdominal pain HPI Staff 32 year old female presents on consultation from [facility] [place] [facility] for abdominal pain. Presented to ED [...] female with h/o GERD, hypothyroidism, referred from [facility] ED for several week h/o intermittent RUQ [...] E&M of New Patient Moderate 45-59 Min 47457 2. Gastroesophageal reflux disease (K21.9: Gastro-esophageal reflux disease without esophagitis) will begin Protonix daily. Ordered: pantoprazole, 40 mg = 1 tab(s), Oral, Daily, # 30 tab(s), Refills(s) 3, Pharmacy: [facility] #[id number], 165, cm, 07/23/22 13:58:00 EDT, Height/Length Dosing, 104.5, kg, 07/23/22 13:58:00 EDT, Weight Dosing E&M of New Patient Moderate 45-59 Min 64471 Follow-up No qualifying data available Problem List/Past Medical History Ongoing BMI 38.0-38.9,adult Gastroesophageal reflux disease Hiatal hernia Hypothyroidism RUQ pain Symptomatic cholelithiasis Vitamin D deficiency Historical No qualifying data Procedure/Surgical History Appendectomy. Medications Protonix 40 mg Tab-DR, 40 mg= 1 tab(s), Oral, Daily, 3 refills Slynd 4 mg oral tablet, 4 mg= 1 tab(s (more content not included)...[facility]Result Comment: Electronically Signed By: SUMI BARKLEY, Marcelina Alston\Date and Time Signed: 07/23/22 14:27 [id number] Evaluation note* Encounter Date Diagnosis Assessment Notes [...] understanding and is agreeable to treatment plan [employer] Other 10-12-2022 Evaluation note* Encounter Date Diagnosis [...] no improvement in 2 to 3 days. [employer] [facility] Other 11-30-2021 Evaluation note* Encounter Date Diagnosis Assessment Notes Treatment Notes Treatment Clinical Notes Jan, Herpes zoster without complication (ICD-10 - B02.9) [facility] Other 10-15-2021 Evaluation note* Encounter Date Diagnosis [...] Patient care instructions given in writting by [facility] Care At Home document. [employer] Other Evaluation + Plan note No data available for this section [facility] [place] Evaluation note* Diagnosis Women's annual routine gynecological examination documented in this encounter [employer] Work Phone: evaluation note* Diagnosis Amenorrhea Absence of menstruation Positive urine test Encounter for supervision of normal in first trimester, unspecified BMI 40.0-44.9, adult (HCC) Body Mass Index 40.0-44.9, adult Thyroid disease, antepartum Thyroid dysfunction, antepartum documented in this encounter [employer] Work Phone: evaluation noteNo assessment information available [facility] Work Phone: Evaluation noteNo InformationNort [employer] Other Evaluation note* Diagnosis Acute idiopathic urticaria- Primary Influenza Influenza with other respiratory manifestations Hyperemesis affecting , antepartum [facility]* Diagnosis Single live - Primary documented in this encounter [facility] [employer] note* Diagnosis 33 weeks gestation of state, incidental documented in this encounter [facility] note* Diagnosis Episodic Tachycardia- Primary Tachycardia, unspecified Dehydration documented in this encounter [facility] note* Diagnosis Uterine contractions during - Primary documented in this encounter [facility] note* Diagnosis Abdominal cramping- Primary Abdominal pain, unspecified site [facility] - Reported* Type Description Date Surgical History appendectomy Hospitalization History see above [employer] Other Hisgoyf general Narrative - Reported* Type Description Date Surgical History appendectomy Surgical History cholecystectomy Hospitalization History see above [facility] Other Hospital Discharge instructions No data available for this section General Surgery Tactilize InstructionsNot on filedocumented in this encounter classmarketsProgress note No data available for this section General Surgery [facility] Discharge Instructions * Instructions* Carmella Vaca PA-C - 05/14/2019 Continue pushing liquids for the next 48 hours. Keep follow-up as scheduled with [facility]. If you go home and develop any worsening symptoms do not hesitate to return the emergency room. * Attachments The following attachments cannot be sent through Care Everywhere. * Nausea and Vomiting (Telugu) documented in this encounter* Instructions* Keya Haq RN - 12/09/2019 Follow-up with your OB doctor as specified. [facility] OB Department phone: Dr. Malgorzata Mills CNM Dr. Sina Benedict CNM [address] [facility] [address] [facility] [address] [place] Coni Orosco, MSN, ORTHOPEDIC DENTIST, CNM [place] [id number] [address] [address] Kelly [address] [facility] [id number] Jody Milton CNM [address] [place] [address] [place] [address] Dominique Worrell CNM [address] [place] [address] [place] [address] [phone] DIET Eat a well balanced diet focusing on foods high in fiber and protein. Drink plenty of fluids especially water. To avoid constipation you may take a mild stool softener as recommended by your doctor or advertising agency manager. ACTIVITY Gradually increase your activity. Resume exercise regimen only after advice by your doctor or advertising agency manager. Avoid lifting anything heavier than a gallon of milk for SIX weeks. Avoid driving until your doctor or advertising agency manager has given their approval. Rise slowly from [...] of harming yourself or your . If infant will not stop crying, contact another adult [...] medications as recommended by your doctor or advertising agency manager for pain If you develop a warm, [...] vitamins as directed by your doctor or advertising agency manager. Refer to the booklet in the folder/binder for more information. If you feel you need more assistance or have questions, please call Latasha Iqbal IBCLC, inside sales consultant, at or the OB department to [...] they become loose or soiled. If used, [place] should be removed by your care provider. [...] FoundDocuments on File Type Date Recorded Patient Geoscience Laboratory Technician Expl anation Advance Directives and Living Will Power of Cotton Classer Documents on File Type Date Recorded Patient Geoscience Laboratory Technician Expl anation ACP-Advance Directive ACP-Power of Cotton Classer Latest Code Status on File Code Status Date Activated Date Inactivated Comments Full Code 12/07/2019 11:44 PM Full Code 12/07/2019 7:37 AM 12/07/2019 11:44 PM Full Code 12/07/2019 6:26 AM 12/07/2019 7:37 AM Latest Code Status on File Code Status Date Activated Date Inactivated Comments Full Code 12/07/2019 11:44 PM 12/09/2019 4:37 PM Latest Code Status on File Code Status Date Activated Date Inactivated Comments Full Code 05/27/2023 6:50 PM Code Status History Code Status Date Activated Date Inactivated Comments Full Code 12/07/2019 11:44 PM 12/09/2019 4:37 PM Full Code 12/07/2019 7:37 AM 12/07/2019 11:44 PM Full Code 12/07/2019 6:26 AM 12/07/2019 7:37 AM Latest Code Status on File Code Status Date Activated Date Inactivated Comments Full Code 06/27/2023 7:50 AM 06/27/2023 11:10 AM Code Status History Code Status Date Activated Date Inactivated Comments Full Code 05/27/2023 6:50 PM 05/28/2023 6:50 AM Full Code 12/07/2019 11:44 PM 12/09/2019 4:37 PM Full Code 12/07/2019 7:37 AM 12/07/2019 11:44 PM Full Code 12/07/2019 6:26 AM 12/07/2019 7:37 AM Latest Code Status on File Code Status Date Activated Date Inactivated Comments Full Code 08/10/2023 3:05 PM Code Status History Code Status Date Activated Date Inactivated Comments Full Code 06/27/2023 7:50 AM 06/27/2023 11:10 AM Full Code 05/27/2023 6:50 PM 05/28/2023 6:50 AM Full Code 12/07/2019 11:44 PM 12/09/2019 4:37 PM Full Code 12/07/2019 7:37 AM 12/07/2019 11:44 PM Latest Code Status on File Code Status Date Activated Date Inactivated Comments Full Code 08/10/2023 3:05 PM 08/10/2023 8:26 PM History of Present Illness * Jody Benedict, ORTHOPEDIC DENTIST - CNM - 12/09/2019 9:31 AM EDT [...] sleeping inopen crib at mom's bedside. * Jody Milton, ORTHOPEDIC DENTIST - CNM - 12/08/2019 8:05 AM EDT [...] 2215 99 % 12/07/19 2210 99 % 12/07/195 103/65 103 98 % 12/07/19 2200 97 % 12/07/19 2155 99 % 12/07/19 2151 107/62 106 12/07/190 100 % 12/07/192144 97 % 12/07/192 91 % 12/07/190 100 % 12/07/196 114/65 109 12/07/195 99 % 12/07/190 99 % 12/07/195 99 % 09/09/20 2120 106/65 99 100 % 12/07/192115 112/62 100 12/07/192114 98 % 12/07/190 114/70 [...] Contact Referred To Contact Diagnoses Term Ira Qiu, [address] [place] [address] [facility] Reason Comments Follow-up Seen in [place] ER yesterday for allergic reaction Reason Comments Tachycardia 38 Week fem jesika that presents to the emergency department with complaint of high heart rate that comes and goes for the past [address] Russell recommended that she come to the emergency department for an evaluation. Reason Comments Contractions Reason Comments Contractions Denies leaking of fl uid INFORMATION SOURCE (unrecogn ized section and content) DATE CREATED AUTHOR 01/27/2021 [facility] DATE CREATED AUTHOR AUTHOR'S ORGANIZ ATION 08/13/2022 [facility] DATE CREATED AUTHOR AUTHOR'S ORGANIZ ATION 09/05/2022 [facility] DATE CREATED AUTHOR AUTHOR'S ORGANIZ ATION 01/04/2023 [facility] DATE CREATED AUTHOR AUTHOR'S ORGANIZ ATION 04/26/2023 [facility] DATE CREATED AUTHOR AUTHOR'S ORGANIZ ATION 08/24/2023 Chey Rosado [facility] Care Teams (unrecognized sec tion and content) Team Status: Inactive Member Role Status Dates Abbey Sanders APRN Attending Provider Active Medical Physics Professor Relationship Specialty Start Date End Date Sal Butts DO [address], [place] [address] PCP - General Family Medicine 06/10/17 Medical Physics Professor Relationship Specialty Start Date End Date Sal Butts PCP - General Family Medicine 04/19/19 Medical Physics Professor Relationship Specialty Start Date End Date Sal Butts PCP - General Family Medicine 04/19/19 Medical Physics Professor Relationship Specialty Start Date End Date FelipaSal medina PCP - General Family Medicine 04/19/19 Medical Physics Professor Relationship Specialty Start Date End Date FelipaSal medina PCP - General Family Medicine 04/19/19 Medical Physics Professor Relationship Specialty Start Date End Date Sal Butts PCP - General Family Medicine 04/19/19 Medical Physics Professor Relationship Specialty Start Date End Date Sal Butts PCP - General Family Medicine 04/19/19 Goals (unrecognized section and content) Goals may be documented in a n alternate section Scheduled Active and Recently Administ ered Medications (unrecognized section and content) Medication Order 05/25/2023 05/26/2023 05/27/2023 hydrOXYzine pamoate (VISTARIL) capsule 50 mg (COMPLETED) 50 mg, Oral, ONCE, 1 dose, On Thu05/27/23 at 2045 2040 (Given - Provid er: Rosmery Cervantes RN) lactated ringers bolus 500 mL (COMPLETED) 500 mL, IntraVENous, at 247.9 mL/hr, Administer over 121 Minutes, ONCE, On Thu05/27/23 at 2130, For 1 dose 2119 (New Bag - Prov ider: Rosmery Cervantes RN)2120 (Rate/Dose Change - Provider: Lindsey Schroeder RN)2150 (Stopped - Provider: Lindsey Schroeder RN)2150 (Stopped - Provider: Lindsey Schroeder RN) ondansetron (ZOFRAN) injection 4 mg (COMPLETED) 4 mg, IntraVENous, ONCE, 1 dose, On Thu05/27/23 at 2130 2120 (Given - Provid er: Rosmery Cervantes RN) Scheduled Medication Order 08/03/2023 08/04/2023 08/05/2023 sodium chloride 0.9 % bolus 1,000 mL (COMPLETED) 1,000 mL (10 mL/kg), IntraVENous, at 983.6 mL/hr, Administer over 61 Minutes, ONCE, On Thu08/05/23 at 1745, For 1 dose, For adult patients weighing > 55 kg (120 lbs.) and less than <50 years of age initiate 0.9NS at 500 mL/ hr. All bolus orders are to be given over 10 to 15 minutes 1809 (New Bag - Prov ider: Katina Tavarez RN)1902 (Stopped - Provider: Katina Tavarez RN - Comment: pt transferred to OB.)1910 (Due: Stopped - Provider: Katina Tavarez RN) Scheduled Medication Order 08/03/2023 08/04/2023 08/05/2023 cephALEXin (KEFLEX) capsule 500 mg (COMPLETED) 500 mg, Oral, ONCE, 1 dose, On Thu08/05/23 at 2030, Antimicrobial Indications: Urinary Tract Infection, UTI duration of therapy: 7 days 2105 (Given - Provid er: Heather Jones RN) Scheduled Medication Order 08/12/2023 08/13/2023 08/14/2023 lactated ringers bolus 500 mL (COMPLETED) 500 mL, IntraVENous, at 247.9 mL/hr, Administer over 121 Minutes, ONCE, On Thu08/14/23 at 1230, For 1 dose 1225 (New Bag - Prov ider: Jennifer Hidalgo RN)1227 (Rate/Dose Change - Provider: Peg Gabriel RN)1257 (Rate/Dose Change - Provider: Peg Gabriel RN)1258 (Rate/Dose Change - Provider: Peg Gabriel RN)1338 (Rate/Dose Verify - Provider: Peg Gabriel RN)1340 (Stopped - Provider: Peg Gabriel RN)1426 (Due: Stopped - Provider: Jennifer Hidalgo RN) ondansetron (ZOFRAN) injection 4 mg (COMPLETED) 4 mg, IntraVENous, ONCE, 1 dose, On Thu08/14/23 at 1230 1225 (Given - Provid er: Jennifer Hidalgo RN) Ordered Prescriptions (unrec ognized section and content) Prescription Sig Dispensed Refills Start Date End Da te cephALEXin (KEFLEX) 500 MG capsule Take 1 capsule by mouth 3 times daily 21 capsule 0 08/05/2023 FOR RECORDS PERTAINING TO PATIENTS WHO ARE [...] BE BASED ON THE PRIMARY CLINICAL RECORDS. [employer] [facility]. provides no warranty or guarantee of the accuracy or completeness of information in this document.
--- NOTE | 2023-10-14 11:50 | XR_ITS ---
[facility] [place] [id number] Patient Name: ZULEYKA COBOS MRN: [id number] date: 1990 Sex: F Assigned Patient Location: [facility] Current Patient Location: Accession/Order Number: [id number] Exam Date: 10/14/2023 11:55 Report Date: 10/15/2023 05:13 At the request of: MURPHY SOLANO Procedure: XR chest 2V EXAMINATION: XR chest 2V HISTORY: Chest Wall Pain R07.89 COMPARISON: No relevant comparison available. FINDINGS: LUNGS: No significant pulmonary parenchymal abnormalities. VASCULATURE: No increased pulmonary vasculature. PLEURA: No pneumothorax, effusion, or pleural thickening. CARDIAC: No cardiomegaly or cardiac silhouette abnormality. MEDIASTINUM: No visible mass or adenopathy. BONES: No fracture or visible bone lesion. OTHER: Negative. XR/XR chest 2V IMPRESSION: 1. Normal chest x-ray. Electronically authenticated by: GABE PETERSON Date: 10/15/2023 05:13
== END 2023-10-14 11:31 | disposition home or self-care (01) ==
PROVIDERS: PCP Family Medicine; Visit Provider Nurse Practitioner
DX: R07.89 Other chest pain (principal)
CPT/HCPCS: 71046